=== PATIENT | male | born 1940 | race Two or more races ===

== ENCOUNTER 2018-05-04 01:53 | Inpatient (IN) | payer MEDICARE, MEDICAID ==
[~2018-05-04] VITALS: Ht 167.6 cm; Wt 68.0 kg
[~2018-05-04 01:53] MED LIST: ASPIR 8181 MG ORAL; BENAZEPRIL HCL10 MG ORAL; HUMALOG100 UNIT/4 SUBQ; LANTUS SOL100 UNIT/1 SUBQ; SIMVASTATIN40 MG ORAL; [UNRECOGNIZED DRUG - OTHER] PO
[2018-05-04] MEDS ORDERED: D5NS 1,000 ML IV SCH (02:15)
[2018-05-04 02:41] LABS: EOSINOPHILS % (AUTO) 5.2 % (0.0-3.0); HEMATOCRIT 35.6 % (42.0-52.0); HEMOGLOBIN 12.1 G/DL (14.2-18.0); LYMPHOCYTES % (AUTO) 8.2 % (20.0-45.0); MEAN CORPUSCULAR VOLUME 96 FL (80-99); MONOCYTES % (AUTO) 6.7 % (1.0-10.0); PLATELET COUNT 175 K/UL (150-450); RED BLOOD COUNT 3.71 M/UL (4.70-6.10); RED CELL DISTRIBUTION WIDTH 10.3 % (11.6-14.8); WHITE BLOOD COUNT 10.2 K/UL (4.8-10.8)
[2018-05-04 02:49] LABS: ANION GAP 6 mmol/L (5-15); BLOOD UREA NITROGEN 21 mg/dL (7-18); CALCIUM 9.8 MG/DL (8.5-10.1); CARBON DIOXIDE 28 MMOL/L (21-32); CHLORIDE 96 MMOL/L (98-107); CREATININE 0.8 MG/DL (0.55-1.30); POTASSIUM 4.4 MMOL/L (3.5-5.1); SODIUM 130 MMOL/L (136-145)
[2018-05-04 03:00] LABS: ALANINE AMINOTRANSFERASE 30 U/L (12-78); ALBUMIN/GLOBULIN RATIO 1.2 (1.0-2.7); ALKALINE PHOSPHATASE 55 U/L (46-116); ASPARTATE AMINO TRANSFERASE 28 U/L (15-37); BILIRUBIN,TOTAL 0.4 MG/DL (0.2-1.0)
[2018-05-04 03:46] VITALS: BP 148/80
[2018-05-04 04:40] VITALS: BP 130/71
--- NOTE | 2018-05-04 05:27 | Emergency Room Report ---
History of Present Illness General Chief Complaint: General Complaint Source: Family Member, EMS Present Illness HPI 78-year-old male presents to ED for evaluation. Patient brought in by EMS. at bedside states that patient's Accu-Chek was low. EMS states that their Accu-Chek machine was low. was giving patient glucose. History of diabetes. states this is happening previously. Patient appears altered since last night. Accu-Chek in triage in the 50s. Patient denies any chest pain or shortness of breath. Denies fevers or chills. No other aggravating relieving factors. Denies any other associated symptoms Allergies: Coded Allergies: NO KNOWN ALLERGIES (Unverified Allergy, Unknown, 05/04/18) Patient History Past Medical History: DM, HTN, CVA/TIA Past Surgical History: none Pertinent Family History: none Social History: Denies: smoking, alcohol use, drug use Immunizations: UTD Reviewed Nursing Documentation: PMH: Agreed; PSxH: Agreed Nursing Documentation-PMH Hx Cardiac Problems: Yes Hx Hypertension: Yes Hx Diabetes: Yes Hx Cancer: No Hx Gastrointestinal Problems: Yes Hx Neurological Problems: No Hx Cerebrovascular Accident: Yes - March 2016 Review of Systems All Other Systems: negative except mentioned in HPI Physical Exam Vital Signs Date Time Temp Pulse Resp B/P (MAP) Pulse Ox O2 Delivery O2 Flow Rate FiO2 05/04/18 01:54 98.3 64 16 150/76 99 Room Air 98.2 Sp02 EP Interpretation: reviewed, normal General Appearance: no apparent distress, alert, GCS 15, non-toxic Head: normocephalic, atraumatic Eyes: bilateral eye normal inspection, bilateral eye PERRL ENT: hearing grossly normal, normal pharynx, no angioedema, normal voice Neck: full range of motion, supple/symm/no masses Respiratory: chest non-tender, lungs clear, normal breath sounds, speaking full sentences Cardiovascular #1: regular rate, rhythm, no edema Cardiovascular #2: 2+ carotid (R), 2+ carotid (L), 2+ radial (R), 2+ radial (L) , 2+ dorsalis pedis (R), 2+ dorsalis pedis (L) Gastrointestinal: normal bowel sounds, non tender, soft, non-distended, no guarding, no rebound Rectal: deferred Genitourinary: normal inspection, no CVA tenderness Musculoskeletal: back normal, gait/station normal, normal range of motion, non- tender Neurologic: alert, oriented x3, responsive, motor strength/tone normal, sensory intact, speech normal Psychiatric: judgement/insight normal, memory normal, mood/affect normal, no suicidal/homicidal ideation Reflexes: 3+ bicep (R), 3+ bicep (L), 3+ tricep (R), 3+ tricep (L), 3+ knee (R) , 3+ knee (L) Skin: normal color, no rash, warm/dry, well hydrated Lymphatic: no adenopathy Medical Decision Making Diagnostic Impression: Primary Impression: Hypoglycemia ER Course Hospital Course 78-year-old male presenting to ED with generalized weakness, low FS in field Differential diagnoses include: dehyration, sepsis, hypoglycemia Clinical course Patient placed on stretcher. On patient monitor. After initial history and physical I ordered labs. accucheck in the 50s. given food, given D50 Labs-glucose 54, Na 130, no leukocytosis, hb/hct stable Because patient is on long-acting lantus, it is possible that he can again become hypoglycemic. Patient recommended to be admitted. Patient agrees to plan. started on D5 NS Case discussed with Dr. Martines and he agreed to accept the patient to his service for further care and support i. I feel this is a highly complex case requiring extensive working including EKG/Rhythm strip, Xray/CT/US, Blood/urine lab work, repeat exams while in ED, and administration of strong opiates/narcotics for pain control, admission to hospital or close patient follow up. diagnosis - hypoglycemia admitted to floor in serious condition Labs Test 05/04/18 02:18 White Blood Count 10.2 K/UL (4.8-10.8) Red Blood Count 3.71 M/UL (4.70-6.10) Hemoglobin 12.1 G/DL (14.2-18.0) Hematocrit 35.6 % (42.0-52.0) Mean Corpuscular Volume 96 FL (80-99) Mean Corpuscular Hemoglobin 32.8 PG (27.0-31.0) Mean Corpuscular Hemoglobin Concent 34.1 G/DL (32.0-36.0) Red Cell Distribution Width 10.3 % (11.6-14.8) Platelet Count 175 K/UL (150-450) Mean Platelet Volume 6.4 FL (6.5-10.1) Neutrophils (%) (Auto) 79.0 % (45.0-75.0) Lymphocytes (%) (Auto) 8.2 % (20.0-45.0) Monocytes (%) (Auto) 6.7 % (1.0-10.0) Eosinophils (%) (Auto) 5.2 % (0.0-3.0) Basophils (%) (Auto) 1.0 % (0.0-2.0) Sodium Level 130 MMOL/L (136-145) Potassium Level 4.4 MMOL/L (3.5-5.1) Chloride Level 96 MMOL/L (98-107) Carbon Dioxide Level 28 MMOL/L (21-32) Anion Gap 6 mmol/L (5-15) Blood Urea Nitrogen 21 mg/dL (7-18) Creatinine 0.8 MG/DL (0.55-1.30) Estimat Glomerular Filtration Rate mL/min (>60) Glucose Level 54 MG/DL (74-106) Calcium Level 9.8 MG/DL (8.5-10.1) Magnesium Level 2.1 MG/DL (1.8-2.4) Total Bilirubin 0.4 MG/DL (0.2-1.0) Aspartate Amino Transf (AST/SGOT) 28 U/L (15-37) Alanine Aminotransferase (ALT/SGPT) 30 U/L (12-78) Alkaline Phosphatase 55 U/L (46-116) Total Protein 7.4 G/DL (6.4-8.2) Albumin 4.0 G/DL (3.4-5.0) Globulin 3.4 g/dL Albumin/Globulin Ratio 1.2 (1.0-2.7) Acetone Level Negative (NEGATIVE) Last Vital Signs Date Time Temp Pulse Resp B/P (MAP) Pulse Ox O2 Delivery O2 Flow Rate FiO2 05/04/18 04:40 97.5 63 18 130/71 99 Room Air 97.5 Status: improved Disposition: ADMITTED INPATIENT Condition: Serious Referrals: NOT CHOSEN IPA/,REFERRING (PCP) Jame Buitrago MD May 04, 2018 05:27
[2018-05-04] MEDS ORDERED: Ketorolac 30mg Inj IV PRN (07:30)
[2018-05-04] MEDS ORDERED: Mylanta II UD 30ml ORAL PRN (07:30)
[2018-05-04] MEDS ORDERED: Morphine Sulfate 2mg/ml Inj IVP PRN (07:30)
[2018-05-04] MEDS ORDERED: Albuterol/Ipratropium 3ml neb HHN PRN (07:30)
[2018-05-04] MEDS ORDERED: Miralax 17gm pkt ORAL PRN (07:30)
[2018-05-04] MEDS ORDERED: Nitroglycerin Subl 0.4mg tab SL PRN (07:30)
[2018-05-04 09:00] VITALS: BP 149/75
[2018-05-04] MEDS ORDERED: Heparin 5000 units/ml inj SUBQ SCH (09:00)
[2018-05-04] MEDS: Aspirin Baby 81mg ORAL SCH (09:00)
[2018-05-04] MEDS: Benazepril 10mg tab ORAL SCH (09:46)
[2018-05-04] MEDS: Heparin 5000 units/ml inj SUBQ SCH ×2 (09:48→20:40)
--- NOTE | 2018-05-04 10:49 | History & Physical ---
History and Physical History & Physicial Dictated for Int Med-Dr Martines no. [id number]. Steve Diallo MD May 04, 2018 10:49
--- NOTE | 2018-05-04 11:30 | History and Physical Report ---
DATE OF ADMISSION: 05/04/2018 CHIEF COMPLAINT: The patient is a 78-year-old Nigerian male presents with a chief complaint of low blood sugar. HISTORY OF PRESENT ILLNESS: The patient has a history of diabetes. The patient states his blood sugar has been labile over the past couple of days. Sometimes it is over 400 and sometimes it is less than 60. The patient also has had constipation. The patient states constipation is accompanied by abdominal pain. The patient has also had increased frequency of urination. The patient has stated that he is going to the restroom approximately 15 times in the last couple of hours. The patient also had urinary incontinence. The patient presented to [place] emergency room. An initial venous blood sample showed a blood sugar of 54. The patient was admitted for hypoglycemia and uncontrolled diabetes. REVIEW OF SYSTEMS: CONSTITUTIONAL: The patient denies weight loss or gain. The patient denies fevers or chills. HEENT: The patient denies ear or throat pain. The patient denies headache. CARDIOVASCULAR: The patient denies palpitations or chest pain. CHEST: The patient denies wheeze or shortness of breath. ABDOMEN: The patient complains of generalized abdominal pain. The patient complains of constipation. The patient denies nausea, vomiting, or diarrhea. NEUROMUSCULAR: The patient denies seizures or generalized weakness. GENITOURINARY: The patient complains of increased frequency of urination as above. The patient denies dysuria. PAST MEDICAL HISTORY: Significant for: 1. Uncontrolled diabetes. 2. Hypertension. 3. History of cerebrovascular accident in 2016. 4. Right hemiplegia. PAST SURGICAL HISTORY: Significant for: 1. Bilateral cataract surgery. 2. Exploratory laparotomy for gastric ulcer. CURRENT MEDICATIONS: 1. Aspirin 81 mg one tablet p.o. daily. 2. Benazepril 10 mg p.o. daily. 3. Lantus 6 units subcutaneously at bedtime. 4. Lispro sliding scale. 5. Zocor 40 mg p.o. at bedtime. ALLERGIES: No known drug allergies. SOCIAL HISTORY: The patient is and lives with his . The patient is retired. The patient denies tobacco or alcohol use. PHYSICAL EXAMINATION: VITAL SIGNS: Temperature 98.2, respirations 16, pulse 64, and blood pressure 150/76. GENERAL: The patient is well developed, well nourished, [place] male, in no apparent distress. HEENT: Eyes, pupils equal and responsive to light and accommodation. Extraocular movements are intact. NECK: Supple without lymphadenopathy. CHEST: Lungs are clear to auscultation bilaterally without wheezes or rales. CARDIOVASCULAR: Regular rate. S1, S2 normal without murmurs, rubs, or gallops. ABDOMEN: Soft, nontender, and nondistended. Positive bowel sounds. No evidence of hepatosplenomegaly. Currently, no rebound or guarding noted. EXTREMITIES: Negative for clubbing, cyanosis, or edema. RECTAL: Refused. GENITAL: Refused. NEUROLOGIC: The patient does have a right facial droop. Cranial nerves II through XII otherwise are grossly intact without focal deficits. Motor strength is 5/5 bilaterally. Deep tendon reflexes are 2+ plantar. LABORATORY STUDIES: WBC 10.3, hemoglobin 12.1, hematocrit 35.6, and platelets 175,000. Sodium 130, potassium 4.4, chloride 96, CO2 is 20, BUN 21, creatinine 0.8, and glucose 54. Urinalysis is pending. ASSESSMENT: This is a 78-year-old Nigerian male: 1. Hypoglycemia. 2. Increased frequency of urination. 3. Constipation. 4. Abdominal pain. 5. Hyponatremia. 6. Diabetes type 2. 7. Hypertension. 8. Cerebrovascular disease. 9. Right hemiplegia. TREATMENT: 1. Hypoglycemia/diabetes type 2. An Endocrinology consultation has been obtained with Dr. Gonzalez. We will follow recommendations of Dr. Gonzalez. The patient is currently on a NovoLog sliding scale. 2. Hyponatremia. The patient is currently receiving intravenous fluids. 3. Increased frequency of urination. Urine culture and urinalysis are pending. 4. Abdominal pain/constipation. A Gastroenterology consultation has been obtained with Dr. Fredrick Ott. 5. Hypertension. Continue benazepril as above. 6. History of cerebrovascular disease. Continue aspirin as above. 7. Right hemiplegia. Steve Diallo M.D. DR: ABILIO JOB#: [id number] CC:
[2018-05-04] MEDS: NovoLOG Insulin Flexpen SUBQ SCH ×4 (12:08→21:10)
--- NOTE | 2018-05-04 12:12 | Diagnostic Imaging Report ---
Indication: Dyspnea Comparison: None A single view chest radiograph was obtained. Findings: No definite infiltrate or pulmonary vascular congestion identified. The heart is enlarged. The aorta is mildly enlarged consistent with atherosclerotic vascular disease. The bones are osteopenic. Impression: No acute disease
--- NOTE | 2018-05-04 13:46 | Consultation ---
History of Present Illness General Date patient seen: May 04, 2018 Chief Complaint: General Complaint Present Illness HPI 78-year-old male with hx of DM, COPD, emphysema presented to ED for evaluation of Accu-Chek being low. was giving patient glucose. . Patient appeared altered since last night. Accu-Chek in triage in the 50s. Patient denies any chest pain or shortness of breath. Denies fevers or chills. No other aggravating relieving factors. Denies any other associated symptoms. He looks comfortable after getting the appropriate treatment in ER. Allergies: Coded Allergies: NO KNOWN ALLERGIES (Unverified Allergy, Unknown, 05/04/18) Medication History Scheduled Aspirin* (Aspir 81*), 81 MG ORAL DAILY, (Reported) Benazepril Hcl* (Benazepril Hcl*), 5 MG ORAL DAILY, (Reported) Insulin Glargine (Lantus), 6 SUBQ DAILY, (Reported) Insulin Lispro (Humalog), 3 SUBQ PRN, (Reported) Simvastatin (Zocor), 40 MG ORAL BEDTIME, (Reported) [calcium centrum ], 1 TAB PO DAILY, (Reported) Patient History Healthcare decision maker Resuscitation status Full Code Advanced Directive on File No Past Medical/Surgical History Past Medical/Surgical History: (1) COPD (chronic obstructive pulmonary disease) (2) Diabetes mellitus Review of Systems All Other Systems: negative except mentioned in HPI Physical Exam General Appearance: WD/WN Lines, tubes and drains: peripheral HEENT: normocephalic, atraumatic Neck: non-tender, normal alignment Respiratory/Chest: chest wall non-tender, lungs clear Breasts: no masses Cardiovascular/Chest: normal peripheral pulses, regular rhythm Abdomen: normal bowel sounds, non tender Genitourinary/Rectal: normal genital exam Extremities: normal range of motion Skin Exam: normal pigmentation 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1 G/DL (14.2-18.0) L Hematocrit 35.6 % (42.0-52.0) L Mean Corpuscular Volume 96 FL (80-99) Mean Corpuscular Hemoglobin 32.8 PG (27.0-31.0) H Mean Corpuscular Hemoglobin Concent 34.1 G/DL (32.0-36.0) Red Cell Distribution Width 10.3 % (11.6-14.8) L Platelet Count 175 K/UL (150-450) Mean Platelet Volume 6.4 FL (6.5-10.1) L Neutrophils (%) (Auto) 79.0 % (45.0-75.0) H Lymphocytes (%) (Auto) 8.2 % (20.0-45.0) L Monocytes (%) (Auto) 6.7 % (1.0-10.0) Eosinophils (%) (Auto) 5.2 % (0.0-3.0) H Basophils (%) (Auto) 1.0 % (0.0-2.0) Sodium Level 130 MMOL/L (136-145) L Potassium Level 4.4 MMOL/L (3.5-5.1) Chloride Level 96 MMOL/L (98-107) L Carbon Dioxide Level 28 MMOL/L (21-32) Anion Gap 6 mmol/L (5-15) Blood Urea Nitrogen 21 mg/dL (7-18) H Creatinine 0.8 MG/DL (0.55-1.30) Estimat Glomerular Filtration Rate mL/min (>60) Glucose Level 54 MG/DL (74-106) L Calcium Level 9.8 MG/DL (8.5-10.1) Magnesium Level 2.1 MG/DL (1.8-2.4) Total Bilirubin 0.4 MG/DL (0.2-1.0) Aspartate Amino Transf (AST/SGOT) 28 U/L (15-37) Alanine Aminotransferase (ALT/SGPT) 30 U/L (12-78) Alkaline Phosphatase 55 U/L (46-116) Total Protein 7.4 G/DL (6.4-8.2) Albumin 4.0 G/DL (3.4-5.0) Globulin 3.4 g/dL Albumin/Globulin Ratio 1.2 (1.0-2.7) Acetone Level Negative (NEGATIVE) Height (Feet): 5 Height (Inches): 6.00 Weight (Pounds): 150 Medications Current Medications Medications (Trade) Dose Ordered Sig/Frankie Route PRN Reason Start Time Stop Time Status Last Admin Dose Admin Acetaminophen (Tylenol) 650 mg Q6H PRN ORAL Mild Pain/Temp > 100.5 05/04/18 07:45 06/03/18 07:44 Al Hydroxide/Mg Hydroxide (Mylanta II) 30 ml Q6H PRN ORAL dyspepsia 05/04/18 07:30 06/03/18 07:29 Albuterol/ Ipratropium (Albuterol/ Ipratropium) 3 ml Q4H PRN HHN Shortness of Breath 05/04/18 07:30 05/09/18 07:29 Aspirin (ASA) 81 mg DAILY ORAL 05/04/18 09:00 06/03/18 08:59 Benazepril HCl (Lotensin) 5 mg DAILY ORAL 05/04/18 09:00 06/03/18 08:59 05/04/18 09:46 Clonidine HCl (Catapres Tab) 0.1 mg Q4H PRN ORAL sbp more than 160 05/04/18 07:30 06/03/18 07:29 Dextrose (Dextrose 50%) 25 ml STAT PRN IV Hypoglycemia 05/04/18 07:30 06/03/18 07:29 Dextrose (Dextrose 50%) 50 ml STAT PRN IV Hypoglycemia 05/04/18 07:30 06/03/18 07:29 Heparin Sodium (Porcine) (Heparin 5000 units/ml) 5,000 units EVERY 12 HOURS SUBQ 05/04/18 09:00 06/03/18 08:59 05/04/18 09:48 Insulin Aspart (NovoLOG) BEFORE MEALS AND HS SUBQ 05/04/18 11:30 06/03/18 11:29 05/04/18 12:08 Insulin Detemir (Levemir) 6 units BEDTIME SUBQ 05/04/18 21:00 06/03/18 20:59 Ketorolac Tromethamine (Toradol 30mg) 30 mg Q6H PRN IV moderate pain 4-6 05/04/18 07:30 05/09/18 07:29 Morphine Sulfate (Morphine Sulfate) 2 mg Q4H PRN IVP severe pain 7-05/04/18 07:30 05/11/18 07:29 Nitroglycerin (Ntg) 0.4 mg Q5M X 3 DOSES PRN SL Prn Chest Pain 05/04/18 07:30 06/03/18 07:29 Ondansetron HCl (Zofran) 4 mg Q6H PRN IVP Nausea & Vomiting 05/04/18 07:30 06/03/18 07:29 Polyethylene Glycol (Miralax) 17 gm HSPRN PRN ORAL Constipation 05/04/18 07:30 06/03/18 07:29 Sodium Chloride 1,000 ml @ 100 mls/hr Q10H IVLG 05/04/18 07:17 06/03/18 07:16 05/04/18 09:44 Temazepam (Restoril) 15 mg HSPRN PRN ORAL Insomnia 05/04/18 07:30 05/11/18 07:29 Assessment/Plan Problem List: (1) Hypoglycemia ICD Codes: E16.2 - Hypoglycemia, unspecified SNOMED: 688709456 (2) COPD (chronic obstructive pulmonary disease) ICD Codes: J44.9 - Chronic obstructive pulmonary disease, unspecified SNOMED: 78294015 (3) Diabetes mellitus ICD Codes: E11.9 - Type 2 diabetes mellitus without complications SNOMED: 67497765 Assessment/Plan sliding scale diabetic diet endo to see respiratory treatment titrate fio2 to sat of 92% check electrolytes nutrition evaluation dvt prophylaxis. Laurita Wright MD May 04, 2018 13:46
--- NOTE | 2018-05-04 17:28 | Consultation ---
History of Present Illness General Chief Complaint: General Complaint Present Illness Allergies: Coded Allergies: NO KNOWN ALLERGIES (Unverified Allergy, Unknown, 05/04/18) Medication History Scheduled Aspirin* (Aspir 81*), 81 MG ORAL DAILY, (Reported) Benazepril Hcl* (Benazepril Hcl*), 5 MG ORAL DAILY, (Reported) Insulin Glargine (Lantus), 6 SUBQ DAILY, (Reported) Insulin Lispro (Humalog), 3 SUBQ PRN, (Reported) Simvastatin (Zocor), 40 MG ORAL BEDTIME, (Reported) [calcium centrum ], 1 TAB PO DAILY, (Reported) Patient History Healthcare decision maker Resuscitation status Full Code Advanced Directive on File No Physical Exam Last 24 Hour Vital Signs Date Time Temp Pulse Resp B/P (MAP) Pulse Ox O2 Delivery O2 Flow Rate FiO2 05/04/18 09:46 160/78 05/04/18 09:00 97.8 61 20 149/75 98 97.8 05/04/18 04:40 97.5 63 18 130/71 99 Room Air 97.5 05/04/18 04:22 98.2 89 16 148/80 99 Room Air 98.2 05/04/18 03:46 98.2 89 16 148/80 99 Room Air 98.2 05/04/18 01:54 98.3 64 16 150/76 99 Room Air 98.2 Intake and Output 05/03/18 05/04/18 19:00 07:00 Intake Total 0 ml Balance 0 ml Intake Oral 0 ml # Voids 4 Laboratory Tests Test 05/04/18 02:18 White Blood Count 10.2 K/UL (4.8-10.8) Red Blood Count 3.71 M/UL (4.70-6.10) L Hemoglobin 12.1 G/DL (14.2-18.0) L Hematocrit 35.6 % (42.0-52.0) L Mean Corpuscular Volume 96 FL (80-99) Mean Corpuscular Hemoglobin 32.8 PG (27.0-31.0) H Mean Corpuscular Hemoglobin Concent 34.1 G/DL (32.0-36.0) Red Cell Distribution Width 10.3 % (11.6-14.8) L Platelet Count 175 K/UL (150-450) Mean Platelet Volume 6.4 FL (6.5-10.1) L Neutrophils (%) (Auto) 79.0 % (45.0-75.0) H Lymphocytes (%) (Auto) 8.2 % (20.0-45.0) L Monocytes (%) (Auto) 6.7 % (1.0-10.0) Eosinophils (%) (Auto) 5.2 % (0.0-3.0) H Basophils (%) (Auto) 1.0 % (0.0-2.0) Sodium Level 130 MMOL/L (136-145) L Potassium Level 4.4 MMOL/L (3.5-5.1) Chloride Level 96 MMOL/L (98-107) L Carbon Dioxide Level 28 MMOL/L (21-32) Anion Gap 6 mmol/L (5-15) Blood Urea Nitrogen 21 mg/dL (7-18) H Creatinine 0.8 MG/DL (0.55-1.30) Estimat Glomerular Filtration Rate mL/min (>60) Glucose Level 54 MG/DL (74-106) L Calcium Level 9.8 MG/DL (8.5-10.1) Magnesium Level 2.1 MG/DL (1.8-2.4) Total Bilirubin 0.4 MG/DL (0.2-1.0) Aspartate Amino Transf (AST/SGOT) 28 U/L (15-37) Alanine Aminotransferase (ALT/SGPT) 30 U/L (12-78) Alkaline Phosphatase 55 U/L (46-116) Total Protein 7.4 G/DL (6.4-8.2) Albumin 4.0 G/DL (3.4-5.0) Globulin 3.4 g/dL Albumin/Globulin Ratio 1.2 (1.0-2.7) Acetone Level Negative (NEGATIVE) Height (Feet): 5 Height (Inches): 6.00 Weight (Pounds): 150 Medications Current Medications Medications (Trade) Dose Ordered Sig/Frankie Route PRN Reason Start Time Stop Time Status Last Admin Dose Admin Acetaminophen (Tylenol) 650 mg Q6H PRN ORAL Mild Pain/Temp > 100.5 05/04/18 07:45 06/03/18 07:44 Al Hydroxide/Mg Hydroxide (Mylanta II) 30 ml Q6H PRN ORAL dyspepsia 05/04/18 07:30 06/03/18 07:29 Albuterol/ Ipratropium (Albuterol/ Ipratropium) 3 ml Q4H PRN HHN Shortness of Breath 05/04/18 07:30 05/09/18 07:29 Aspirin (ASA) 81 mg DAILY ORAL 05/04/18 09:00 06/03/18 08:59 Benazepril HCl (Lotensin) 5 mg DAILY ORAL 05/04/18 09:00 06/03/18 08:59 05/04/18 09:46 Clonidine HCl (Catapres Tab) 0.1 mg Q4H PRN ORAL sbp more than 160 05/04/18 07:30 06/03/18 07:29 Dextrose (Dextrose 50%) 25 ml STAT PRN IV Hypoglycemia 05/04/18 07:30 06/03/18 07:29 Dextrose (Dextrose 50%) 50 ml STAT PRN IV Hypoglycemia 05/04/18 07:30 06/03/18 07:29 Heparin Sodium (Porcine) (Heparin 5000 units/ml) 5,000 units EVERY 12 HOURS SUBQ 05/04/18 09:00 06/03/18 08:59 05/04/18 09:48 Insulin Aspart (NovoLOG) BEFORE MEALS AND HS SUBQ 05/04/18 11:30 06/03/18 11:29 05/04/18 16:33 Insulin Detemir (Levemir) 6 units BEDTIME SUBQ 05/04/18 21:00 06/03/18 20:59 Ketorolac Tromethamine (Toradol 30mg) 30 mg Q6H PRN IV moderate pain 4-6 05/04/18 07:30 05/09/18 07:29 Morphine Sulfate (Morphine Sulfate) 2 mg Q4H PRN IVP severe pain 7-10 05/04/18 07:30 05/11/18 07:29 Nitroglycerin (Ntg) 0.4 mg Q5M X 3 DOSES PRN SL Prn Chest Pain 05/04/18 07:30 06/03/18 07:29 Ondansetron HCl (Zofran) 4 mg Q6H PRN IVP Nausea & Vomiting 05/04/18 07:30 06/03/18 07:29 Polyethylene Glycol (Miralax) 17 gm HSPRN PRN ORAL Constipation 05/04/18 07:30 06/03/18 07:29 Temazepam (Restoril) 15 mg HSPRN PRN ORAL Insomnia 05/04/18 07:30 05/11/18 07:29 Dominick Mason MD May 04, 2018 17:28
[2018-05-04 17:42] LABS: APPEARANCE,URINE CLEAR; BILIRUBIN, URINE NEGATIVE (NEGATIVE); COLOR,URINE PALE YELLOW; GLUCOSE, URINE (UA) 4+ (NEGATIVE); KETONES,URINE NEGATIVE (NEGATIVE); LEUKOCYTE ESTERASE ,URINE NEGATIVE (NEGATIVE); NITRITE,URINE NEGATIVE (NEGATIVE); PH,URINE 8 (4.5-8.0); PROTEIN,URINE NEGATIVE (NEGATIVE); UROBILINOGEN,URINE NORMAL MG/DL (0.0-1.0)
[2018-05-04 21:00] VITALS: BP 142/63
[2018-05-04] MEDS ORDERED: Levemir Flexpen SUBQ SCH ×3 (21:00)
[2018-05-04] MEDS ORDERED: NovoLOG Insulin Flexpen SUBQ ONE (21:00)
[2018-05-05] VITALS: BP 120/63
[2018-05-05 04:00] VITALS: BP 123/58
[2018-05-05] MEDS: NovoLOG Insulin Flexpen SUBQ SCH ×5 (05:48→11:50)
[2018-05-05 06:47] LABS: BASOPHILS % (AUTO) 1.5 % (0.0-2.0); EOSINOPHILS % (AUTO) 15.2 % (0.0-3.0); HEMOGLOBIN 12.5 G/DL (14.2-18.0); LYMPHOCYTES % (AUTO) 15.7 % (20.0-45.0); MEAN CORPUSCULAR VOLUME 97 FL (80-99); MONOCYTES % (AUTO) 8.8 % (1.0-10.0); NEUTROPHILS % (AUTO) 58.8 % (45.0-75.0); PLATELET COUNT 181 K/UL (150-450); RED BLOOD COUNT 3.71 M/UL (4.70-6.10); RED CELL DISTRIBUTION WIDTH 10.5 % (11.6-14.8); WHITE BLOOD COUNT 7.7 K/UL (4.8-10.8)
[2018-05-05 07:01] LABS: PHOSPHORUS 3.9 MG/DL (2.5-4.9)
--- NOTE | 2018-05-05 07:05 | General Progress Note ---
Assessment/Plan Problem List: (1) Hypoglycemia ICD Codes: E16.2 - Hypoglycemia, unspecified SNOMED: 956306691 (2) Diabetes mellitus ICD Codes: E11.9 - Type 2 diabetes mellitus without complications SNOMED: 70764322 (3) COPD (chronic obstructive pulmonary disease) ICD Codes: J44.9 - Chronic obstructive pulmonary disease, unspecified SNOMED: 48249227 Assessment/Plan Levemir 10 units qhs Novolog 3 units ac tid NISS ac / hs Subjective Allergies: Coded Allergies: NO KNOWN ALLERGIES (Unverified Allergy, Unknown, 05/04/18) All Systems: reviewed and negative except above Subjective events noted Objective Last 24 Hour Vital Signs Date Time Temp Pulse Resp B/P (MAP) Pulse Ox O2 Delivery O2 Flow Rate FiO2 05/05/18 04:00 98.0 69 16 123/58 100 Room Air 98.0 05/05/18 00:00 97.5 78 20 120/63 98 Room Air 97.5 05/04/18 21:00 97.5 60 18 142/63 99 Room Air 97.5 05/04/18 09:46 160/78 05/04/18 09:00 97.8 61 20 149/75 98 97.8 Intake and Output 05/04/18 05/05/18 19:00 07:00 Intake Total 500 ml Balance 500 ml Intake Oral 200 ml IV Total 300 ml # Voids 3 3 Laboratory Tests 05/04/18 17:25: Urine Color Pale yellow, Urine Appearance Clear, Urine pH 8, Urine Specific [place] 1.010, Urine Protein Negative, Urine Glucose (UA) 4+H, Urine Ketones Negative, Urine Occult Blood Negative, Urine Nitrite Negative, Urine Bilirubin Negative, Urine Urobilinogen Normal, Urine Leukocyte Esterase Negative 05/05/18 05:45: White Blood Count 7.7, Red Blood Count 3.71L, Hemoglobin 12.5L, Hematocrit 36.0L , Mean Corpuscular Volume 97, Mean Corpuscular Hemoglobin 33.6H, Mean Corpuscular Hemoglobin Concent 34.6, Red Cell Distribution Width 10.5L, Platelet Count 181, Mean Platelet Volume 7.0, Neutrophils (%) (Auto) 58.8, Lymphocytes (%) (Auto) 15.7L, Monocytes (%) (Auto) 8.8, Eosinophils (%) (Auto) 15.2H, Basophils (%) (Auto) 1.5, Sodium Level [Pending], Potassium Level [ Pending], Chloride Level [Pending], Carbon Dioxide Level [Pending], Blood Urea Nitrogen [Pending], Creatinine [Pending], Estimat Glomerular Filtration Rate [ Pending], Glucose Level [Pending], Hemoglobin A1c [Pending], Calcium Level [ Pending], Phosphorus Level 3.9, Magnesium Level 1.9, Total Bilirubin [Pending], Aspartate Amino Transf (AST/SGOT) [Pending], Alanine Aminotransferase (ALT/SGPT ) [Pending], Alkaline Phosphatase [Pending], Total Protein [Pending], Albumin [ Pending], Globulin [Pending], Triglycerides Level [Pending], Cholesterol Level [ Pending], LDL Cholesterol [Pending], HDL Cholesterol [Pending], Cholesterol/HDL Ratio [Pending], Thyroid Stimulating Hormone (TSH) [Pending] Height (Feet): 5 Height (Inches): 6.00 Weight (Pounds): 150 General Appearance: no apparent distress Neck: normal alignment Cardiovascular: normal rate Respiratory/Chest: lungs clear Abdomen: normal bowel sounds Pelvis: normal external exam Objective Current Medications Medications (Trade) Dose Ordered Sig/Frankie Route PRN Reason Start Time Stop Time Status Last Admin Dose Admin Acetaminophen (Tylenol) 650 mg Q6H PRN ORAL Mild Pain/Temp > 100.5 05/04/18 07:45 06/03/18 07:44 Al Hydroxide/Mg Hydroxide (Mylanta II) 30 ml Q6H PRN ORAL dyspepsia 05/04/18 07:30 06/03/18 07:29 Albuterol/ Ipratropium (Albuterol/ Ipratropium) 3 ml Q4H PRN HHN Shortness of Breath 05/04/18 07:30 05/09/18 07:29 Aspirin (ASA) 81 mg DAILY ORAL 05/04/18 09:00 06/03/18 08:59 Benazepril HCl (Lotensin) 5 mg DAILY ORAL 05/04/18 09:00 06/03/18 08:59 05/04/18 09:46 Clonidine HCl (Catapres Tab) 0.1 mg Q4H PRN ORAL sbp more than 160 05/04/18 07:30 06/03/18 07:29 Dextrose (Dextrose 50%) 25 ml STAT PRN IV Hypoglycemia 05/04/18 18:30 06/03/18 18:29 Dextrose (Dextrose 50%) 50 ml STAT PRN IV Hypoglycemia 05/04/18 18:30 06/03/18 18:29 Heparin Sodium (Porcine) (Heparin 5000 units/ml) 5,000 units EVERY 12 HOURS SUBQ 05/04/18 09:00 06/03/18 08:59 05/04/18 20:40 Insulin Aspart (NovoLOG) BEFORE MEALS AND HS SUBQ 05/04/18 11:30 06/03/18 11:29 05/05/18 05:48 Insulin Aspart (NovoLOG) 3 units NOVOTIAC SUBQ 05/05/18 06:30 06/04/18 06:29 Insulin Detemir (Levemir) 10 units BEDTIME SUBQ 05/04/18 21:00 06/03/18 20:59 05/04/18 21:09 Ketorolac Tromethamine (Toradol 30mg) 30 mg Q6H PRN IV moderate pain 4-6 05/04/18 07:30 05/09/18 07:29 Morphine Sulfate (Morphine Sulfate) 2 mg Q4H PRN IVP severe pain 7-10 05/04/18 07:30 05/11/18 07:29 Nitroglycerin (Ntg) 0.4 mg Q5M X 3 DOSES PRN SL Prn Chest Pain 05/04/18 07:30 06/03/18 07:29 Ondansetron HCl (Zofran) 4 mg Q6H PRN IVP Nausea & Vomiting 05/04/18 07:30 06/03/18 07:29 Polyethylene Glycol (Miralax) 17 gm HSPRN PRN ORAL Constipation 05/04/18 07:30 06/03/18 07:29 Temazepam (Restoril) 15 mg HSPRN PRN ORAL Insomnia 05/04/18 07:30 05/11/18 07:29 Item Value Date Time Bedside Blood Glucose 207 mg/dl H 05/05/18 0617 Bedside Blood Glucose Critically High Result 05/04/18 2157 Bedside Blood Glucose 461 mg/dl H 05/04/18 1633 Bedside Blood Glucose 411 mg/dl H 05/04/18 1208 Bedside Blood Glucose 253 mg/dl H 05/04/18 0627 Bedside Blood Glucose 239 mg/dl H 05/04/18 0251 Luis Gonzalez MD May 05, 2018 07:05
[2018-05-05 07:20] LABS: ALANINE AMINOTRANSFERASE 30 U/L (12-78); ALBUMIN 3.6 G/DL (3.4-5.0); ALBUMIN/GLOBULIN RATIO 1.1 (1.0-2.7); ALKALINE PHOSPHATASE 59 U/L (46-116); ANION GAP 5 mmol/L (5-15); ASPARTATE AMINO TRANSFERASE 24 U/L (15-37); BILIRUBIN,TOTAL 0.5 MG/DL (0.2-1.0); BLOOD UREA NITROGEN 33 mg/dL (7-18); CALCIUM 9.1 MG/DL (8.5-10.1); CARBON DIOXIDE 27 MMOL/L (21-32); CHLORIDE 99 MMOL/L (98-107); CHOLESTEROL 164 MG/DL (< 200); HDL CHOLESTEROL 109 MG/DL (40-60); POTASSIUM 4.8 MMOL/L (3.5-5.1); SODIUM 131 MMOL/L (136-145); TRIGLYCERIDES 16 MG/DL (30-150)
[2018-05-05 08:00] VITALS: BP 138/70
[2018-05-05] MEDS: Aspirin Baby 81mg ORAL SCH (08:22)
[2018-05-05] MEDS: Benazepril 10mg tab ORAL SCH (08:23)
[2018-05-05] MEDS: Heparin 5000 units/ml inj SUBQ SCH (08:27)
--- NOTE | 2018-05-05 09:44 | Consultation ---
DATE OF CONSULTATION: 05/04/2018 CARDIOLOGY CONSULTATION CONSULTING PHYSICIAN: Luis Gonzalez M.D. REFERRING PHYSICIAN: Steve Diallo M.D. REASON FOR CONSULTATION: Management of diabetes. HISTORY OF PRESENT ILLNESS: The patient is a 78-year-old male, well known to me since I am following him an outpatient for the management of type 1 diabetes, who has not been showing up to my office for the past year. His primary care doctor as an outpatient is Dr. Usman Manning. He is admitted to the hospital with symptomatic hypoglycemia admitted to the med/surg floor and I was called to manage diabetes. PAST MEDICAL HISTORY: 1. Type 1 diabetes. 2. Hypertension. 3. CVA in 2016. 4. Right hemiplegia. PAST SURGICAL HISTORY: 1. Bilateral cataract surgery. 2. Exploratory laparotomy for gastric ulcer. MEDICATIONS: 1. Aspirin 81 mg daily. 2. Benazepril 10 mg daily. 3. Lantus 6 units at bedtime. 4. Humalog sliding scale. 5. Zocor. ALLERGIES TO MEDICATIONS: None. SOCIAL HISTORY: The patient is . Lives with his . He is retired. No smoking, alcohol, or drug use. REVIEW OF SYSTEMS: A 12-point review of system was performed. The pertinent positives and negatives are as mentioned in the history of present illness. PHYSICAL EXAMINATION: VITAL SIGNS: Blood pressure is 140/80, pulse 72, temperature 98, and respiratory rate of 18. HEENT: Pupils are equal and reactive to light. Sclerae are anicteric. NECK: No JVD. No thyromegaly. No bruit. LUNGS: Clear. HEART: Regular rate and rhythm. ABDOMEN: Positive bowel sounds. EXTREMITIES: No clubbing, cyanosis, or edema. LABORATORY DATA: WBC 10, hemoglobin 12, hematocrit 35, and platelets of 175,000. Sodium 130, potassium 4.4, chloride 96, bicarbonate 28, BUN 21, and creatinine 0.8. DIAGNOSES: 1. Labile type 1 diabetes. 2. Symptomatic hypoglycemia. PLAN: 1. Levemir 10 units at bedtime. 2. Humalog 3 units before each meal. 3. Sliding scale insulin at bedtime. 4. Further adjustment according to blood glucose values. Thank you, Dr. Diallo, for the courtesy of this consultation. Luis Gonzalez M.D. DR: ANTONIO JOB#: [id number] CC: FESTUS
[2018-05-05] MEDS ORDERED: Pneumococcal Vaccine 25mcg/0.5ml IM ONE (11:00)
[2018-05-05 11:52] VITALS: BP 136/68
[2018-05-05] MEDS ORDERED: LEVEMIR FL100 UNIT/1 SUBQ (12:55)
[2018-05-05] MEDS ORDERED: BENAZEPRIL HCL10 MG ORAL (12:55)
--- NOTE | 2018-05-05 13:04 | Pulmonology Progress Note ---
Assessment/Plan Problems: (1) Hypoglycemia (2) COPD (chronic obstructive pulmonary disease) (3) Diabetes mellitus Assessment/Plan BS better controlled Endo consult appreciated pt/ot dc planning Subjective ROS Limited/Unobtainable: No Allergies: Coded Allergies: NO KNOWN ALLERGIES (Unverified Allergy, Unknown, 05/04/18) Objective Last 24 Hour Vital Signs Date Time Temp Pulse Resp B/P (MAP) Pulse Ox O2 Delivery O2 Flow Rate FiO2 05/05/18 11:52 98.1 57 18 136/68 100 98.1 05/05/18 08:23 137/70 05/05/18 08:00 98.1 63 18 138/70 97 98.1 05/05/18 04:00 98.0 69 16 123/58 100 Room Air 98.0 05/05/18 00:00 97.5 78 20 120/63 98 Room Air 97.5 05/04/18 21:00 97.5 60 18 142/63 99 Room Air 97.5 Intake and Output 05/04/18 05/05/18 19:00 07:00 Intake Total 500 ml Balance 500 ml Intake Oral 200 ml IV Total 300 ml # Voids 3 3 General Appearance: WD/WN HEENT: normocephalic, atraumatic Respiratory/Chest: chest wall non-tender, lungs clear Cardiovascular: normal peripheral pulses, normal rate Genitourinary: normal external genitalia Skin: no rash Neurologic/Psychiatric: residential program manager II-XII grossly normal Microbiology Date/Time Source Procedure Growth Status 05/04/18 17:25 Urine,Clean Catch Urine Culture - Preliminary NO GROWTH Resulted Laboratory Tests 05/04/18 17:25: Urine Color Pale yellow, Urine Appearance Clear, Urine pH 8, Urine Specific [place] 1.010, Urine Protein Negative, Urine Glucose (UA) 4+H, Urine Ketones Negative, Urine Occult Blood Negative, Urine Nitrite Negative, Urine Bilirubin Negative, Urine Urobilinogen Normal, Urine Leukocyte Esterase Negative 05/05/18 05:45: White Blood Count 7.7, Red Blood Count 3.71L, Hemoglobin 12.5L, Hematocrit 36.0L , Mean Corpuscular Volume 97, Mean Corpuscular Hemoglobin 33.6H, Mean Corpuscular Hemoglobin Concent 34.6, Red Cell Distribution Width 10.5L, Platelet Count 181, Mean Platelet Volume 7.0, Neutrophils (%) (Auto) 58.8, Lymphocytes (%) (Auto) 15.7L, Monocytes (%) (Auto) 8.8, Eosinophils (%) (Auto) 15.2H, Basophils (%) (Auto) 1.5, Sodium Level 131L, Potassium Level 4.8, Chloride Level 99, Carbon Dioxide Level 27, Anion Gap 5, Blood Urea Nitrogen 33H , Creatinine 1.0, Estimat Glomerular Filtration Rate , Glucose Level 218#H, Hemoglobin A1c 7.5H, Calcium Level 9.1, Phosphorus Level 3.9, Magnesium Level 1.9, Total Bilirubin 0.5, Aspartate Amino Transf (AST/SGOT) 24, Alanine Aminotransferase (ALT/SGPT) 30, Alkaline Phosphatase 59, Total Protein 6.9, Albumin 3.6, Globulin 3.3, Albumin/Globulin Ratio 1.1, Triglycerides Level 16L, Cholesterol Level 164, LDL Cholesterol 57, HDL Cholesterol 109H, Cholesterol/ HDL Ratio 1.5L, Thyroid Stimulating Hormone (TSH) 1.684 Current Medications Medications (Trade) Dose Ordered Sig/Frankie Route PRN Reason Start Time Stop Time Status Last Admin Dose Admin Acetaminophen (Tylenol) 650 mg Q6H PRN ORAL Mild Pain/Temp > 100.5 05/04/18 07:45 06/03/18 07:44 Al Hydroxide/Mg Hydroxide (Mylanta II) 30 ml Q6H PRN ORAL dyspepsia 05/04/18 07:30 06/03/18 07:29 Albuterol/ Ipratropium (Albuterol/ Ipratropium) 3 ml Q4H PRN HHN Shortness of Breath 05/04/18 07:30 05/09/18 07:29 Aspirin (ASA) 81 mg DAILY ORAL 05/04/18 09:00 06/03/18 08:59 05/05/18 08:22 Benazepril HCl (Lotensin) 5 mg DAILY ORAL 05/04/18 09:00 06/03/18 08:59 05/05/18 08:23 Clonidine HCl (Catapres Tab) 0.1 mg Q4H PRN ORAL sbp more than 160 05/04/18 07:30 06/03/18 07:29 Dextrose (Dextrose 50%) 25 ml STAT PRN IV Hypoglycemia 05/04/18 18:30 06/03/18 18:29 Dextrose (Dextrose 50%) 50 ml STAT PRN IV Hypoglycemia 05/04/18 18:30 06/03/18 18:29 Heparin Sodium (Porcine) (Heparin 5000 units/ml) 5,000 units EVERY 12 HOURS SUBQ 05/04/18 09:00 06/03/18 08:59 05/05/18 08:27 Insulin Aspart (NovoLOG) BEFORE MEALS AND HS SUBQ 05/04/18 11:30 06/03/18 11:29 05/05/18 05:48 Insulin Aspart (NovoLOG) 3 units NOVOTIAC SUBQ 05/05/18 06:30 06/04/18 06:29 05/05/18 07:39 Insulin Detemir (Levemir) 10 units BEDTIME SUBQ 05/04/18 21:00 06/03/18 20:59 05/04/18 21:09 Ketorolac Tromethamine (Toradol 30mg) 30 mg Q6H PRN IV moderate pain 4-6 05/04/18 07:30 05/09/18 07:29 Morphine Sulfate (Morphine Sulfate) 2 mg Q4H PRN IVP severe pain 7-10 05/04/18 07:30 05/11/18 07:29 Nitroglycerin (Ntg) 0.4 mg Q5M X 3 DOSES PRN SL Prn Chest Pain 05/04/18 07:30 06/03/18 07:29 Ondansetron HCl (Zofran) 4 mg Q6H PRN IVP Nausea & Vomiting 05/04/18 07:30 06/03/18 07:29 Polyethylene Glycol (Miralax) 17 gm HSPRN PRN ORAL Constipation 05/04/18 07:30 06/03/18 07:29 Temazepam (Restoril) 15 mg HSPRN PRN ORAL Insomnia 05/04/18 07:30 05/11/18 07:29 Laurita Wright MD May 05, 2018 13:04
--- NOTE | 2018-05-05 17:20 | Internal Med Progress Note ---
Subjective Date of Service: May 05, 2018 Physician Name Steve Diallo Attending Physician Marcelo Martines MD Allergies: Coded Allergies: NO KNOWN ALLERGIES (Unverified Allergy, Unknown, 05/04/18) ROS Limited/Unobtainable: No Constitutional: Reports: no symptoms HEENT: Reports: no symptoms Cardiovascular: Reports: no symptoms Respiratory: Reports: no symptoms Gastrointestinal/Abdominal: Reports: no symptoms Genitourinary: Reports: no symptoms Neurologic/Psychiatric: Reports: no symptoms - M admitted with hy Subjective 78 YO M admitted with hypoglycemia. Cover for Int Med-Dr Martines. Objective Last Vital Signs Date Time Temp Pulse Resp B/P (MAP) Pulse Ox O2 Delivery O2 Flow Rate FiO2 05/05/18 11:52 98.1 57 18 136/68 100 98.1 05/05/18 04:00 Room Air General Appearance: WD/WN, no apparent distress, alert EENT: PERRL/EOMI, normal ENT inspection Neck: non-tender, normal alignment, supple, normal inspection Cardiovascular: normal peripheral pulses, normal rate, regular rhythm, no gallop/murmur, no JVD Respiratory/Chest: chest wall non-tender, lungs clear, normal breath sounds, no respiratory distress, no accessory muscle use Abdomen: normal bowel sounds, non tender, soft, no organomegaly, no mass Extremities: normal range of motion Edema: trace edema Neurologic: trainman II-XII grossly normal, no motor/sensory deficits Laboratory Tests Test 05/04/18 17:25 05/05/18 05:45 Urine Color Pale yellow Urine Appearance Clear Urine pH 8 (4.5-8.0) Urine Specific [place] 1.010 (1.005-1.035) Urine Protein Negative (NEGATIVE) Urine Glucose (UA) 4+ (NEGATIVE) H Urine Ketones Negative (NEGATIVE) Urine Occult Blood Negative (NEGATIVE) Urine Nitrite Negative (NEGATIVE) Urine Bilirubin Negative (NEGATIVE) Urine Urobilinogen Normal MG/DL (0.0-1.0) Urine Leukocyte Esterase Negative (NEGATIVE) White Blood Count 7.7 K/UL (4.8-10.8) Red Blood Count 3.71 M/UL (4.70-6.10) L Hemoglobin 12.5 G/DL (14.2-18.0) L Hematocrit 36.0 % (42.0-52.0) L Mean Corpuscular Volume 97 FL (80-99) Mean Corpuscular Hemoglobin 33.6 PG (27.0-31.0) H Mean Corpuscular Hemoglobin Concent 34.6 G/DL (32.0-36.0) Red Cell Distribution Width 10.5 % (11.6-14.8) L Platelet Count 181 K/UL (150-450) Mean Platelet Volume 7.0 FL (6.5-10.1) Neutrophils (%) (Auto) 58.8 % (45.0-75.0) Lymphocytes (%) (Auto) 15.7 % (20.0-45.0) L Monocytes (%) (Auto) 8.8 % (1.0-10.0) Eosinophils (%) (Auto) 15.2 % (0.0-3.0) H Basophils (%) (Auto) 1.5 % (0.0-2.0) Sodium Level 131 MMOL/L (136-145) L Potassium Level 4.8 MMOL/L (3.5-5.1) Chloride Level 99 MMOL/L (98-107) Carbon Dioxide Level 27 MMOL/L (21-32) Anion Gap 5 mmol/L (5-15) Blood Urea Nitrogen 33 mg/dL (7-18) H Creatinine 1.0 MG/DL (0.55-1.30) Estimat Glomerular Filtration Rate mL/min (>60) Glucose Level 218 MG/DL (74-106) #H Hemoglobin A1c 7.5 % (4.3-6.0) H Calcium Level 9.1 MG/DL (8.5-10.1) Phosphorus Level 3.9 MG/DL (2.5-4.9) Magnesium Level 1.9 MG/DL (1.8-2.4) Total Bilirubin 0.5 MG/DL (0.2-1.0) Aspartate Amino Transf (AST/SGOT) 24 U/L (15-37) Alanine Aminotransferase (ALT/SGPT) 30 U/L (12-78) Alkaline Phosphatase 59 U/L (46-116) Total Protein 6.9 G/DL (6.4-8.2) Albumin 3.6 G/DL (3.4-5.0) Globulin 3.3 g/dL Albumin/Globulin Ratio 1.1 (1.0-2.7) Triglycerides Level 16 MG/DL (30-150) L Cholesterol Level 164 MG/DL (< 200) LDL Cholesterol 57 mg/dL (<100) HDL Cholesterol 109 MG/DL (40-60) H Cholesterol/HDL Ratio 1.5 (3.3-4.4) L Thyroid Stimulating Hormone (TSH) 1.684 uiU/mL (0.358-3.740) Microbiology Date/Time Source Procedure Growth Status 05/04/18 17:25 Urine,Clean Catch Urine Culture - Preliminary NO GROWTH Resulted Intake and Output 05/04/18 05/05/18 19:00 07:00 Intake Total 500 ml Balance 500 ml Intake Oral 200 ml IV Total 300 ml # Voids 3 3 Assessment/Plan Problem List: (1) Hyponatremia Assessment & Plan: resolved (2) Increased urinary frequency Assessment & Plan: Urine culture neg (3) Constipation (4) Abdominal pain (5) Diabetes mellitus type II, uncontrolled Assessment & Plan: See enndocrinology note. (6) Hypertension Assessment & Plan: Continue benazepril (7) Cerebral vascular disease (8) Hemiplegia affecting right dominant side (9) Hypoglycemia Assessment & Plan: Due to insulin therapy. See endocrinology note. Assessment/Plan Discharge home today Steve Diallo MD May 05, 2018 17:20
--- NOTE | 2018-05-07 09:37 | Discharge Summary ---
Discharge Summary Discharge Summary _ DATE OF ADMISSION: 05/04/2018 DATE OF DISCHARGE: 05/05/2018 REASON FOR ADMISSION: 78 years old male with past medical history significant for diabetes mellitus, COPD, hypertension, CVA with right hemiplegia, was brought to emergency room for evaluation due to hypoglycemia. According to , patient had a low Accu -Check reading, it happened before as well. Patient appeared to be altered since last night. In triage Accu-Chek was in 50s. Patient denied chest pain ,shortness of breath . No fever, no chills. Vital signs were stable. No leukocytosis, stable hemoglobin and hematocrit. Laboratory glucose 54. Urinalysis without evidence of infection. Patient started on the IV D5NS and admitted for further management with diagnosis of symptomatic hypoglycemia, labile diabetes mellitus , hypertension, history of CVA CONSULTANTS: pulmonary Dr. Wright night clerk Dr. Gonzalez psychiatrist dr Mason [facility]: Patient admitted. Patient started initially on IV D5NS. e Endocrinology and pulmonology consults were requested. Inspector Rough [employer]ings seen and evaluated patient . Patient started on regimen of long-acting Levemir, pre-meal short-acting NovoLog and sliding scale insulin as needed after blood sugar stabilized, doses were titrated per night clerk. Hemoglobin A1c 7.5, near goal. Supplemental oxygen provided as needed to keep pulse oximetry above 92%. Pulmonary toilet was on standby as needed No evidence of COPD exacerbation. Blood pressure was managed with ROSI inhibitor and clonidine on as needed basis , remained stable . Aspirin was continued. DVT prophylaxis provided. Lipid panel revealed elevated LDL. Patient was consult on low-fat low-cholesterol cardiac diabetic diet and on recommended statin to be started on Patient clinically improved and was stable and ready for discharge back home Due to the rapid and unexpected improvement in patient's condition, the patient was discharged in one day FINAL DIAGNOSES: Symptomatic hypoglycemia- resolved Type 2 diabetes mellitus Hypertension COPD History of CVA with right hemiparesis DISCHARGE MEDICATIONS: See Medication Reconciliation list. DISCHARGE INSTRUCTIONS: [] Patient was discharged home. Follow up with primary care provider next week. I have been assigned to dictate discharge summary for this account. I was not involved in the patient's management. Carline Swanson NP May 07, 2018 09:37
== END 2018-05-05 16:10 | disposition home or self-care (01) | DRG 638 ==
LOC: EDBD 01:53 → EDUNIT# 01:53 → EMR 02:51 → 4W 02:53 → EDBEDREQ 03:29
DX: E10.649 Type 1 diabetes mellitus with hypoglycemia without coma (principal); E87.1 Hypo-osmolality and hyponatremia; I69.351 Hemiplegia and hemiparesis following cerebral infarction affecting right dominant side; K59.00 Constipation, unspecified; I10 Essential (primary) hypertension; J44.9 Chronic obstructive pulmonary disease, unspecified; R35.0 Frequency of micturition; Z79.82 Long term (current) use of aspirin; Z79.4 Long term (current) use of insulin; Z23 Encounter for immunization
CPT/HCPCS: 36415; 71045; 80053; 80061; 81003; 82009; 82962; 83036; 83735; 84100; 84443; 85025; 87086; 90732; 99285; J1815; S5561

== ENCOUNTER 2019-05-09 12:55 | Inpatient (IN) | payer MEDICARE, MEDICAID ==
[~2019-05-09] VITALS: Ht 170.2 cm; Wt 52.2 kg
[~2019-05-09 12:55] MED LIST changes: +LEVEMIR FL100 UNIT/1 SUBQ
--- NOTE | 2019-05-09 13:03 | NUR ---
ED Nurse Note: PT BROUGHT IN BY [id number] FROM HOME. AOX4. PT C/O RIGHT KNEE PAIN, 10/10, RADIATING TO RIGHT FOOT X 1 HOUR AGO AFTER FALL. PT DENIES HEAD TRAUMA OR LOC. ON ASSESSMENT, LIMITED ROM OF RIGHT LOWER EXTREMITY BUT FULL ROM OF DIGITS. CAP REFILL <3 SECONDS, CIRCULATION AND SENSATION INTACT, MUSCLE STRENGTH 5/5 OF FOOT. SKIN CLEAN, DRY, AND INTACT. BILATERAL PITTING EDEMA NOTED TO BILATERAL LOWER EXTREMITY.
[2019-05-09 13:08] VITALS: BP 183/78
--- NOTE | 2019-05-09 13:09 | NUR ---
ED Nurse Note: RADIOLOGY CALLED FOR XRAY.
--- NOTE | 2019-05-09 13:18 | NUR ---
ED Nurse Note: XRAY AT BEDSIDE.
--- NOTE | 2019-05-09 13:58 | Emergency Room Report ---
History of Present Illness General Chief Complaint: Lower Extremity Injury Source: Patient (SALINAS COLLAZO) Present Illness HPI Patient is a 79-year-old male with a history of diabetes and right hemiplegia brought in by ambulance for right-sided leg pain after fall. He states that he was at work, tripped on a door sill, and fell onto his right knee. He denies hitting his head or loss of consciousness. Pain is primarily at the right knee but does radiate to the right hip and right ankle. He states that he is unable to move his right leg. Pain is a 9 out of 10 dull ache primarily to the right knee. He states that he usually ambulates with a walker but was not using one at the time. He denies any other injury or symptoms including chest pain, shortness of breath, numbness, tingling, dizziness, blurred vision (SALINAS COLLAZO) Allergies: Coded Allergies: NO KNOWN ALLERGIES (Unverified Allergy, Unknown, 05/04/18) Patient History Past Medical History: see triage record, DM Pertinent Family History: none Reviewed Nursing Documentation: PMH: Agreed; PSxH: Agreed (SALINAS COLLAZO) Nursing Documentation-PMH Past Medical History: No History, Except For Hx Cardiac Problems: Yes Hx Hypertension: Yes Hx Diabetes: Yes Hx Cancer: No Hx Gastrointestinal Problems: Yes Hx Neurological Problems: No Hx Cerebrovascular Accident: Yes - March 2016 (SALINAS COLLAZO) Review of Systems All Other Systems: negative except mentioned in HPI (SALINAS COLLAZO) Physical Exam Vital Signs Date Time Temp Pulse Resp B/P (MAP) Pulse Ox O2 Delivery O2 Flow Rate FiO2 05/09/19 12:52 97.7 63 18 155/69 (97) 99 Room Air Sp02 EP Interpretation: reviewed, normal General Appearance: no apparent distress, alert, GCS 15, non-toxic Head: normocephalic, atraumatic Eyes: bilateral eye normal inspection, bilateral eye PERRL Respiratory: chest non-tender, lungs clear, normal breath sounds, speaking full sentences Cardiovascular #1: regular rate, rhythm, no edema Musculoskeletal: back normal, no calf tenderness, pelvis stable, decreased range of motion, tender - R anterior knee Neurologic: alert, oriented x3, responsive Psychiatric: judgement/insight normal, memory normal, mood/affect normal, no suicidal/homicidal ideation Skin: no rash (SALINAS COLLAZO) Medical Decision Making PA Attestation Dr. Buitrago is my supervising physician. Patient management was discussed with my supervising physician (SALINAS COLLAZO) Diagnostic Impression: Primary Impression: Femoral neck fracture Qualified Codes: S72.001A - Fracture of unspecified part of neck of right femur, initial encounter for closed fracture ER Course Patient is a 79-year-old male brought in by ambulance for R leg pain after fall today DDx considered: Fracture, contusion, dislocation, among others PE: Vitals stable. NAD Pelvis stable. No TTP over hip. No hematoma.No AROM TTP over the R knee. No deformity. No ecchymosis. No AROM TTP to R ankle. Full AROM intact. SILT No leg-length discrepancy. Xrays show R femoral neck fracture. Pt given morphine for pain. Pre-op labs ordered. Dr. Buitrago has spoken to the accepting physician and patient will be admitted to Med-surg in stable condition. NPO at midnight per admitting physician. Laboratory Tests Test 05/09/19 14:00 05/09/19 18:25 White Blood Count 14.8 K/UL (4.8-10.8) H Red Blood Count 4.12 M/UL (4.70-6.10) L Hemoglobin 13.4 G/DL (14.2-18.0) L Hematocrit 38.9 % (42.0-52.0) L Mean Corpuscular Volume 94 FL (80-99) Mean Corpuscular Hemoglobin 32.6 PG (27.0-31.0) H Mean Corpuscular Hemoglobin Concent 34.5 G/DL (32.0-36.0) Red Cell Distribution Width 10.9 % (11.6-14.8) L Platelet Count 188 K/UL (150-450) Mean Platelet Volume 5.6 FL (6.5-10.1) L Neutrophils (%) (Auto) % (45.0-75.0) Lymphocytes (%) (Auto) % (20.0-45.0) Monocytes (%) (Auto) % (1.0-10.0) Eosinophils (%) (Auto) % (0.0-3.0) Basophils (%) (Auto) % (0.0-2.0) Differential Total Cells Counted 100 Neutrophils % (Manual) 92 % (45-75) H Lymphocytes % (Manual) 4 % (20-45) L Monocytes % (Manual) 3 % (1-10) Eosinophils % (Manual) 1 % (0-3) Basophils % (Manual) 0 % (0-2) Band Neutrophils 0 % (0-8) Platelet Estimate Adequate Platelet Morphology Normal Red Blood Cell Morphology Hypochromasia 1+ Prothrombin Time 10.2 SEC (9.30-11.50) Prothrombin Time INR 1.0 (0.9-1.1) PTT 25 SEC (23-33) Sodium Level 125 MMOL/L (136-145) L Potassium Level 4.3 MMOL/L (3.5-5.1) Chloride Level 91 MMOL/L (98-107) L Carbon Dioxide Level 28 MMOL/L (21-32) Anion Gap 6 mmol/L (5-15) Blood Urea Nitrogen 17 mg/dL (7-18) Creatinine 0.7 MG/DL (0.55-1.30) Estimate Glomerular Filtration Rate mL/min (>60) Glucose Level 158 MG/DL (74-106) H Calcium Level 9.8 MG/DL (8.5-10.1) Total Bilirubin 0.4 MG/DL (0.2-1.0) Aspartate Amino Transferase (AST) 23 U/L (15-37) Alanine Aminotransferase (ALT) 21 U/L (12-78) Alkaline Phosphatase 68 U/L (46-116) Total Protein 7.3 G/DL (6.4-8.2) Albumin 3.9 G/DL (3.4-5.0) Globulin 3.4 g/dL Albumin/Globulin Ratio 1.1 (1.0-2.7) Urine Color Pale yellow Urine Appearance Slightly cloudy Urine pH 8 (4.5-8.0) Urine Specific [place] 1.010 (1.005-1.035) Urine Protein 2+ (NEGATIVE) H Urine Glucose (UA) 1+ (NEGATIVE) H Urine Ketones Negative (NEGATIVE) Urine Blood 2+ (NEGATIVE) H Urine Nitrite Negative (NEGATIVE) Urine Bilirubin Negative (NEGATIVE) Urine Urobilinogen Normal MG/DL (0.0-1.0) Urine Leukocyte Esterase Negative (NEGATIVE) Urine RBC 2-4 /HPF (0 - 0) H Urine WBC 0 /HPF (0 - 0) Urine Squamous Epithelial Cells Occasional /LPF Urine Amorphous Sediment Moderate /LPF (NONE) H Urine Bacteria Occasional /HPF (NONE) Lab Results Impression Leukocytosis of 14.8 (SALINAS COLLAZO P.A.) ER Course Please see above note. Patient seen and evaluated by me. Contact Dr. Garcia and Dr. Ruelas for admission and consultation. Patient improved with analgesia. (Mathew Quiroz MD) EKG Diagnostic Results EP Interpretation: NSR Rate: normal - 64 Rhythm: NSR ST Segments: no acute changes ASA given to the pt in ED: No PA Scribe Text EKG was reviewed and read with my supervising physician. No acute ST segment changes are seen. Normal rate and rhythm. No acute changes. (SALINAS COLLAZO P.A.) Chest X-Ray Diagnostic Results Chest X-Ray Diagnostic Results : Chest X-Ray Ordered: Yes # of Views/Limited/Complete: 1 View, Limited Indication: Other - pre-op EP Interpretation: Yes PA Xray: Interpretation reviewed, by supervising MD, and agrees with findings. Interpretation: no consolidation, no effusion, no pneumothorax, no acute cardiopulmonary disease Impression: No acute disease Electronically Signed by: Salinas Collazo PA-C (SALINAS COLLAZO P.A.) Chest X-Ray Diagnostic Results : Electronically Signed by: Светлана Alonzo documentation of Xray reviewed by me and is accurate, Mathew Quiroz MD (Mathew Quiroz MD) Other X-Ray Diagnostic Results Other X-Ray Diagnostic Results #1: X-Ray ordered: R Hip/pelvis # of Views/Limited Vs Complete: 3 View, Complete Indication: Pain EP Interpretation: Yes PA Xray: Interpretation reviewed, by supervising MD, and agrees with findings. Interpretation: no dislocation, other - + fracture of femoral neck Impression: Other - fracture Electronically Signed by: Salinas Collazo PA-C Other X-Ray Diagnostic Results #2: X-Ray ordered: R knee # of Views/Limited Vs Complete: 3 View, Complete Indication: Pain EP Interpretation: Yes PA Xray: Interpretation reviewed, by supervising MD, and agrees with findings. Interpretation: no dislocation, no soft tissue swelling, no fractures Impression: No acute disease Electronically Signed by: Salinas Collazo PA-C Other X-Ray Diagnostic Results #3: X-Ray ordered: R ankle # of Views/Limited Vs Complete: 3 View, Complete Indication: Pain EP Interpretation: Yes PA Xray: Interpretation reviewed, by supervising MD, and agrees with findings. Interpretation: no dislocation, no soft tissue swelling, no fractures Impression: No acute disease Electronically Signed by: Salinas Collazo PA-C (SALINAS COLLAZO P.A.) Other X-Ray Diagnostic Results #1: Electronically Signed by: P A documentation of Xray reviewed by me and is accurate, Mathew Quiroz MD Other X-Ray Diagnostic Results #2: Electronically Signed by: P A documentation of Xray reviewed by me and is accurate, Mathew Quiroz MD Other X-Ray Diagnostic Results #3: Electronically Signed by: P A documentation of Xray reviewed by me and is accurate, Mathew Quiroz MD (Mathew Quiroz MD) Last Vital Signs Date Time Temp Pulse Resp B/P (MAP) Pulse Ox O2 Delivery O2 Flow Rate FiO2 05/09/19 13:08 98.0 63 12 183/78 98 Room Air Status: improved (SALINAS COLLAZO P.A.) Last Vital Signs Date Time Temp Pulse Resp B/P (MAP) Pulse Ox O2 Delivery O2 Flow Rate FiO2 05/09/19 22:05 98.8 71 16 157/90 (112) 97 05/09/19 21:00 Room Air Status: improved (Mathew Quiroz MD) Disposition: ADMITTED INPATIENT Condition: Serious Referrals: NOT CHOSEN IPA/,REFERRING (PCP) SALINAS COLLAZO.AFarzana May 09, 2019 13:58 Mathew Quiroz MD May 10, 2019 00:01
[2019-05-09] MEDS ORDERED: Morphine Sulfate 4mg/ml Inj (IV USE ONLY) IVP ONE (14:00)
[2019-05-09 14:14] LABS: HEMATOCRIT 38.9 % (42.0-52.0); HEMOGLOBIN 13.4 G/DL (14.2-18.0); MEAN CORPUSCULAR VOLUME 94 FL (80-99); PLATELET COUNT 188 K/UL (150-450); RED BLOOD COUNT 4.12 M/UL (4.70-6.10); RED CELL DISTRIBUTION WIDTH 10.9 % (11.6-14.8); WHITE BLOOD COUNT 14.8 K/UL (4.8-10.8)
[2019-05-09] MEDS ORDERED: PLAVIX75 MG ORAL (14:19)
[2019-05-09] MEDS ORDERED: MULTIVITAMINS1 EAC2 ORAL (14:19)
[2019-05-09] MEDS ORDERED: FUROSEMIDE20 M1 ORAL (14:19)
[2019-05-09] MEDS ORDERED: FLOMAX0.4 MG ORAL (14:19)
[2019-05-09] MEDS ORDERED: SIMVASTATIN40 MG ORAL (14:19)
--- NOTE | 2019-05-09 14:21 | NUR ---
CALLED [facility] TO GET MED LIST,MED LIST GIVEN BY [facility] PHARMACIST
[2019-05-09 14:29] LABS: ANION GAP 6 mmol/L (5-15); BLOOD UREA NITROGEN 17 mg/dL (7-18); CALCIUM 9.8 MG/DL (8.5-10.1); CARBON DIOXIDE 28 MMOL/L (21-32); CHLORIDE 91 MMOL/L (98-107); CREATININE 0.7 MG/DL (0.55-1.30); POTASSIUM 4.3 MMOL/L (3.5-5.1); SODIUM 125 MMOL/L (136-145)
[2019-05-09 14:33] LABS: ALANINE AMINOTRANSFERASE 21 U/L (12-78); ALBUMIN 3.9 G/DL (3.4-5.0); ALBUMIN/GLOBULIN RATIO 1.1 (1.0-2.7); ALKALINE PHOSPHATASE 68 U/L (46-116); ASPARTATE AMINO TRANSFERASE 23 U/L (15-37); BILIRUBIN,TOTAL 0.4 MG/DL (0.2-1.0)
--- NOTE | 2019-05-09 14:44 | NUR ---
ED Nurse Note: PER PT, LAST MEAL WAS BREAKFAST TODAY AROUND 0800.
--- NOTE | 2019-05-09 14:47 | NUR ---
ED Nurse Note: PT'S BP REMAINS ELEVATED - SYS BP: 171. DR ZAMBRANO NOTIFIED.
--- NOTE | 2019-05-09 14:57 | NUR ---
ED Nurse Note: VERBAL ORDER RECEIVED FOR HAILE INSERTION. 16F HAILE CATHETER INSERTED USING STERILE TECHNIQUE. HAILE DRAINING CLEAR YELLOW URINE. PT TOLERATED WELL.
--- NOTE | 2019-05-09 14:59 | NUR ---
ED Nurse Note: [facility] CALLED FOR PT REPORT. AL COLLIER NOT READY AT THIS TIME. AL COLLIER WILL CALL BACK IN 10 MINUTES PER CHARGE NURSE.
--- NOTE | 2019-05-09 15:11 | NUR ---
ED Nurse Note: [facility] CALLED FOR PT REPORT. PER CHARGE NURSE, AL COLLIER IS STILL NOT READY. WILL CALL BACK IN 5 MINUTES.
[2019-05-09 15:17] VITALS: BP 162/73
--- NOTE | 2019-05-09 15:30 | NUR ---
NURSE NOTES: Patient received from ER via rpetaluma on RA at 1530, in stable condition. Patient alert, oriented x3, calm, follows simple, verbal command. Pain 6/10 to right knee, will medicate. Spouse at bedside. RAC heplock intact. Belongings reviewed. Patient oriented to room and call light for safety. FC draining to gravity, y/cl urine. BLE +2 pitting edema/cool to touch. CMS+, denies NT, wiggles toes, hand grasps/pedal pushes 3/5 to right side. Right sided weakness due to history of CVA. Bed in lowest position, call light in reach, will continue to monitor.
--- NOTE | 2019-05-09 15:35 | NUR ---
ED Nurse Note: [facility] CALLED FOR PT REPORT. REPORT GIVEN TO MS CHARGE WHO WILL RELAY REPORT TO AL COLLIER. PT TAKEN UP TO [facility] VIA [place] ACCOMPANIED BY PRIMARY RN AND EMT. VSS.
[2019-05-09 15:50] VITALS: BP 157/95
[2019-05-09] MEDS ORDERED: HydrALAZINE 25mg tab ORAL PRN (16:45)
[2019-05-09 18:38] LABS: APPEARANCE,URINE SLIGHTLY CLOUDY; BILIRUBIN, URINE NEGATIVE (NEGATIVE); COLOR,URINE PALE YELLOW; GLUCOSE, URINE (UA) 1+ (NEGATIVE); KETONES,URINE NEGATIVE (NEGATIVE); LEUKOCYTE ESTERASE ,URINE NEGATIVE (NEGATIVE); NITRITE,URINE NEGATIVE (NEGATIVE); PH,URINE 8 (4.5-8.0); PROTEIN,URINE 2+ (NEGATIVE); UROBILINOGEN,URINE NORMAL MG/DL (0.0-1.0)
[2019-05-09] MEDS: Morphine Sulfate 2mg/ml Inj(IV/IM USE ONLY) IVP PRN (18:41)
[2019-05-09] MEDS: Tamsulosin 0.4mg cap ORAL SCH (18:56)
[2019-05-09] MEDS: Benazepril 10mg tab ORAL SCH (18:57)
--- NOTE | 2019-05-09 19:15 | NUR ---
NURSE NOTES: Patient had x2 episodes of emesis (50 ml each times, undigested food). Zofran administered as ordered. IVF infusing (NS at 50 ml/hr), without difficulty.
--- NOTE | 2019-05-09 19:30 | NUR ---
HAND-OFF: Report given to Clyde MELENDEZ. Addendum: 05/09/19 at 2002 by Barbara Finney RN FC Output: 825 ml Addendum: 05/09/19 at 2101 by Barbara Finney RN SCDs need to be applied, [employer] was closed when I called to order.
[2019-05-09 20:00] VITALS: BP 157/95
[2019-05-09] MEDS: NovoLOG Insulin Flexpen SUBQ SCH (20:59)
[2019-05-09] MEDS: Levemir Flexpen SUBQ SCH (21:02)
--- NOTE | 2019-05-09 21:45 | History and Physical Report ---
DATE OF ADMISSION: 05/09/2019 CHIEF COMPLAINT: Right hip fracture. HISTORY OF PRESENT ILLNESS: The patient is a 79-year-old male. He has history of BPH, hypertension, diabetes. He apparently sustained a fall at home while his was away. He apparently was on the ground for approximately an hour and a half before his neighbors found him and called paramedics. He was brought to the emergency room. On evaluation there, he had a scan that showed a right hip fracture. He also was noted to have white count of 15,000 and sodium of 125. His UA was clear. He is now admitted for further orthopedic evaluation and possible surgery. He denies any chest pain or shortness of breath. There is no past cardiac history. PAST MEDICAL HISTORY: As above. PAST SURGICAL HISTORY: Includes prostate and foot surgery. CURRENT MEDICATIONS: Reconciled and reviewed. ALLERGIES: None. FAMILY HISTORY: For prostate problems. SOCIAL HISTORY: Negative for tobacco, ethanol, or drugs. REVIEW OF SYSTEMS: GENERAL: No fevers or chills. HEENT: No headaches or visual changes. CARDIOPULMONARY: No chest pain or shortness of breath. GASTROINTESTINAL: No nausea or vomiting. GENITOURINARY: No urgency or frequency. MUSCULOSKELETAL: No joint pain or swelling. NEUROLOGIC: No evidence of seizures. PHYSICAL EXAMINATION: VITAL SIGNS: Temperature 98 degrees, blood pressure 157/95, pulse 60, respirations 18. GENERAL: The patient is well developed, in no apparent distress. HEART: Regular rate and rhythm. LUNGS: Clear. ABDOMEN: Soft, nontender, nondistended. EXTREMITIES: Without clubbing or cyanosis. The patient has minimal range of motion of the right hip due to pain. LABORATORY DATA: UA was clear. White count 15, hemoglobin 13, platelet count 188,000. Coags normal. Sodium 125. Urine was clear. EKG is pending. ASSESSMENT: This is a 79-year-old male with history of hypertension and diabetes, admitted with mechanical fall and a right hip fracture. He was also noted to be hyponatremic. PLAN: Await Orthopedics consultation. The patient will be started back on a diabetic diet. He will be hydrated gently. We will follow the patient's EKG. Order 2D echo. The patient is currently not stable for surgery as he is significantly hyponatremic. This likely can be corrected by tomorrow. We will follow the patient's echo and EKG. His preoperative evaluation will be completed once those are available. David Garcia M.D. DR: Nafisa JOB#: [id number] CC:
[2019-05-09 22:05] VITALS: BP 157/90
[2019-05-10] VITALS: BP 165/84
[2019-05-10] MEDS: Morphine Sulfate 2mg/ml Inj(IV/IM USE ONLY) IVP PRN (00:31)
[2019-05-10 04:00] VITALS: BP 160/70
[2019-05-10 06:09] LABS: HEMATOCRIT 35.4 % (42.0-52.0); HEMOGLOBIN 12.4 G/DL (14.2-18.0); MEAN CORPUSCULAR VOLUME 94 FL (80-99); PLATELET COUNT 182 K/UL (150-450); RED BLOOD COUNT 3.76 M/UL (4.70-6.10); RED CELL DISTRIBUTION WIDTH 10.7 % (11.6-14.8); WHITE BLOOD COUNT 11.9 K/UL (4.8-10.8)
[2019-05-10 06:23] LABS: ALANINE AMINOTRANSFERASE 18 U/L (12-78); ALBUMIN 3.2 G/DL (3.4-5.0); ALKALINE PHOSPHATASE 62 U/L (46-116); ANION GAP 7 mmol/L (5-15); ASPARTATE AMINO TRANSFERASE 24 U/L (15-37); BILIRUBIN,TOTAL 0.7 MG/DL (0.2-1.0); BLOOD UREA NITROGEN 13 mg/dL (7-18); CALCIUM 9.1 MG/DL (8.5-10.1); CARBON DIOXIDE 28 MMOL/L (21-32); CHLORIDE 92 MMOL/L (98-107); CREATININE 0.8 MG/DL (0.55-1.30); SODIUM 127 MMOL/L (136-145)
[2019-05-10] MEDS: NovoLOG Insulin Flexpen SUBQ SCH ×4 (06:30→20:44)
--- NOTE | 2019-05-10 07:00 | NUR ---
HAND-OFF: Report given to [].
--- NOTE | 2019-05-10 07:02 | NUR ---
HAND-OFF: Report given to report given to mason MELENDEZ.
--- NOTE | 2019-05-10 07:44 | NUR ---
NURSE NOTES: Received report from Clyde MELENDEZ. Patient is asleep during rounds, no acute distress noted, RR even and unlabored. SCD on left leg, IVF running per order. Dr. Garcia at bedside, informed MD of patient's sodium of 127, also informed MD of elevated blood pressure. No new orders received regarding low sodium, MD stated to give scheduled blood pressure meds this morning. Will carry out as ordered. Fall precautions maintained. Side rails upx3, bed low and locked, call light in reach. Will continue to monitor.
[2019-05-10 08:00] VITALS: BP 162/76
--- NOTE | 2019-05-10 08:14 | Consultation ---
Consult Note Consult Note patient seen/evaluated. Right hip Garden IV fx. Plan on right hip hemiarthroplasty. 2D echo pending. 5am chemistry today with Na 127. Need correction before surgery. Plan on right hip hemiarthroplasty once medically cleared. Reid Kingsley MD May 10, 2019 08:14
[2019-05-10] MEDS: Tamsulosin 0.4mg cap ORAL SCH (08:37)
[2019-05-10] MEDS: Benazepril 10mg tab ORAL SCH ×2 (08:37→18:00)
[2019-05-10] MEDS ORDERED: NaCl 3% 500ml 250 ML IV ONE ×2 (10:00→21:00)
--- NOTE | 2019-05-10 10:21 | General Progress Note ---
Assessment/Plan Problem List: (1) Diabetes mellitus ICD Codes: E11.9 - Type 2 diabetes mellitus without complications SNOMED: 31934958 (2) COPD (chronic obstructive pulmonary disease) ICD Codes: J44.9 - Chronic obstructive pulmonary disease, unspecified SNOMED: 03841668 (3) Hypertension ICD Codes: I10 - Essential (primary) hypertension SNOMED: 73871319 (4) Diabetes mellitus type II, uncontrolled ICD Codes: E11.65 - Type 2 diabetes mellitus with hyperglycemia SNOMED: 83358926, 296774218 (5) Cerebral vascular disease ICD Codes: I67.9 - Cerebrovascular disease, unspecified SNOMED: 79424437 (6) Hip fracture ICD Codes: S72.009A - Fracture of unspecified part of neck of unspecified femur , initial encounter for closed fracture SNOMED: 969113452 (7) Hyponatremia ICD Codes: E87.1 - Hypo-osmolality and hyponatremia SNOMED: 88525445 Status: stable Assessment/Plan: cont pain rx hypertonic saline repeat lytes later today renal asked to assist ekg pending for surgery tomorrow d/w Subjective ROS Limited/Unobtainable: No Constitutional: Reports: malaise, weakness HEENT: Reports: no symptoms Cardiovascular: Reports: no symptoms Respiratory: Reports: no symptoms Gastrointestinal/Abdominal: Reports: nausea, vomiting Genitourinary: Reports: no symptoms Neurologic/Psychiatric: Reports: no symptoms Endocrine: Reports: no symptoms Hematologic/Lymphatic: Reports: no symptoms Allergies: Coded Allergies: NO KNOWN ALLERGIES (Unverified Allergy, Unknown, 05/04/18) All Systems: reviewed and negative except above Subjective c/o hip pain. has some nausea after morphine. Sodium only slightly better Objective Last 24 Hour Vital Signs Date Time Temp Pulse Resp B/P (MAP) Pulse Ox O2 Delivery O2 Flow Rate FiO2 05/10/19 09:00 Room Air 05/10/19 08:37 162/76 05/10/19 08:00 97.9 72 18 162/76 (104) 98 05/10/19 04:00 98.7 64 20 160/70 (100) 98 05/10/19 00:00 98.3 70 16 165/84 (111) 05/09/19 22:05 98.8 71 16 157/90 (112) 97 05/09/19 21:00 Room Air 05/09/19 20:00 98.0 71 18 157/95 (115) 97 05/09/19 18:57 157/95 05/09/19 15:50 97.9 60 18 157/95 (115) 95 05/09/19 15:35 98.2 62 12 162/73 100 Room Air 05/09/19 15:30 Room Air 05/09/19 15:17 98.1 62 12 162/73 100 Room Air 05/09/19 13:08 98.0 63 12 183/78 98 Room Air 05/09/19 12:52 97.7 63 18 155/69 (97) 99 Room Air Intake and Output 05/09/19 05/10/19 19:00 07:00 Intake Total 170 ml 670 ml Output Total 875 ml 750 ml Balance -705 ml -80 ml Intake Oral 120 ml 120 ml IV Total 50 ml 550 ml Output Urine Total 825 ml 700 ml Emesis 50 ml 50 ml # Voids 1 Laboratory Tests 05/09/19 14:00: White Blood Count 14.8H, Red Blood Count 4.12L, Hemoglobin 13.4L, Hematocrit 38.9L, Mean Corpuscular Volume 94, Mean Corpuscular Hemoglobin 32.6H, Mean Corpuscular Hemoglobin Concent 34.5, Red Cell Distribution Width 10.9L, Platelet Count 188, Mean Platelet Volume 5.6L, Neutrophils (%) (Auto) , Lymphocytes (%) (Auto) , Monocytes (%) (Auto) , Eosinophils (%) (Auto) , Basophils (%) (Auto) , Differential Total Cells Counted 100, Neutrophils % ( Manual) 92H, Lymphocytes % (Manual) 4L, Monocytes % (Manual) 3, Eosinophils % ( Manual) 1, Basophils % (Manual) 0, Band Neutrophils 0, Platelet Estimate Adequate, Platelet Morphology Normal, Red Blood Cell Morphology , Hypochromasia 1+, Prothrombin Time 10.2, Prothromb Time International Ratio 1.0, Activated Partial Thromboplast Time 25, Sodium Level 125L, Potassium Level 4.3, Chloride Level 91L, Carbon Dioxide Level 28, Anion Gap 6, Blood Urea Nitrogen 17, Creatinine 0.7, Estimat Glomerular Filtration Rate , Glucose Level 158H, Calcium Level 9.8, Total Bilirubin 0.4, Aspartate Amino Transf (AST/SGOT) 23, Alanine Aminotransferase (ALT/SGPT) 21, Alkaline Phosphatase 68, Total Protein 7.3, Albumin 3.9, Globulin 3.4, Albumin/Globulin Ratio 1.1 05/09/19 18:25: Urine Color Pale yellow, Urine Appearance Slightly cloudy, Urine pH 8, Urine Specific [place] 1.010, Urine Protein 2+H, Urine Glucose (UA) 1+H, Urine Ketones Negative, Urine Blood 2+H, Urine Nitrite Negative, Urine Bilirubin Negative, Urine Urobilinogen Normal, Urine Leukocyte Esterase Negative, Urine RBC 2-4H, Urine WBC 0, Urine Squamous Epithelial Cells Occasional, Urine Amorphous Sediment ModerateH, Urine Bacteria Occasional 05/10/19 05:15: White Blood Count 11.9H, Red Blood Count 3.76L, Hemoglobin 12.4L, Hematocrit 35.4L, Mean Corpuscular Volume 94, Mean Corpuscular Hemoglobin 32.9H, Mean Corpuscular Hemoglobin Concent 35.0, Red Cell Distribution Width 10.7L, Platelet Count 182, Mean Platelet Volume 6.4L, Neutrophils (%) (Auto) , Lymphocytes (%) (Auto) , Monocytes (%) (Auto) , Eosinophils (%) (Auto) , Basophils (%) (Auto) , Sodium Level 127L, Potassium Level 5.0, Chloride Level 92L, Carbon Dioxide Level 28, Anion Gap 7, Blood Urea Nitrogen 13, Creatinine 0.8, Estimat Glomerular Filtration Rate , Glucose Level 94, Calcium Level 9.1, Total Bilirubin 0.7, Aspartate Amino Transf (AST/SGOT) 24, Alanine Aminotransferase (ALT/SGPT) 18, Alkaline Phosphatase 62, Total Protein 6.3L, Albumin 3.2L, Globulin 3.1, Albumin/Globulin Ratio 1.0, Hemoglobin A1c 7.8H, Troponin I 0.001 Height (Feet): 5 Height (Inches): 7.00 Weight (Pounds): 125 General Appearance: WD/WN, alert Neck: supple Cardiovascular: regular rhythm Respiratory/Chest: chest wall non-tender, lungs clear, normal breath sounds Abdomen: normal bowel sounds, non tender, soft, no organomegaly Edema: no edema noted Arm (L), no edema noted Arm (R), no edema noted Leg (L), no edema noted Leg (R), no edema noted Pedal (L), no edema noted Pedal (R), no edema noted 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
--- NOTE | 2019-05-10 10:58 | Diagnostic Imaging Report ---
Indication: Pain, status post fall Technique: One view of the pelvis, 2 views of the right hip Comparison: none Findings: There is a fracture of the distal right femoral neck, possibly extending slightly into the intertrochanteric region. No left hip fracture. No definite associated pelvic fracture. The hip joint spaces are preserved.. Impression: Positive for right distal femoral neck fracture This agrees with the preliminary interpretation reported by the emergency room physician in the electronic medical record
--- NOTE | 2019-05-10 10:59 | Diagnostic Imaging Report ---
Indication: Pain, status post fall Technique: 3 views of the right ankle Comparison: none Findings: No acute fractures. No dislocations. The joint spaces are preserved Impression: Negative
--- NOTE | 2019-05-10 11:09 | Diagnostic Imaging Report ---
Indication: Pain status post fall Technique: 3 views of the right knee Comparison: None Findings: No acute fractures. No dislocations. There is very slight narrowing of the medial joint compartment. No suprapatellar effusion. Impression: Minimal degenerative changes. No acute bony trauma
--- NOTE | 2019-05-10 11:32 | Diagnostic Imaging Report ---
Indication: Cough Technique: One view of the chest Comparison: 05/04/2018 Findings: The heart size is upper limits normal. The aorta is tortuous and calcified. Minimal atelectasis is seen at the right lung base. The lungs and pleural spaces are clear otherwise. There is no significant interim change Impression: No acute process
[2019-05-10 12:00] VITALS: BP 156/85
[2019-05-10 12:18] LABS: CHOLESTEROL 201 MG/DL (< 200); HDL CHOLESTEROL 111 MG/DL (40-60); TRIGLYCERIDES 24 MG/DL (30-150)
--- NOTE | 2019-05-10 12:42 | NUR ---
CASE MANAGEMENT:REVIEW 79 YR OLD MALE BIBA FROM HOME CC: S/P FALL. RT KNEE AND HIP PAIN SI: RT HIP FRACTURE 97.7 63 18 155/69 99% ON RA WBC+14.8 NA-125 IS: IV MORPHINE 1L NS BOLUS CHEST XRAY XRAY HIP/KNEE/ANKLE : TO MED/SURG 3 EAST PLAN: SURGERY ONCE CLEARED INTERQUAL CRITERIA
--- NOTE | 2019-05-10 13:30 | Consultation ---
DATE OF CONSULTATION: 05/10/2019 ORTHOPEDIC CONSULTATION CONSULTING PHYSICIAN: Reid Kingsley M.D. REQUESTING PHYSICIAN: David Garcia M.D. REASON FOR CONSULTATION: Right-sided hip fracture. BRIEF HISTORY: The patient is a pleasant 79-year-old male, who has had history of high blood pressure, diabetes, and BPH. He sustained a mechanical fall at home yesterday. He fell down and was brought to the emergency room and x-rays showed right-sided hip fracture. He has ongoing right hip pain. He has had no numbness and no weakness. He was noted to have hyponatremia and high white blood cell count upon his admission. UA was clear. He was admitted to the hospital and pending fixation of the right hip. On today's laboratory, his sodium is still low at 127. He has not had his 2D echo as of yet. He is not medically cleared to proceed with surgery as of this morning. PAST MEDICAL HISTORY: Significant for above. PAST SURGICAL HISTORY: He has had prostate and foot surgery. MEDICATIONS: Reviewed and reconciled. ALLERGIES: No known drug allergies. SOCIAL HISTORY: He does not smoke or drink. He was ambulating without difficulty prior to this fall. REVIEW OF SYSTEMS: Noncontributory. PHYSICAL EXAMINATION: EXTREMITIES: Examination of the right hip reveals that it is shortened, externally rotated, any motion of the right hip causes pain. He has got some tenderness over the trochanteric area. He has got some tenderness over the pelvic area. He has no significant knee or ankle pain on palpation. X-RAYS: X-rays of the right hip is reviewed. There is a Garden IV displaced femoral neck fracture. X-ray of the right knee is reviewed, within normal limits. X-ray of the right ankle is reviewed, within normal limits. IMPRESSION: 1. Right hip Garden IV femoral neck fracture. 2. Hyponatremia. 3. Hypertension and diabetes. 4. High white blood cell count. DISCUSSION: At the time of discussion with the patient, I explained to him my findings. I would like to proceed with right hip hemiarthroplasty, although he is not medically optimized. Therefore, we will hold off today and hopefully we can proceed with right hip hemiarthroplasty tomorrow. Risks, benefits, and complications of the surgery were fully discussed with them, risk of infection, bleeding, neurovascular complication was discussed with him. He understands nature of the surgery, complications associated with it, would like to go and proceed with it. All questions were answered. His hyponatremia will be corrected by Dr. Garcia. A 2D echo will be done today. We will proceed with surgery in the next day or two pending his medical clearance. All questions were answered. Reid Kingsley M.D. DR: PUSHPA JOB#: [id number] CC:
--- NOTE | 2019-05-10 13:44 | Consultation ---
Consult Note Consult Note asked to eval for Low Na ER: Patient is a 79-year-old male with a history of diabetes and right hemiplegia brought in by ambulance for right-sided leg pain after fall. He states that he was at work, tripped on a door sill, and fell onto his right knee. He denies hitting his head or loss of consciousness. Pain is primarily at the right knee but does radiate to the right hip and right ankle. He states that he is unable to move his right leg. Pain is a 9 out of 10 dull ache primarily to the right knee. He states that he usually ambulates with a walker but was not using one at the time. He denies any other injury or symptoms including chest pain, shortness of breath, numbness, tingling, dizziness, blurred vision NO KNOWN ALLERGIES (Unverified Allergy, Unknown, 05/04/18) Past Medical History: No History, Except For Hx Cardiac Problems: Yes Hx Hypertension: Yes Hx Diabetes: Yes Hx Gastrointestinal Problems: Yes Hx Cerebrovascular Accident: Yes - March 2016 examined data reviewed discussed with AL Velasco . Assessment/Plan Low Na , Low Uric Acid, High Urine Na SIADH Dm , high A1c HTN Plan; 3% Saline + IV Lasix: Keep intake below out put PO fluid restriction monitor lytes PO fluid restriction Robi Duarte MD May 10, 2019 13:44
--- NOTE | 2019-05-10 13:47 | NUR ---
NURSE NOTES: Received call from Dr. Duarte. ordered to change BMP time to 1800. Order entered.
[2019-05-10 16:00] VITALS: BP 131/71
[2019-05-10] MEDS: Docusate 100mg cap ORAL SCH (18:00)
[2019-05-10 18:30] LABS: ANION GAP 12 mmol/L (5-15); BLOOD UREA NITROGEN 19 mg/dL (7-18); CALCIUM 8.5 MG/DL (8.5-10.1); CARBON DIOXIDE 24 MMOL/L (21-32); CHLORIDE 90 MMOL/L (98-107); CREATININE 1.1 MG/DL (0.55-1.30); POTASSIUM 3.8 MMOL/L (3.5-5.1); SODIUM 126 MMOL/L (136-145)
--- NOTE | 2019-05-10 19:05 | NUR ---
NURSE NOTES: When RN went to administer medications to patient, patient refused medications and started to try and get out of bed, patient stated "I want to go home! I want to go home!", educated patient that he cannot walk and that he is going to have surgery in the morning, patient did not appear to understand and continued to state that he wants to go home, patient then attempted to pull out acosta catheter. Called Dr. Garcia and reported this to MD, received order for PRN Ativan. Also informed MD of patient's sodium of 126. MD ordered for another dose of hypertonic saline and ordered to call and inform Dr. Duarte. Will carry out as ordered.
[2019-05-10] MEDS: LORazepam Inj 2mg/ml 1ml IV PRN ×2 (19:13→23:21)
[2019-05-10] MEDS ORDERED: CALCIUM PO (19:15)
[2019-05-10] MEDS ORDERED: DOXAZOSIN MESYLA1 MG ORAL (19:15)
--- NOTE | 2019-05-10 19:30 | NUR ---
NURSE NOTES: Received a report from AL Velasco. Pt is in stable condition. He is confused and restless. Morning nurse Krista just gave the pt Ativan. On room air. No c/o pain/discomfort. IV site is patent and intact. Bed in lowest position. Bed alarm is on. Call light within reach. Will continue to monitor. Addendum: 05/10/19 at 2102 by NICANOR KAPLAN RN In addition to that, pt has a acosta catheter, is draining.
--- NOTE | 2019-05-10 19:45 | NUR ---
HAND-OFF: Report given to Melyssa MELENDEZ. Patient is in stable condition.
[2019-05-10 20:00] VITALS: BP 154/90
--- NOTE | 2019-05-10 20:12 | NUR ---
NURSE NOTES: Called Dr. Duarte and left voicemail informing MD of patient's sodium of [address] Garcia. Endorsed to catechist nurse Melyssa.
[2019-05-10] MEDS: Levemir Flexpen SUBQ SCH (20:43)
--- NOTE | 2019-05-10 21:45 | NUR ---
NURSE NOTES: Melyssa MELENDEZ talked to Dr. Duarte. He ordered Lasix 20mg IVP one time only. Melyssa MELENDEZ made Dr. Duarte aware that she just gave the pt Lasix 10mg IVP at 2111 tonight.
[2019-05-11] VITALS (16 sets, daily range): BP systolic 106–175; BP diastolic 63–105
[2019-05-11] MEDS: Morphine Sulfate 2mg/ml Inj(IV/IM USE ONLY) IVP PRN ×2 (00:41→22:50)
--- NOTE | 2019-05-11 05:50 | NUR ---
NURSE NOTES: Pt's blood sugar is 58. Gave him dextrose. Charge Nurse Martha made aware.
--- NOTE | 2019-05-11 06:15 | NUR ---
NURSE NOTES: Pt's called. Melyssa MELENDEZ informed the pt's to come early before the pt's procedure to sign the consent. Pt's verbalized understanding. Will endorse it to the morning nurse.
--- NOTE | 2019-05-11 06:24 | NUR ---
NURSE NOTES: Re-checked pt's blood sugar. It is now 232. Charge Nurse Martha advised Melyssa MELENDEZ not to give any insulin because pt is NPO for surgery later at 1400.
[2019-05-11] MEDS: NovoLOG Insulin Flexpen SUBQ SCH ×4 (06:26→22:48)
[2019-05-11 06:37] LABS: ALANINE AMINOTRANSFERASE 19 U/L (12-78); ALBUMIN 3.6 G/DL (3.4-5.0); ALBUMIN/GLOBULIN RATIO 1.2 (1.0-2.7); ALKALINE PHOSPHATASE 72 U/L (46-116); ANION GAP 9 mmol/L (5-15); ASPARTATE AMINO TRANSFERASE 30 U/L (15-37); BILIRUBIN,TOTAL 0.5 MG/DL (0.2-1.0); BLOOD UREA NITROGEN 20 mg/dL (7-18); CALCIUM 9.3 MG/DL (8.5-10.1); CARBON DIOXIDE 27 MMOL/L (21-32); CHLORIDE 97 MMOL/L (98-107); CREATININE 0.8 MG/DL (0.55-1.30); POTASSIUM 3.2 MMOL/L (3.5-5.1); SODIUM 133 MMOL/L (136-145)
--- NOTE | 2019-05-11 07:05 | NUR ---
HAND-OFF: Report given to AL West. Endorsed to Jenna that pt's will come before the procedure to sign the consent.
--- NOTE | 2019-05-11 07:34 | NUR ---
NURSE NOTES: ASLEEP. IN NO APPARENT DISTRESS. NPO MAINTAINED FOR SURGERY.
--- NOTE | 2019-05-11 08:03 | NUR ---
NURSE NOTES: K 3.2 DR Irma CONTRERAS LEFT MESSAGE TO RETURN CALL.
[2019-05-11] MEDS: Benazepril 10mg tab ORAL SCH ×2 (08:19→17:37)
[2019-05-11] MEDS: Docusate 100mg cap ORAL SCH ×3 (09:00→17:37)
[2019-05-11] MEDS: Tamsulosin 0.4mg cap ORAL SCH (09:00)
[2019-05-11] MEDS ORDERED: Sodium Chloride for KCL Premix X 3hrs IV SCH (09:00)
--- NOTE | 2019-05-11 09:19 | General Progress Note ---
Assessment/Plan Problem List: (1) Diabetes mellitus ICD Codes: E11.9 - Type 2 diabetes mellitus without complications SNOMED: 68996869 (2) COPD (chronic obstructive pulmonary disease) ICD Codes: J44.9 - Chronic obstructive pulmonary disease, unspecified SNOMED: 03957627 (3) Hypertension ICD Codes: I10 - Essential (primary) hypertension SNOMED: 21239494 (4) Diabetes mellitus type II, uncontrolled ICD Codes: E11.65 - Type 2 diabetes mellitus with hyperglycemia SNOMED: 46049877, 394267143 (5) Cerebral vascular disease ICD Codes: I67.9 - Cerebrovascular disease, unspecified SNOMED: 66779949 (6) Hip fracture ICD Codes: S72.009A - Fracture of unspecified part of neck of unspecified femur , initial encounter for closed fracture SNOMED: 858282918 (7) Hyponatremia ICD Codes: E87.1 - Hypo-osmolality and hyponatremia SNOMED: 37141040 Status: stable Assessment/Plan: cont pain rx titrate bp rx prn added renal appreciated ekg pending for surgery today stable minimally elevated periop risk d/w Subjective ROS Limited/Unobtainable: No Constitutional: Reports: weakness HEENT: Reports: no symptoms Cardiovascular: Reports: no symptoms Respiratory: Reports: no symptoms Gastrointestinal/Abdominal: Reports: no symptoms Genitourinary: Reports: no symptoms Neurologic/Psychiatric: Reports: no symptoms Endocrine: Reports: no symptoms Hematologic/Lymphatic: Reports: no symptoms Allergies: Coded Allergies: NO KNOWN ALLERGIES (Unverified Allergy, Unknown, 05/04/18) All Systems: reviewed and negative except above Subjective c/o hip pain. sodium level better. no vomiting. bp up this am Objective Last 24 Hour Vital Signs Date Time Temp Pulse Resp B/P (MAP) Pulse Ox O2 Delivery O2 Flow Rate FiO2 05/11/19 08:19 175/84 05/11/19 08:00 97.7 69 20 175/84 (114) 100 05/11/19 04:00 97.7 63 18 147/95 (112) 98 05/11/19 00:00 98.3 106 18 148/105 (119) 96 05/10/19 21:00 Room Air 05/10/19 20:00 98.5 114 19 154/90 (111) 94 7/8/19 18:00 131/71 05/10/19 16:00 98.8 78 20 131/71 (91) 94 05/10/19 12:00 98.1 71 16 156/85 (108) 98 Intake and Output 05/10/19 05/11/19 19:00 07:00 Intake Total 260 ml 330 ml Output Total 2050 ml 3300 ml Balance -1790 ml -2970 ml Intake Oral 120 ml IV Total 260 ml 210 ml Output Urine Total 2050 ml 3300 ml # Voids 3 Laboratory Tests 05/10/19 12:00: Urine Osmolality 422L, Urine Random Sodium 72 05/10/19 17:50: Sodium Level 126L, Potassium Level 3.8, Chloride Level 90L, Carbon Dioxide Level 24, Anion Gap 12, Blood Urea Nitrogen 19H, Creatinine 1.1, Estimat Glomerular Filtration Rate , Glucose Level 389#H, Calcium Level 8.5 05/11/19 05:40: Sodium Level 133L, Potassium Level 3.2L, Chloride Level 97L, Carbon Dioxide Level 27, Anion Gap 9, Blood Urea Nitrogen 20H, Creatinine 0.8, Estimat Glomerular Filtration Rate , Glucose Level 67#L, Calcium Level 9.3, Uric Acid 2.4L, Phosphorus Level 3.0, Magnesium Level 2.0, Total Bilirubin 0.5, Aspartate Amino Transf (AST/SGOT) 30, Alanine Aminotransferase (ALT/SGPT) 19, Alkaline Phosphatase 72, Total Protein 6.7, Albumin 3.6, Globulin 3.1, Albumin/Globulin Ratio 1.2 Height (Feet): 5 Height (Inches): 7.00 Weight (Pounds): 125 General Appearance: WD/WN, alert Neck: supple Cardiovascular: normal rate, regular rhythm Respiratory/Chest: chest wall non-tender, lungs clear, normal breath sounds Abdomen: normal bowel sounds, non tender, soft, no organomegaly Edema: no edema noted Arm (L), no edema noted Arm (R), no edema noted Leg (L), no edema noted Leg (R), no edema noted Pedal (L), no edema noted Pedal (R), no edema noted Generalized Neurologic: business support coordinator II-XII grossly normal, alert, oriented x 3 David Garcia MD May 11, 2019 09:19
[2019-05-11] MEDS ORDERED: Bacitracin 50000 Units Vial ONE ×2 (12:05→12:10)
[2019-05-11] MEDS ORDERED: NeoSporin Gu Irrig 1ml Amp IRRIG ONE ×4 (12:05→13:41)
[2019-05-11] MEDS ORDERED: Bacitracin 50000 Units Vial IRRIG ONE ×2 (12:26→13:41)
[2019-05-11] MEDS ORDERED: NS Irrig 2000ml IRRIG ONE ×2 (12:27→13:41)
--- NOTE | 2019-05-11 12:42 | Nephrology Progress Note ---
Assessment/Plan Problem List: (1) Hyponatremia (2) History of SIADH (3) Diabetes mellitus type II, uncontrolled (4) Hip fracture (5) HTN (hypertension) Assessment Low Na , Low Uric Acid, High Urine Na SIADH Dm , high A1c HTN Plan Plan; 3% Saline + IV Lasix: Keep intake below out put PO fluid restriction monitor lytes PO fluid restriction Subjective ROS Limited/Unobtainable: No Constitutional: Reports: malaise Objective Objective Last 24 Hour Vital Signs Date Time Temp Pulse Resp B/P (MAP) Pulse Ox O2 Delivery O2 Flow Rate FiO2 05/11/19 12:00 97.4 60 18 170/77 (108) 05/11/19 09:00 Room Air 05/11/19 08:19 175/84 05/11/19 08:00 97.7 69 20 175/84 (114) 100 05/11/19 04:00 97.7 63 18 147/95 (112) 98 05/11/19 00:00 98.3 106 18 148/105 (119) 96 05/10/19 21:00 Room Air 05/10/19 20:00 98.5 114 19 154/90 (111) 94 05/10/19 18:00 131/71 05/10/19 16:00 98.8 78 20 131/71 (91) 94 Intake and Output 05/10/19 05/11/19 19:00 07:00 Intake Total 260 ml 330 ml Output Total 2050 ml 3300 ml Balance -1790 ml -2970 ml Intake Oral 120 ml IV Total 260 ml 210 ml Output Urine Total 2050 ml 3300 ml # Voids 3 Laboratory Tests 05/10/19 17:50: Sodium Level 126L, Potassium Level 3.8, Chloride Level 90L, Carbon Dioxide Level 24, Anion Gap 12, Blood Urea Nitrogen 19H, Creatinine 1.1, Estimat Glomerular Filtration Rate , Glucose Level 389#H, Calcium Level 8.5 05/11/19 05:40: Sodium Level 133L, Potassium Level 3.2L, Chloride Level 97L, Carbon Dioxide Level 27, Anion Gap 9, Blood Urea Nitrogen 20H, Creatinine 0.8, Estimat Glomerular Filtration Rate , Glucose Level 67#L, Calcium Level 9.3, Uric Acid 2.4L, Phosphorus Level 3.0, Magnesium Level 2.0, Total Bilirubin 0.5, Aspartate Amino Transf (AST/SGOT) 30, Alanine Aminotransferase (ALT/SGPT) 19, Alkaline Phosphatase 72, Total Protein 6.7, Albumin 3.6, Globulin 3.1, Albumin/Globulin Ratio 1.2 Height (Feet): 5 Height (Inches): 7.00 Weight (Pounds): 170 General Appearance: no apparent distress, lethargic Cardiovascular: normal rate Respiratory/Chest: decreased breath sounds Abdomen: soft Robi Duarte MD May 11, 2019 12:42
[2019-05-11] MEDS ORDERED: cloNIDine 1000mcg/10ml inj ONE (12:56)
[2019-05-11] MEDS ORDERED: EPINEPHrine 1mg/1ml Amp ONE (12:56)
[2019-05-11] MEDS ORDERED: Bupivacaine 0.5% Inj 30 ml vial INJ ONE (12:57)
[2019-05-11] MEDS ORDERED: Tranexamic Acid 1,000 MG in NS 65 ML IV SCH (13:00)
--- NOTE | 2019-05-11 13:01 | Pre-Procedure Note/Attestation ---
Pre-Procedure Note/Attestation Complete Prior to Procedure Planned Procedure: right Procedure Narrative: right hip hemiarthroplasty Indications for Procedure Pre-Operative Diagnosis: right hip femoral neck fracture Attestation I attest that I discussed the nature of the procedure; its benefits; risks and complications; and alternatives (and the risks and benefits of such alternatives ), prior to the procedure, with the patient (or the patient's legal sales representative door to door). I attest that, if there was a reasonable possibility of needing a blood transfusion, the patient (or the patient's legal sales representative door to door) was given the [facility] standardized written summary, pursuant to the Thiago Xi Blood Safety Act ([place] Health and Safety Code # 1645, as amended). I attest that I re-evaluated the patient just prior to the surgery and that there has been no change in the patient's H&P, except as documented below: none Reid Kingsley MD May 11, 2019 13:01
[2019-05-11] MEDS ORDERED: HYDROmorphone 1mg/ml Carpuject SUBQ PRN (13:08)
[2019-05-11] MEDS ORDERED: Lidocaine 1% Plain 30 ml INJ ONE (13:13)
[2019-05-11] MEDS ORDERED: Propofol 200mg/20ml IV ONE (13:14)
[2019-05-11] MEDS ORDERED: Midazolam 2mg/2ml Inj ONE (13:15)
[2019-05-11] MEDS ORDERED: LR 1000ml 1,000 ML IVLG SCH (13:39)
[2019-05-11] MEDS ORDERED: Hydromorphone 0.5mg/0.5ml inj IVP PRN (13:45)
[2019-05-11] MEDS ORDERED: HYDROcodone/Acetamin 5/325 tab ORAL PRN (13:45)
[2019-05-11] MEDS ORDERED: LORazepam Inj 2mg/ml 1ml IV PRN (13:45)
[2019-05-11] MEDS ORDERED: fentaNYL 100 mcg/2 mL IV PRN (13:45)
[2019-05-11] MEDS ORDERED: HYDROcodone/Acetamin 7.5/325 tab ORAL PRN (13:45)
[2019-05-11] MEDS ORDERED: Atropine Sulfate 0.4mg/ml inj IVP PRN (13:45)
[2019-05-11] MEDS ORDERED: oxyCODONE HCL/Acetaminophen 5/325mg ORAL PRN (13:45)
[2019-05-11] MEDS ORDERED: Meperidine 50mg/ml Inj(FOR RIGORS ONLY) IVP PRN (13:45)
[2019-05-11] MEDS ORDERED: Metoclopramide 10mg/2ml Inj IVP PRN (13:45)
[2019-05-11] MEDS ORDERED: Midazolam 2mg/2ml Inj IVP PRN (13:45)
[2019-05-11] MEDS ORDERED: DiphenhydrAMINE 50mg/ml Inj IVP PRN (13:45)
--- NOTE | 2019-05-11 13:47 | Anethesia Preoperative Eval ---
Anesthesia Pre-op PMH/ROS General Date of Evaluation: May 11, 2019 Time of Evaluation: 12:49 Anesthesiologist: Sanchez ASA Score: ASA 4 Mallampati Score Class I : Soft palate, uvula, fauces, pillars visible Class II: Soft palate, uvula, fauces visible Class III: Soft palate, base of uvula visible Class IV: Only hard plate visible Mallampati Classification: Class II Surgeon: Teetee Diagnosis: R Hip Fx Surgical Procedure: R Hip Hemiarthroplasty Anesthesia History: none Family History: no anesthesia problems Allergies: Coded Allergies: NO KNOWN ALLERGIES (Unverified Allergy, Unknown, 05/04/18) Medications: see eMAR Patient NPO?: Yes NPO Date: May 10, 2019 NPO Time: 0000 Past Medical History Cardiovascular: Reports: HTN, other - HL Gastrointestinal/Genitourinary: Reports: GERD, other - Prostate CA Neurologic/Psychiatric: Reports: dementia, CVA Endocrine: Reports: DM HEENT: Reports: cataract (L), cataract (R) Hematology/Immune: Reports: anemia PSxH Narrative: Prostatectomy Anesthesia Pre-op Phys. Exam Physician Exam Last Vital Signs Date Time Temp Pulse Resp B/P (MAP) Pulse Ox O2 Delivery O2 Flow Rate FiO2 05/11/19 12:00 97.4 60 18 170/77 (108) 05/11/19 09:00 Room Air 05/11/19 08:00 100 Constitutional: NAD Neurologic: CN 2-12 intact Cardiovascular: RRR Respiratory: CTA Gastrointestinal: S/NT/ND Airway Exam Mallampati Score: Class I MO: limited ROM: limited Teeth: missing Anesthesia Pre-op A/P Labs Chemistry Test 05/10/19 17:50 05/11/19 05:40 Sodium Level 126 MMOL/L (136-145) L 133 MMOL/L (136-145) L Potassium Level 3.8 MMOL/L (3.5-5.1) 3.2 MMOL/L (3.5-5.1) L Chloride Level 90 MMOL/L (98-107) L 97 MMOL/L (98-107) L Carbon Dioxide Level 24 MMOL/L (21-32) 27 MMOL/L (21-32) Anion Gap 12 mmol/L (5-15) 9 mmol/L (5-15) Blood Urea Nitrogen 19 mg/dL (7-18) H 20 mg/dL (7-18) H Creatinine 1.1 MG/DL (0.55-1.30) 0.8 MG/DL (0.55-1.30) Estimat Glomerular Filtration Rate mL/min (>60) mL/min (>60) Glucose Level 389 MG/DL (74-106) #H 67 MG/DL (74-106) #L Calcium Level 8.5 MG/DL (8.5-10.1) 9.3 MG/DL (8.5-10.1) Uric Acid 2.4 MG/DL (2.6-7.2) L Phosphorus Level 3.0 MG/DL (2.5-4.9) Magnesium Level 2.0 MG/DL (1.8-2.4) Total Bilirubin 0.5 MG/DL (0.2-1.0) Aspartate Amino Transf (AST/SGOT) 30 U/L (15-37) Alanine Aminotransferase (ALT/SGPT) 19 U/L (12-78) Alkaline Phosphatase 72 U/L (46-116) Total Protein 6.7 G/DL (6.4-8.2) Albumin 3.6 G/DL (3.4-5.0) Globulin 3.1 g/dL Albumin/Globulin Ratio 1.2 (1.0-2.7) Risk Assessment & Plan Assessment: ASA 4 Plan: GA, Spinal Status Change Before Surgery: No Pre-Antibiotics Given Within 1 Hr of Incision: Yes Jay Bradford MD May 11, 2019 13:47
[2019-05-11] MEDS ORDERED: ePHEDrine 50mg/ml Inj ONE (13:48)
--- NOTE | 2019-05-11 13:48 | Immediate Post-Op Evaluation ---
Immediate Post-Op Evalulation Immediate Post-Op Evalulation Procedure: R Hip Hemiarthroplasty Date of Evaluation: May 11, 2019 Time of Evaluation: 15:07 IV Fluids: 600 LR Blood Products: 0 Estimated Blood Loss: 50 Urinary Output: 0 Blood Pressure Systolic: 108 Blood Pressure Diastolic: 67 Pulse Rate: 77 Respiratory Rate: 16 O2 Sat by Pulse Oximetry: 100 Temperature (Fahrenheit): 97 Pain Score (1-10): 0 Nausea: No Vomiting: No Complications 0 Patient Status: awake, reacts, patent, none Hydration Status: adequate Dru Grams Ancef IV Given Within 1 Hr of Incision: Yes Time Given: 13:46 Jay Bradford MD May 11, 2019 13:48
--- NOTE | 2019-05-11 14:45 | Brief Operative Note ---
Immediate Post Operative Note Operative Note Chief Complaint: rt hip pain Pre-op Diagnosis: rt hip fracture Procedure: rt hip hemiarthroplasty Post-op Diagnosis: same as pre-op Findings: consistent w/pre-op dx studies Surgeon: md avis Child Development Specialist: horacio scott Anesthesiologist: md krzysztof Anesthesia: general Specimen: yes Complications: none Condition: stable Fluids: ns Estimated Blood Loss: minimal Drains: none Implant(s) used?: Yes - Vesna Avalos May 11, 2019 14:45
[2019-05-11] MEDS ORDERED: LR 1000ml ONE (14:51)
--- NOTE | 2019-05-11 16:09 | Diagnostic Imaging Report ---
Indication: Pain, status post right hip replacement Technique: One view of the pelvis Comparison: 05/09/2019 Findings: Interim repair of previously demonstrated right distal femoral neck fracture with a right hip hemiarthroplasty. Good anatomic alignment of the prosthesis. There is a Myers catheter in place. Retained air from the surgical exposure is seen within the soft tissues Impression: Postoperative right hip. No unusual features
--- NOTE | 2019-05-11 16:20 | NUR ---
NURSE NOTES: REC'D FROM PACU SP RT HIP HEMIARTHROPLASTY. AWAKE/ RESPONSIVE. V/S TAKEN.NO C/O PAIN. RT HIP DRESSING DRY AND INTACT. WITH ABDUCTION PILLOW BETWEEN LEGS IN PLACE, WITH GOOD PEDAL PULSE. IN NO DISTRESS.
[2019-05-11] MEDS: D5 1/2NS w/KCl 20mEq 1,000 ML IV SCH (17:26)
[2019-05-11] MEDS: Aspirin Baby 81mg ORAL SCH (18:00)
[2019-05-11] MEDS ORDERED: Docusate 100mg cap ORAL SCH (18:00)
--- NOTE | 2019-05-11 19:00 | NUR ---
NURSE NOTES: RESTING IN BED. IN NO ACUTE DISTRESS.
--- NOTE | 2019-05-11 19:34 | NUR ---
HAND-OFF: Report given to Clinton GALLEGO RN.
--- NOTE | 2019-05-11 20:00 | NUR ---
NURSE NOTES: Pt is in bed, awake and verbal. No acute distress noted. Vitals stable.S/P right hip arthroplasty, dressing dry and intact. Abduction pillow in place. Pt is calm, pt doesn't complain of any pain. Pt was encouraged to use incentive spectrometer.Pt is able to eat. F/C draining yellow urine. D5 1/2 Ns with 20mEq KCL running at 75ml/hr. Bed locked low in position,side rails up and call light within reach. Pt will be monitored.
--- NOTE | 2019-05-11 22:15 | Operative Note - Dictated ---
DATE OF OPERATION: 05/11/2019 PREOPERATIVE DIAGNOSIS: Right hip subcapital femoral neck fracture with displacement. POSTOPERATIVE DIAGNOSIS: Right hip subcapital femoral neck fracture with displacement. PROCEDURE: Right hip hemiarthroplasty using Parlier system, size 7 high-offset Accolade stem, size 28 mm femoral head with a 46 mm x 4 component. SURGEON: Reid Kingsley M.D. INSTRUCTOR ROBOTICS: Vesna Fernandez PA-C. ANESTHESIOLOGIST: Dr. Bradford. ANESTHESIA: Spinal anesthesia. ESTIMATED BLOOD LOSS: 150 mL. COMPLICATIONS: None. BRIEF HISTORY: The patient is a pleasant 79-year-old gentleman who sustained a mechanical fall and broke his right hip. He was admitted to the hospital and he initially had electrolyte imbalances. These were corrected and subsequently once he was cleared for surgery, he consented to proceed with right hip hemiarthroplasty. Risks, benefits, complications of surgery including infection, bleeding, neurovascular complication, possibility of malunion, possibility of nonunion, possibility of dislocation, possibility of leg-length discrepancy, DVTs, PEs, were discussed with him. He understood and agreed. OPERATIVE PROCEDURE: The patient was brought to the operating table and was placed supine. Spinal anesthesia was induced and the patient was placed in the left lateral decubitus position with the right hip up. The patient was stabilized using pegboard. All pressure points were well padded. The left hip was prepped and draped in usual sterile fashion and time-out was performed. Preop antibiotics and tranexamic acid was given. A posterolateral incision was made over the hip. The incision was taken through the subcutaneous tissue and the deep tensor fascia was opened. Charnley retractors were placed in and short external rotators were released. The capsule was T'd. The fracture could be visualized. The neck was long. A neck cut was performed approximately 1 cm proximal to the lesser trochanter. At this point, the femoral head was removed and appeared to be 46 mm. The acetabulum was inspected and appeared to be intact. The acetabulum was irrigated thoroughly using Simpulse irrigation. Subsequently, the care was given to the femoral side. The hip was internally rotated and the appropriate retractors were placed in. Using a sample box maker, entry point was lateralized onto the trochanter and onto the proximal femur. Once this was completed, canal finding was applied and subsequently sequential broaching was performed from 0 to size 7. Size 7 broach appeared to give excellent length, axial and rotational stability. At this point, a 28 mm +0 head, a high-offset neck, and a 46 mm bipolar were assembled and the hip was then reduced. The leg lengths appeared to be perfect and normal. There was good flexion, good extension, good internal and external rotation. There was great stability of the hip with internal and external rotation. In neutral abduction, the hip could be flexed to 90 degrees and internally rotated all the way up to about 75-80 degrees without any subluxation or dislocation. At this point, all were fully irrigated and trial components were removed. Using Simpulse irrigation, the femur and acetabulum were irrigated once more. At this point, a size 7 Accolade high-offset stem was applied and a 28 mm +0 head and a 46 mm bipolar components were assembled and locked in on the dried Nicholson taper. Once this was completed, the entire construct was reduced once again and range of motion, stability, and leg lengths were checked and appeared to be perfect as described previously. At this point, the capsules which were tagged with #2 FiberWire sutures were then repaired using drill holes into the greater trochanter. All area was irrigated using copious amount of fluid and the tensor fascia was closed using #1 Vicryl suture. Subcutaneous tissue was closed using 2-0 Vicryl suture. Skin was closed using 3-0 Monocryl suture and Dermabond was applied. The patient tolerated procedure well without any complication and was taken to recovery room in stable condition. All lap counts and instrument counts were correct. Reid Kingsley M.D. DR: Alissa JOB#: [id number] CC:
[2019-05-11] MEDS: ceFAZolin sod 2 GM in D5W 110 ML IV SCH (22:46)
[2019-05-11] MEDS: Levemir Flexpen SUBQ SCH (22:47)
[2019-05-12] VITALS: BP 158/82
[2019-05-12] MEDS: Morphine Sulfate 2mg/ml Inj(IV/IM USE ONLY) IVP PRN (03:08)
[2019-05-12 04:00] VITALS: BP 162/83
--- NOTE | 2019-05-12 04:09 | NUR ---
NURSE NOTES: Pt is in bed, asleep. No acute distress noted. Abduction pillow in place, dressing dry and intact.
--- NOTE | 2019-05-12 05:30 | NUR ---
NURSE NOTES: BP 162/83, hydralazine 25mg po given as ordered PRN
[2019-05-12] MEDS: D5 1/2NS w/KCl 20mEq 1,000 ML IV SCH (05:31)
[2019-05-12] MEDS: ceFAZolin sod 2 GM in D5W 110 ML IV SCH (05:31)
[2019-05-12] MEDS: NovoLOG Insulin Flexpen SUBQ SCH ×4 (05:33→21:29)
[2019-05-12 06:50] LABS: HEMATOCRIT 38.8 % (42.0-52.0); HEMOGLOBIN 13.3 G/DL (14.2-18.0); MEAN CORPUSCULAR VOLUME 95 FL (80-99); PLATELET COUNT 171 K/UL (150-450); RED BLOOD COUNT 4.08 M/UL (4.70-6.10); WHITE BLOOD COUNT 10.3 K/UL (4.8-10.8)
--- NOTE | 2019-05-12 06:52 | Orthopedic Progress Note ---
Orthopedic - Progress Note Subjective Symptoms: improved Objective Laboratory Tests Test 05/12/19 05:29 White Blood Count Pending Red Blood Count Pending Hemoglobin Pending Hematocrit Pending Mean Corpuscular Volume Pending Mean Corpuscular Hemoglobin Pending Mean Corpuscular Hemoglobin Concent Pending Red Cell Distribution Width Pending Platelet Count Pending Mean Platelet Volume Pending Neutrophils (%) (Auto) Pending Lymphocytes (%) (Auto) Pending Monocytes (%) (Auto) Pending Eosinophils (%) (Auto) Pending Basophils (%) (Auto) Pending Sodium Level Pending Potassium Level Pending Chloride Level Pending Carbon Dioxide Level Pending Blood Urea Nitrogen Pending Creatinine Pending Estimat Glomerular Filtration Rate Pending Glucose Level Pending Uric Acid Pending Calcium Level Pending Phosphorus Level Pending Magnesium Level Pending Total Bilirubin Pending Aspartate Amino Transf (AST/SGOT) Pending Alanine Aminotransferase (ALT/SGPT) Pending Alkaline Phosphatase Pending Total Protein Pending Albumin Pending Globulin Pending Last 24 Hour Vital Signs Date Time Temp Pulse Resp B/P (MAP) Pulse Ox O2 Delivery O2 Flow Rate FiO2 05/12/19 05:30 162/83 05/12/19 04:00 98.3 79 18 162/83 (109) 98 05/12/19 00:00 97.7 86 18 158/82 (107) 95 05/11/19 21:00 Nasal Cannula 2.0 05/11/19 20:00 97.4 99 18 130/84 (99) 99 05/11/19 19:45 95 Nasal Cannula 3.0 32 05/11/19 18:00 97.2 92 18 121/84 (96) 100 05/11/19 17:37 125/75 05/11/19 17:00 97.0 82 20 124/70 (88) 100 05/11/19 16:20 97.5 85 18 125/75 (92) 100 05/11/19 16:10 97.9 67 15 126/70 100 Nasal Cannula 3 05/11/19 16:00 85 15 131/72 100 Nasal Cannula 3 05/11/19 15:45 83 20 134/63 100 Nasal Cannula 3 05/11/19 15:30 67 15 106/67 100 Nasal Cannula 3 05/11/19 15:20 67 15 121/63 100 Simple Mask 6 05/11/19 15:05 78 19 123/71 100 Simple Mask 6 05/11/19 15:00 79 18 122/73 100 Simple Mask 6 05/11/19 14:56 97.0 77 17 108/67 100 Simple Mask 6 05/11/19 14:53 77 16 100 05/11/19 12:00 97.4 60 18 170/77 (108) 05/11/19 09:00 Room Air 05/11/19 08:19 175/84 05/11/19 08:00 97.7 69 20 175/84 (114) 100 Intake and Output 05/11/19 05/12/19 19:00 07:00 Intake Total 1937.5 ml 560 ml Output Total 650 ml Balance 1287.5 ml 560 ml Intake Oral 250 ml IV Total 1687.5 ml 560 ml Output Urine Total 600 ml Estimated Blood Loss 50 ml Laboratory Tests Test 05/12/19 05:29 White Blood Count Pending Red Blood Count Pending Hemoglobin Pending Hematocrit Pending Mean Corpuscular Volume Pending Mean Corpuscular Hemoglobin Pending Mean Corpuscular Hemoglobin Concent Pending Red Cell Distribution Width Pending Platelet Count Pending Mean Platelet Volume Pending Neutrophils (%) (Auto) Pending Lymphocytes (%) (Auto) Pending Monocytes (%) (Auto) Pending Eosinophils (%) (Auto) Pending Basophils (%) (Auto) Pending Sodium Level Pending Potassium Level Pending Chloride Level Pending Carbon Dioxide Level Pending Blood Urea Nitrogen Pending Creatinine Pending Estimat Glomerular Filtration Rate Pending Glucose Level Pending Uric Acid Pending Calcium Level Pending Phosphorus Level Pending Magnesium Level Pending Total Bilirubin Pending Aspartate Amino Transf (AST/SGOT) Pending Alanine Aminotransferase (ALT/SGPT) Pending Alkaline Phosphatase Pending Total Protein Pending Albumin Pending Globulin Pending Wound: clean, dry, intact Drains: none Neuro Status: normal Vascular Status: normal Additional Comments xray reviewed, excellent prosthesis placement/alignment Assessment Post-op Diagnosis POD 1 Procedure Performed rt hip hemiarthroplasty Plan Plan: PT, discharge plan - f/u Dr Kingsley 2 weeks, other - today's labs pending, follow H&H. ASA and SCDs for DVT ppx Vesna Fernandez May 12, 2019 06:52
[2019-05-12 07:06] LABS: PHOSPHORUS 2.9 MG/DL (2.5-4.9)
[2019-05-12 07:10] LABS: ALANINE AMINOTRANSFERASE 26 U/L (12-78); ALBUMIN/GLOBULIN RATIO 0.8 (1.0-2.7); ALKALINE PHOSPHATASE 66 U/L (46-116); ANION GAP 8 mmol/L (5-15); ASPARTATE AMINO TRANSFERASE 36 U/L (15-37); BILIRUBIN,TOTAL 0.5 MG/DL (0.2-1.0); BLOOD UREA NITROGEN 15 mg/dL (7-18); CALCIUM 9.3 MG/DL (8.5-10.1); CARBON DIOXIDE 27 MMOL/L (21-32); CHLORIDE 98 MMOL/L (98-107); CREATININE 0.8 MG/DL (0.55-1.30); POTASSIUM 3.7 MMOL/L (3.5-5.1); SODIUM 133 MMOL/L (136-145)
--- NOTE | 2019-05-12 07:12 | NUR ---
HAND-OFF: Report given to AL West.
--- NOTE | 2019-05-12 07:32 | NUR ---
NURSE NOTES: AWAKE/ALERT X2.RT HIP DRESSING DRY AND INTACT. WITH GOOD PEDAL PULSE.NO C/O PAIN. IN NO DISTRESS.
[2019-05-12 07:59] VITALS: BP 174/91
--- NOTE | 2019-05-12 08:31 | 48 Hour Post Anesthesia Eval ---
Post Anesthesia Evaluation Procedure: R Hip Hemiarthroplasty Date of Evaluation: May 12, 2019 Blood Pressure Systolic: 162 0: 83 Pulse Rate: 79 Respiratory Rate: 18 Temperature (Fahrenheit): 98.3 O2 Sat by Pulse Oximetry: 98 Airway: patent Nausea: No Vomiting: No Pain Intensity: 0 Hydration Status: adequate Cardiopulmonary Status: at bsseline Mental Status/LOC: patient returned to baseline Post-Anesthesia Complications: 0 Follow-up care needed: N/A - further care as per primary team Jayashree So MD May 12, 2019 08:31
--- NOTE | 2019-05-12 08:35 | General Progress Note ---
Assessment/Plan Problem List: (1) Diabetes mellitus ICD Codes: E11.9 - Type 2 diabetes mellitus without complications SNOMED: 28465870 (2) COPD (chronic obstructive pulmonary disease) ICD Codes: J44.9 - Chronic obstructive pulmonary disease, unspecified SNOMED: 20219889 (3) Hypertension ICD Codes: I10 - Essential (primary) hypertension SNOMED: 96331680 (4) Diabetes mellitus type II, uncontrolled ICD Codes: E11.65 - Type 2 diabetes mellitus with hyperglycemia SNOMED: 87995036, 588226590 (5) Cerebral vascular disease ICD Codes: I67.9 - Cerebrovascular disease, unspecified SNOMED: 51533421 (6) Hip fracture ICD Codes: S72.009A - Fracture of unspecified part of neck of unspecified femur , initial encounter for closed fracture SNOMED: 839252721 (7) Hyponatremia ICD Codes: E87.1 - Hypo-osmolality and hyponatremia SNOMED: 48681610 Status: stable Assessment/Plan: cont pain rx titrate bp rx monitor lytes resp care pt/ot dvt prophylaxis Subjective ROS Limited/Unobtainable: No Constitutional: Reports: malaise, weakness HEENT: Reports: no symptoms Cardiovascular: Reports: no symptoms Respiratory: Reports: no symptoms Gastrointestinal/Abdominal: Reports: no symptoms Genitourinary: Reports: no symptoms Neurologic/Psychiatric: Reports: no symptoms Endocrine: Reports: no symptoms Hematologic/Lymphatic: Reports: no symptoms Allergies: Coded Allergies: NO KNOWN ALLERGIES (Unverified Allergy, Unknown, 05/04/18) All Systems: reviewed and negative except above Subjective c/o hip pain. sodium level better. s/p rt hemiarthroplasty. denies cp/sob Objective Last 24 Hour Vital Signs Date Time Temp Pulse Resp B/P (MAP) Pulse Ox O2 Delivery O2 Flow Rate FiO2 05/12/19 08:31 79 18 98 05/12/19 07:59 98.1 108 18 174/91 (118) 97 05/12/19 07:23 96 Nasal Cannula 2.0 28 05/12/19 05:30 162/83 05/12/19 04:00 98.3 79 18 162/83 (109) 98 05/12/19 00:00 97.7 86 18 158/82 (107) 95 05/11/19 21:00 Nasal Cannula 2.0 05/11/19 20:00 97.4 99 18 130/84 (99) 99 05/11/19 19:45 95 Nasal Cannula 3.0 32 05/11/19 18:00 97.2 92 18 121/84 (96) 100 05/11/19 17:37 125/75 05/11/19 17:00 97.0 82 20 124/70 (88) 100 05/11/19 16:20 97.5 85 18 125/75 (92) 100 05/11/19 16:10 97.9 67 15 126/70 100 Nasal Cannula 3 05/11/19 16:00 85 15 131/72 100 Nasal Cannula 3 05/11/19 15:45 83 20 134/63 100 Nasal Cannula 3 05/11/19 15:30 67 15 106/67 100 Nasal Cannula 3 05/11/19 15:20 67 15 121/63 100 Simple Mask 6 05/11/19 15:05 78 19 123/71 100 Simple Mask 6 05/11/19 15:00 79 18 122/73 100 Simple Mask 6 05/11/19 14:56 97.0 77 17 108/67 100 Simple Mask 6 05/11/19 14:53 77 16 100 05/11/19 12:00 97.4 60 18 170/77 (108) 05/11/19 09:00 Room Air Intake and Output 05/11/19 05/12/19 19:00 07:00 Intake Total 1937.5 ml 860 ml Output Total 650 ml Balance 1287.5 ml 860 ml Intake Oral 250 ml IV Total 1687.5 ml 860 ml Output Urine Total 600 ml Estimated Blood Loss 50 ml Laboratory Tests 05/12/19 05:29: White Blood Count 10.3, Red Blood Count 4.08L, Hemoglobin 13.3L, Hematocrit 38.8L, Mean Corpuscular Volume 95, Mean Corpuscular Hemoglobin 32.7H, Mean Corpuscular Hemoglobin Concent 34.4, Red Cell Distribution Width 11.0L, Platelet Count 171, Mean Platelet Volume 5.5L, Neutrophils (%) (Auto) , Lymphocytes (%) (Auto) , Monocytes (%) (Auto) , Eosinophils (%) (Auto) , Basophils (%) (Auto) , Differential Total Cells Counted 100, Neutrophils % ( Manual) 91H, Lymphocytes % (Manual) 2L, Monocytes % (Manual) 6, Eosinophils % ( Manual) 1, Basophils % (Manual) 0, Band Neutrophils 0, Platelet Estimate Adequate, Platelet Morphology Normal, Red Blood Cell Morphology Normal, Sodium Level 133L, Potassium Level 3.7, Chloride Level 98, Carbon Dioxide Level 27, Anion Gap 8, Blood Urea Nitrogen 15, Creatinine 0.8, Estimat Glomerular Filtration Rate , Glucose Level 196#H, Uric Acid 1.6L, Calcium Level 9.3, Phosphorus Level 2.9, Magnesium Level 1.8, Total Bilirubin 0.5, Aspartate Amino Transf (AST/SGOT) 36, Alanine Aminotransferase (ALT/SGPT) 26, Alkaline Phosphatase 66, Total Protein 6.6, Albumin 3.0L, Globulin 3.6, Albumin/Globulin Ratio 0.8L Height (Feet): 5 Height (Inches): 7.00 Weight (Pounds): 115 General Appearance: WD/WN, alert Neck: supple Cardiovascular: regular rhythm Respiratory/Chest: chest wall non-tender, lungs clear, normal breath sounds Abdomen: normal bowel sounds, non tender, soft, no organomegaly Edema: no edema noted Arm (L), no edema noted Arm (R), no edema noted Leg (L), no edema noted Leg (R), no edema noted Pedal (L), no edema noted Pedal (R), no edema noted Generalized David Garcia MD May 12, 2019 08:35
[2019-05-12] MEDS: Benazepril 10mg tab ORAL SCH ×2 (09:04→17:34)
[2019-05-12] MEDS: Aspirin Baby 81mg ORAL SCH ×2 (09:04→17:33)
[2019-05-12] MEDS: Docusate 100mg cap ORAL SCH ×3 (09:05→17:33)
[2019-05-12] MEDS: Tamsulosin 0.4mg cap ORAL SCH ×2 (09:06→17:33)
[2019-05-12 12:00] VITALS: BP 115/60
--- NOTE | 2019-05-12 13:17 | Nephrology Progress Note ---
Assessment/Plan Problem List: (1) Hyponatremia (2) History of SIADH (3) Diabetes mellitus type II, uncontrolled (4) Hip fracture (5) HTN (hypertension) Assessment Low Na , Low Uric Acid, High Urine Na SIADH Dm , high A1c HTN Plan Plan; Post op day 1: ( 05/11/19 hip surgery) 3% Saline + IV Lasix: Keep intake below out put PO fluid restriction monitor lytes PO fluid restriction Subjective ROS Limited/Unobtainable: No Constitutional: Reports: malaise Objective Objective Last 24 Hour Vital Signs Date Time Temp Pulse Resp B/P (MAP) Pulse Ox O2 Delivery O2 Flow Rate FiO2 05/12/19 09:04 174/91 05/12/19 09:04 174/91 05/12/19 09:00 Nasal Cannula 2.0 05/12/19 08:31 79 18 98 05/12/19 07:59 98.1 108 18 174/91 (118) 97 05/12/19 07:23 96 Nasal Cannula 2.0 28 05/12/19 05:30 162/83 05/12/19 04:00 98.3 79 18 162/83 (109) 98 05/12/19 00:00 97.7 86 18 158/82 (107) 95 05/11/19 21:00 Nasal Cannula 2.0 05/11/19 20:00 97.4 99 18 130/84 (99) 99 05/11/19 19:45 95 Nasal Cannula 3.0 32 05/11/19 18:00 97.2 92 18 121/84 (96) 100 05/11/19 17:37 125/75 05/11/19 17:00 97.0 82 20 124/70 (88) 100 05/11/19 16:20 97.5 85 18 125/75 (92) 100 05/11/19 16:10 97.9 67 15 126/70 100 Nasal Cannula 3 05/11/19 16:00 85 15 131/72 100 Nasal Cannula 3 05/11/19 15:45 83 20 134/63 100 Nasal Cannula 3 05/11/19 15:30 67 15 106/67 100 Nasal Cannula 3 05/11/19 15:20 67 15 121/63 100 Simple Mask 6 05/11/19 15:05 78 19 123/71 100 Simple Mask 6 05/11/19 15:00 79 18 122/73 100 Simple Mask 6 05/11/19 14:56 97.0 77 17 108/67 100 Simple Mask 6 05/11/19 14:53 77 16 100 Intake and Output 05/11/19 05/12/19 19:00 07:00 Intake Total 1937.5 ml 860 ml Output Total 650 ml Balance 1287.5 ml 860 ml Intake Oral 250 ml IV Total 1687.5 ml 860 ml Output Urine Total 600 ml Estimated Blood Loss 50 ml Laboratory Tests 05/12/19 05:29: White Blood Count 10.3, Red Blood Count 4.08L, Hemoglobin 13.3L, Hematocrit 38.8L, Mean Corpuscular Volume 95, Mean Corpuscular Hemoglobin 32.7H, Mean Corpuscular Hemoglobin Concent 34.4, Red Cell Distribution Width 11.0L, Platelet Count 171, Mean Platelet Volume 5.5L, Neutrophils (%) (Auto) , Lymphocytes (%) (Auto) , Monocytes (%) (Auto) , Eosinophils (%) (Auto) , Basophils (%) (Auto) , Differential Total Cells Counted 100, Neutrophils % ( Manual) 91H, Lymphocytes % (Manual) 2L, Monocytes % (Manual) 6, Eosinophils % ( Manual) 1, Basophils % (Manual) 0, Band Neutrophils 0, Platelet Estimate Adequate, Platelet Morphology Normal, Red Blood Cell Morphology Normal, Sodium Level 133L, Potassium Level 3.7, Chloride Level 98, Carbon Dioxide Level 27, Anion Gap 8, Blood Urea Nitrogen 15, Creatinine 0.8, Estimat Glomerular Filtration Rate , Glucose Level 196#H, Uric Acid 1.6L, Calcium Level 9.3, Phosphorus Level 2.9, Magnesium Level 1.8, Total Bilirubin 0.5, Aspartate Amino Transf (AST/SGOT) 36, Alanine Aminotransferase (ALT/SGPT) 26, Alkaline Phosphatase 66, Total Protein 6.6, Albumin 3.0L, Globulin 3.6, Albumin/Globulin Ratio 0.8L Height (Feet): 5 Height (Inches): 7.00 Weight (Pounds): 115 General Appearance: no apparent distress Cardiovascular: normal rate Respiratory/Chest: lungs clear Abdomen: soft, distended Objective no change Robi Duarte MD May 12, 2019 13:17
--- NOTE | 2019-05-12 13:20 | NUR ---
RD ASSESSMENT & RECOMMENDATIONS SEE CARE ACTIVITY FOR COMPLETE ASSESSMENT DAILY ESTIMATED NEEDS: Needs based on Underweight, diabetes, surgery/ 53kg 30-35 kcals/kg 8380-0493 total kcals 1-2 g protein/kg 53-106 g total protein 25-30 mL/kg 9589-1113 total fluid mLs NUTRITION DIAGNOSIS: * Altered nutrition related lab values R/T diabetes as evidenced by hypo and hyperglycemia (67-389), A1C 7.8 * Increased kcal/prot needs R/T underweight status and surgical wound healing as evidenced by pt is 82% of [place] Body Weight, s/p R hip hemiarthroplasty. PO DIET RECOMMENDATIONS: CCHO MED/ TEXTURE TOLERATED ADDITIONAL RECOMMENDATIONS: * Weekly wt monitoring (calibrated bedscale) given underweight status * Glucerna w/ meals as accepted * Monitor BGs closely * 1 carb/high prot snack in between meals to prevent hypoglycemia as accepted Addendum: 05/12/19 at [address] * Surgical wound healing: Add RAFFY BID + Vit C 250mg daily
[2019-05-12] MEDS ORDERED: HydrALAZINE 25mg tab ORAL PRN (13:30)
[2019-05-12 14:15] LABS: FERRITIN 226 NG/ML (8-388)
[2019-05-12 14:30] LABS: % IRON SATURATION 4 % (15-50); IRON 11 ug/dL (50-175); TOTAL IRON BINDING CAPACITY 273 ug/dL (250-450)
[2019-05-12] MEDS ORDERED: NaCl 3% 500ml 250 ML IV ONE (14:30)
--- NOTE | 2019-05-12 15:08 | NUR ---
PT Note PT harrisonal completed, tx initiated. Patient was able to ambulate x 6 small steps, antalgic. Patient needs PT to increase his muscle strength to improve his functional mobility. Recommend for patient to be DC'd to a SNF to maximize his mobility prior to DC home. Addendum: 05/12/19 at 1508 by ROXANNA RICHARDSON PT Amended: Links added.
--- NOTE | 2019-05-12 15:16 | NUR ---
CASE MANAGEMENT:REVIEW 05/12/19 SI: POD #1 S/P HIP FRACTURE 98.2 77 18 174/91 97% ON 2L/NC NA-133 IS: FLOMAX PO BID IVF@30/HR IV LASIX Q8HRS LOTENSIN PO BID ASA PO BID : MED/SURG STATUS 3 EAST PLAN: DC PLAN IS FOR SNF PLACEMENT
--- NOTE | 2019-05-12 15:36 | NUR ---
DISCHARGE PLANNING PATIENT HAS BEEN REFERRED TO [facility] PER DR CARTER'S REQUEST
[2019-05-12 16:00] VITALS: BP 133/66
--- NOTE | 2019-05-12 19:07 | NUR ---
NURSE NOTES: RESTING IN BED. IN NO DISTRESS
--- NOTE | 2019-05-12 19:19 | NUR ---
HAND-OFF: Report given to Navid RUDD RN.
[2019-05-12] MEDS ORDERED: Tubing IV Secondary IV ONE (19:33)
[2019-05-12] MEDS ORDERED: D5NS 1000ml IV ONE (19:33)
[2019-05-12 20:00] VITALS: BP 144/64
--- NOTE | 2019-05-12 20:28 | NUR ---
NURSE NOTES: RECIEVED PT. AWAKE AND ALERT W/ NO C/C OF PAIN @ THIS TIME.NO DISTRESS NOTED.S/P R. HIP HEMIARTHROPLASTY DRESSING DRY AND INTACT.V/S TAKEN AND RECORDED.INSTRUCTED TO USE CALL LIGHT FOR ANY ASSISTANCE AND VERBALIZES UNDERSTANDING .WILL CONTINUE WITH PLAN OF CARE.
[2019-05-12] MEDS: Levemir Flexpen SUBQ SCH (21:27)
[2019-05-13] VITALS (8 sets, daily range): BP systolic 97–183; BP diastolic 56–97
[2019-05-13 06:34] LABS: BASOPHILS % (AUTO) 0.3 % (0.0-2.0); EOSINOPHILS % (AUTO) 5.1 % (0.0-3.0); HEMATOCRIT 31.7 % (42.0-52.0); LYMPHOCYTES % (AUTO) 8.8 % (20.0-45.0); MEAN CORPUSCULAR VOLUME 95 FL (80-99); MONOCYTES % (AUTO) 8.6 % (1.0-10.0); NEUTROPHILS % (AUTO) 77.3 % (45.0-75.0); PLATELET COUNT 160 K/UL (150-450); RED BLOOD COUNT 3.35 M/UL (4.70-6.10); RED CELL DISTRIBUTION WIDTH 11.2 % (11.6-14.8); WHITE BLOOD COUNT 9.7 K/UL (4.8-10.8)
[2019-05-13] MEDS: NovoLOG Insulin Flexpen SUBQ SCH ×3 (06:34→17:20)
[2019-05-13 06:45] LABS: ALANINE AMINOTRANSFERASE 23 U/L (12-78); ALBUMIN 2.4 G/DL (3.4-5.0); ALBUMIN/GLOBULIN RATIO 0.7 (1.0-2.7); ALKALINE PHOSPHATASE 63 U/L (46-116); ANION GAP 1 mmol/L (5-15); ASPARTATE AMINO TRANSFERASE 29 U/L (15-37); BILIRUBIN,TOTAL 0.6 MG/DL (0.2-1.0); BLOOD UREA NITROGEN 22 mg/dL (7-18); CALCIUM 8.7 MG/DL (8.5-10.1); CARBON DIOXIDE 28 MMOL/L (21-32); CHLORIDE 98 MMOL/L (98-107); CREATININE 0.7 MG/DL (0.55-1.30); POTASSIUM 3.3 MMOL/L (3.5-5.1); SODIUM 127 MMOL/L (136-145)
[2019-05-13 06:54] LABS: PHOSPHORUS 2.7 MG/DL (2.5-4.9)
--- NOTE | 2019-05-13 07:20 | NUR ---
NURSE NOTES: Report received from Martha RN, rounds made. Patient resting in semi-fowlers position in bed. Patient alert, oriented x2 calm. No distress or SOB on RA. Denies pain. RFA HL intact. Right hip dressing foam tape, CDI, will change as ordered. Left SCD on. Abductor pillow in place, CMS +, no NT, wiggles, pulses palpable, right side weakness. Will continue Fluid Restrictions as ordered, 800 ml/24 hours. Will maintain aspiration precautions. Call light in reach, bed in lowest position, will continue to monitor.
--- NOTE | 2019-05-13 07:30 | NUR ---
HAND-OFF: Report given to SLIM MELENDEZ.
[2019-05-13] MEDS ORDERED: NaCl 3% 500ml 500 ML IV ONE (09:00)
[2019-05-13] MEDS: Tamsulosin 0.4mg cap ORAL SCH ×2 (09:49→17:24)
[2019-05-13] MEDS: Docusate 100mg cap ORAL SCH ×3 (09:52→17:23)
[2019-05-13] MEDS: Benazepril 10mg tab ORAL SCH ×2 (09:53→17:24)
[2019-05-13] MEDS: Aspirin Baby 81mg ORAL SCH ×2 (09:53→17:22)
[2019-05-13] MEDS: Morphine Sulfate 2mg/ml Inj(IV/IM USE ONLY) IVP PRN (09:56)
--- NOTE | 2019-05-13 15:21 | NUR ---
DISCHARGE PLANNING PER MD'S REQUEST BED HAS BEEN SECURED AT [facility] ROOM 11A T: [phone] WAITING FOR DISCHARGE ORDER
--- NOTE | 2019-05-13 16:53 | NUR ---
DISCHARGE DISPOSITION: PLEASE READ PATIENT TO BE DISCHARGED TO [facility] [address] [facility] ROOM [address] T: [phone]>> CALL FOR REPORT [facility] ETA 1930 SKILLED NORMA TIJERINA MADE AWARE OF THE DISCHARGE VIA VM
--- NOTE | 2019-05-13 17:23 | Nephrology Progress Note ---
Assessment/Plan Problem List: (1) Hyponatremia (2) History of SIADH (3) Diabetes mellitus type II, uncontrolled (4) Hip fracture (5) HTN (hypertension) Assessment Low Na , Low Uric Acid, High Urine Na SIADH Dm , high A1c HTN Plan Plan; Post op day 1: ( 05/11/19 hip surgery) 3% Saline + IV Lasix: Keep intake below out put PO fluid restriction monitor lytes PO fluid restriction Subjective ROS Limited/Unobtainable: No Constitutional: Reports: malaise Objective Objective Last 24 Hour Vital Signs Date Time Temp Pulse Resp B/P (MAP) Pulse Ox O2 Delivery O2 Flow Rate FiO2 05/13/19 09:53 126/58 05/13/19 04:00 97.4 82 18 129/63 (85) 99 05/13/19 00:00 98.3 82 18 132/63 (86) 99 05/12/19 21:00 Room Air 05/12/19 20:11 95 Nasal Cannula 2.0 28 05/12/19 20:00 98.9 85 16 144/64 (90) 97 05/12/19 17:34 133/66 Intake and Output 05/12/19 05/13/19 19:00 07:00 Intake Total 521 ml 240 ml Output Total 900 ml 400 ml Balance -379 ml -160 ml Intake Oral 236 ml 240 ml IV Total 285 ml Output Urine Total 900 ml 400 ml # Voids 3 2 Laboratory Tests 05/13/19 05:05: White Blood Count 9.7, Red Blood Count 3.35L, Hemoglobin 11.0L, Hematocrit 31.7L , Mean Corpuscular Volume 95, Mean Corpuscular Hemoglobin 32.9H, Mean Corpuscular Hemoglobin Concent 34.8, Red Cell Distribution Width 11.2L, Platelet Count 160, Mean Platelet Volume 5.5L, Neutrophils (%) (Auto) 77.3H, Lymphocytes (%) (Auto) 8.8L, Monocytes (%) (Auto) 8.6, Eosinophils (%) (Auto) 5.1H, Basophils (%) (Auto) 0.3, Sodium Level 127L, Potassium Level 3.3L, Chloride Level 98, Carbon Dioxide Level 28, Anion Gap 1L, Blood Urea Nitrogen 22H, Creatinine 0.7, Estimat Glomerular Filtration Rate , Glucose Level 163H, Uric Acid 2.2L, Calcium Level 8.7, Phosphorus Level 2.7, Magnesium Level 1.7L, Total Bilirubin 0.6, Aspartate Amino Transf (AST/SGOT) 29, Alanine Aminotransferase (ALT/SGPT) 23, Alkaline Phosphatase 63, Total Protein 5.7L, Albumin 2.4L, Globulin 3.3, Albumin/Globulin Ratio 0.7L Height (Feet): 5 Height (Inches): 7.00 Weight (Pounds): 115 General Appearance: no apparent distress Objective no change Robi Duarte MD May 13, 2019 17:23
[2019-05-13] MEDS ORDERED: ASPIRIN81 MG ORAL (17:43)
[2019-05-13] MEDS ORDERED: K-TAB ER20 MEQ ORAL (17:43)
[2019-05-13] MEDS ORDERED: COLACE100 MG ORAL (17:43)
[2019-05-13] MEDS ORDERED: ACETAMINOPHEN325 M1 ORAL (17:43)
[2019-05-13] MEDS ORDERED: PANTOPRAZOLE SO40 MG ORAL (17:43)
[2019-05-13] MEDS ORDERED: BENAZEPRIL HCL10 MG ORAL (17:43)
[2019-05-13] MEDS ORDERED: FLOMAX0.4 MG ORAL (17:43)
--- NOTE | 2019-05-13 19:15 | Discharge Summary ---
DATE OF ADMISSION: 05/09/2019 DATE OF DISCHARGE: 05/13/2019 NOTE: "POOR AUDIO QUALITY" ADMISSION DIAGNOSES: Fall, right hip fracture, diabetes, hypertension, hyponatremia, encephalopathy. DISCHARGE DIAGNOSES: Fall, right hip fracture, diabetes, hypertension, hyponatremia, encephalopathy. BRIEF HISTORY AND HOSPITAL COURSE: The patient is a 79-year-old male with history of diabetes and hypertension. He sustained a mechanical fall while going to the bathroom. He sustained a right hip fracture. He was brought to the emergency room by paramedics. He was admitted. He underwent an uncomplicated hemiarthroplasty of the right hip, which was tolerated well. The perioperative course was complicated by hyponatremia which was corrected by assistant professor of english. On discharge, he was stable. He was discharged to a correction facility for continued rehab and continued diabetic and cardiac treatment, and monitoring of sodium level closely. He is on aspirin for DVT prophylaxis. DISCHARGE MEDICATIONS: Please see discharge medication list. DIET: Cardiac, diabetic diet. ACTIVITY: Ad-rose. FOLLOWUP: The patient is to follow up in 1-2 days. David Garcia M.D. DR: Nafisa JOB#: [id number] CC:
--- NOTE | 2019-05-13 19:30 | NUR ---
NURSE NOTES: Called [facility], report given to Ashley MELENDEZ. Patient to be transferred via [facility] at 1930. Right hip dressing changed at 1919 as ordered (4x4 with Tegederm), no bruising, no bleeding, no swelling noted. RFA IV discontinued at 1919, no active bleeding noted.
--- NOTE | 2019-05-13 19:40 | NUR ---
NURSE NOTES:Patient received from Barbara RoePatient A/A/OX2 . Resting in bed in semi montano position . Patient denies any pain at this time . Patient no IV Access. Right hip dressing C/D/I . Left lower extremities SCDS ON. Abduction pillows in place. CMS+, NO NT, Wiggles, pulses palpable . right side weakness . patient on fluid restriction on 800 ml/ 24 hrs aspiration precaution a. patient on semi fowlers position . patient incontinent of urine . keep clean and dry . safety / fall Implemented . call light within reach . bed in low position . bed alarm on.will continue to monitor .
--- NOTE | 2019-05-13 19:40 | NUR ---
HAND-OFF: Report given to Rachel BOWERS.
--- NOTE | 2019-05-13 20:00 | NUR ---
NURSE NOTES:Patient vital sign T 97.0 P 84/MIN. R 18/MIN. B/P elevated 183/91 mmhg SPO2 97 % hydralazine 25mgpo given.
--- NOTE | 2019-05-13 21:41 | NUR ---
NURSE NOTES:Patient to be discharge today transfer to [facility] transport is already here and report given to [facility] personnel . patient B/P 168 /97 mm hg . Facility said they will not accept this B/P but only if ok with Dr. david Malone . Call DR. David malone with anew orders clonidine 0.1 mg and discharge . armband removed and personal belongings endorsed to [facility] personnel. Patient discharge via [facility] in stable condition Addendum: 05/13/19 at 2337 by JOHNATHON RICHARDS LVN Patient vital sign at 21:50p T 97.0 P 88/MIN. R I8/MIN B/P 150/ 77 mm hg Spo2 98%.
--- NOTE | 2019-05-14 14:47 | Cardiology Report ---
APPROVED REPORT EXAM: Two-dimensional and M-mode echocardiogram with Doppler and color Doppler. INDICATION Angina pectoris M-Mode DIMENSIONS IVSd0.6 (0.7-1.1cm)Left Atrium (MM)3.1 (1.6-4.0cm) LVDd4.4 (3.5-5.6cm)Aortic Root3.1 (2.0-3.7cm) PWd0.9 (0.7-1.1cm)Aortic Cusp Exc.1.5 (1.5-2.0cm) IVSs0.9 cm LVDs2.8 (2.5-4.0cm) PWs1.1 cm Normal left ventricular chamber size, systolic function and wall motion. Left ventricular ejection fraction estimated to be 55-60%. No evidence of left ventricular hypertrophy. Anterior Echo-free space, may be due to pericardial fat or effusion. All other cardiac chamber sizes are within normal limits. Focal aortic valve sclerosis with adequate cusp excursion. Thickened mitral valve leaflets with normal excursion. Mitral annulus and aortic root calcification. Pulmonic valve not well visualized. Normal tricuspid valve structure. IVC at 1.7 cm and non-collapsing with respiration suggestive of increased RA pressure. A color flow and spectral Doppler study was performed and revealed: No aortic insufficiency. Mild mitral regurgitation. Mitral inflow indicate normal left ventricular diastolic function. Trace tricuspid regurgitation. Tricuspid systolic velocities suggests peak right ventricular systolic pressure of 31 mmHg
--- NOTE | 2019-05-14 16:12 | Cardiology Report ---
APPROVED REPORT EKG Measurement Heart [id number] Normal sinus rhythm with sinus arrhythmia Low voltage QRS Septal infarct, age undetermined Abnormal ECG
== END 2019-05-13 21:50 | DRG 470 ==
LOC: EDBD 12:55 → EMR 13:34 → EDBEDREQ 14:35 → 3E 15:06 → EDBEDREQ 15:24
PROC: 0SRR0JZ Replacement of Right Hip Joint, Femoral Surface with Synthetic Substitute, Open Approach (ICD-10-PCS; principal; 2019-05-11 14:00)
DX: S72.011A Unspecified intracapsular fracture of right femur, initial encounter for closed fracture (principal); E87.1 Hypo-osmolality and hyponatremia; G93.40 Encephalopathy, unspecified; E11.65 Type 2 diabetes mellitus with hyperglycemia; N40.0 Benign prostatic hyperplasia without lower urinary tract symptoms; I10 Essential (primary) hypertension; D72.829 Elevated white blood cell count, unspecified; J44.9 Chronic obstructive pulmonary disease, unspecified; W19.XXXA Unspecified fall, initial encounter; Y92.009 Unspecified place in unspecified non-institutional (private) residence as the place of occurrence of the external cause
CPT/HCPCS: 36415; 71045; 72170; 80048; 80053; 80061; 81003; 82607; 82728; 82746; 82962; 83036; 83540; 83550; 83735; 83930; 83935; 84100; 84300; 84443; 84484; 84550; 85007; 85025; 85610; 85730; 86850; 86900; 86901; 87086; 93005; 93306; 94003; 94150; 96361; 96374; 99285; J1815; J2250; J2405; J8499; S5561

== ENCOUNTER 2019-06-09 13:53 | Inpatient (IN) | payer MEDICARE, MEDICAID ==
[~2019-06-09] VITALS: Ht 172.7 cm; Wt 42.2 kg
[2019-06-09] VITALS (8 sets, daily range): BP systolic 88–129; BP diastolic 52–68
[~2019-06-09 13:53] MED LIST changes: +ACETAMINOPHEN325 M1 ORAL; +ASPIRIN81 MG ORAL; +CALCIUM PO; +COLACE100 MG ORAL; +DOXAZOSIN MESYLA1 MG ORAL; +FLOMAX0.4 MG ORAL; +FUROSEMIDE20 M1 ORAL; +K-TAB ER20 MEQ ORAL; +MULTIVITAMINS1 EAC2 ORAL; +PANTOPRAZOLE SO40 MG ORAL; +PLAVIX75 MG ORAL
--- NOTE | 2019-06-09 14:02 | NUR ---
ED Nurse Note: PT BROUGHT IN BY AMBULANCE FROM [facility]. AOX1 WHICH IS BASELINE PER EMS. PER EMS, BG WAS 768 YESTERDAY. BG WAS RETAKEN THIS MORNING AND WAS "CRITICALLY HIGH." 20 UNITS OF LISPRO ADMINISTERED AT FACILITY PRIOR TO BREAKFAST. BG TAKEN AGAIN AFTER INSULIN AND STILL WAS "CRITICALLY HIGH." BG AT BEDSIDE: HIGH . DR BELTRE NOTIFIED.
--- NOTE | 2019-06-09 14:05 | NUR ---
ED Nurse Note: SKIN ASSSESSMENT - NONBLANCHING REDNESS/DISCOLORATION TO COCCYX AREA. UNABLE TO UPLOAD PHOTOS TO EMR DUE TO CAMERA MALFUNCTION. WILL NOTIFY ADVERTISING COLUMNIST.
--- NOTE | 2019-06-09 14:20 | Emergency Room Report ---
History of Present Illness General Chief Complaint: Abnormal Labs Source: Patient, Medical Record Present Illness HPI Patient presents emergency department today with generalized weakness and hyperglycemia. Patient has history of diabetes. Patient also had a recent hip fracture. Patient states that a intermediate. Patient was noted to have elevated glucose in the 700s. Because of that he was sent to the emergency department further evaluation. Patient appears very weak. Patient denies any fever nausea vomiting diarrhea chills. According to patient's patient has not been eating and laying in bed all day. No other complaints are noted. Symptoms noted to be severe. No other modifying factors. No other associated signs and symptoms. No other complaints were noted. Allergies: Coded Allergies: NO KNOWN ALLERGIES (Unverified Allergy, Unknown, 05/04/18) Patient History Past Medical History: DM, HTN, CAD, CVA/TIA - Right-sided weakness Past Surgical History: unable to obtain Social History: Denies: smoking, alcohol use, drug use Social History Narrative Stays at a intermediate. Patient is DNR. Reviewed Nursing Documentation: PMH: Agreed; PSxH: Agreed Nursing Documentation-PMH Past Medical History: No History, Except For Hx Cardiac Problems: Yes Hx Hypertension: Yes Hx Diabetes: Yes Hx Cancer: No Hx Gastrointestinal Problems: Yes Hx Neurological Problems: No Hx Cerebrovascular Accident: Yes - Right Sided Weakness Review of Systems All Other Systems: limited - Poor mental status Physical Exam Vital Signs Date Time Temp Pulse Resp B/P (MAP) Pulse Ox O2 Delivery O2 Flow Rate FiO2 06/09/19 13:56 97.9 117 18 89/49 (62) 99 Room Air Sp02 EP Interpretation: reviewed, normal General Appearance: mild distress, cachetic, lethargic, thin Head: atraumatic Eyes: bilateral eye normal inspection ENT: normal ENT inspection, dry mucus membranes Neck: normal inspection, full range of motion, supple, no bony tend Respiratory: normal inspection, lungs clear, normal breath sounds, no respiratory distress, no retraction, no wheezing Cardiovascular #1: regular rate, rhythm, no edema Gastrointestinal: normal inspection, normal bowel sounds, non tender, soft, no guarding, no hernia Genitourinary: no CVA tenderness Musculoskeletal: normal inspection Neurologic: alert, responsive Psychiatric: depressed affect Skin: no rash Procedures Critical Care Time Critical Care Time Patient had a critical medical condition which untreated could potentially result in life or limb threatening injury. Total critical care time excluding procedures was approximately 45 minutes. Medical Decision Making Diagnostic Impression: Primary Impression: DKA (diabetic ketoacidoses) Additional Impressions: Dehydration UTI (urinary tract infection) Failure to thrive Hypotension ER Course Patient presents emergency department today with acute weakness. Patient appeared tachypneic very ill. Differential considerations include electrolyte abnormality, infectious process, dehydration, failure to thrive just name a few. Given the severity of the patient's presentation I felt this is a highly complex patient. This patient required extensive workup. Patient's laboratory work-up and exam is consistent with DKA. VBG shows evidence of acidosis. Glucose was 1900. Because of this severe elevation patient was started on fluid boluses and started on insulin drip. Patient was also given IV antibiotics for UTI. Case was discussed in detail with Dr. Mathew Mayers who came to evaluate patient emergency department. Patient will be admitted to ICU for further management. Patient was also given fluid boluses and patient's hypotension did improve significantly. Labs Test 06/09/19 14:30 06/09/19 14:35 06/09/19 15:12 White Blood Count 14.8 K/UL (4.8-10.8) Red Blood Count 3.83 M/UL (4.70-6.10) Hemoglobin 12.7 G/DL (14.2-18.0) Hematocrit 39.1 % (42.0-52.0) Mean Corpuscular Volume 102 FL (80-99) Mean Corpuscular Hemoglobin 33.0 PG (27.0-31.0) Mean Corpuscular Hemoglobin Concent 32.4 G/DL (32.0-36.0) Red Cell Distribution Width 15.4 % (11.6-14.8) Platelet Count 335 K/UL (150-450) Mean Platelet Volume 4.4 FL (6.5-10.1) Neutrophils (%) (Auto) % (45.0-75.0) Lymphocytes (%) (Auto) % (20.0-45.0) Monocytes (%) (Auto) % (1.0-10.0) Eosinophils (%) (Auto) % (0.0-3.0) Basophils (%) (Auto) % (0.0-2.0) Differential Total Cells Counted 100 Neutrophils % (Manual) 88 % (45-75) Lymphocytes % (Manual) 7 % (20-45) Monocytes % (Manual) 2 % (1-10) Eosinophils % (Manual) 0 % (0-3) Basophils % (Manual) 0 % (0-2) Band Neutrophils 3 % (0-8) Platelet Estimate Adequate Platelet Morphology Normal Polychromasia 1+ Anisocytosis 1+ Macrocytosis 2+ Sodium Level 140 MMOL/L (136-145) Potassium Level 6.1 MMOL/L (3.5-5.1) Chloride Level 98 MMOL/L (98-107) Carbon Dioxide Level 9 MMOL/L (21-32) Anion Gap 33 mmol/L (5-15) Blood Urea Nitrogen 51 mg/dL (7-18) Creatinine 1.8 MG/DL (0.55-1.30) Estimat Glomerular Filtration Rate mL/min (>60) Glucose Level 1935 MG/DL (74-106) Calcium Level 9.8 MG/DL (8.5-10.1) Total Bilirubin 0.6 MG/DL (0.2-1.0) Aspartate Amino Transf (AST/SGOT) 16 U/L (15-37) Alanine Aminotransferase (ALT/SGPT) 19 U/L (12-78) Alkaline Phosphatase 139 U/L (46-116) Total Creatine Kinase 13 U/L (26-308) Creatine Kinase MB 1.0 NG/ML (0.0-3.6) Creatine Kinase MB Relative Index 7.6 Troponin I 0.000 ng/mL (0.000-0.056) Pro-B-Type Natriuretic Peptide 328 pg/mL (0-125) Total Protein 6.5 G/DL (6.4-8.2) Albumin 2.4 G/DL (3.4-5.0) Globulin 4.1 g/dL Albumin/Globulin Ratio 0.6 (1.0-2.7) Lipase 138 U/L (73-393) Venous Blood pH 7.226 Venous Blood Partial Pressure CO2 20.7 Venous Blood Partial Pressure O2 51.9 Venous Blood HCO3 8.4 Venous Blood Oxygen Saturation 75.4 Venous Blood Base Excess -17.1 Urine Color Pale yellow Urine Appearance Cloudy Urine pH 5 (4.5-8.0) Urine Specific [place] 1.010 (1.005-1.035) Urine Protein Negative (NEGATIVE) Urine Glucose (UA) 4+ (NEGATIVE) Urine Ketones 3+ (NEGATIVE) Urine Blood 4+ (NEGATIVE) Urine Nitrite Negative (NEGATIVE) Urine Bilirubin Negative (NEGATIVE) Urine Urobilinogen Normal MG/DL (0.0-1.0) Urine Leukocyte Esterase 3+ (NEGATIVE) Urine RBC 5-10 /HPF (0 - 0) Urine WBC Tntc /HPF (0 - 0) Urine Squamous Epithelial Cells None /LPF (NONE/OCC) Urine Bacteria Few /HPF (NONE) Urine Yeast Few /HPF (NONE) EKG Diagnostic Results Rate: normal Rhythm: NSR ST Segments: no acute changes Rhythm Strip Diag. Results EP Interpretation: yes Rate: 118 Rhythm: NSR, no PVC's, no ectopy Chest X-Ray Diagnostic Results Chest X-Ray Diagnostic Results : Chest X-Ray Ordered: Yes # of Views/Limited/Complete: 1 View Indication: Chest Pain EP Interpretation: Yes Interpretation: no consolidation, no effusion, no pneumothorax Impression: No acute disease Electronically Signed by: Electronically signed by Kendell Lopes MD Last Vital Signs Date Time Temp Pulse Resp B/P (MAP) Pulse Ox O2 Delivery O2 Flow Rate FiO2 06/09/19 13:56 97.9 117 18 89/49 (62) 99 Room Air Status: improved Disposition: ADMITTED INPATIENT Condition: Serious Kendell Lopes MD Jun 09, 2019 14:20
--- NOTE | 2019-06-09 14:50 | NUR ---
ED Nurse Note: PHARMACY CALLED FOR INSULIN DRIP.
[2019-06-09 14:53] LABS: HEMATOCRIT 39.1 % (42.0-52.0); HEMOGLOBIN 12.7 G/DL (14.2-18.0); MEAN CORPUSCULAR VOLUME 102 FL (80-99); PLATELET COUNT 335 K/UL (150-450); RED BLOOD COUNT 3.83 M/UL (4.70-6.10); RED CELL DISTRIBUTION WIDTH 15.4 % (11.6-14.8); WHITE BLOOD COUNT 14.8 K/UL (4.8-10.8)
[2019-06-09 15:13] LABS: ALANINE AMINOTRANSFERASE 19 U/L (12-78); ALBUMIN 2.4 G/DL (3.4-5.0); ALBUMIN/GLOBULIN RATIO 0.6 (1.0-2.7); ALKALINE PHOSPHATASE 139 U/L (46-116); ANION GAP 33 mmol/L (5-15); ASPARTATE AMINO TRANSFERASE 16 U/L (15-37); BILIRUBIN,TOTAL 0.6 MG/DL (0.2-1.0); BLOOD UREA NITROGEN 51 mg/dL (7-18); CALCIUM 9.8 MG/DL (8.5-10.1); CHLORIDE 98 MMOL/L (98-107); CREATINE KINASE 13 U/L (26-308); CREATININE 1.8 MG/DL (0.55-1.30); SODIUM 140 MMOL/L (136-145)
[2019-06-09 15:19] LABS: CARBON DIOXIDE 9 MMOL/L (21-32); POTASSIUM 6.1 MMOL/L (3.5-5.1)
--- NOTE | 2019-06-09 15:20 | NUR ---
ED Nurse Note: ORDER PLACED FOR HAILE CATHETER INSERTION. PT REFUSED HAILE CATHETER STATING IT WAS TOO PAINFUL ON PREVIOUS HOSPITALIZATION. PT DID ALLOW FOR STRAIGHT CATHETER WHICH WAS USED TO PROVIDE URINE SPECIMEN. SPECIMEN SENT TO LAB.
[2019-06-09 15:45] LABS: APPEARANCE,URINE CLOUDY; BILIRUBIN, URINE NEGATIVE (NEGATIVE); COLOR,URINE PALE YELLOW; GLUCOSE, URINE (UA) 4+ (NEGATIVE); KETONES,URINE 3+ (NEGATIVE); LEUKOCYTE ESTERASE ,URINE 3+ (NEGATIVE); NITRITE,URINE NEGATIVE (NEGATIVE); PH,URINE 5 (4.5-8.0); PROTEIN,URINE NEGATIVE (NEGATIVE); UROBILINOGEN,URINE NORMAL MG/DL (0.0-1.0)
[2019-06-09] MEDS ORDERED: cefTRIAXone 1 GM in NS 55 ML IVPB ONE (16:00)
--- NOTE | 2019-06-09 16:02 | NUR ---
ED Nurse Note: BG RECHECKED: CRITICALLY HIGH. DR BELTRE NOTIFIED.
--- NOTE | 2019-06-09 17:52 | NUR ---
ED Nurse Note: ICU CALLED FOR PT REPORT. PER PATRICK, CHARGE NURSE, VLADIMIR, RN IS ASSIGNED TO PT BUT IS NOT READY TO ACCEPT PT. RN WILL CALL BACK WHEN READY.
[2019-06-09] MEDS ORDERED: HUMALOG100 UNIT/4 SUBQ (17:57)
[2019-06-09] MEDS ORDERED: FLOMAX0.4 MG ORAL (17:57)
[2019-06-09] MEDS ORDERED: LANTUS SOL100 UNIT/1 SUBQ (17:57)
[2019-06-09] MEDS ORDERED: MAGNESIUM OXID400 M3 PO (17:57)
[2019-06-09] MEDS ORDERED: PLAVIX75 MG ORAL (17:57)
[2019-06-09] MEDS ORDERED: ZOCOR40 MG ORAL (17:57)
[2019-06-09] MEDS ORDERED: VITAMIN D400 INTLU ORAL (17:57)
[2019-06-09] MEDS ORDERED: BISACODYL10 M1 RC (17:58)
[2019-06-09] MEDS ORDERED: CATAPRES0.1 MG ORAL (17:59)
[2019-06-09] MEDS ORDERED: ZOFRAN4 MG ORAL (17:59)
--- NOTE | 2019-06-09 18:18 | NUR ---
ED Nurse Note: ICU CALLED BACK. RN ASSIGNED IS AL BARR WHO STATES SHE IS STILL NOT READY. WILL CALL BACK IN 10 MINUTES.
--- NOTE | 2019-06-09 18:36 | NUR ---
ED Nurse Note: ICU CALLED FOR PT REPORT. REPORT GIVEN TO AL GROSS. RN READY TO ACCEPT PT. PT TAKEN UP TO ICU VIA GUNickyNEY ON BOILER REPAIRMAN WITH ALL BELONGINGS RUNNING INSULIN DRIP ACCOMPANIED BY PRIMARY RN AND CHARGE NURSE.
--- NOTE | 2019-06-09 19:03 | NUR ---
NURSE NOTES: Received the patient from AL Canela. Patient is awake, able to follow simple commands. Placed patient on ekg monitor tech. ST HR 100s-110s noted on the monitor. O2 sat 100% on room air. BP 102/59, afebrile temp 97.8. Insulin drip running at 7unit/hr. No acute distress noted. bed in lowest position, locked, side rails upx2. call light within reach. Will continue to monitor.
--- NOTE | 2019-06-09 19:10 | NUR ---
HAND-OFF: Report given to AL Finley.
--- NOTE | 2019-06-09 19:20 | NUR ---
CASE MANAGEMENT: REVIEW 79Y/M BIBA FROM [facility] CC: HYPERGLYCEMIA . GENERALIZED WEAKNESS SI: DKA . DEHYDRATION . UTI . HYPOTENSION T 97.9 HR 126 RR 22 BP 89/49 SAT 97% ROOM AIR WBC 14.8 K 6.1 CO2 9 BUN 51 CR 1.8 GLUCOSE 1935 ABG: PH 7.226 PO2 20.7 PO2 51.9 IS: NS IVF BOLUS X1 CEFTRIAXONE IV X1 INSULIN GTT PATIENT ADMITTED TO ICU 06/09/2019 DCP: PATIENT IS FROM [facility]
--- NOTE | 2019-06-09 19:30 | NUR ---
NURSE NOTES: PATIENT ALERT, ABLE TO FOLLOW COMMANDS BUT CONFUSED, RESPIRATION REGULAR, O2 SATURATION OVER 94% ON ROOM AIR, ABDOMEN SOFT, FLAT, NO BOWEL MOVEMENT, INCONTINENCE WITH DIAPER STATUS, PERIPHERAL LINE TO BOTH UPPER ARM 22G, INTACT AND PATENT, ONGOING INSULIN DRIP 7 UNIT/HR FROM ER VIA RIGHT UPPER ARM AT THIS TIME, MADE LOWER BED POSITION, PROVIDED CALL LIGHT WITHIN REACH, ON BED ALAR, WILL CONTINUE TO MONITOR. Addendum: 06/10/19 at 0628 by JONELLE HANKINS RN NURSE NOTES: PATIENT ALERT, ABLE TO FOLLOW COMMANDS BUT CONFUSED, RESPIRATION REGULAR, O2 SATURATION OVER 94% ON ROOM AIR, ABDOMEN SOFT, FLAT, NO BOWEL MOVEMENT, INCONTINENCE WITH DIAPER STATUS, PERIPHERAL LINE TO BOTH UPPER ARM 22G, INTACT AND PATENT, ONGOING INSULIN DRIP 7 UNIT/HR FROM ER VIA RIGHT UPPER ARM AT THIS TIME, 2.5X 7.0 X0 CM REDNESS TO LEFT LOWER BUTTOCK, NO OPEN WOUND NOTED, MADE LOWER BED POSITION, PROVIDED CALL LIGHT WITHIN REACH, ON BED ALAR, WILL CONTINUE TO MONITOR.
[2019-06-09] MEDS ORDERED: Heparin 5000 units/ml inj SUBQ SCH (21:00)
--- NOTE | 2019-06-09 21:00 | NUR ---
NURSE NOTES: CALLED DR. SOUZA REGARDING ADMISSION ORDER THAT LEFT MESSAGE AT 3PM AND 1PM, NO CALLED BACK STATUS AT THIS TIME.
--- NOTE | 2019-06-09 21:09 | NUR ---
NURSE NOTES: CALLED BACK FROM DR. SOUZA, RECEIVED INSULIN DRIP ORDER, CARRIED OUT.
[2019-06-09] MEDS ORDERED: Insulin Human Regular 100units/ml 3ml IV PRN ×2 (21:15)
[2019-06-09] MEDS: Piperacillin/Tazobactam 3.375 GM in NS 110 ML IVPB SCH (21:43)
[2019-06-09 22:11] LABS: ANION GAP 11 mmol/L (5-15); BLOOD UREA NITROGEN 51 mg/dL (7-18); CALCIUM 9.7 MG/DL (8.5-10.1); CARBON DIOXIDE 26 MMOL/L (21-32); CHLORIDE 114 MMOL/L (98-107); CREATININE 1.8 MG/DL (0.55-1.30); POTASSIUM 3.5 MMOL/L (3.5-5.1); SODIUM 151 MMOL/L (136-145)
[2019-06-09] MEDS: Insulin Rate Change 1 Each MISC PRN ×2 (22:48→23:47)
[2019-06-10] VITALS (24 sets, daily range): BP systolic 109–155; BP diastolic 50–71
--- NOTE | 2019-06-10 00:45 | NUR ---
NURSE NOTES: BS 48MG/DL NOTED, TURNED INSULIN DRIP OFF PER PROTOCOLS AT THIS TIME.
--- NOTE | 2019-06-10 00:47 | NUR ---
NURSE NOTES: GIVEN D50% DEXTROSE 1 AMP IVP DUE TO BS 48MG/DL, WILL CONTINUE TO MONITOR.
--- NOTE | 2019-06-10 01:20 | NUR ---
NURSE NOTES: CALLED [facility] REGARDING CHANGE TO ALGORITHM 3 PER PROTOCOLS, THAT EXCHANGER WAS AWARE.
[2019-06-10] MEDS ORDERED: Insulin Human Regular 100units/ml 3ml IV PRN ×4 (01:30→04:15)
[2019-06-10] MEDS ORDERED: Insulin Rate Change 1 Each MISC PRN ×2 (01:30→04:15)
--- NOTE | 2019-06-10 01:45 | NUR ---
NURSE NOTES: SEEN THE PATIENT BY DR. COLEMAN.
--- NOTE | 2019-06-10 01:46 | NUR ---
NURSE NOTES: BS 152MG/DL NOTED AT 0137AM, CALLED [facility] BECAUSE UNABLE TO ADMINISTER ALGO 3 INSULIN DRIP DUE TO DOSE SHOWED ML/HR THAT SPOKE WITH PHARMACIST /KOKO, SHE WILL BE CORRECT.
[2019-06-10] MEDS: 1/2NS w/KCl 20mEq 1000ml 1,000 ML IV SCH ×4 (02:09→22:26)
--- NOTE | 2019-06-10 02:32 | NUR ---
NURSE NOTES: BS 66MG/DL NOTED AT 0230AM, PATIENT AWOKE, WANTED FOOD AT THIS TIME, GIVEN JUICE PROTOCOLS, CONSUMED 100% WITHOUT COUGHING, NO HYPOGLYCEMIA SIGN NOTED, HOLD INSULIN DRIP PER PROTOCOLS, WILL CONTINUE TO MONITOR.
--- NOTE | 2019-06-10 02:55 | NUR ---
NURSE NOTES: CALLED DR. COLEMAN REGARDING BS 66MG/DL AT 0230AM AND BS 89MG/DL AT 0253AM THAT MD WAS AWARE, NO NEW ORDER STATUS.
--- NOTE | 2019-06-10 03:30 | NUR ---
NURSE NOTES: BS 110MG/DL NOTED AT 0325 AM , CALLED [facility] REGARDING CHANGE TO ALGO 2 AT THIS TIME THAT ACCORDING TO THE KOKO/PHARMACIST, CAN NOT DO ANYTHING AT THIS TIME DUE TO COMPUTER DOWN TIME. Addendum: 06/10/19 at 0608 by JONELLE HANKINS RN NURSE NOTES: BS 110MG/DL NOTED AT 0325 AM , CALLED [facility] REGARDING CHANGE TO ALGO 2 AT THIS TIME THAT ACCORDING TO THE KOKO/PHARMACIST, CAN NOT DO ANYTHING AT THIS TIME DUE TO COMPUTER DOWN TIME. STARTED INSULIN 1 UNIT/HR ON ALGO 2 AFTER VERIFIED WITH CHARGE NURSE PER PROTOCOLS.
--- NOTE | 2019-06-10 03:47 | NUR ---
NURSE NOTES: PATIENT WANTED VOID, PROVIDED URINAL AND ENCOURAGED URINATION BUT FAILED AT THIS TIME THAT BLADDER SCAN WAS DONE 278ML NOTED, WILL CONTINUE TO MONITOR.
--- NOTE | 2019-06-10 04:12 | NUR ---
NURSE NOTES: CALLED [facility] REGARDING INSULIN DRIP ALGO 2 NEW LABEL THAT EXCHANGER WAS AWARE.
[2019-06-10 05:16] LABS: HEMATOCRIT 33.2 % (42.0-52.0); HEMOGLOBIN 11.1 G/DL (14.2-18.0); MEAN CORPUSCULAR VOLUME 98 FL (80-99); PLATELET COUNT 372 K/UL (150-450); RED BLOOD COUNT 3.38 M/UL (4.70-6.10); RED CELL DISTRIBUTION WIDTH 15.7 % (11.6-14.8)
[2019-06-10] MEDS: Piperacillin/Tazobactam 3.375 GM in NS 110 ML IVPB SCH ×3 (05:31→21:42)
[2019-06-10 05:47] LABS: ALANINE AMINOTRANSFERASE 19 U/L (12-78); ALBUMIN 2.1 G/DL (3.4-5.0); ALBUMIN/GLOBULIN RATIO 0.7 (1.0-2.7); ALKALINE PHOSPHATASE 113 U/L (46-116); ANION GAP 9 mmol/L (5-15); ASPARTATE AMINO TRANSFERASE 17 U/L (15-37); BILIRUBIN,TOTAL 0.3 MG/DL (0.2-1.0); BLOOD UREA NITROGEN 44 mg/dL (7-18); CALCIUM 8.9 MG/DL (8.5-10.1); CARBON DIOXIDE 26 MMOL/L (21-32); CHLORIDE 116 MMOL/L (98-107); CREATININE 1.4 MG/DL (0.55-1.30); SODIUM 151 MMOL/L (136-145)
--- NOTE | 2019-06-10 05:59 | NUR ---
NURSE NOTES: BS 96MG/DL AT 0529AM, STOPPED INSULIN DRIP ORDERED, WILL CONTINUE TO MONITOR.
--- NOTE | 2019-06-10 06:20 | NUR ---
NURSE NOTES: BS 96MG/DL NOTED, NO NOVOLOG COVERAGE PER PROTOCOLS.
[2019-06-10] MEDS: NovoLOG Insulin Flexpen SUBQ SCH ×4 (06:24→20:40)
[2019-06-10] MEDS ORDERED: NovoLOG Insulin Flexpen SUBQ SCH (06:30)
--- NOTE | 2019-06-10 07:15 | NUR ---
HAND-OFF: Report given to AL KRISHNAN.
--- NOTE | 2019-06-10 07:16 | NUR ---
NURSE NOTES: RECEIVED PATIENT FROM Muna HANKINS RN. PATIENT IS LYING IN BED, ALERT AND CONFUSED. HOOKED TO GENERAL FARM MANAGER. ON ROOM AIR SATING AT 94%. NO SIGNS OF CARDIO OR RESPI OF THE MOMENT. NOTED DRY COUGH. NOTED SKIN REDNESS. PATIENT REMOVED IV ON L UA. IV ON R UA G22, IVF RUNNING 1/2 NS + 20MEQS KCL AT 125ML/HR. CALL LIGHT WITHIN REACH. BED AT LOWEST POSITION. SIDE RAILS UP. WILL CONTINUE TO MONITOR.
[2019-06-10] MEDS: Heparin 5000 units/ml inj SUBQ SCH ×2 (08:23→20:40)
--- NOTE | 2019-06-10 08:30 | NUR ---
NURSE NOTES: PATIENT HAD 1 EPISODE OF VOMITING. ELEVATED HOB. SUCTIONED SECRETION. VITALS RECORDED. PATIENT IS RESPONSIVE. NO SIGNS OF RESPI DISTRESS OF THE MOMENT. WILL CONTINUE TO MONITOR.
--- NOTE | 2019-06-10 09:30 | NUR ---
NURSE NOTES: VSS. REFUSED TO EAT. DENIES ANY PAIN OF THE MOMENT. WILL CONTINUE TO MONITOR.
[2019-06-10] MEDS: Levemir Flexpen SUBQ SCH ×2 (09:36→17:37)
--- NOTE | 2019-06-10 11:00 | NUR ---
NURSE NOTES: PATIENT STILL ON ROOM AIR. NO SIGNS OF DISTRESS OF THE MOMENT. WILL CONTINUE TO MONITOR.
--- NOTE | 2019-06-10 11:27 | NUR ---
RD ASSESSMENT & RECOMMENDATIONS SEE CARE ACTIVITY FOR COMPLETE ASSESSMENT DAILY ESTIMATED NEEDS: Needs based on Underweight, diabetes / 42.9kg 30-40 kcals/kg 6052-2449 total kcals 1-2 g protein/kg 43-86 g total protein 25-30 mL/kg 4074-8765 total fluid mLs NUTRITION DIAGNOSIS: * Increased kcal/prot needs R/T underweight status as evidenced by pt is 66% of [place] Body Weight, severe generalized wasting, w/ suspected 22.5 lbs wt loss x1 month, * Altered nutrition related lab values R/T diabetes as evidenced by hypo and hyperglycemia (1935 on adm-> 117), A1C 8.1 (CURRENT DIET: CCHO MED puree) PO DIET RECOMMENDATIONS--->>> CCHO LOW/ TEXTURE PER INVENTORY CLERK + GLUCERNA 1 TETRA BERT TID ADDITIONAL RECOMMENDATIONS: * Weekly wts (calibrated bedscale) given severe underweight status and suspected wt loss * Glucerna w/ meals as accepted * Monitor BGs closely * 1 carb/high prot snack in between meals to prevent hypoglycemia as accepted
--- NOTE | 2019-06-10 11:46 | NUR ---
NURSE NOTES:WOUND CARE NOTES:Pt [presented on admission with non-blanchable erythema sacrum. Both heels are soft but blanchable,. No other skin concerns observed. Tx.Plan: Apply Moisture Barrier Paste to sacrum. Cover with Optifoam drsg. Cghange every 3 days and prn. Apply [place] Skin Barrier to both heels. Cover with optifoam drsg. change every 7 days and prn. Off-load heels with pillow. Reposition at least every 2hours or as tolerated.
--- NOTE | 2019-06-10 12:30 | NUR ---
NURSE NOTES: PATIENT'S BS OF 235. REFUSED HIS FOOD TRAY FOR LUNCH. PATIENT KEPT CLEAN AND DRY. WILL CONTINUE TO MONITOR.
[2019-06-10] MEDS ORDERED: Potassium Phosphate 20 MM in NS 275 ML IV ONE (14:00)
--- NOTE | 2019-06-10 14:30 | NUR ---
NURSE NOTES: PATIENT KEPT CLEAN AND DRY. NO SIGNS OF DISTRESS. WILL CONTINUE TO MONITOR.
--- NOTE | 2019-06-10 15:25 | NUR ---
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 97.5 HR 102 RR 17 B/P 120/50 WBC 20.5 NA 151 BUN 44 CR 1.4 IS; IVF NS @ 125ML/HR ZOSYN IV DIFLUCAN IV ICU STATUS
--- NOTE | 2019-06-10 16:30 | NUR ---
NURSE NOTES: PATIENT KEPT CLEAN AND DRY DUE TO INCONTINENCE. BUFFY NOTED AT THE EBEDSIDE.
[2019-06-10] MEDS ORDERED: NS 275ml ONE (17:00)
[2019-06-10] MEDS ORDERED: Tubing IV Secondary IV ONE (17:00)
--- NOTE | 2019-06-10 17:15 | NUR ---
NURSE NOTES: NOTED AT THE BEDSIDE. NO SIGNS OF DISTRESS OF THE MOMENT. WILL CONTINUE TO MONITOR.
[2019-06-10] MEDS ORDERED: CALCIUM 500 +1 EAC3 PO (18:37)
[2019-06-10] MEDS ORDERED: [UNRECOGNIZED DRUG - OTHER] BC (18:41)
[2019-06-10] MEDS ORDERED: FLUCONAZOLE100 MG ORAL (18:43)
[2019-06-10] MEDS ORDERED: ACETAMINOPHEN325 M1 ORAL (18:46)
[2019-06-10] MEDS ORDERED: MILK OF MA400 MG/51 ORAL (18:49)
[2019-06-10] MEDS ORDERED: FLEET ENEMA133 ML RECTAL (18:52)
[2019-06-10] MEDS ORDERED: A AND D DIAPER113 GM TP (18:54)
--- NOTE | 2019-06-10 19:06 | NUR ---
HAND-OFF: Report given to Muna Tate RN.
--- NOTE | 2019-06-10 19:30 | Consultation ---
DATE OF CONSULTATION: 06/10/2019 INFECTIOUS DISEASE CONSULTATION This consult is for coverage of Dr. Snyder. PRIMARY ATTENDING PHYSICIAN: 1. David Garcia M.D. 2. Mathew Mayers M.D. REASON FOR CONSULT: Sepsis and UTI. HISTORY OF PRESENT ILLNESS: This is a 79-year-old white male admitted yesterday from shelter facility because of weakness. He was found to have glucose of more than 700 in nursing facility. He was not eating and stays in the bed all time. Blood sugar in the hospital was 1935. He had leukocytosis of 14.8 and heart rate of 126 at the time of admission. With the impression of diabetic ketoacidosis, he was admitted to ICU. PAST MEDICAL HISTORY: Significant for diabetes mellitus, hypertension, CVA, and right-sided weakness, right hip fracture surgery in May of 2019, and SIADH. MEDICATIONS: Flomax, Protonix, heparin, Levemir insulin, insulin aspart, sodium, Zosyn, Tylenol, and fluconazole. ALLERGIES: No known drug allergies. SOCIAL HISTORY: Currently, half-way resident, before that lives at home. . No history of alcohol, drug abuse, or smoking. The patient is confused and no other history is obtainable. PHYSICAL EXAMINATION: VITAL SIGNS: Temperature is 94, blood pressure 145/61, blood pressure at the time of admission was 89/49, and temperature 97.6. GENERAL APPEARANCE: Seems to be cachectic. HEAD AND NECK: [place] conjunctiva. HEART: Normal rate. LUNGS: Clear. ABDOMEN: Soft. EXTREMITY: Has no edema. Has severe muscle atrophy. NEUROLOGIC: He is awake and confused. SKIN: Right hip surgical site healed well. LABORATORY AND DIAGNOSTIC DATA: WBC 20, hemoglobin 11.1, hematocrit 33.2, and platelets 372,000. Sodium 151, potassium 4, chloride 116, bicarb 26, BUN 44, and creatinine 1.4, creatinine at the time of admission was 4.8, and glucose is 117. Albumin is 2.1. Magnesium 2.5. negative. UA showed wbc too numerous to count, rbc 5 to 10, leukocyte esterase 2+, and ketones 3+. IMPRESSION: Sepsis status post leukocytosis, tachycardia, and hypotension. Source seems to be UTI. He has diabetes and history of diabetic ketoacidosis. Has hypernatremia, cachexia, and severe protein-calorie malnutrition. RECOMMENDATIONS: We will continue with Zosyn and fluconazole for now. We will follow up the cultures. At the end of my exam, I thank Dr. Maeyrs, for involving me in the care of this patient. Kaveh Barreto M.D. DR: ADIN JOB#: [id number] CC:
--- NOTE | 2019-06-10 19:50 | NUR ---
NURSE NOTES: PATIENT ALERT, ABLE TO FOLLOW COMMANDS BUT CONFUSED, RESPIRATION REGULAR, O2 SATURATION OVER 93% ON ROOM AIR, ABDOMEN SOFT, FLAT, NO BOWEL MOVEMENT, INCONTINENCE STATUS, PERIPHERAL LINE TO RIGHT UPPER ARM 22G, INTACT AND PATENT, ONGOING 1/2NS W/KCL AT 125ML/HR AND K-PHOS 20MMOL AT 45.84ML/HR VIA PPL, MADE LOWER BED POSITION, PROVIDED URINAL AND CALL LIGHT WITHIN REACH, ON BED ALARM, WILL CONTINUE TO MONITOR.
[2019-06-10] MEDS ORDERED: Tamsulosin 0.4mg cap ORAL SCH (21:00)
--- NOTE | 2019-06-10 21:19 | NUR ---
NURSE NOTES: PATIENT COUGH, VOMITED WITH PHLEGM, NO PROJECTILE VOMIT AT 0PM, NO MORE N/V NOTED AT THIS TIME. CALLED DR. SOUZA THAT LEFT MESSAGE, WILL CONTINUE TO MONITOR.
--- NOTE | 2019-06-10 22:10 | NUR ---
NURSE NOTES: CALLED BACK FROM DR. SOUZA, MADE NEW ORDER STATUS, WILL FOLLOW UP ORDER.
[2019-06-10] MEDS: Albuterol/Ipratropium 3ml neb HHN SCH (23:30)
[2019-06-11] VITALS (22 sets, daily range): BP systolic 93–162; BP diastolic 36–70
[2019-06-11] MEDS ORDERED: Vancomycin 500mg/D5W 110ml IVPB ONE ×2
--- NOTE | 2019-06-11 00:05 | NUR ---
NURSE NOTES: NO N/V NOTED AFTER INTERVENTION AT THIS TIME.
--- NOTE | 2019-06-11 01:30 | History and Physical Report ---
DATE OF ADMISSION: 06/09/2019 REASON FOR ADMISSION: DKA. HISTORY OF PRESENT ILLNESS: This is a 79-year-old male, who has been convalescing at [place] [facility] facility since he suffered a hip fracture in May of this year. He recently was treated for urinary infection and was discharged back to the facility, but over the past two days he has had unexplained rising glucose levels despite increasing doses of insulin. Today, he was noted to have a glucose level over 500 in the fdc and sent to the emergency room for further assessment. There, the glucose was noted to be over 1900. The patient has signs of ketosis as well. PAST MEDICAL HISTORY: Includes insulin-requiring diabetes mellitus, cerebrovascular accident with right hemiparesis, right hip fracture status post ORIF, history of SIADH, hypertensive heart disease, prostatic hypertrophy, and recent fungal cystitis. ALLERGIES: None. MEDICATIONS: Prior to admission, reviewed and reconciled. SOCIAL HISTORY: Negative for smoking, alcohol, or substance abuse. REVIEW OF SYSTEMS: Not obtainable from the patient. Pertinent data from record review is outlined above. PHYSICAL EXAMINATION: GENERAL: He is alert, but lethargic. VITAL SIGNS: On presentation, blood pressure 89/49, heart rate 117, respiratory rate 18, afebrile. Oxygen saturation on room air 99%. GENERAL: Temporal wasting. HEENT: Pale conjunctivae. Anicteric sclerae. Dry mucous membranes. NECK: Supple. Jugular venous pressure normal. LUNGS: Clear. CARDIAC: Regular rhythm, rapid rate. Normal S1, S2 with a fourth heart sound. ABDOMEN: Soft and nontender. EXTREMITIES: With no edema. Hip scar is healed. There is right-sided weakness. DIAGNOSTIC DATA: EKG with sinus tachycardia and nonspecific ST-T changes. Chest x-ray reveals no acute process. Laboratory studies notable for sodium 140, potassium 6.1, bicarbonate 9, BUN 51, and creatinine 1.8. Glucose over 1900. Troponin negative. Pro-natriuretic peptide 328. Albumin 2.4. White count 14.8, hemoglobin 12.7. ABG - 7.. IMPRESSION: 1. Diabetic ketoacidosis. 2. Insulin-requiring diabetes mellitus, uncontrolled. 3. Hyperkalemia. 4. Severe metabolic acidosis. 5. Acute renal failure. 6. Chronic diastolic congestive heart failure. 7. Hypertensive heart disease. 8. Severe protein-calorie malnutrition. 9. Pyuria and recurring cystitis. 10. Cerebrovascular disease with right hemiparesis. 11. Recent hip fracture with open reduction and internal fixation and persisting immobility. 12. Dehydration. 13. Hypernatremia. 14. Sinus tachycardia. PLAN: The patient will be admitted to the intensive care unit, as his condition is critical and prognosis is guarded. He will be placed on cardiac monitoring. He will be pancultured. He will be started on broad spectrum antibiotics. Insulin drip will be initiated with REPLACED BY [facility] protocol for insulin titration. Aggressive IV fluid hydration with close monitoring of electrolytes will follow and replacement as needed. We will monitor acid-base parameters closely and consider BiPAP support. Mathew Mayers M.D. DR: ELAN JOB#: [id number] CC:
--- NOTE | 2019-06-11 01:45 | Progress Note ---
DATE: 06/10/2019 INTERNAL MEDICINE AND CARDIOLOGY PROGRESS NOTE Critical care, 48 minutes. SUBJECTIVE: The patient remains in the intensive care unit. His condition remains critical and prognosis guarded. He has improved, however, with regard to his ketoacidosis. He has been vomiting. He has congestion. OBJECTIVE: VITAL SIGNS: Blood pressure 122/51, pulse 79, and respirations 12. Oxygen saturation 93% on room air. HEENT: Mucous membranes moist. NECK: Supple. LUNGS: With scattered rhonchi. CARDIAC: Regular rhythm and rate. Normal S1, S2. ABDOMEN: Soft. EXTREMITIES: With trace edema. LABORATORY DATA: White count 20, hemoglobin 11. Sodium 151, potassium 4, bicarb 26, BUN 44, and creatinine 1.4. Phosphorus 2.1. Albumin 2.1. Pro-natriuretic peptide 454. Acetone negative. IMPRESSION: 1. Diabetic ketoacidosis, resolving. 2. Diabetes mellitus with severe hyperglycemia, improved. 3. Acute renal failure, improved. 4. Dehydration. 5. Hypernatremia. 6. . 7. Hypophosphatemia. 8. Sepsis. 9. Probable aspiration pneumonia. 10. Cystitis. 11. Severe protein-calorie malnutrition. 12. Cerebrovascular disease with right hemiparesis. PLAN: 1. Adjust IV fluids. 2. Replace phosphorus and electrolytes as needed. 3. Respiratory hygiene. 4. Broad spectrum antibiotics. 5. Follow up culture results. 6. DVT and stress ulcer prophylaxes. 7. Transition from insulin drip to subcutaneous dosing. Mathew Mayers M.D. DR: ELAN JOB#: [id number] CC:
--- NOTE | 2019-06-11 02:03 | NUR ---
NURSE NOTES: PATIENT ASLEEP STATUS, NO N/V NOTED AT THIS TIME.
[2019-06-11] MEDS: Albuterol/Ipratropium 3ml neb HHN SCH ×6 (03:17→23:49)
--- NOTE | 2019-06-11 04:00 | NUR ---
NURSE NOTES: MORNING CARE WAS DONE, NO PAIN OR SOB NOTED.
[2019-06-11 04:57] LABS: HEMATOCRIT 31.5 % (42.0-52.0); HEMOGLOBIN 10.1 G/DL (14.2-18.0); MEAN CORPUSCULAR VOLUME 102 FL (80-99); PLATELET COUNT 267 K/UL (150-450); RED CELL DISTRIBUTION WIDTH 16.2 % (11.6-14.8)
[2019-06-11 05:13] LABS: WHITE BLOOD COUNT 25.2 K/UL (4.8-10.8)
[2019-06-11 05:26] LABS: ALANINE AMINOTRANSFERASE 15 U/L (12-78); ALBUMIN 1.8 G/DL (3.4-5.0); ALBUMIN/GLOBULIN RATIO 0.7 (1.0-2.7); ALKALINE PHOSPHATASE 109 U/L (46-116); ANION GAP 11 mmol/L (5-15); ASPARTATE AMINO TRANSFERASE 18 U/L (15-37); BILIRUBIN,TOTAL 0.4 MG/DL (0.2-1.0); BLOOD UREA NITROGEN 32 mg/dL (7-18); CALCIUM 8.2 MG/DL (8.5-10.1); CARBON DIOXIDE 22 MMOL/L (21-32); CHLORIDE 116 MMOL/L (98-107); POTASSIUM 4.5 MMOL/L (3.5-5.1); SODIUM 149 MMOL/L (136-145)
--- NOTE | 2019-06-11 05:26 | NUR ---
NURSE NOTES: PATIENT SHOUTED AND SAID, "I WANT TO GO HOME." THAT GIVEN ORIENTATION AND INFORMED HIS SITUATION, WILL CONTINUE TO MONITOR.
--- NOTE | 2019-06-11 05:57 | NUR ---
NURSE NOTES: CALLED DR. Palmer TORRES REGARDING CRITICAL WBC RESULT 25.2 THAT MD WAS AWARE, NO NEW ORDER STATUS.
[2019-06-11] MEDS: Piperacillin/Tazobactam 3.375 GM in NS 110 ML IVPB SCH ×3 (06:04→21:49)
[2019-06-11] MEDS: NovoLOG Insulin Flexpen SUBQ SCH ×4 (06:05→21:00)
--- NOTE | 2019-06-11 07:18 | NUR ---
HAND-OFF: Report given to AL BENOIT.
--- NOTE | 2019-06-11 07:20 | NUR ---
NURSE NOTES: Patient awake, alert, no complains of pain at this time, in semi-montano's position. Patient on room air, oxygen saturation at 98%, no acute distress. Bilateral lung sounds diminished. Right upper arm IV running 1/2 NS at 20 mEq at 100ml/hr, asymptomatic. Sinus Rhythm on the monitor, rate of 60s. Safety measures implemented. Pending CXR and sputum culture. Will continue to monitor the patient.
--- NOTE | 2019-06-11 08:13 | Diagnostic Imaging Report ---
Indication: Reason For Exam: COUGH Technique: Single AP view of the chest. Comparison: Chest radiograph Dated 05/09/2019 Findings: The cardiomediastinal silhouette is within normal limits. There is no focal consolidation, pneumothorax or pleural effusion. Streaky left basilar airspace opacity likely represents subsegmental atelectasis. There is biapical scarring. Osseous structures demonstrate no acute abnormality. IMPRESSION: No acute cardiopulmonary process.
[2019-06-11] MEDS: Levemir Flexpen SUBQ SCH ×3 (08:25→21:00)
[2019-06-11] MEDS: Heparin 5000 units/ml inj SUBQ SCH ×3 (08:27→21:51)
--- NOTE | 2019-06-11 08:54 | NUR ---
NURSE NOTES: Called Dr. Mayers, left a message regarding patient's heart rate of 177, PSVT at 08:24 then converted to Atrial Fibrillation, rate of 101-160, asymptomatic, blood pressure WDL. Awaiting call back.
--- NOTE | 2019-06-11 09:20 | NUR ---
NURSE NOTES: Patient with incontinent episode, voided and semi-formed . Perineal care provided. Patient allowed for condom catheter. Sacral dressing changed. Bilateral heels floated.
--- NOTE | 2019-06-11 09:32 | NUR ---
RADIOLOGY DEPT., CHEST X-RAY DONE.P.DYE
--- NOTE | 2019-06-11 09:43 | NUR ---
NURSE NOTES: Dr. 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 Contact precaution initiated. No orders at this time. Patient on IV antibiotics.
--- NOTE | 2019-06-11 09:47 | NUR ---
Social Work Chart reviewed; patient is from [facility] with this plans to return there upon discharge. This Sw Spoke with patients spouse, Naveed Lane ([phone]) who confirmed this and explains she cannot visit patient here, due to she does not drive. Spouse is requesting communication regarding patients progress here to brother in law, Kevin Sotelo @ [phone]. Family are requesting DNR/DNI as well. Pending progress with swallowing at this time. Spouse expressed some concerns regarding patient has gotten an infection since recently moving to the SN[facility] and cannot swallow now. Support provided to spouse. Spouse explains patient cannot return to their home due to she can no longer care for patient and there is a flight of steps in the their home (16 steps).
--- NOTE | 2019-06-11 09:59 | Infectious Diseases Prog Note ---
Assessment/Plan Assessment/Plan IMPRESSION: Sepsis ? UTI. 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 Hypernatremia, Cachexia, Severe protein-calorie malnutrition. Atrial fibrillation Acute renal failure, resolving RECOMMENDATIONS: We will continue with Zosyn and fluconazole for now. We will follow up the cultures. Abdominal US CXR Subjective ROS Limited/Unobtainable: Yes Constitutional: Reports: anorexia Respiratory: Reports: dry cough Cardiovascular: Reports: other - developed Afib today Endocrine: Reports: other - off of Insulin drip Allergies: Coded Allergies: NO KNOWN ALLERGIES (Unverified Allergy, Unknown, 05/04/18) Objective Vital Signs Last 24 Hour Vital Signs Date Time Temp Pulse Resp B/P (MAP) Pulse Ox O2 Delivery O2 Flow Rate FiO2 06/11/19 08:30 133 15 113/54 (73) 98 06/11/19 08:05 92 20 98 Room Air 21 06/11/19 08:00 97.4 93 15 144/70 (94) 100 06/11/19 07:00 74 16 138/57 (84) 98 06/11/19 06:00 82 14 125/60 (81) 100 06/11/19 05:00 95 15 146/63 (90) 99 06/11/19 04:00 98.5 99 17 145/52 (83) 95 06/11/19 04:00 Room Air 06/11/19 03:27 95 06/11/19 03:25 89 22 98 Room Air 06/11/19 03:18 98 22 94 Room Air 06/11/19 03:00 83 17 125/59 (81) 94 06/11/19 02:00 87 15 120/46 (70) 95 06/11/19 01:00 80 16 132/63 (86) 94 06/11/19 00:00 98.3 93 17 162/60 (94) 96 06/11/19 00:00 Room Air 06/10/19 23:41 87 20 98 Room Air 06/10/19 23:38 100 06/10/19 23:31 95 20 98 Room Air 21 06/10/19 23:00 91 20 152/70 (97) 98 06/10/19 22:00 93 16 130/52 (78) 93 06/10/19 21:00 92 22 138/55 (82) 95 06/10/19 20:00 Room Air 06/10/19 20:00 98.4 101 19 147/64 (91) 95 06/10/19 19:24 87 06/10/19 19:00 98 23 133/57 (82) 93 06/10/19 18:00 83 18 137/60 (85) 94 06/10/19 17:00 79 12 122/51 (74) 93 06/10/19 16:00 97.5 90 13 134/57 (82) 95 06/10/19 16:00 Room Air 06/10/19 16:00 91 06/10/19 15:00 97 18 122/71 (88) 94 06/10/19 14:00 93 13 132/53 (79) 94 06/10/19 13:00 93 12 135/63 (87) 95 06/10/19 12:00 Room Air 06/10/19 12:00 97.5 93 13 135/63 (87) 95 06/10/19 12:00 99 06/10/19 11:00 102 17 120/50 (73) 94 06/10/19 10:00 93 12 148/65 (92) 94 Height (Feet): 5 Height (Inches): 8.00 Weight (Pounds): 94 General Appearance: cachetic HEENT: mucous membranes moist Respiratory/Chest: lungs clear Cardiovascular: tachycardia, irregularly irregular Abdomen: soft, non tender Extremities: no edema Neurologic/Psychiatric: alert, responsive Musculoskeletal: atrophy Microbiology Date/Time Source Procedure Growth Status 06/09/19 15:12 Urine,Clean Catch Urine Culture - Preliminary NO GROWTH Resulted 06/09/19 15:06 Rectum VRE Culture - Final Enterococcus Faecium - Vre Complete 06/09/19 15:06 Rectum - Final NO CARBAPENEM-RESISTANT ENTEROBACTERI... Complete Laboratory Tests Test 06/11/19 04:10 White Blood Count 25.2 K/UL (4.8-10.8) *H Red Blood Count 3.10 M/UL (4.70-6.10) L Hemoglobin 10.1 G/DL (14.2-18.0) L Hematocrit 31.5 % (42.0-52.0) L Mean Corpuscular Volume 102 FL (80-99) H Mean Corpuscular Hemoglobin 32.7 PG (27.0-31.0) H Mean Corpuscular Hemoglobin Concent 32.1 G/DL (32.0-36.0) Red Cell Distribution Width 16.2 % (11.6-14.8) H Platelet Count 267 K/UL (150-450) Mean Platelet Volume 5.2 FL (6.5-10.1) L Neutrophils (%) (Auto) % (45.0-75.0) Lymphocytes (%) (Auto) % (20.0-45.0) Monocytes (%) (Auto) % (1.0-10.0) Eosinophils (%) (Auto) % (0.0-3.0) Basophils (%) (Auto) % (0.0-2.0) Neutrophils % (Manual) Pending Lymphocytes % (Manual) Pending Platelet Estimate Pending Platelet Morphology Pending Sodium Level 149 MMOL/L (136-145) H Potassium Level 4.5 MMOL/L (3.5-5.1) Chloride Level 116 MMOL/L (98-107) H Carbon Dioxide Level 22 MMOL/L (21-32) Anion Gap 11 mmol/L (5-15) Blood Urea Nitrogen 32 mg/dL (7-18) H Creatinine 1.0 MG/DL (0.55-1.30) Estimat Glomerular Filtration Rate mL/min (>60) Glucose Level 258 MG/DL (74-106) #H Calcium Level 8.2 MG/DL (8.5-10.1) L Phosphorus Level 3.4 MG/DL (2.5-4.9) Total Bilirubin 0.4 MG/DL (0.2-1.0) Aspartate Amino Transf (AST/SGOT) 18 U/L (15-37) Alanine Aminotransferase (ALT/SGPT) 15 U/L (12-78) Alkaline Phosphatase 109 U/L (46-116) Total Protein 4.5 G/DL (6.4-8.2) L Albumin 1.8 G/DL (3.4-5.0) L Globulin 2.7 g/dL Albumin/Globulin Ratio 0.7 (1.0-2.7) L Current Medications Medications (Trade) Dose Ordered Sig/Frankie Route PRN Reason Start Time Stop Time Status Last Admin Dose Admin Acetaminophen (Tylenol) 650 mg Q4H PRN ORAL Mild Pain/Temp > 100.5 06/09/19 21:15 07/09/19 21:14 Albuterol/ Ipratropium (Albuterol/ Ipratropium) 3 ml Q4HRT HHN 06/10/19 23:00 06/15/19 22:59 06/11/19 08:05 Fluconazole/ Sodium Chloride 100 ml @ 100 mls/hr Q24H IV 06/09/19 20:00 06/16/19 19:59 06/10/19 19:43 Heparin Sodium (Porcine) (Heparin 5000 units/ml) 5,000 units EVERY 12 HOURS SUBQ 06/10/19 09:00 07/10/19 08:59 06/11/19 09:37 Insulin Aspart (NovoLOG) BEFORE MEALS AND HS SUBQ 06/10/19 06:30 07/10/19 06:29 06/11/19 06:05 Insulin Detemir (Levemir) 10 units BID SUBQ 06/10/19 09:00 07/10/19 08:59 06/11/19 08:25 Ondansetron HCl (Zofran) 4 mg Q6H PRN IVP Nausea & Vomiting 06/10/19 22:15 07/10/19 22:14 06/10/19 22:26 Pantoprazole (Protonix) 40 mg DAILY ORAL 06/10/19 09:00 07/10/19 08:59 06/10/19 08:22 Piperacillin Sod/ Tazobactam Sod 3.375 gm/Sodium Chloride 110 ml @ 27.5 mls/hr EVERY 8 HOURS IVPB 06/09/19 22:00 06/16/19 21:59 06/11/19 06:04 Sodium 1,000 ml @ 100 mls/hr Q10H IV 06/10/19 23:00 07/10/19 22:59 06/10/19 22:26 Tamsulosin HCl (Flomax) 0.4 mg BEDTIME ORAL 06/10/19 21:00 07/10/19 20:59 06/10/19 20:39 Vancomycin HCl (Vanco rx to dose) 1 ea DAILY PRN MISC Per rx protocol 06/10/19 22:15 07/10/19 22:14 Kaveh Barreto MD Jun 11, 2019 09:59
[2019-06-11] MEDS ORDERED: NS 500ML ONE (10:52)
[2019-06-11] MEDS ORDERED: Tubing IV Secondary IV ONE (10:52)
[2019-06-11] MEDS ORDERED: NS 275ml ONE (10:52)
[2019-06-11] MEDS: 1/2NS w/KCl 20mEq 1000ml 1,000 ML IV SCH (11:07)
--- NOTE | 2019-06-11 11:55 | NUR ---
NURSE NOTES: Called Dr. Mayers's office, spoke with Lori from the exchange, left a message for MD regarding A. Fibrillation rate of 100s to 140s. Will await MD callback.
--- NOTE | 2019-06-11 13:27 | NUR ---
NURSE NOTES: Patient noted with medium soft BM. Perineal care provided. Sacral dressing intact. Patient provided with lunch tray, refuses to eat, screams "Nooo!". Only took 4 sips of ensure at this time. Refuses water. No complains of pain. Will continue to monitor. Heart rate in the 90s while sitting up in omntano's position. Lunch tray within reach for consumption.
--- NOTE | 2019-06-11 13:56 | Diagnostic Imaging Report ---
Indication: Chest pain, shortness of breath Technique: XRAY Chest 1v Comparison: 06/09/2019 Findings: Heart size and mediastinal contours are stable. There is slight hyperinflation. There is been interval development of patchy bibasilar airspace opacities, right greater than left. No pleural effusion. No pneumothorax. There are degenerative changes of the spine. No acute osseous abnormality. There are atherosclerotic vascular calcifications. Impression: Development of patchy bilateral airspace opacities, right greater than left. Findings are concerning for pneumonia although a component atelectasis can also be likely. Clinical correlation and follow-up recommended.
--- NOTE | 2019-06-11 14:09 | Diagnostic Imaging Report ---
Indication: Abdominal pain, abnormal renal function Technique: Multiplanar grayscale and duplex Doppler ultrasound imaging of the abdomen Comparison: None Findings: Imaged portions of the pancreatic head grossly unremarkable in appearance. The body and tail are not visualized. There is heterogeneous in echotexture. Within the posterior aspect of the left hepatic lobe there is a mass lesion which measures approximately 2.8 x 2.5 cm. This appears to be somewhat hyperechoic which may suggest a atypical hemangioma however additional etiologies (benign or malignant) are not excluded. Recommend definitive characterization with dynamic multiphase liver protocol MRI or CT. A subcentimeter hyperechoic lesions noted in the right hepatic lobe which may represent a hemangioma. Imaged hepatic veins are patent. Main portal vein is patent with normal direction of flow. No gallstones or gallbladder sludge identified. Gallbladder wall within normal limits. No pericholecystic fluid. Common bile duct measures approximately 5 mm in diameter. No appreciable intrahepatic biliary ductal dilatation. Sonographic Swift sign reported as negative. The right kidney measures 11.2 cm in length. It demonstrates normal density. There is a approximately 3.8 cm parapelvic cysts on the right. Normal color flow to the right kidney is demonstrated. There is no hydronephrosis or sonographically appreciable renal stone. Left kidney measures 10 cm in length. Demonstrates normal echogenicity. Normal color flow to the left kidney is limited. There is no hydronephrosis or sonographically appreciable renal stone. Spleen is normal in size. Thickening of the wall of the urinary bladder is noted. There is some trabeculation as well. The main submandibular. No ascites is demonstrated. Imaged portions of the abdominal aorta normal caliber. IMPRESSION: Approximately 3 cm heterogeneous mass in the left hepatic lobe of uncertain etiology. This could be benign or malignant. Definitive characterization with dynamic contrast-enhanced liver protocol CT or MRI recommended. Subcentimeter possible hemangioma in the right hepatic lobe. Bladder wall thickening and some debris in the bladder. Correlation with urinalysis is recommended to assess for cystitis. Right parapelvic cyst.
--- NOTE | 2019-06-11 15:25 | NUR ---
NURSE NOTES: Dr. Mayers called back, patient converted to SR around 1300, rate of 90s, relayed potassium level of 4.5 today, blood sugar of 163 at noon. acknowledged. Ordered to transfer to 2W telemetry. Order noted and carried out.
--- NOTE | 2019-06-11 17:03 | NUR ---
Needle StraightenerDitch Cleaner SI:DKA/Leukocytosis BP:103/52 HR:93 T:98.1 02 Sat:95% (RA) RR:18 WBC:25.2 NA:149 BUN:32 IS:IVF Zosyn IV Fluconazole IV Heparin Sub-Q ICU Status Addendum: 06/11/19 at 1720 by Andria Caballero RN SI:CXR: Development of patchy bilateral airspace opacities, right greater than left.
--- NOTE | 2019-06-11 17:40 | NUR ---
NURSE NOTES: DR. Alvarado's phone number not working x3.
[2019-06-11] MEDS ORDERED: D5NS 1,000 ML IV SCH ×2 (18:15→20:30)
--- NOTE | 2019-06-11 18:15 | NUR ---
NURSE NOTES: Contacted Dr. Alvarado, made aware of critical blood sugar episode, D50 IV given, BS 202, latest was 137. Patient lethargic but arousable to touch and name. Relayed current medications, labs and IV fluid. MD acknowledged and orders noted.
--- NOTE | 2019-06-11 18:18 | NUR ---
NURSE NOTES: Dr. Mayers in facility, made aware of critical low blood sugar level, got blood sugar back up, Dr. Alvarado was made huffman. IV fluid changed. Patient groggy but arousable. acknowledged, Ordered to transfer to [facility].
--- NOTE | 2019-06-11 19:20 | NUR ---
HAND-OFF: Report given to AL Arevalo.
--- NOTE | 2019-06-11 19:55 | NUR ---
NURSE NOTES: Transferred per bed to [facility]; pt AAOx3; no distress; VSS. Belongings transferred with pt. Hand off to AL Guzmán
[2019-06-11] MEDS: Tamsulosin 0.4mg cap ORAL SCH (21:00)
--- NOTE | 2019-06-11 23:02 | NUR ---
NURSE NOTES: Left message for Dr. Mayers regarding patient blood sugar of 51. D50 50ml syringe was given and rechecked and blood sugar is 116. Unable to reach Dr. Cabral.
[2019-06-12] VITALS: BP 122/56
[2019-06-12] MEDS ORDERED: D5 1/2NS 1,000 ML IV SCH (00:15)
--- NOTE | 2019-06-12 01:00 | Progress Note ---
DATE: 06/11/2019 INTERNAL MEDICINE AND CARDIOLOGY PROGRESS NOTE SUBJECTIVE: The patient's condition remains critical, prognosis guarded. He intensive care unit. His care plan and current status was discussed with his at bedside. The patient developed rapid atrial fibrillation earlier and spontaneously converted back to sinus rhythm. OBJECTIVE: VITAL SIGNS: Blood pressure 113/54, heart rate 133, respiratory rate 15, he was afebrile. Presently 138/57, pulse 74, and respirations 16. HEENT: Oral thrush noted. LUNGS: Bilateral breath sounds. CARDIAC: Regular rhythm and rate. Normal S1, S2. ABDOMEN: Soft. EXTREMITIES: Trace edema. LABORATORY DATA: White count 25, hemoglobin 10. Sodium 149, potassium 4.5, bicarbonate 22, BUN 32, and creatinine 1. Glucose 258. Albumin 1.8. Urine culture is positive for yeast. Chest x-ray reveals patchy bilateral airspace opacities. Abdominal ultrasound reveals bladder wall thickening and hepatic left lobe mass of unclear etiology. IMPRESSION: 1. Severe sepsis. 2. Paroxysmal atrial fibrillation. 3. Fungal cystitis. 4. Oral candidiasis. 5. Liver mass. 6. Healthcare-acquired pneumonia. 7. Diabetic ketoacidosis, improved. 8. Severe protein-calorie malnutrition. 9. Dehydration. 10. Hypernatremia. 11. Hyperchloremia. 12. Acute renal failure, improved. 13. Hypophosphatemia, corrected. PLAN: 1. Antifungal and antimicrobial therapy. 2. Respiratory hygiene. 3. Hypotonic intravenous fluids. 4. Insulin titration. 5. We will consider beta-marissa for recurring atrial fibrillation episodes. 6. GI evaluation for possible endoscopy to follow. Mathew Mayers M.D. DR: ELAN JOB#: [id number] CC:
[2019-06-12] MEDS: Albuterol/Ipratropium 3ml neb HHN SCH ×6 (03:48→23:00)
[2019-06-12 04:00] VITALS: BP 125/63
[2019-06-12] MEDS: Piperacillin/Tazobactam 3.375 GM in NS 110 ML IVPB SCH ×3 (05:56→21:33)
[2019-06-12] MEDS: NovoLOG Insulin Flexpen SUBQ SCH ×4 (06:30→20:58)
[2019-06-12 06:31] LABS: HEMATOCRIT 27.4 % (42.0-52.0); MEAN CORPUSCULAR VOLUME 101 FL (80-99); PLATELET COUNT 205 K/UL (150-450); RED BLOOD COUNT 2.72 M/UL (4.70-6.10); RED CELL DISTRIBUTION WIDTH 15.5 % (11.6-14.8); WHITE BLOOD COUNT 13.9 K/UL (4.8-10.8)
--- NOTE | 2019-06-12 07:23 | NUR ---
HAND-OFF: Report given to AL TATUM.
--- NOTE | 2019-06-12 07:24 | NUR ---
NURSE NOTES: Received patient in bed. On room air. With continuous IVF running. Contact isolation observed. Condom cath inplace. Will continue plan of care.
[2019-06-12 07:46] LABS: ANION GAP 4 mmol/L (5-15); BLOOD UREA NITROGEN 21 mg/dL (7-18); CALCIUM 8.6 MG/DL (8.5-10.1); CARBON DIOXIDE 26 MMOL/L (21-32); CHLORIDE 120 MMOL/L (98-107); CREATININE 0.8 MG/DL (0.55-1.30); SODIUM 150 MMOL/L (136-145)
[2019-06-12 08:00] VITALS: BP 150/84
[2019-06-12] MEDS: Pantoprazole Inj IVP SCH (08:35)
[2019-06-12] MEDS: Heparin 5000 units/ml inj SUBQ SCH ×2 (08:37→21:34)
[2019-06-12] MEDS: Levemir Flexpen SUBQ SCH ×3 (08:38→20:58)
[2019-06-12] MEDS: Vancomycin 500mg/D5W 110ml IVPB SCH ×2 (09:55)
[2019-06-12] MEDS ORDERED: D5NS 1000ml IV ONE (10:25)
[2019-06-12] MEDS: D5 1/2NS w/KCl 20mEq 1,000 ML IV SCH ×2 (10:33→20:00)
[2019-06-12] MEDS ORDERED: NS 275ml ONE (10:51)
[2019-06-12] MEDS ORDERED: D5 1/2NS 1000ml IV ONE (10:51)
--- NOTE | 2019-06-12 11:54 | General Progress Note ---
Assessment/Plan Assessment/Plan: Assessment - DM with DKA - h/o recent oral thrush - poor po, odynophagia - h/o CVA - AMS / Delirium - hip fx Recommendations - po as tolerated - Rx DKA - EGD once stabilized, ? Jayne Thank you Juany Candelaria MD Subjective Allergies: Coded Allergies: NO KNOWN ALLERGIES (Unverified Allergy, Unknown, 05/04/18) Objective Last 24 Hour Vital Signs Date Time Temp Pulse Resp B/P (MAP) Pulse Ox O2 Delivery O2 Flow Rate FiO2 06/12/19 11:13 72 20 99 Room Air 21 06/12/19 11:00 73 20 96 Room Air 21 06/12/19 08:05 68 20 99 Room Air 21 06/12/19 08:00 98.1 107 20 150/84 (106) 100 06/12/19 08:00 72 06/12/19 08:00 Room Air 06/12/19 07:54 67 20 97 Room Air 06/12/19 04:00 97.8 68 20 125/63 (83) 99 06/12/19 04:00 Room Air 06/12/19 03:58 64 18 99 Room Air 06/12/19 03:48 68 18 96 Room Air 06/12/19 03:41 78 06/12/19 00:00 96.3 60 20 122/56 (78) 100 06/12/19 00:00 Room Air 06/11/19 23:58 73 17 99 Room Air 06/11/19 23:49 54 06/11/19 23:49 80 18 96 Room Air 06/11/19 20:29 75 06/11/19 20:00 Room Air 06/11/19 19:25 75 16 98 Room Air 06/11/19 19:16 65 18 98 Room Air 06/11/19 19:00 64 13 98/46 (63) 98 06/11/19 18:00 73 16 100/46 (64) 98 06/11/19 17:00 98.0 98 25 119/51 (73) 95 06/11/19 16:00 Room Air 06/11/19 16:00 94 06/11/19 16:00 101 26 100/45 (63) 94 06/11/19 15:22 Room Air 06/11/19 15:22 Room Air 06/11/19 15:00 93 18 103/52 (69) 95 06/11/19 14:00 86 15 97/50 (66) 97 06/11/19 13:00 113 14 112/62 (79) 96 06/11/19 12:00 Room Air 06/11/19 12:00 98.1 115 17 106/55 (72) 96 06/11/19 12:00 113 Intake and Output 06/11/19 06/12/19 18:59 06:59 Intake Total 390.0 ml 696.84 ml Output Total 250 ml 500 ml Balance 140.0 ml 196.84 ml Intake Oral 80 ml IV Total 310.0 ml 696.84 ml Output Urine Total 250 ml 500 ml # Voids 1 # Bowel Movements 4 2 Laboratory Tests 06/12/19 04:45: White Blood Count 13.9H, Red Blood Count 2.72L, Hemoglobin 9.0L, Hematocrit 27.4L, Mean Corpuscular Volume 101H, Mean Corpuscular Hemoglobin 33.1H, Mean Corpuscular Hemoglobin Concent 32.9, Red Cell Distribution Width 15.5H, Platelet Count 205, Mean Platelet Volume 4.9L, Neutrophils (%) (Auto) , Lymphocytes (%) (Auto) , Monocytes (%) (Auto) , Eosinophils (%) (Auto) , Basophils (%) (Auto) , Differential Total Cells Counted 100, Neutrophils % ( Manual) 89H, Lymphocytes % (Manual) 7L, Monocytes % (Manual) 1, Eosinophils % ( Manual) 1, Basophils % (Manual) 0, Band Neutrophils 2, Platelet Estimate Adequate, Platelet Morphology Normal, Anisocytosis 1+, Macrocytosis 1+ 06/12/19 05:05: Sodium Level 150H, Potassium Level 3.0L, Chloride Level 120H, Carbon Dioxide Level 26, Anion Gap 4L, Blood Urea Nitrogen 21H, Creatinine 0.8, Estimat Glomerular Filtration Rate , Glucose Level 46#L, Calcium Level 8.6, Random Vancomycin Level 2.0 Height (Feet): 5 Height (Inches): 8.00 Weight (Pounds): 95 Juany Candelaria MD Jun 12, 2019 11:54
[2019-06-12 12:00] VITALS: BP 140/69
[2019-06-12 16:00] VITALS: BP 141/72
[2019-06-12] MEDS ORDERED: Potassium Phosphate 20 MM in NS 275 ML IV SCH (17:00)
--- NOTE | 2019-06-12 19:17 | NUR ---
NURSE NOTES: Received patient from AL Benjamin. Will continue plan of care.
--- NOTE | 2019-06-12 19:20 | NUR ---
HAND-OFF: Report given to Arielle Ross RN.
[2019-06-12 20:00] VITALS: BP 133/69
--- NOTE | 2019-06-12 20:53 | NUR ---
NURSE NOTES: Dr. Cabral was here to see patient. Request accucheck and resulted as critically low. Ordered to give 25ml D50 via IV now and recheck blood sugar again in 20 minutes. If resulting as critically low again; to give another 25ml D50 IV. Dr. Cabral also edited Levimir to 5units subq. Q12 starting at 2100. Order is edited and will continue to monitor blood sugar.
--- NOTE | 2019-06-12 21:00 | Progress Note ---
DATE: 06/12/2019 CARDIOLOGY AND INTERNAL MEDICINE PROGRESS NOTE SUBJECTIVE: The patient remains in the observation unit with labile vital signs and clinical parameters. The patient has not had any recurrent atrial fibrillation since yesterday. OBJECTIVE: VITAL SIGNS: Blood pressure 140/69, heart rate 88, respiratory rate 20, and afebrile. HEENT: Oropharynx with minimal . Poor dentition LUNGS: Bilateral breath sounds. HEART: Regular rhythm and rate. Normal S1, S2. ABDOMEN: Soft. EXTREMITIES: No edema. LABORATORY DATA: White count down to 13.9 and hemoglobin 9. Sodium 150, potassium 3, bicarb 26, chloride 120, BUN 21, and creatinine 0.8. IMPRESSION: 1. Diabetic ketoacidosis, resolving. 2. Dehydration. 3. Hypernatremia. 4. Hypokalemia. 5. Hyperchloremia. 6. Dysphagia. 7. Sepsis. 8. Fungal cystitis. 9. Urinary tract infection. 10. Aspiration pneumonia. 11. Macrocytosis. PLAN: 1. Continue hypotonic IV fluids. 2. Antimicrobials per Infectious Disease business intelligence consultant. 3. EGD to follow. 4. Antifungal therapy. 5. Check B12 and folate levels. 6. DVT and stress ulcer prophylaxis. 7. Replace potassium. 8. Recheck magnesium. 9. Insulin titration. Mathew Mayers M.D. DR: JONAS JOB#: [id number] CC:
[2019-06-12] MEDS: Tamsulosin 0.4mg cap ORAL SCH (21:33)
--- NOTE | 2019-06-12 22:30 | Consultation ---
DATE OF CONSULTATION: 06/12/2019 GASTROENTEROLOGY CONSULTATION CHIEF COMPLAINT: I was asked to see this patient by Dr. Mathew Mayers for evaluation of esophageal issues. HISTORY OF PRESENT ILLNESS: The patient is an unfortunate 79-year-old man who had a hip fracture in May of this year and subsequently was sent to a longterm. He was noted to have rising glucose levels and was admitted to [facility] for diabetic ketoacidosis. The patient himself is somewhat confused and is unable to provide any history. Most of the information is only available from the chart. The patient reportedly had some degree of Mary Grace in his mouth at the outside hospital previously. He had poor oral intake, and there is a consideration of whether he has esophageal pathology secondary to esophageal candidiasis. There is no chart report of any previous endoscopy and colonoscopy, but the information is limited since the patient is confused. PAST MEDICAL HISTORY: History of insulin-dependent diabetes mellitus; history of stroke with right hemiparesis; history of right hip fracture, status post open reduction and internal fixation; history of SIADH; hypertensive heart disease; prostatic hypertrophy; and history of fungal cystitis. MEDICATIONS: See chart list for details. ALLERGIES: None. FAMILY HISTORY: Noncontributory. SOCIAL HISTORY: The patient is a nonsmoker. Drinks alcohol. REVIEW OF SYSTEMS: Otherwise negative and unobtainable. PHYSICAL EXAMINATION: GENERAL: A debilitated man, seen in the unit. HEENT: Normocephalic and atraumatic. Sclerae anicteric. Oropharynx clear. NECK: Supple. CHEST: Clear to auscultation. CARDIOVASCULAR: Revealed regular rate. ABDOMEN: Soft. EXTREMITIES: Revealed no edema. NEUROLOGIC: Normal for hemiparesis. LABORATORY DATA: Noted. ASSESSMENT: This patient has had a recent hip fracture and also had a history of stroke with current diabetic ketoacidosis. He is uncooperative with the oral examination. Therefore, I cannot tell the status of his throat. However, diabetes can predispose to Mary Grace esophagitis. This can be verified endoscopically; however, the patient is intubated and treated empirically. However, perhaps a definitive evaluation would be worthwhile in order to rule out candidal esophagitis and also to rule out gastroesophageal reflux or other pathology which may alter management. I will follow this patient with you and schedule him for an endoscopy once medically stabilized. RECOMMENDATIONS: Per above discussion and per orders in the chart. Thank you for asking me to participate in the care of this patient. Juany Candelaria M.D. DR: MELANIE JOB#: [id number] CC: FESTUS
[2019-06-13] VITALS: BP 142/65
--- NOTE | 2019-06-13 02:15 | Geriatric Medicine Prog Note ---
DATE: 06/12/2019 "NOTE: POOR AUDIO QUALITY" SUBJECTIVE: . Blood sugars . OBJECTIVE: VITAL SIGNS: . RESPIRATORY: Clear. CARDIOVASCULAR: Regular. LABORATORY DATA: glucose 110 ___ glucose clinically well ___ control. ASSESSMENT: D5 NS . Jose Alvarado M.D. DR: REMINGTON JOB#: [id number] CC:
[2019-06-13] MEDS: Albuterol/Ipratropium 3ml neb HHN SCH ×6 (03:23→23:34)
[2019-06-13 04:00] VITALS: BP 150/73
[2019-06-13] MEDS: D5 1/2NS w/KCl 20mEq 1,000 ML IV SCH ×2 (05:37→16:42)
[2019-06-13] MEDS: Piperacillin/Tazobactam 3.375 GM in NS 110 ML IVPB SCH ×3 (05:37→21:34)
[2019-06-13] MEDS: NovoLOG Insulin Flexpen SUBQ SCH ×4 (05:38→20:38)
[2019-06-13 06:45] LABS: BASOPHILS % (AUTO) 0.2 % (0.0-2.0); EOSINOPHILS % (AUTO) 3.9 % (0.0-3.0); HEMATOCRIT 27.6 % (42.0-52.0); HEMOGLOBIN 8.9 G/DL (14.2-18.0); MEAN CORPUSCULAR VOLUME 101 FL (80-99); MONOCYTES % (AUTO) 4.3 % (1.0-10.0); NEUTROPHILS % (AUTO) 78.7 % (45.0-75.0); PLATELET COUNT 194 K/UL (150-450); RED BLOOD COUNT 2.74 M/UL (4.70-6.10); RED CELL DISTRIBUTION WIDTH 15.5 % (11.6-14.8); WHITE BLOOD COUNT 7.4 K/UL (4.8-10.8)
[2019-06-13 07:25] LABS: PHOSPHORUS 3.4 MG/DL (2.5-4.9)
--- NOTE | 2019-06-13 07:25 | NUR ---
HAND-OFF: Report given to Celine Peng RN.
[2019-06-13 07:27] LABS: ALANINE AMINOTRANSFERASE 12 U/L (12-78); ALBUMIN 1.4 G/DL (3.4-5.0); ALBUMIN/GLOBULIN RATIO 0.4 (1.0-2.7); ALKALINE PHOSPHATASE 85 U/L (46-116); ANION GAP 6 mmol/L (5-15); ASPARTATE AMINO TRANSFERASE 17 U/L (15-37); BILIRUBIN,TOTAL 0.3 MG/DL (0.2-1.0); BLOOD UREA NITROGEN 11 mg/dL (7-18); CALCIUM 8.7 MG/DL (8.5-10.1); CARBON DIOXIDE 24 MMOL/L (21-32); CHLORIDE 113 MMOL/L (98-107); CREATININE 0.7 MG/DL (0.55-1.30); POTASSIUM 3.8 MMOL/L (3.5-5.1); SODIUM 143 MMOL/L (136-145)
--- NOTE | 2019-06-13 07:30 | NUR ---
NURSE NOTES: Report received from Arielle Barker RN.Pt resting in bed awake,alert but confused ,able to follow command,denies any c/o pain STR on the monitor,IV sites x2 WANDER with IVF D51/2 NS+20 meq KCL at 100 ml/hr and RH Heplock both intact,skin warm and dry ,SR up x2 HOB elevated,bed lock in lowest position,will continue with plans of care.
[2019-06-13 08:00] VITALS: BP 146/72
[2019-06-13] MEDS: Pantoprazole Inj IVP SCH (09:10)
[2019-06-13] MEDS: Heparin 5000 units/ml inj SUBQ SCH ×2 (09:14→20:39)
[2019-06-13] MEDS: Levemir Flexpen SUBQ SCH ×2 (09:14→20:39)
[2019-06-13] MEDS: Vancomycin 500mg/D5W 110ml IVPB SCH ×2 (09:16)
--- NOTE | 2019-06-13 10:35 | Infectious Diseases Prog Note ---
Assessment/Plan Assessment/Plan IMPRESSION: Sepsis Mary Grace UTI. 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 Hypernatremia, Cachexia, Severe protein-calorie malnutrition. Atrial fibrillation Acute renal failure, resolved hepatic mass RECOMMENDATIONS: We will continue with Zosyn & Vancomycin Change IV fluconazole to PO Subjective ROS Limited/Unobtainable: Yes Respiratory: Reports: productive cough Cardiovascular: Reports: no symptoms Musculoskeletal: Reports: other - generalized pain Allergies: Coded Allergies: NO KNOWN ALLERGIES (Unverified Allergy, Unknown, 05/04/18) Objective Vital Signs Last 24 Hour Vital Signs Date Time Temp Pulse Resp B/P (MAP) Pulse Ox O2 Delivery O2 Flow Rate FiO2 06/13/19 08:00 97.2 87 18 146/72 (96) 97 06/13/19 08:00 82 06/13/19 07:01 68 18 100 Room Air 06/13/19 06:54 66 18 100 Room Air 06/13/19 04:00 97.7 70 16 150/73 (98) 99 06/13/19 04:00 Room Air 06/13/19 03:35 76 06/13/19 03:24 78 20 100 Room Air 06/13/19 03:13 75 18 98 Room Air 06/13/19 00:00 97.0 72 18 142/65 (90) 99 06/13/19 00:00 Room Air 06/12/19 23:47 Room Air 21 06/12/19 23:47 Room Air 06/12/19 23:44 64 06/12/19 20:09 82 06/12/19 20:00 89 20 99 Room Air 06/12/19 20:00 98.0 72 20 133/69 (90) 98 06/12/19 20:00 88 18 98 Room Air 21 06/12/19 20:00 Room Air 06/12/19 16:00 79 06/12/19 16:00 Room Air 06/12/19 16:00 98.7 89 20 141/72 (95) 99 06/12/19 15:54 71 20 99 Room Air 06/12/19 15:44 72 20 97 Room Air 06/12/19 12:00 Room Air 06/12/19 12:00 98.0 88 20 140/69 (92) 98 06/12/19 11:44 99 06/12/19 11:13 72 20 99 Room Air 21 06/12/19 11:00 73 20 96 Room Air 21 Height (Feet): 5 Height (Inches): 8.00 Weight (Pounds): 95 General Appearance: no acute distress, cachetic HEENT: mucous membranes moist, other - no oral lesion Respiratory/Chest: lungs clear Cardiovascular: normal rate Abdomen: soft, non tender Extremities: no edema Neurologic/Psychiatric: alert, responsive Laboratory Tests Test 06/13/19 05:20 White Blood Count 7.4 K/UL (4.8-10.8) Red Blood Count 2.74 M/UL (4.70-6.10) L Hemoglobin 8.9 G/DL (14.2-18.0) L Hematocrit 27.6 % (42.0-52.0) L Mean Corpuscular Volume 101 FL (80-99) H Mean Corpuscular Hemoglobin 32.5 PG (27.0-31.0) H Mean Corpuscular Hemoglobin Concent 32.2 G/DL (32.0-36.0) Red Cell Distribution Width 15.5 % (11.6-14.8) H Platelet Count 194 K/UL (150-450) Mean Platelet Volume 5.1 FL (6.5-10.1) L Neutrophils (%) (Auto) 78.7 % (45.0-75.0) H Lymphocytes (%) (Auto) 13.0 % (20.0-45.0) L Monocytes (%) (Auto) 4.3 % (1.0-10.0) Eosinophils (%) (Auto) 3.9 % (0.0-3.0) H Basophils (%) (Auto) 0.2 % (0.0-2.0) Sodium Level 143 MMOL/L (136-145) Potassium Level 3.8 MMOL/L (3.5-5.1) Chloride Level 113 MMOL/L (98-107) H Carbon Dioxide Level 24 MMOL/L (21-32) Anion Gap 6 mmol/L (5-15) Blood Urea Nitrogen 11 mg/dL (7-18) Creatinine 0.7 MG/DL (0.55-1.30) Estimat Glomerular Filtration Rate mL/min (>60) Glucose Level 195 MG/DL (74-106) #H Calcium Level 8.7 MG/DL (8.5-10.1) Phosphorus Level 3.4 MG/DL (2.5-4.9) Magnesium Level 1.8 MG/DL (1.8-2.4) Total Bilirubin 0.3 MG/DL (0.2-1.0) Aspartate Amino Transf (AST/SGOT) 17 U/L (15-37) Alanine Aminotransferase (ALT/SGPT) 12 U/L (12-78) Alkaline Phosphatase 85 U/L (46-116) Total Protein 4.6 G/DL (6.4-8.2) L Albumin 1.4 G/DL (3.4-5.0) L Globulin 3.2 g/dL Albumin/Globulin Ratio 0.4 (1.0-2.7) L Vitamin B12 Level 1499 PG/ML (193-986) H Folate 8.9 NG/ML (8.6-58.9) Current Medications Medications (Trade) Dose Ordered Sig/Frankie Route PRN Reason Start Time Stop Time Status Last Admin Dose Admin Acetaminophen (Tylenol) 650 mg Q4H PRN ORAL Mild Pain/Temp > 100.5 06/11/19 20:30 07/09/19 20:29 06/13/19 09:20 Albuterol/ Ipratropium (Albuterol/ Ipratropium) 3 ml Q4HRT HHN 06/11/19 23:00 06/15/19 22:59 06/13/19 07:00 Dextrose (Dextrose 50%) 25 ml Q30M PRN IV Hypoglycemia 06/11/19 20:45 07/11/19 20:44 06/12/19 20:50 Dextrose (Dextrose 50%) 50 ml Q30M PRN IV Hypoglycemia 06/11/19 20:45 07/11/19 20:44 06/12/19 05:55 Dextrose/ Electrolytes 1,000 ml @ 100 mls/hr Q10H IV 06/12/19 09:00 07/12/19 08:59 06/13/19 05:37 Fluconazole/ Sodium Chloride 100 ml @ 100 mls/hr Q24H IV 06/12/19 20:00 06/16/19 19:59 06/12/19 20:00 Heparin Sodium (Porcine) (Heparin 5000 units/ml) 5,000 units EVERY 12 HOURS SUBQ 06/11/19 21:00 07/10/19 08:59 06/13/19 09:14 Insulin Aspart (NovoLOG) BEFORE MEALS AND HS SUBQ 06/11/19 21:00 07/11/19 20:59 06/13/19 05:38 Insulin Detemir (Levemir) 5 units EVERY 12 HOURS SUBQ 06/12/19 21:00 07/10/19 20:59 06/13/19 09:14 Ondansetron HCl (Zofran) 4 mg Q6H PRN IVP Nausea & Vomiting 06/11/19 20:30 07/10/19 20:29 Pantoprazole (Protonix) 40 mg DAILY IVP 06/12/19 09:00 07/12/19 08:59 06/13/19 09:10 Piperacillin Sod/ Tazobactam Sod 3.375 gm/Sodium Chloride 110 ml @ 27.5 mls/hr EVERY 8 HOURS IVPB 06/11/19 22:00 06/16/19 21:59 06/13/19 05:37 Tamsulosin HCl (Flomax) 0.4 mg BEDTIME ORAL 06/11/19 21:00 07/10/19 20:59 06/12/19 21:33 Vancomycin HCl (Vanco rx to dose) 1 ea DAILY PRN MISC Per rx protocol 06/11/19 20:30 07/11/19 20:29 Vancomycin HCl 500 mg/Dextrose 110 ml @ 110 mls/hr DAILY IVPB 06/12/19 09:00 06/17/19 08:59 06/13/19 09:16 Kaveh Barreto MD Jun 13, 2019 10:35
[2019-06-13 12:00] VITALS: BP 126/50
--- NOTE | 2019-06-13 12:20 | General Progress Note ---
Assessment/Plan Assessment/Plan: Assessment - DM with DKA - h/o recent oral thrush - poor po, odynophagia - h/o CVA - AMS / Delirium - hip fx Recommendations - po as tolerated - Rx DKA - EGD once stabilized, next week Subjective Allergies: Coded Allergies: NO KNOWN ALLERGIES (Unverified Allergy, Unknown, 05/04/18) Subjective above noted more awake d/w patient re GI endoscopy Objective Last 24 Hour Vital Signs Date Time Temp Pulse Resp B/P (MAP) Pulse Ox O2 Delivery O2 Flow Rate FiO2 06/13/19 12:13 Room Air 06/13/19 11:00 72 18 100 Room Air 21 06/13/19 10:58 70 18 100 Room Air 21 06/13/19 08:00 Room Air 06/13/19 08:00 97.2 87 18 146/72 (96) 97 06/13/19 08:00 82 06/13/19 07:01 68 18 100 Room Air 21 06/13/19 06:54 66 18 100 Room Air 21 06/13/19 04:00 97.7 70 16 150/73 (98) 99 06/13/19 04:00 Room Air 06/13/19 03:35 76 06/13/19 03:24 78 20 100 Room Air 21 06/13/19 03:13 75 18 98 Room Air 21 06/13/19 00:00 97.0 72 18 142/65 (90) 99 06/13/19 00:00 Room Air 06/12/19 23:47 Room Air 21 06/12/19 23:47 Room Air 21 06/12/19 23:44 64 06/12/19 20:09 82 06/12/19 20:00 89 20 99 Room Air 21 06/12/19 20:00 98.0 72 20 133/69 (90) 98 06/12/19 20:00 88 18 98 Room Air 21 06/12/19 20:00 Room Air 06/12/19 16:00 79 06/12/19 16:00 Room Air 06/12/19 16:00 98.7 89 20 141/72 (95) 99 06/12/19 15:54 71 20 99 Room Air 21 06/12/19 15:44 72 20 97 Room Air 21 Intake and Output 06/12/19 06/13/19 19:00 07:00 Intake Total 1165.82 ml 1391.642 ml Output Total 600 ml 650 ml Balance 565.82 ml 741.642 ml Intake Oral 120 ml 30 ml IV Total 1045.82 ml 1361.642 ml Output Urine Total 600 ml 650 ml # Bowel Movements 4 Laboratory Tests 06/13/19 05:20: White Blood Count 7.4, Red Blood Count 2.74L, Hemoglobin 8.9L, Hematocrit 27.6L , Mean Corpuscular Volume 101H, Mean Corpuscular Hemoglobin 32.5H, Mean Corpuscular Hemoglobin Concent 32.2, Red Cell Distribution Width 15.5H, Platelet Count 194, Mean Platelet Volume 5.1L, Neutrophils (%) (Auto) 78.7H, Lymphocytes (%) (Auto) 13.0L, Monocytes (%) (Auto) 4.3, Eosinophils (%) (Auto) 3.9H, Basophils (%) (Auto) 0.2, Sodium Level 143, Potassium Level 3.8, Chloride Level 113H, Carbon Dioxide Level 24, Anion Gap 6, Blood Urea Nitrogen 11, Creatinine 0.7, Estimat Glomerular Filtration Rate , Glucose Level 195#H, Calcium Level 8.7, Phosphorus Level 3.4, Magnesium Level 1.8, Total Bilirubin 0.3, Aspartate Amino Transf (AST/SGOT) 17, Alanine Aminotransferase (ALT/SGPT) 12, Alkaline Phosphatase 85, Total Protein 4.6L, Albumin 1.4L, Globulin 3.2, Albumin/Globulin Ratio 0.4L, Vitamin B12 Level 1499H, Folate 8.9 Height (Feet): 5 Height (Inches): 8.00 Weight (Pounds): 95 Objective Thin elderly man NCAT supple CTA RR abd soft no edema Juany Candelaria MD Jun 13, 2019 12:20
--- NOTE | 2019-06-13 14:00 | NUR ---
NURSE NOTES: Dr Mayers at bedside discussed with pt's re plans of care. ,
--- NOTE | 2019-06-13 14:40 | NUR ---
NURSE NOTES: Dr Lennon called and spoke with pt's re plans of endoscopy in am but refused .
--- NOTE | 2019-06-13 14:55 | Cardiology Report ---
APPROVED REPORT EKG Measurement Heart [id number] [id number] Sinus tachycardia Septal infarct, age undetermined Abnormal ECG
[2019-06-13] MEDS ORDERED: NS 275ml ONE (15:19)
[2019-06-13] MEDS ORDERED: Tubing IV Secondary IV ONE (15:19)
[2019-06-13 16:00] VITALS: BP 133/60
--- NOTE | 2019-06-13 18:25 | NUR ---
NURSE NOTES: Pt refuses to eat food but drinks the Ensure in a carton,was able to consume 3 and 1/2 Ensure drinks for the whole shift.
--- NOTE | 2019-06-13 19:15 | NUR ---
HAND-OFF: Report given to Arielle Barker RN.
--- NOTE | 2019-06-13 19:16 | NUR ---
NURSE NOTES: Received patient from Celine Peng RN. Will continue plan of care.
[2019-06-13 20:00] VITALS: BP 114/58
[2019-06-13] MEDS: Fluconazole 100mg tab ORAL SCH (20:37)
[2019-06-13] MEDS: Tamsulosin 0.4mg cap ORAL SCH (20:37)
[2019-06-14] VITALS: BP 131/77
[2019-06-14] MEDS: D5 1/2NS w/KCl 20mEq 1,000 ML IV SCH ×3 (01:00→21:35)
--- NOTE | 2019-06-14 01:15 | Progress Note ---
DATE: 06/13/2019 CARDIOLOGY PROGRESS NOTE SUBJECTIVE: The patient's condition is slightly improved, but it remains critical. He continued to have very poor oral intake. Drinking only some liquids. Glucose control has improved. OBJECTIVE: VITAL SIGNS: Blood pressure 146/72, heart rate 87, respiratory rate 18, and afebrile. HEENT: Poor oral hygiene. LUNGS: Coarse breath sounds. HEART: Regular rhythm and rate. Normal S1 and S2. ABDOMEN: Soft. No edema. Right hemiparesis. LABORATORY DATA: Urine culture, Mary Grace. White count 7.4 and hemoglobin 8.9. Sodium 143, potassium 3.8, bicarbonate 24, BUN 11, and creatinine 0.7. Magnesium 1.8. B12 folate normal. Albumin 1.4. IMPRESSION: 1. Sepsis with recovered shock. 2. Diabetic ketoacidosis, recovered. 3. Diabetes mellitus with labile glucose control. 4. Fungal cystitis. Recent oral candidiasis. 5. Dysphagia. 6. Severe protein-calorie malnutrition. 7. Acute myocardial ischemia. 8. Hypertensive heart disease. PLAN: 1. Nutritional support is able. 2. Endoscopy planned. 3. Titrate insulin regimen based on intake. 4. Adjust intravenous fluids accordingly as well. 5. Antimicrobials. 6. DVT and stress ulcer prophylaxis. Mathew Mayers M.D. DR: EMY JOB#: [id number] CC:
[2019-06-14] MEDS: Albuterol/Ipratropium 3ml neb HHN SCH ×6 (03:20→22:17)
--- NOTE | 2019-06-14 03:30 | Geriatric Medicine Prog Note ---
DATE: 06/13/2019 NOTE: POOR AUDIO ENDOCRINOLOGY PROGRESS NOTE SUBJECTIVE: control. . OBJECTIVE: VITAL SIGNS: pulse 71, respiratory rate . LABORATORY DATA: Glucose 152. ASSESSMENT: good control. PLAN: Continue Levemir q.i.d. Jose Alvarado M.D. DR: REMINGTON JOB#: [id number] CC:
[2019-06-14 04:00] VITALS: BP 130/69
[2019-06-14] MEDS: Piperacillin/Tazobactam 3.375 GM in NS 110 ML IVPB SCH ×3 (05:51→22:04)
[2019-06-14] MEDS: NovoLOG Insulin Flexpen SUBQ SCH ×4 (05:59→16:50)
--- NOTE | 2019-06-14 06:46 | General Progress Note ---
Assessment/Plan Problem List: (1) Diabetes mellitus ICD Codes: E11.9 - Type 2 diabetes mellitus without complications SNOMED: 16882054 (2) Hypertension ICD Codes: I10 - Essential (primary) hypertension SNOMED: 55247533 (3) Failure to thrive SNOMED: 73419721, 12174712 (4) DKA (diabetic ketoacidoses) ICD Codes: E11.10 - Type 2 diabetes mellitus with ketoacidosis without coma SNOMED: 289946881, 82556821 (5) UTI (urinary tract infection) ICD Codes: N39.0 - Urinary tract infection, site not specified SNOMED: 19614022, 78446174 Assessment/Plan: reduce Levemir to 4 units bid add Novolog 2 units ac tid - hold if not eating change NISS ac / hs to sensitive scale Subjective ROS Limited/Unobtainable: Yes Allergies: Coded Allergies: NO KNOWN ALLERGIES (Unverified Allergy, Unknown, 05/04/18) Subjective events noted fasting glucose improved oral intake is poor Item Value Date Time Bedside Blood Glucose 93 mg/dl 06/14/19 0559 Bedside Blood Glucose 152 mg/dl H 06/13/19 2100 Bedside Blood Glucose 220 mg/dl H 06/13/19 1644 Bedside Blood Glucose 329 mg/dl H 06/13/19 1158 Bedside Blood Glucose 262 mg/dl H 06/13/19 0930 Bedside Blood Glucose 222 mg/dl H 06/13/19 0630 Objective Last 24 Hour Vital Signs Date Time Temp Pulse Resp B/P (MAP) Pulse Ox O2 Delivery O2 Flow Rate FiO2 06/14/19 04:00 97.5 77 18 130/69 (89) 99 06/14/19 04:00 Room Air 06/14/19 03:34 79 06/14/19 03:28 78 18 99 Room Air 21 06/14/19 03:20 77 18 97 Room Air 21 06/14/19 00:00 77 06/14/19 00:00 Room Air 06/14/19 00:00 97.7 76 20 131/77 (95) 99 06/13/19 23:57 81 18 99 Room Air 21 06/13/19 23:34 81 18 96 Room Air 21 06/13/19 20:00 98.1 81 18 114/58 (76) 98 06/13/19 20:00 Room Air 06/13/19 19:56 84 18 100 Room Air 21 06/13/19 19:48 83 06/13/19 19:45 79 18 97 Room Air 21 06/13/19 16:02 89 06/13/19 16:00 Room Air 06/13/19 16:00 97.7 92 20 133/60 (84) 96 06/13/19 15:05 72 18 100 Room Air 21 06/13/19 15:05 71 18 100 Room Air 21 06/13/19 12:13 Room Air 06/13/19 12:00 96.6 77 20 126/50 (75) 99 06/13/19 12:00 91 06/13/19 11:00 72 18 100 Room Air 21 06/13/19 10:58 70 18 100 Room Air 21 06/13/19 08:00 Room Air 06/13/19 08:00 97.2 87 18 146/72 (96) 97 06/13/19 08:00 82 06/13/19 07:01 68 18 100 Room Air 21 06/13/19 06:54 66 18 100 Room Air 21 Intake and Output 06/13/19 06/14/19 19:00 07:00 Intake Total 2185 ml 1164.14 ml Output Total 1150 ml 900 ml Balance 1035 ml 264.14 ml Intake Oral 1185 ml 50 ml IV Total 1000 ml 1114.14 ml Output Urine Total 1150 ml 900 ml Height (Feet): 5 Height (Inches): 8.00 Weight (Pounds): 95 General Appearance: no apparent distress Neck: normal alignment Cardiovascular: normal rate Respiratory/Chest: decreased breath sounds Abdomen: normal bowel sounds Pelvis: normal external exam Objective Current Medications Medications (Trade) Dose Ordered Sig/Frankie Route PRN Reason Start Time Stop Time Status Last Admin Dose Admin Acetaminophen (Tylenol) 650 mg Q4H PRN ORAL Mild Pain/Temp > 100.5 06/11/19 20:30 07/09/19 20:29 06/13/19 09:20 Albuterol/ Ipratropium (Albuterol/ Ipratropium) 3 ml Q4HRT HHN 06/11/19 23:00 06/15/19 22:59 06/14/19 03:20 Dextrose (Dextrose 50%) 25 ml Q30M PRN IV Hypoglycemia 06/11/19 20:45 07/11/19 20:44 06/12/19 20:50 Dextrose (Dextrose 50%) 50 ml Q30M PRN IV Hypoglycemia 06/11/19 20:45 07/11/19 20:44 06/12/19 05:55 Dextrose/ Electrolytes 1,000 ml @ 100 mls/hr Q10H IV 06/12/19 09:00 07/12/19 08:59 06/14/19 01:00 Fluconazole (Diflucan) 200 mg Q24H ORAL 06/13/19 20:00 06/20/19 19:59 06/13/19 20:37 Heparin Sodium (Porcine) (Heparin 5000 units/ml) 5,000 units EVERY 12 HOURS SUBQ 06/11/19 21:00 07/10/19 08:59 06/13/19 20:39 Insulin Aspart (NovoLOG) BEFORE MEALS AND HS SUBQ 06/11/19 21:00 07/11/19 20:59 06/13/19 20:38 Insulin Detemir (Levemir) 5 units EVERY 12 HOURS SUBQ 06/12/19 21:00 07/10/19 20:59 06/13/19 20:39 Ondansetron HCl (Zofran) 4 mg Q6H PRN IVP Nausea & Vomiting 06/11/19 20:30 07/10/19 20:29 Pantoprazole (Protonix) 40 mg DAILY IVP 06/12/19 09:00 07/12/19 08:59 06/13/19 09:10 Piperacillin Sod/ Tazobactam Sod 3.375 gm/Sodium Chloride 110 ml @ 27.5 mls/hr EVERY 8 HOURS IVPB 06/11/19 22:00 06/16/19 21:59 06/14/19 05:51 Tamsulosin HCl (Flomax) 0.4 mg BEDTIME ORAL 06/11/19 21:00 07/10/19 20:59 06/13/19 20:37 Vancomycin HCl (Vanco rx to dose) 1 ea DAILY PRN MISC Per rx protocol 06/11/19 20:30 07/11/19 20:29 Vancomycin HCl 500 mg/Dextrose 110 ml @ 110 mls/hr DAILY IVPB 06/12/19 09:00 06/17/19 08:59 06/13/19 09:16 Luis Gonzalez MD Jun 14, 2019 06:46
--- NOTE | 2019-06-14 07:20 | NUR ---
HAND-OFF: Report given to AL MILLER.
--- NOTE | 2019-06-14 07:50 | NUR ---
NURSE NOTES: Received pt from AL Guzmán in stable condition with no cardiopulmonary distress noted. Pt is awake in bed, AAOx2 on RA, condom cath noted draining yellow urine. Skin alterations noted. Pt has a WANDER 22g and RH 22g IV. Bed is in lowest position with alarm on, side rails up x 2, call light within reach. Will continue to monitor. Addendum: 06/14/19 at 0751 by Mariela Ta RN Amendment: correct time 0720
[2019-06-14 08:00] VITALS: BP 133/71
[2019-06-14] MEDS: Heparin 5000 units/ml inj SUBQ SCH ×2 (08:19→21:32)
[2019-06-14] MEDS: Pantoprazole Inj IVP SCH (08:20)
[2019-06-14] MEDS: Levemir Flexpen SUBQ SCH ×2 (08:25→21:29)
[2019-06-14] MEDS: Vancomycin 500mg/D5W 110ml IVPB SCH ×2 (08:41)
[2019-06-14] MEDS ORDERED: Levemir Flexpen SUBQ SCH (09:00)
--- NOTE | 2019-06-14 10:20 | NUR ---
PT NOTE Received MD order for PT evaluation, medical record reviewed. Attempted to see patient for PT treatment, Mariela MELENDEZ requesting to defer PT evaluation today due to patient vomiting, will follow.
--- NOTE | 2019-06-14 10:37 | Infectious Diseases Prog Note ---
Assessment/Plan Assessment/Plan IMPRESSION: Sepsis Mary Grace UTI. 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 Hypernatremia, Cachexia, Severe protein-calorie malnutrition. Atrial fibrillation Acute renal failure, resolved hepatic mass RECOMMENDATIONS: We will continue with Zosyn & fluconazole Discontinue Vancomycin Subjective ROS Limited/Unobtainable: Yes Respiratory: Reports: no symptoms Gastrointestinal/Abdominal: Reports: nausea, vomiting Allergies: Coded Allergies: NO KNOWN ALLERGIES (Unverified Allergy, Unknown, 05/04/18) Objective Vital Signs Last 24 Hour Vital Signs Date Time Temp Pulse Resp B/P (MAP) Pulse Ox O2 Delivery O2 Flow Rate FiO2 06/14/19 08:00 97.7 95 16 133/71 (91) 94 06/14/19 07:19 74 18 99 Room Air 06/14/19 07:09 75 18 97 Room Air 06/14/19 04:00 97.5 77 18 130/69 (89) 99 06/14/19 04:00 Room Air 06/14/19 03:34 79 06/14/19 03:28 78 18 99 Room Air 06/14/19 03:20 77 18 97 Room Air 06/14/19 00:00 77 06/14/19 00:00 Room Air 06/14/19 00:00 97.7 76 20 131/77 (95) 99 06/13/19 23:57 81 18 99 Room Air 06/13/19 23:34 81 18 96 Room Air 06/13/19 20:00 98.1 81 18 114/58 (76) 98 06/13/19 20:00 Room Air 06/13/19 19:56 84 18 100 Room Air 06/13/19 19:48 83 06/13/19 19:45 79 18 97 Room Air 06/13/19 16:02 89 06/13/19 16:00 Room Air 06/13/19 16:00 97.7 92 20 133/60 (84) 96 06/13/19 15:05 72 18 100 Room Air 06/13/19 15:05 71 18 100 Room Air 06/13/19 12:13 Room Air 06/13/19 12:00 96.6 77 20 126/50 (75) 99 06/13/19 12:00 91 06/13/19 11:00 72 18 100 Room Air 06/13/19 10:58 70 18 100 Room Air 21 Height (Feet): 5 Height (Inches): 8.00 Weight (Pounds): 95 General Appearance: no acute distress, cachetic HEENT: mucous membranes moist Respiratory/Chest: lungs clear Cardiovascular: normal rate Abdomen: soft, non tender Extremities: no edema Neurologic/Psychiatric: alert, responsive Musculoskeletal: atrophy Laboratory Tests Test 06/14/19 07:55 Vancomycin Level Trough 4.4 ug/mL (5.0-12.0) L Current Medications Medications (Trade) Dose Ordered Sig/Frankie Route PRN Reason Start Time Stop Time Status Last Admin Dose Admin Acetaminophen (Tylenol) 650 mg Q4H PRN ORAL Mild Pain/Temp > 100.5 06/11/19 20:30 07/09/19 20:29 06/13/19 09:20 Albuterol/ Ipratropium (Albuterol/ Ipratropium) 3 ml Q4HRT HHN 06/11/19 23:00 06/15/19 22:59 06/14/19 07:08 Dextrose (Dextrose 50%) 25 ml Q30M PRN IV Hypoglycemia 06/14/19 07:00 07/14/19 06:59 Dextrose (Dextrose 50%) 50 ml Q30M PRN IV Hypoglycemia 06/14/19 07:00 07/14/19 06:59 Dextrose/ Electrolytes 1,000 ml @ 100 mls/hr Q10H IV 06/12/19 09:00 07/12/19 08:59 06/14/19 01:00 Fluconazole (Diflucan) 200 mg Q24H ORAL 06/13/19 20:00 06/20/19 19:59 06/13/19 20:37 Heparin Sodium (Porcine) (Heparin 5000 units/ml) 5,000 units EVERY 12 HOURS SUBQ 06/11/19 21:00 07/10/19 08:59 06/14/19 08:19 Insulin Aspart (NovoLOG) 2 units NOVOTIAC SUBQ 06/14/19 11:50 07/14/19 11:49 Insulin Detemir (Levemir) 4 units EVERY 12 HOURS SUBQ 06/14/19 09:00 07/10/19 20:59 06/14/19 08:25 Ondansetron HCl (Zofran) 4 mg Q6H PRN IVP Nausea & Vomiting 06/11/19 20:30 07/10/19 20:29 06/14/19 10:28 Pantoprazole (Protonix) 40 mg DAILY IVP 06/12/19 09:00 07/12/19 08:59 06/14/19 08:20 Piperacillin Sod/ Tazobactam Sod 3.375 gm/Sodium Chloride 110 ml @ 27.5 mls/hr EVERY 8 HOURS IVPB 06/11/19 22:00 06/16/19 21:59 06/14/19 05:51 Tamsulosin HCl (Flomax) 0.4 mg BEDTIME ORAL 06/11/19 21:00 07/10/19 20:59 06/13/19 20:37 Vancomycin HCl (Vanco rx to dose) 1 ea DAILY PRN MISC Per rx protocol 06/11/19 20:30 07/11/19 20:29 Vancomycin HCl 500 mg/Dextrose 110 ml @ 110 mls/hr DAILY IVPB 06/12/19 09:00 06/14/19 12:00 06/14/19 08:41 Vancomycin HCl 500 mg/Sodium Chloride 110 ml @ 110 mls/hr Q12HR IVPB 06/14/19 21:00 06/17/19 20:59 Kaveh Barreto MD Jun 14, 2019 10:37
[2019-06-14 11:52] LABS: BASOPHILS % (AUTO) 0.7 % (0.0-2.0); EOSINOPHILS % (AUTO) 4.2 % (0.0-3.0); HEMATOCRIT 30.4 % (42.0-52.0); HEMOGLOBIN 9.7 G/DL (14.2-18.0); LYMPHOCYTES % (AUTO) 27.8 % (20.0-45.0); MEAN CORPUSCULAR VOLUME 100 FL (80-99); MONOCYTES % (AUTO) 6.8 % (1.0-10.0); NEUTROPHILS % (AUTO) 60.5 % (45.0-75.0); PLATELET COUNT 238 K/UL (150-450); RED BLOOD COUNT 3.03 M/UL (4.70-6.10); RED CELL DISTRIBUTION WIDTH 14.6 % (11.6-14.8); WHITE BLOOD COUNT 5.9 K/UL (4.8-10.8)
[2019-06-14 12:00] VITALS: BP 135/79
[2019-06-14 12:06] LABS: ALANINE AMINOTRANSFERASE 22 U/L (12-78); ALBUMIN 1.6 G/DL (3.4-5.0); ALBUMIN/GLOBULIN RATIO 0.5 (1.0-2.7); ALKALINE PHOSPHATASE 100 U/L (46-116); ANION GAP 6 mmol/L (5-15); ASPARTATE AMINO TRANSFERASE 33 U/L (15-37); BILIRUBIN,TOTAL 0.3 MG/DL (0.2-1.0); BLOOD UREA NITROGEN 8 mg/dL (7-18); CALCIUM 8.7 MG/DL (8.5-10.1); CARBON DIOXIDE 24 MMOL/L (21-32); CHLORIDE 108 MMOL/L (98-107); CREATININE 0.7 MG/DL (0.55-1.30); PHOSPHORUS 2.9 MG/DL (2.5-4.9); POTASSIUM 4.3 MMOL/L (3.5-5.1); SODIUM 137 MMOL/L (136-145)
--- NOTE | 2019-06-14 12:25 | NUR ---
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 97.5 HR 77 RR 18 B/P 130/69 RA 98% IS: IVF D5KCL @ 100ML/HR VANCO IV ZOSYN IV HEPARIN SUBC STEP DOWN STATUS
--- NOTE | 2019-06-14 13:25 | Cardiology Report ---
APPROVED REPORT EXAM: Two-dimensional and M-mode echocardiogram with Doppler and color Doppler. INDICATION Congestive Heart Failure M-Mode DIMENSIONS IVSd1.3 (0.7-1.1cm)Left Atrium (MM)2.1 (1.6-4.0cm) LVDd3.1 (3.5-5.6cm)Aortic Root2.2 (2.0-3.7cm) PWd0.9 (0.7-1.1cm)Aortic Cusp Exc.1.5 (1.5-2.0cm) LVDs1.8 (2.5-4.0cm) PWs1.3 cm Technically difficult and limited study due to poor acoustic windows. All images obtained from subcostal view. Study quality precludes accurate assessment of regional wall motion. Normal left ventricular chamber size, systolic function and wall motion. Left ventricular ejection fraction estimated to be 60 %. Mild left ventricular hypertrophy. No evidence of pericardial effusion. All other cardiac chamber sizes are within normal limits. Focal aortic valve sclerosis with adequate cusp excursion. Thickened mitral valve leaflets with normal excursion. Mitral annulus and aortic root calcification. Normal pulmonic valve structure. Normal tricuspid valve structure. IVC is normal in size with physiological collapse. A color flow and spectral Doppler study was performed and revealed: No aortic regurgitation. No mitral regurgitation. Mitral diastolic velocities suggest mild left ventricular diastolic dysfunction (Grade I). Trace tricuspid regurgitation. Tricuspid systolic velocities suggests peak right ventricular systolic pressure of 31 mmHg. Trace pulmonic regurgitation present.
--- NOTE | 2019-06-14 14:26 | NUR ---
ST NOTES: REFERRED FOR A SWALLOW EVAL TODAY. CONSULTED WITH RN, PAUL, UNTIL COMPLETE EVAL COMPLETED TOMORROW. PER ISAIAH NO TUBE FEEDINGS AND PATIENT WANTS TO EAT/DRINK BY MOUTH FOR QUALITY OF LIFE PURPOSES. PER RN, PATIENT IS OVERTLY ASPIRATING ON THIN LIQUIDS. WILL HAVE RN DOWNGRADE TO NECTAR THICK LIQUIDS OR HONEY THICK LIQUIDS. IF STILL COUGHING WITH LIQUIDS HOLD PO UNTIL TOMORROW IF POSSIBLE. PT IS REFUSING HIS PUREED FOOD AND HIS INTAKE IS ONLY 25%. GLUCERNA HIGH HETAL SUP BEING SENT. RECOMMENDATIONS: WILL COMPLETE SWALLOW EVAL AND MOD BARIUM SWALLOWS STUDY TOMORROW. COMPLETE CALORIE COUNT AND DOWNGRADE LIQUIDS TO NECTAR OR HONEY THICK LIQUIDS. SEND NECTAR THICKENED GLUCERNA AND FOLLOW GENERAL ASPIRATION PRECAUTIONS. CONSIDER APPETITE STIMULANT. Addendum: 06/14/19 at 1434 by RODERICK OJEDA PIANO REGULATOR INSPECTOR CONTINUE WITH PUREED BUT PT IS REFUSING IT. [facility] AT [facility] ON CARDIAC DIET.
--- NOTE | 2019-06-14 15:50 | NUR ---
RD ASSESSMENT & RECOMMENDATIONS SEE CARE ACTIVITY FOR COMPLETE ASSESSMENT DAILY ESTIMATED NEEDS: Needs based on Underweight, diabetes / 42.9kg 30-40 kcals/kg 8868-8829 total kcals 1-2 g protein/kg 43-86 g total protein 25-30 mL/kg 5189-5318 total fluid mLs NUTRITION DIAGNOSIS: * Increased kcal/prot needs R/T underweight status as evidenced by pt is 66% of [place] Body Weight, severe generalized wasting, w/ suspected 22.5 lbs wt loss x1 month, pt w/ poor PO intake * Altered nutrition related lab values R/T diabetes as evidenced by hypo and hyperglycemia (193 on adm-> 127 195), A1C 8.1 CURRENT DIET:CCHO MED, CARDIAC/ puree moist, NTL + Glucerna TID PO DIET RECOMMENDATIONS: CCHO LOW/ TEXTURE PER CLIENT PORTFOLIO MANAGER + GLUCERNA 1 TETRA BERT TID ADDITIONAL RECOMMENDATIONS: * Weekly wts (calibrated bedscale) given severe underweight status and suspected wt loss * Monitor BGs closely -> improved since adm * 1 carb/high prot snack in between meals to prevent hypoglycemia as accepted * Consider zofran yjcxri-hso-vrcre if N/V continues * Consider appetite stimulant- poor PO, underweight, + wt loss
[2019-06-14 16:00] VITALS: BP 146/84
--- NOTE | 2019-06-14 16:59 | NUR ---
NURSE NOTES: Pt is refusing to eat at this time. Will hold insulin order per parameters given.
--- NOTE | 2019-06-14 19:25 | NUR ---
NURSE NOTES: pt report received by Mariela MELENDEZ YOLANDA. pt is in stable condition.
--- NOTE | 2019-06-14 19:34 | NUR ---
HAND-OFF: Report given to Cookie Rahman RN. Pt in stable condition.
[2019-06-14 20:00] VITALS: BP 127/65
[2019-06-14] MEDS ORDERED: Vancomycin 500 MG in NS 110 ML IVPB SCH (21:00)
--- NOTE | 2019-06-14 21:21 | NUR ---
NURSE NOTES: Spoke with Conor Pharmacist, he stated Diflucan can be given late. I explained to him this is due to another pts medications being late due to a late admission.
[2019-06-14] MEDS: Fluconazole 100mg tab ORAL SCH (21:32)
[2019-06-14] MEDS: Tamsulosin 0.4mg cap ORAL SCH (21:32)
--- NOTE | 2019-06-14 22:15 | NUR ---
NURSE NOTES: Called MD Riana Samuels to inform him of PTs blood sugar of 389 at 2130. awaiting new orders. pt is asymptomatic as of now, will continue to monitor.
--- NOTE | 2019-06-14 22:17 | General Progress Note ---
Assessment/Plan Assessment/Plan: Assessment - DM with DKA - h/o recent oral thrush - poor po, odynophagia - family decline EGD at this time - h/o CVA - AMS / Delirium - hip fx Recommendations - po as tolerated - Rx DKA - No EGD at this time per family decision Subjective Allergies: Coded Allergies: NO KNOWN ALLERGIES (Unverified Allergy, Unknown, 05/04/18) Subjective above noted more awake but confused d/w re poor po intake recommended EGD to r/o lower GI pathology declined to give consent for EGD at this time Objective Last 24 Hour Vital Signs Date Time Temp Pulse Resp B/P (MAP) Pulse Ox O2 Delivery O2 Flow Rate FiO2 06/14/19 20:00 97 06/14/19 18:45 88 20 100 Room Air 21 06/14/19 18:38 85 18 98 Room Air 21 06/14/19 16:00 93 06/14/19 16:00 97.7 91 14 146/84 (104) 97 06/14/19 16:00 Room Air 06/14/19 14:46 79 20 100 Room Air 21 06/14/19 14:36 74 20 98 Room Air 21 06/14/19 12:00 97.5 83 18 135/79 (97) 99 06/14/19 12:00 89 06/14/19 12:00 Room Air 06/14/19 11:41 77 20 99 Room Air 21 06/14/19 11:31 77 20 98 Room Air 21 06/14/19 08:00 97.7 95 16 133/71 (91) 94 06/14/19 08:00 Room Air 06/14/19 08:00 94 06/14/19 07:19 74 18 99 Room Air 21 06/14/19 07:09 75 18 97 Room Air 06/14/19 04:00 97.5 77 18 130/69 (89) 99 06/14/19 04:00 Room Air 06/14/19 03:34 79 06/14/19 03:28 78 18 99 Room Air 06/14/19 03:20 77 18 97 Room Air 06/14/19 00:00 77 06/14/19 00:00 Room Air 06/14/19 00:00 97.7 76 20 131/77 (95) 99 06/13/19 23:57 81 18 99 Room Air 21 06/13/19 23:34 81 18 96 Room Air 21 Intake and Output 06/13/19 06/14/19 18:59 06:59 Intake Total 2212.5 ml 1264.14 ml Output Total 1150 ml 900 ml Balance 1062.5 ml 364.14 ml Intake Oral 1185 ml 50 ml IV Total 1027.5 ml 1214.14 ml Output Urine Total 1150 ml 900 ml Laboratory Tests 06/14/19 07:55: White Blood Count 5.9, Red Blood Count 3.03L, Hemoglobin 9.7L, Hematocrit 30.4L , Mean Corpuscular Volume 100H, Mean Corpuscular Hemoglobin 32.1H, Mean Corpuscular Hemoglobin Concent 32.0, Red Cell Distribution Width 14.6, Platelet Count 238, Mean Platelet Volume 5.0L, Neutrophils (%) (Auto) 60.5, Lymphocytes ( %) (Auto) 27.8, Monocytes (%) (Auto) 6.8, Eosinophils (%) (Auto) 4.2H, Basophils (%) (Auto) 0.7, Sodium Level 137, Potassium Level 4.3, Chloride Level 108H, Carbon Dioxide Level 24, Anion Gap 6, Blood Urea Nitrogen 8, Creatinine 0.7, Estimat Glomerular Filtration Rate , Glucose Level 127H, Calcium Level 8.7 , Phosphorus Level 2.9, Magnesium Level 1.7L, Total Bilirubin 0.3, Aspartate Amino Transf (AST/SGOT) 33, Alanine Aminotransferase (ALT/SGPT) 22, Alkaline Phosphatase 100, Total Protein 5.0L, Albumin 1.6L, Globulin 3.4, Albumin/ Globulin Ratio 0.5L, Vancomycin Level Trough 4.4L Height (Feet): 5 Height (Inches): 8.00 Weight (Pounds): 95 Objective Thin elderly man NCAT supple CTA RR abd soft no edema Juany Candelaria MD Jun 14, 2019 22:17
--- NOTE | 2019-06-14 23:58 | NUR ---
NURSE NOTES: Called MD Riana Samuels emergancy line to inform him of PTs blood sugar of 377 at 2356. awaiting new orders. pt is asymptomatic as of now, will continue to monitor.
[2019-06-15] VITALS: BP 129/68
--- NOTE | 2019-06-15 00:04 | NUR ---
NURSE NOTES: messaged MD Riana Samuels to inform him of PTs blood sugar of 377 at 2355. awaiting new orders. pt is asymptomatic as of now, will continue to monitor.
--- NOTE | 2019-06-15 00:09 | NUR ---
NURSE NOTES: called MD Gonzalez, reported pt Blood sugar of 377 as of now, he stated to give 4 units of novoLOG.
[2019-06-15] MEDS ORDERED: NovoLOG Insulin Flexpen SUBQ STA (00:10)
--- NOTE | 2019-06-15 00:29 | NUR ---
NURSE NOTES: MD MCCULLOUGH called back and I reported 2355 06/14/19 blood sugar of 377. he stated to cancel MD Gonzalez order of stat 4U NovoLOG 06/15/19 0010 and to also DC D5 NS with 20 MEQ Potassium. ordered 0.45 NS with 20 MeQ Potassium.
[2019-06-15] MEDS: 1/2NS w/KCl 20mEq 1000ml 1,000 ML IV SCH ×3 (01:09→19:46)
--- NOTE | 2019-06-15 01:30 | Progress Note ---
DATE: 06/14/2019 CARDIOLOGY PROGRESS NOTE SUBJECTIVE: The patient remains withdrawn with poor oral intake other than some fluid. His refused to consent for an endoscopy today. The patient's glucose levels are rising. He has been on D5 drip. OBJECTIVE: VITAL SIGNS: Blood pressure 146/84, pulse 91, and respirations 14. Afebrile. HEENT: Positive thrush. LUNGS: Bilateral breath sounds. HEART: Regular rhythm and rate. Normal S1, S2. There is a fourth heart sound. ABDOMEN: Soft. EXTREMITIES: No edema. NEUROLOGIC: Baseline hemiparesis. LABORATORY DATA: White count 5.9 and hemoglobin 9.7. Sodium 137, potassium 4.3, bicarb 24, BUN 8, and creatinine 0.7. Magnesium 1.7. Phosphorus 2.9. Albumin 1.6. IMPRESSION: 1. Diabetic ketoacidosis, recovering. 2. Severe protein-calorie malnutrition. 3. Dysphagia. 4. Anorexia. 5. Hypertensive heart disease. 6. Paroxysmal atrial fibrillation, now in sinus rhythm. 7. Hypomagnesemia. 8. History of cerebrovascular accident. 9. Fungal cystitis. PLAN: 1. Discontinue dextrose and IV. 2. Titrate insulin. 3. Continue antifungal therapy. 4. Consider further GI workup if family consents. 5. IV magnesium replacement. 6. Antimicrobials per Infectious Disease datastage consultant. 7. DNR/DNI based on advance directives. 8. Prognosis poor. Mathew Mayers M.D. DR: JONAS JOB#: [id number] CC:
[2019-06-15] MEDS: Albuterol/Ipratropium 3ml neb HHN SCH ×5 (03:40→18:59)
[2019-06-15 04:00] VITALS: BP 132/69
--- NOTE | 2019-06-15 05:31 | General Progress Note ---
Assessment/Plan Problem List: (1) Diabetes mellitus ICD Codes: E11.9 - Type 2 diabetes mellitus without complications SNOMED: 15199521 (2) Hypertension ICD Codes: I10 - Essential (primary) hypertension SNOMED: 94917225 (3) Failure to thrive SNOMED: 83461593, 24902755 (4) DKA (diabetic ketoacidoses) ICD Codes: E11.10 - Type 2 diabetes mellitus with ketoacidosis without coma SNOMED: 651069488, 23256012 (5) UTI (urinary tract infection) ICD Codes: N39.0 - Urinary tract infection, site not specified SNOMED: 47558348, 00553630 Assessment/Plan: glucose values expected to improved now that he is off dextrose increase Levemir to 5 units bid continue Novolog 2 units ac tid - hold if not eating continue NISS ac / hs sensitive scale discussed with RN last night and this morning Subjective Allergies: Coded Allergies: NO KNOWN ALLERGIES (Unverified Allergy, Unknown, 05/04/18) All Systems: reviewed and negative except above Subjective events noted glucose was elevated last night - RN call and notified me at [place] shortly after Dr Mayers changed IVF from D5NS to NS + K current glucose value is down to 281 mg/dL he is awake and communicating Item Value Date Time Bedside Blood Glucose 377 mg/dl H 06/15/199 Bedside Blood Glucose 398 mg/dl H 06/14/192128 Objective Last 24 Hour Vital Signs Date Time Temp Pulse Resp B/P (MAP) Pulse Ox O2 Delivery O2 Flow Rate FiO2 06/15/19 03:15 74 18 100 Room Air 21 06/15/19 03:00 68 16 96 Room Air 06/15/19 00:00 87 06/15/19 00:00 98.1 69 18 129/68 (88) 100 06/15/19 00:00 Room Air 06/14/19 22:25 80 18 100 Room Air 21 06/14/19 22:16 72 16 97 Room Air 21 06/14/19 20:00 Room Air 06/14/19 20:00 97 06/14/19 20:00 98.2 61 18 127/65 (85) 99 06/14/19 18:45 88 20 100 Room Air 21 06/14/19 18:38 85 18 98 Room Air 21 06/14/19 16:00 93 06/14/19 16:00 97.7 91 14 146/84 (104) 97 06/14/19 16:00 Room Air 06/14/19 14:46 79 20 100 Room Air 21 06/14/19 14:36 74 20 98 Room Air 21 06/14/19 12:00 97.5 83 18 135/79 (97) 99 06/14/19 12:00 89 06/14/19 12:00 Room Air 06/14/19 11:41 77 20 99 Room Air 21 06/14/19 11:31 77 20 98 Room Air 21 06/14/19 08:00 97.7 95 16 133/71 (91) 94 06/14/19 08:00 Room Air 06/14/19 08:00 94 06/14/19 07:19 74 18 99 Room Air 21 06/14/19 07:09 75 18 97 Room Air 21 Intake and Output 06/14/19 06/15/19 19:00 07:00 Intake Total 1327.0 ml Output Total 1300 ml Balance 27.0 ml IV Total 1327.0 ml Output Urine Total 1300 ml # Bowel Movements 4 Laboratory Tests 06/14/19 07:55: White Blood Count 5.9, Red Blood Count 3.03L, Hemoglobin 9.7L, Hematocrit 30.4L , Mean Corpuscular Volume 100H, Mean Corpuscular Hemoglobin 32.1H, Mean Corpuscular Hemoglobin Concent 32.0, Red Cell Distribution Width 14.6, Platelet Count 238, Mean Platelet Volume 5.0L, Neutrophils (%) (Auto) 60.5, Lymphocytes ( %) (Auto) 27.8, Monocytes (%) (Auto) 6.8, Eosinophils (%) (Auto) 4.2H, Basophils (%) (Auto) 0.7, Sodium Level 137, Potassium Level 4.3, Chloride Level 108H, Carbon Dioxide Level 24, Anion Gap 6, Blood Urea Nitrogen 8, Creatinine 0.7, Estimat Glomerular Filtration Rate , Glucose Level 127H, Calcium Level 8.7 , Phosphorus Level 2.9, Magnesium Level 1.7L, Total Bilirubin 0.3, Aspartate Amino Transf (AST/SGOT) 33, Alanine Aminotransferase (ALT/SGPT) 22, Alkaline Phosphatase 100, Total Protein 5.0L, Albumin 1.6L, Globulin 3.4, Albumin/ Globulin Ratio 0.5L, Vancomycin Level Trough 4.4L Height (Feet): 5 Height (Inches): 8.00 Weight (Pounds): 95 General Appearance: no apparent distress Neck: normal alignment Cardiovascular: normal rate Respiratory/Chest: decreased breath sounds Abdomen: normal bowel sounds Pelvis: normal external exam Objective Current Medications Medications (Trade) Dose Ordered Sig/Frankie Route PRN Reason Start Time Stop Time Status Last Admin Dose Admin Acetaminophen (Tylenol) 650 mg Q4H PRN ORAL Mild Pain/Temp > 100.5 06/11/19 20:30 07/09/19 20:29 06/13/19 09:20 Albuterol/ Ipratropium (Albuterol/ Ipratropium) 3 ml Q4HRT HHN 06/11/19 23:00 06/15/19 22:59 06/15/19 03:40 Dextrose (Dextrose 50%) 25 ml Q30M PRN IV Hypoglycemia 06/14/19 07:00 07/14/19 06:59 Dextrose (Dextrose 50%) 50 ml Q30M PRN IV Hypoglycemia 06/14/19 07:00 07/14/19 06:59 Fluconazole (Diflucan) 200 mg Q24H ORAL 06/13/19 20:00 06/20/19 19:59 06/14/19 21:32 Heparin Sodium (Porcine) (Heparin 5000 units/ml) 5,000 units EVERY 12 HOURS SUBQ 06/11/19 21:00 07/10/19 08:59 06/14/19 21:32 Insulin Aspart (NovoLOG) 2 units NOVOTIAC SUBQ 06/14/19 11:50 07/14/19 11:49 Insulin Detemir (Levemir) 4 units EVERY 12 HOURS SUBQ 06/14/19 09:00 07/10/19 20:59 06/14/19 21:29 Ondansetron HCl (Zofran) 4 mg Q6H PRN IVP Nausea & Vomiting 06/11/19 20:30 07/10/19 20:29 06/14/19 10:28 Pantoprazole (Protonix) 40 mg DAILY IVP 06/12/19 09:00 07/12/19 08:59 06/14/19 08:20 Piperacillin Sod/ Tazobactam Sod 3.375 gm/Sodium Chloride 110 ml @ 27.5 mls/hr EVERY 8 HOURS IVPB 06/11/19 22:00 06/16/19 21:59 06/14/19 22:04 Sodium 1,000 ml @ 100 mls/hr Q10H IV 06/15/19 00:45 07/15/19 00:44 06/15/19 01:09 Tamsulosin HCl (Flomax) 0.4 mg BEDTIME ORAL 06/11/19 21:00 07/10/19 20:59 06/14/19 21:32 Luis Gonzalez MD Jun 15, 2019 05:31
--- NOTE | 2019-06-15 05:34 | NUR ---
NURSE NOTES: Pts blood sugar is 287. MD Gonzalez is aware, stated to go and give scheduled 2U Novol.
[2019-06-15] MEDS: Piperacillin/Tazobactam 3.375 GM in NS 110 ML IVPB SCH (05:36)
[2019-06-15] MEDS: NovoLOG Insulin Flexpen SUBQ SCH ×3 (05:42→16:20)
--- NOTE | 2019-06-15 07:11 | NUR ---
NURSE NOTES: Received pt from Addison Rahman RN in stable condition with no cardiopulmonary distress noted. Pt is awake in bed, AAOx2 currently receiving breathing treatment via venturi mask, condom cath noted draining yellow urine. Skin alterations noted. Pt has a WANDER 22g and RH 22g IV. Bed is in lowest position with alarm on, side rails up x 2, call light within reach. Will continue to monitor.
--- NOTE | 2019-06-15 07:25 | NUR ---
HAND-OFF: Report given to Mariela MELENDEZ YOLANDA. pt is in stable conditoin. .
--- NOTE | 2019-06-15 07:39 | General Progress Note ---
Assessment/Plan Assessment/Plan: Assessment - DM with DKA - h/o recent oral thrush - poor po, odynophagia - family decline EGD at this time - h/o CVA - AMS / Delirium - hip fx Recommendations - po as tolerated - supplement shakes PO - Rx DKA - No EGD at this time per family decision Subjective Allergies: Coded Allergies: NO KNOWN ALLERGIES (Unverified Allergy, Unknown, 05/04/18) Subjective above noted awake d/w RN at bedside poor po intake noted Objective Last 24 Hour Vital Signs Date Time Temp Pulse Resp B/P (MAP) Pulse Ox O2 Delivery O2 Flow Rate FiO2 06/15/19 07:08 79 18 100 Room Air 06/15/19 06:57 78 18 98 Room Air 06/15/19 04:00 Room Air 06/15/19 04:00 68 06/15/19 04:00 98.5 71 19 132/69 (90) 100 06/15/19 03:15 74 18 100 Room Air 06/15/19 03:00 68 16 96 Room Air 06/15/19 00:00 87 06/15/19 00:00 98.1 69 18 129/68 (88) 100 06/15/19 00:00 Room Air 06/14/19 22:25 80 18 100 Room Air 06/14/19 22:16 72 16 97 Room Air 06/14/19 20:00 Room Air 06/14/19 20:00 97 06/14/19 20:00 98.2 61 18 127/65 (85) 99 06/14/19 18:45 88 20 100 Room Air 06/14/19 18:38 85 18 98 Room Air 06/14/19 16:00 93 06/14/19 16:00 97.7 91 14 146/84 (104) 97 06/14/19 16:00 Room Air 06/14/19 14:46 79 20 100 Room Air 06/14/19 14:36 74 20 98 Room Air 06/14/19 12:00 97.5 83 18 135/79 (97) 99 06/14/19 12:00 89 06/14/19 12:00 Room Air 06/14/19 11:41 77 20 99 Room Air 06/14/19 11:31 77 20 98 Room Air 06/14/19 08:00 97.7 95 16 133/71 (91) 94 06/14/19 08:00 Room Air 06/14/19 08:00 94 Intake and Output 06/14/19 06/15/19 19:00 07:00 Intake Total 1327.0 ml 1237.5 ml Output Total 1300 ml 700 ml Balance 27.0 ml 537.5 ml IV Total 1327.0 ml 1237.5 ml Output Urine Total 1300 ml 700 ml # Bowel Movements 4 3 Laboratory Tests 06/14/19 07:55: White Blood Count 5.9, Red Blood Count 3.03L, Hemoglobin 9.7L, Hematocrit 30.4L , Mean Corpuscular Volume 100H, Mean Corpuscular Hemoglobin 32.1H, Mean Corpuscular Hemoglobin Concent 32.0, Red Cell Distribution Width 14.6, Platelet Count 238, Mean Platelet Volume 5.0L, Neutrophils (%) (Auto) 60.5, Lymphocytes ( %) (Auto) 27.8, Monocytes (%) (Auto) 6.8, Eosinophils (%) (Auto) 4.2H, Basophils (%) (Auto) 0.7, Sodium Level 137, Potassium Level 4.3, Chloride Level 108H, Carbon Dioxide Level 24, Anion Gap 6, Blood Urea Nitrogen 8, Creatinine 0.7, Estimat Glomerular Filtration Rate , Glucose Level 127H, Calcium Level 8.7 , Phosphorus Level 2.9, Magnesium Level 1.7L, Total Bilirubin 0.3, Aspartate Amino Transf (AST/SGOT) 33, Alanine Aminotransferase (ALT/SGPT) 22, Alkaline Phosphatase 100, Total Protein 5.0L, Albumin 1.6L, Globulin 3.4, Albumin/ Globulin Ratio 0.5L, Vancomycin Level Trough 4.4L Height (Feet): 5 Height (Inches): 8.00 Weight (Pounds): 96 Objective Thin elderly man NCAT supple CTA RR abd soft no edema Juany Candelaria MD Jun 15, 2019 07:39
[2019-06-15 08:00] VITALS: BP 128/67
[2019-06-15] MEDS: Pantoprazole Inj IVP SCH (08:24)
[2019-06-15] MEDS: Levemir Flexpen SUBQ SCH ×2 (08:26→20:30)
[2019-06-15] MEDS: Heparin 5000 units/ml inj SUBQ SCH ×2 (08:27→20:30)
--- NOTE | 2019-06-15 09:45 | NUR ---
PT EVALUATION NOTE Patient seen for initial evaluation, see complete evaluation for details. Patient presents with generalized weakness, impaired balance, decreased safety awareness and BLE pain which impairs patient's mobility. Patient will benefit from skilled inpatient PT intervention to address strength, balance, safety and functional mobility. Recommend discharge to SNF for further rehab once medically cleared by MD. Addendum: 06/15/19 at 1303 by JESI SHULTZ PT Amended: Links added.
--- NOTE | 2019-06-15 11:21 | Infectious Diseases Prog Note ---
Assessment/Plan Assessment/Plan antibiotics : zosyn, fluconazole A 1. fungal UTI 2. aspiration pneumonia 3. leucocytosis resolved 4. renal failure improving 5. hepatic mass P 1. continue fluconazole 4 more days 2. d/c zosyn 3. will follow up cultures Subjective ROS Limited/Unobtainable: Yes Allergies: Coded Allergies: NO KNOWN ALLERGIES (Unverified Allergy, Unknown, 05/04/18) Objective Vital Signs Last 24 Hour Vital Signs Date Time Temp Pulse Resp B/P (MAP) Pulse Ox O2 Delivery O2 Flow Rate FiO2 06/15/19 10:49 80 18 100 Room Air 21 06/15/19 10:38 80 18 98 Room Air 21 06/15/19 08:00 Room Air 06/15/19 08:00 97.0 99 18 128/67 (87) 97 06/15/19 08:00 96 06/15/19 07:08 79 18 100 Room Air 21 06/15/19 06:57 78 18 98 Room Air 21 06/15/19 04:00 Room Air 06/15/19 04:00 68 06/15/19 04:00 98.5 71 19 132/69 (90) 100 06/15/19 03:15 74 18 100 Room Air 21 06/15/19 03:00 68 16 96 Room Air 21 06/15/19 00:00 87 06/15/19 00:00 98.1 69 18 129/68 (88) 100 06/15/19 00:00 Room Air 06/14/19 22:25 80 18 100 Room Air 21 06/14/19 22:16 72 16 97 Room Air 21 06/14/19 20:00 Room Air 06/14/19 20:00 97 06/14/19 20:00 98.2 61 18 127/65 (85) 99 06/14/19 18:45 88 20 100 Room Air 21 06/14/19 18:38 85 18 98 Room Air 21 06/14/19 16:00 93 06/14/19 16:00 97.7 91 14 146/84 (104) 97 06/14/19 16:00 Room Air 06/14/19 14:46 79 20 100 Room Air 21 06/14/19 14:36 74 20 98 Room Air 21 06/14/19 12:00 97.5 83 18 135/79 (97) 99 06/14/19 12:00 89 06/14/19 12:00 Room Air 06/14/19 11:41 77 20 99 Room Air 21 06/14/19 11:31 77 20 98 Room Air 21 Height (Feet): 5 Height (Inches): 8.00 Weight (Pounds): 96 Respiratory/Chest: lungs clear Cardiovascular: normal rate, regular rhythm, no gallop/murmur Abdomen: soft, non tender Extremities: no edema Current Medications Medications (Trade) Dose Ordered Sig/Frankie Route PRN Reason Start Time Stop Time Status Last Admin Dose Admin Acetaminophen (Tylenol) 650 mg Q4H PRN ORAL Mild Pain/Temp > 100.5 06/11/19 20:30 07/09/19 20:29 06/13/19 09:20 Albuterol/ Ipratropium (Albuterol/ Ipratropium) 3 ml Q4HRT HHN 06/11/19 23:00 06/15/19 22:59 06/15/19 10:37 Dextrose (Dextrose 50%) 25 ml Q30M PRN IV Hypoglycemia 06/14/19 07:00 07/14/19 06:59 Dextrose (Dextrose 50%) 50 ml Q30M PRN IV Hypoglycemia 06/14/19 07:00 07/14/19 06:59 Fluconazole (Diflucan) 200 mg Q24H ORAL 06/13/19 20:00 06/20/19 19:59 06/14/19 21:32 Heparin Sodium (Porcine) (Heparin 5000 units/ml) 5,000 units EVERY 12 HOURS SUBQ 06/11/19 21:00 07/10/19 08:59 06/15/19 08:27 Insulin Aspart (NovoLOG) 2 units NOVOTIAC SUBQ 06/14/19 11:50 07/14/19 11:49 06/15/19 05:42 Insulin Detemir (Levemir) 5 units EVERY 12 HOURS SUBQ 06/15/19 09:00 07/10/19 20:59 06/15/19 08:26 Ondansetron HCl (Zofran) 4 mg Q6H PRN IVP Nausea & Vomiting 06/11/19 20:30 07/10/19 20:29 06/14/19 10:28 Pantoprazole (Protonix) 40 mg DAILY IVP 06/12/19 09:00 07/12/19 08:59 06/15/19 08:24 Piperacillin Sod/ Tazobactam Sod 3.375 gm/Sodium Chloride 110 ml @ 27.5 mls/hr EVERY 8 HOURS IVPB 06/11/19 22:00 06/16/19 21:59 06/15/19 05:36 Sodium 1,000 ml @ 100 mls/hr Q10H IV 06/15/19 00:45 07/15/19 00:44 06/15/19 10:43 Tamsulosin HCl (Flomax) 0.4 mg BEDTIME ORAL 06/11/19 21:00 07/10/19 20:59 06/14/19 21:32 Shira Snyder MD Jun 15, 2019 11:21
[2019-06-15 12:00] VITALS: BP 135/70
--- NOTE | 2019-06-15 13:03 | NUR ---
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 97.0 HR 96 RR 18 B/P 128/67 RA 98% IS: IVF NS @ 100ML/HR PROTONIX IV LEVEMIR SUBC STEP DOWN STATUS
--- NOTE | 2019-06-15 13:24 | NUR ---
ST NOTES: REFERRED BY DR SOUZA FOR SWALLOW EVALUATION, SEE ST CARE ACTIVITY SECTION. ACUTE HYPERGLYCEMIA, LETHARGY, POSSIBLE PNA, P-C MALNUTRITION AND UNDERWEIGHT, DKA, DEHYDRATION, HYPOTENSION, HTN, DM. h/o FTT, ADVANCED AGE, cva rsw, CACHECTIC, RESP AND CARDIAC D/O, GERD, DM POLST NO TUBE FEEDINGS. FROM SNF ON CARDIAC PUREED AND NECTAR THICK DIET CCHO-LOW PER RD AND CARDIAC SNF PUREED AND NECTAR THICK LIQUIDS AND WAS SEEING A LAUNDERETTE ATTENDANT FOR SWALLOW TX (THERMAL TACTILE STIM, OME, AND DIET TEXTURE ANALYSIS). OK FOR FAMILY TO BRING IN APPROPRIATE FOOD CURRENTLY ON A CCHO-MED DIET (CARDIAC ADDED PER SNF) PUREED AND NECTAR THICK LIQUIDS SINCE RN YESTERDAY SAID HE COUGHED ON THIN LIQUIDS OK AND REFUSED PUREED FAVORED GLUCERNA. ALSO BRINGING IN DJIBOUTIAN FOODS OF PREFERENCE. ALERT AND ABLE TO EXPRESS NEEDS IN SOFT VOICE WITH SABRINA ACCENT. SPEAKS SOME ESTONIAN. REFUSED PUREED INITIALLY BUT TOOK ONE BITE. INITIAL IMPRESSIONS: S/S OF AT LEAST A MILD OROPHARYNGEAL DYSPHAGIA COUGHS WITH THIN LIQUIDS WITH RN BUT GIVEN THIN LIQUIDS VIA CUP SEQUENTIAL SIPS (3 OZ WATER ANAND SWALLOW PROTOCOL) BY LAUNDERETTE ATTENDANT HAD GROSSLY FUNCTIONAL SWALLOW, NO ORAL RESIDUE AND NO OVERT S/S OF ASPIRATION. GIVEN NECTAR THICK LIQUIDS VIA STRAW GROSSLY FUNCTIONAL SWALLOW GIVEN PUREED TRANSIT TIMES 2 SECONDS AND SWALLOWED TWICE WITH FAIR HYOLARYNGEAL EXCURSION AND NO ORAL RESIDUE NOR OVERT ASPIRATION HAS SILENT ASP RISK DUE TO CVA HX AND MAY HAVE A PNA POOR INTAKE OF HOSP FOOD BUT TAKES ALL OF GLUCERNA HIGH HETAL SUP AND WILL FIND OUT HOW MUCH AND TEXTURE OF FOOD BRINGS IN (DR CARTER OK THIS PER RN) RECOMMENDATIONS: CONTINUE WITH CURRENT DIET OF PUREED AND NECTAR THICK LIQUIDS FOR NOW AND TRY TO CLEAR ON THIN LIQUIDS VIA MOD BARIUM SWALLOW STUDY TO FURTHER ASSESS SWALLOW, DETERMINE SILENT ASP RISK, AND ATTEMPT TRIAL TX TECHNIQUES. PER RD CHANGE FROM CCHO-MED TO CCHO-LOW (CARDIAC ON LIST FROM SNF) PER RD SEND GLUCERNA 1 TETRA BERT ASSIST WITH MEALS AND USE POSTED ASP/REFLUX PRECAUTIONS EDUCATED/TRAINED AL MILLER AND ANA LILIA ALEGRE IN POSTED PRECAUTIONS. SKILLED DYSPHAGIA MANAGEMENT AND TX AND COG-COM EVAL/TX IF NEEDS D/W STAFF AND PATIENT. NOT HERE TO DATE. LEFT MESSAGE WITH MAREN DOUGLAS
[2019-06-15 16:00] VITALS: BP 130/70
--- NOTE | 2019-06-15 19:15 | NUR ---
NURSE NOTES: Pt report received from Mariela MELENDEZ YOLANDA. pt is in stable condition. Pt is alert and oriented times 2, pupils are round and reactive to light and accommodating bilaterally. all cardiac parameters are stable, no abnormalities noted, showing NSR. pt is on room air, satting at 100%, no abnormalities noted. bed locked, low, armed, bed rails up times 3, call light is within reach, pt room close to nursing station. will continue plan of care.
--- NOTE | 2019-06-15 19:28 | NUR ---
HAND-OFF: Report given to Addison Rahman RN. Pt in stable condition.
--- NOTE | 2019-06-15 19:44 | General Progress Note ---
Assessment/Plan Problem List: (1) Abdominal pain ICD Codes: R10.9 - Unspecified abdominal pain SNOMED: 41376606 (2) Hip fracture ICD Codes: S72.009A - Fracture of unspecified part of neck of unspecified femur , initial encounter for closed fracture SNOMED: 357162162 (3) Diabetes mellitus type II, uncontrolled ICD Codes: E11.65 - Type 2 diabetes mellitus with hyperglycemia SNOMED: 34555667, 096799216 (4) DKA (diabetic ketoacidoses) ICD Codes: E11.10 - Type 2 diabetes mellitus with ketoacidosis without coma SNOMED: 011900840, 77775611 (5) Hypotension ICD Codes: I95.9 - Hypotension, unspecified SNOMED: 92237293, 16761153 (6) UTI (urinary tract infection) ICD Codes: N39.0 - Urinary tract infection, site not specified SNOMED: 31050442, 79608661 (7) Failure to thrive SNOMED: 24792794, 64306605 (8) Hyperglycemia ICD Codes: R73.9 - Hyperglycemia, unspecified SNOMED: 44388250 (9) Dehydration ICD Codes: E86.0 - Dehydration SNOMED: 57672877, 50725497 (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 ICD Codes: Z86.39 - Personal history of other endocrine, nutritional and metabolic disease SNOMED: 162700261 (11) HTN (hypertension) ICD Codes: I10 - Essential (primary) hypertension SNOMED: 19328256 (12) Cerebral vascular disease ICD Codes: I67.9 - Cerebrovascular disease, unspecified SNOMED: 81219848 Status: stable, progressing Assessment/Plan: stable encourage po family to bring food in from home monitor bs diabetes rx per endo dvt/stress ulcer prophylaxis Subjective ROS Limited/Unobtainable: Yes Constitutional: Reports: malaise, weakness HEENT: Reports: no symptoms Cardiovascular: Reports: no symptoms Respiratory: Reports: no symptoms Gastrointestinal/Abdominal: Reports: poor appetite, poor fluid intake Genitourinary: Reports: no symptoms Neurologic/Psychiatric: Reports: anxiety, depressed Endocrine: Reports: no symptoms Hematologic/Lymphatic: Reports: no symptoms Allergies: Coded Allergies: NO KNOWN ALLERGIES (Unverified Allergy, Unknown, 05/04/18) All Systems: reviewed and negative except above Subjective no events. refusing to eat. takes few bites. per family pt doesnt like the food. denies cp/sob. no abd pain. Objective Last 24 Hour Vital Signs Date Time Temp Pulse Resp B/P (MAP) Pulse Ox O2 Delivery O2 Flow Rate FiO2 06/15/19 19:09 90 18 99 Room Air 21 06/15/19 18:59 92 18 97 Room Air 21 06/15/19 16:00 Room Air 06/15/19 16:00 98.6 90 20 130/70 (90) 97 06/15/19 16:00 91 06/15/19 14:57 81 18 100 Room Air 21 06/15/19 14:49 82 18 97 Room Air 06/15/19 12:00 81 06/15/19 12:00 98.7 88 19 135/70 (91) 99 06/15/19 12:00 Room Air 06/15/19 10:49 80 18 100 Room Air 06/15/19 10:38 80 18 98 Room Air 06/15/19 08:00 Room Air 06/15/19 08:00 97.0 99 18 128/67 (87) 97 06/15/19 08:00 96 06/15/19 07:08 79 18 100 Room Air 06/15/19 06:57 78 18 98 Room Air 06/15/19 04:00 Room Air 06/15/19 04:00 68 06/15/19 04:00 98.5 71 19 132/69 (90) 100 06/15/19 03:15 74 18 100 Room Air 06/15/19 03:00 68 16 96 Room Air 06/15/19 00:00 87 06/15/19 00:00 98.1 69 18 129/68 (88) 100 06/15/19 00:00 Room Air 06/14/19 22:25 80 18 100 Room Air 06/14/19 22:16 72 16 97 Room Air 06/14/19 20:00 Room Air 06/14/19 20:00 97 06/14/19 20:00 98.2 61 18 127/65 (85) 99 Intake and Output 06/14/19 06/15/19 18:59 06:59 Intake Total 1454.5 ml 1237.5 ml Output Total 1300 ml 700 ml Balance 154.5 ml 537.5 ml IV Total 1454.5 ml 1237.5 ml Output Urine Total 1300 ml 700 ml # Bowel Movements 4 3 Laboratory Tests 06/15/19 19:33: Sodium Level [Pending], Potassium Level [Pending], Chloride Level [Pending], Carbon Dioxide Level [Pending], Blood Urea Nitrogen [Pending], Creatinine [ Pending], Estimat Glomerular Filtration Rate [Pending], Glucose Level [Pending] , Calcium Level [Pending] Height (Feet): 5 Height (Inches): 8.00 Weight (Pounds): 96 General Appearance: WD/WN, alert, cachetic, thin Neck: supple Cardiovascular: normal rate, regular rhythm Respiratory/Chest: chest wall non-tender, lungs clear, normal breath sounds, no respiratory distress, no accessory muscle use Abdomen: normal bowel sounds, non tender, soft, no organomegaly, no mass Edema: no edema noted Arm (L), no edema noted Arm (R), no edema noted Leg (L), no edema noted Leg (R), no edema noted Pedal (L), no edema noted Pedal (R), no edema noted Generalized Neurologic: alert David Garcia MD Jun 15, 2019 19:44
[2019-06-15] MEDS: Fluconazole 100mg tab ORAL SCH (19:46)
[2019-06-15 19:49] LABS: ANION GAP 4 mmol/L (5-15); BLOOD UREA NITROGEN 5 mg/dL (7-18); CALCIUM 8.5 MG/DL (8.5-10.1); CARBON DIOXIDE 24 MMOL/L (21-32); CHLORIDE 106 MMOL/L (98-107); CREATININE 0.6 MG/DL (0.55-1.30); POTASSIUM 4.3 MMOL/L (3.5-5.1); SODIUM 134 MMOL/L (136-145)
[2019-06-15 20:00] VITALS: BP 126/60
[2019-06-15] MEDS: Tamsulosin 0.4mg cap ORAL SCH (20:29)
[2019-06-16] VITALS: BP 120/58
[2019-06-16 04:00] VITALS: BP 114/58
--- NOTE | 2019-06-16 05:40 | NUR ---
NURSE NOTES: Pt Blood sugar finger stick is critically low, how ever pt is still responsive, eyes open and able to follow pen light. Yaneli withheld. Dextrose 50% was pushed and pt was given 150MLs of orange juice with added sugar. pt appears more alert as of now. will retake BS.
[2019-06-16] MEDS: NovoLOG Insulin Flexpen SUBQ SCH ×4 (05:45→20:32)
[2019-06-16] MEDS: 1/2NS w/KCl 20mEq 1000ml 1,000 ML IV SCH (05:50)
--- NOTE | 2019-06-16 06:33 | General Progress Note ---
Assessment/Plan Problem List: (1) Diabetes mellitus ICD Codes: E11.9 - Type 2 diabetes mellitus without complications SNOMED: 63797852 (2) Hypertension ICD Codes: I10 - Essential (primary) hypertension SNOMED: 96584281 (3) Failure to thrive SNOMED: 76642557, 81593932 (4) DKA (diabetic ketoacidoses) ICD Codes: E11.10 - Type 2 diabetes mellitus with ketoacidosis without coma SNOMED: 904748899, 55724155 (5) UTI (urinary tract infection) ICD Codes: N39.0 - Urinary tract infection, site not specified SNOMED: 70162462, 61284842 Status: stable, progressing Assessment/Plan: hypoglycemic this morning - treated reduce Levemir to 3 units bid DC Novolog 2 units ac tid - he never received any doses Novolog sliding scale ac / hs sensitive scale Subjective ROS Limited/Unobtainable: Yes Allergies: Coded Allergies: NO KNOWN ALLERGIES (Unverified Allergy, Unknown, 05/04/18) Subjective events noted critically low glucose this morning - despite low glucose he was not significantly symptomatic Item Value Date Time Bedside Blood Glucose Critically Low Result 06/16/19 0549 Bedside Blood Glucose 255 mg/dl H 06/15/19 2100 Bedside Blood Glucose 124 mg/dl H 06/15/19 1620 Bedside Blood Glucose 191 mg/dl H 06/15/19 1150 Bedside Blood Glucose 205 mg/dl H 06/15/19 0826 Bedside Blood Glucose 287 mg/dl H 06/15/19 0630 Bedside Blood Glucose 377 mg/dl H 06/15/19 0029 Objective Last 24 Hour Vital Signs Date Time Temp Pulse Resp B/P (MAP) Pulse Ox O2 Delivery O2 Flow Rate FiO2 06/16/19 04:00 67 06/16/19 04:00 Room Air 06/16/19 04:00 97.9 86 18 114/58 (76) 99 06/16/19 00:00 Room Air 06/16/19 00:00 98.1 77 18 120/58 (78) 99 06/16/19 00:00 72 06/15/19 23:05 Room Air 21 06/15/19 23:05 Room Air 21 06/15/19 20:00 98.5 92 18 126/60 (82) 98 06/15/19 20:00 Room Air 06/15/19 19:09 90 18 99 Room Air 21 06/15/19 19:03 87 06/15/19 18:59 92 18 97 Room Air 21 06/15/19 16:00 Room Air 06/15/19 16:00 98.6 90 20 130/70 (90) 97 06/15/19 16:00 91 06/15/19 14:57 81 18 100 Room Air 21 06/15/19 14:49 82 18 97 Room Air 21 06/15/19 12:00 81 06/15/19 12:00 98.7 88 19 135/70 (91) 99 06/15/19 12:00 Room Air 06/15/19 10:49 80 18 100 Room Air 21 06/15/19 10:38 80 18 98 Room Air 21 06/15/19 08:00 Room Air 06/15/19 08:00 97.0 99 18 128/67 (87) 97 06/15/19 08:00 96 06/15/19 07:08 79 18 100 Room Air 21 06/15/19 06:57 78 18 98 Room Air 21 Intake and Output 06/15/19 06/16/19 19:00 07:00 Intake Total 1377.5 ml Output Total 1300 ml 2000 ml Balance 77.5 ml -2000 ml Intake Oral 120 ml IV Total 1257.5 ml Output Urine Total 1300 ml 2000 ml Laboratory Tests 06/15/19 19:33: Sodium Level 134L, Potassium Level 4.3, Chloride Level 106, Carbon Dioxide Level 24, Anion Gap 4L, Blood Urea Nitrogen 5L, Creatinine 0.6, Estimat Glomerular Filtration Rate , Glucose Level 159H, Calcium Level 8.5 Height (Feet): 5 Height (Inches): 8.00 Weight (Pounds): 96 General Appearance: no apparent distress Neck: normal alignment Cardiovascular: normal rate Respiratory/Chest: decreased breath sounds Abdomen: normal bowel sounds Pelvis: normal external exam Objective Current Medications Medications (Trade) Dose Ordered Sig/Frankie Route PRN Reason Start Time Stop Time Status Last Admin Dose Admin Acetaminophen (Tylenol) 650 mg Q4H PRN ORAL Mild Pain/Temp > 100.5 06/11/19 20:30 07/09/19 20:29 06/13/19 09:20 Dextrose (Dextrose 50%) 25 ml Q30M PRN IV Hypoglycemia 06/14/19 07:00 9/11/19 06:59 Dextrose (Dextrose 50%) 50 ml Q30M PRN IV Hypoglycemia 06/14/19 07:00 07/14/19 06:59 06/16/19 05:49 Fluconazole (Diflucan) 200 mg Q24H ORAL 06/13/19 20:00 06/20/19 19:59 06/15/19 19:46 Heparin Sodium (Porcine) (Heparin 5000 units/ml) 5,000 units EVERY 12 HOURS SUBQ 06/11/19 21:00 07/10/19 08:59 06/15/19 20:30 Insulin Aspart (NovoLOG) 2 units NOVOTIAC SUBQ 06/14/19 11:50 07/14/19 11:49 06/15/19 05:42 Insulin Detemir (Levemir) 5 units EVERY 12 HOURS SUBQ 06/15/19 09:00 07/10/19 20:59 06/15/19 20:30 Ondansetron HCl (Zofran) 4 mg Q6H PRN IVP Nausea & Vomiting 06/11/19 20:30 07/10/19 20:29 06/16/19 05:55 Pantoprazole (Protonix) 40 mg DAILY IVP 06/12/19 09:00 07/12/19 08:59 06/15/19 08:24 Sodium 1,000 ml @ 100 mls/hr Q10H IV 06/15/19 00:45 07/15/19 00:44 06/16/19 05:50 Tamsulosin HCl (Flomax) 0.4 mg BEDTIME ORAL 06/11/19 21:00 07/10/19 20:59 06/15/19 20:29 Luis Gonzalez MD Jun 16, 2019 06:33
--- NOTE | 2019-06-16 06:34 | NUR ---
NURSE NOTES: Pts blood sugar is now 194, (finger stick). pt is alert and able to respond to simple commands. vital signs is stable.
--- NOTE | 2019-06-16 07:00 | General Progress Note ---
Assessment/Plan Status: stable, progressing Assessment/Plan: Assessment - DM with DKA - h/o recent oral thrush - poor po, odynophagia - family decline EGD at this time - h/o CVA - AMS / Delirium - hip fx Recommendations - po as tolerated - supplement shakes PO - Rx DKA - No EGD at this time per family decision - will discuss with again today Subjective Allergies: Coded Allergies: NO KNOWN ALLERGIES (Unverified Allergy, Unknown, 05/04/18) Subjective above noted awake swallow evaluation noted Objective Last 24 Hour Vital Signs Date Time Temp Pulse Resp B/P (MAP) Pulse Ox O2 Delivery O2 Flow Rate FiO2 06/16/19 04:00 67 06/16/19 04:00 Room Air 06/16/19 04:00 97.9 86 18 114/58 (76) 99 06/16/19 00:00 Room Air 06/16/19 00:00 98.1 77 18 120/58 (78) 99 06/16/19 00:00 72 06/15/19 23:05 Room Air 21 06/15/19 23:05 Room Air 21 06/15/19 20:00 98.5 92 18 126/60 (82) 98 06/15/19 20:00 Room Air 06/15/19 19:09 90 18 99 Room Air 21 06/15/19 19:03 87 06/15/19 18:59 92 18 97 Room Air 21 06/15/19 16:00 Room Air 06/15/19 16:00 98.6 90 20 130/70 (90) 97 06/15/19 16:00 91 06/15/19 14:57 81 18 100 Room Air 21 06/15/19 14:49 82 18 97 Room Air 21 06/15/19 12:00 81 06/15/19 12:00 98.7 88 19 135/70 (91) 99 06/15/19 12:00 Room Air 06/15/19 10:49 80 18 100 Room Air 21 06/15/19 10:38 80 18 98 Room Air 21 06/15/19 08:00 Room Air 06/15/19 08:00 97.0 99 18 128/67 (87) 97 06/15/19 08:00 96 06/15/19 07:08 79 18 100 Room Air 21 Intake and Output 06/15/19 06/16/19 19:00 07:00 Intake Total 1377.5 ml Output Total 1300 ml 2000 ml Balance 77.5 ml -2000 ml Intake Oral 120 ml IV Total 1257.5 ml Output Urine Total 1300 ml 2000 ml Laboratory Tests 06/15/19 19:33: Sodium Level 134L, Potassium Level 4.3, Chloride Level 106, Carbon Dioxide Level 24, Anion Gap 4L, Blood Urea Nitrogen 5L, Creatinine 0.6, Estimat Glomerular Filtration Rate , Glucose Level 159H, Calcium Level 8.5 Height (Feet): 5 Height (Inches): 8.00 Weight (Pounds): 96 Objective Thin elderly man NCAT supple CTA RR abd soft no edema Juany Candelaria MD Jun 16, 2019 07:00
--- NOTE | 2019-06-16 07:10 | NUR ---
HAND-OFF: Report given to Lynn Alamo pt is in stable condition.
--- NOTE | 2019-06-16 07:40 | NUR ---
NURSE NOTES: Report received form Addison MELENDEZ. Pt awake, alert x 2-3, speaks some sinhala and able to make needs known. Pt on development architect, SR. Pt on RA saturation is 100%, denies SOB. Condom cath noted and intact with clear yellow urine. RFA 20G noted and intact. Safety measures in place with bed locked and in lowest position, side rails x3 up and bed alarm on. Will continue to monitor and continue plan of care.
[2019-06-16 08:00] VITALS: BP 122/68
[2019-06-16] MEDS: Levemir Flexpen SUBQ SCH ×2 (08:21→20:32)
[2019-06-16] MEDS: Heparin 5000 units/ml inj SUBQ SCH ×2 (08:23→20:18)
[2019-06-16] MEDS: Pantoprazole Inj IVP SCH (08:24)
--- NOTE | 2019-06-16 10:24 | NUR ---
NURSE NOTES: Pt up to side of bed with PT. Pt stood with walker and 2 person standby assist for a couple seconds 2 times. Pt unable to take any steps. Will continue to monitor.
--- NOTE | 2019-06-16 10:43 | Infectious Diseases Prog Note ---
Assessment/Plan Assessment/Plan antibiotics : fluconazole A 1. fungal UTI 2. aspiration pneumonia 3. leucocytosis resolved 4. renal failure improving 5. hepatic mass P 1. continue fluconazole 3 more days 2. will follow up cultures Subjective ROS Limited/Unobtainable: Yes Allergies: Coded Allergies: NO KNOWN ALLERGIES (Unverified Allergy, Unknown, 05/04/18) Objective Vital Signs Last 24 Hour Vital Signs Date Time Temp Pulse Resp B/P (MAP) Pulse Ox O2 Delivery O2 Flow Rate FiO2 06/16/19 08:00 83 06/16/19 08:00 97.5 83 18 122/68 (86) 96 06/16/19 08:00 Room Air 06/16/19 04:00 67 06/16/19 04:00 Room Air 06/16/19 04:00 97.9 86 18 114/58 (76) 99 06/16/19 00:00 Room Air 06/16/19 00:00 98.1 77 18 120/58 (78) 99 06/16/19 00:00 72 06/15/19 23:05 Room Air 21 06/15/19 23:05 Room Air 21 06/15/19 20:00 98.5 92 18 126/60 (82) 98 06/15/19 20:00 Room Air 06/15/19 19:09 90 18 99 Room Air 06/15/19 19:03 87 06/15/19 18:59 92 18 97 Room Air 21 06/15/19 16:00 Room Air 06/15/19 16:00 98.6 90 20 130/70 (90) 97 06/15/19 16:00 91 06/15/19 14:57 81 18 100 Room Air 21 06/15/19 14:49 82 18 97 Room Air 21 06/15/19 12:00 81 06/15/19 12:00 98.7 88 19 135/70 (91) 99 06/15/19 12:00 Room Air 06/15/19 10:49 80 18 100 Room Air 21 Height (Feet): 5 Height (Inches): 8.00 Weight (Pounds): 96 Respiratory/Chest: lungs clear Cardiovascular: normal rate, regular rhythm, no gallop/murmur Abdomen: soft, non tender Extremities: no edema Microbiology Date/Time Source Procedure Growth Status 06/14/19 18:00 Sputum Gram Stain - Final Resulted 06/14/19 18:00 Sputum Culture - Preliminary YEAST Usual Respiratory Brenna Resulted Laboratory Tests Test 06/15/19 19:33 Sodium Level 134 MMOL/L (136-145) L Potassium Level 4.3 MMOL/L (3.5-5.1) Chloride Level 106 MMOL/L (98-107) Carbon Dioxide Level 24 MMOL/L (21-32) Anion Gap 4 mmol/L (5-15) L Blood Urea Nitrogen 5 mg/dL (7-18) L Creatinine 0.6 MG/DL (0.55-1.30) Estimat Glomerular Filtration Rate mL/min (>60) Glucose Level 159 MG/DL (74-106) H Calcium Level 8.5 MG/DL (8.5-10.1) Current Medications Medications (Trade) Dose Ordered Sig/Frankie Route PRN Reason Start Time Stop Time Status Last Admin Dose Admin Acetaminophen (Tylenol) 650 mg Q4H PRN ORAL Mild Pain/Temp > 100.5 06/11/19 20:30 07/09/19 20:29 06/13/19 09:20 Dextrose (Dextrose 50%) 25 ml Q30M PRN IV Hypoglycemia 06/16/19 06:45 07/16/19 06:44 Dextrose (Dextrose 50%) 50 ml Q30M PRN IV Hypoglycemia 06/16/19 06:45 07/16/19 06:44 Fluconazole (Diflucan) 200 mg Q24H ORAL 06/13/19 20:00 06/20/19 19:59 06/15/19 19:46 Heparin Sodium (Porcine) (Heparin 5000 units/ml) 5,000 units EVERY 12 HOURS SUBQ 06/11/19 21:00 07/10/19 08:59 06/16/19 08:23 Insulin Aspart (NovoLOG) BEFORE MEALS AND HS SUBQ 06/16/19 11:30 07/16/19 11:29 Insulin Detemir (Levemir) 3 units EVERY 12 HOURS SUBQ 06/16/19 09:00 07/10/19 20:59 06/16/19 08:21 Ondansetron HCl (Zofran) 4 mg Q6H PRN IVP Nausea & Vomiting 06/11/19 20:30 07/10/19 20:29 06/16/19 05:55 Pantoprazole (Protonix) 40 mg DAILY IVP 06/12/19 09:00 07/12/19 08:59 06/16/19 08:24 Sodium 1,000 ml @ 100 mls/hr Q10H IV 06/15/19 00:45 07/15/19 00:44 06/16/19 05:50 Tamsulosin HCl (Flomax) 0.4 mg BEDTIME ORAL 06/11/19 21:00 07/10/19 20:59 06/15/19 20:29 Shira Snyder MD Jun 16, 2019 10:43
[2019-06-16 12:00] VITALS: BP 120/62
--- NOTE | 2019-06-16 12:58 | NUR ---
NURSE NOTES: Discussed with Dr Garcia about pt transfer to med surg, agrees. Will continue to monitor.
--- NOTE | 2019-06-16 13:52 | NUR ---
NURSE NOTES: here to visit. No acute distress. Will continue to monitor.
--- NOTE | 2019-06-16 15:12 | General Progress Note ---
Assessment/Plan Problem List: (1) Abdominal pain ICD Codes: R10.9 - Unspecified abdominal pain SNOMED: 62348579 (2) Hip fracture ICD Codes: S72.009A - Fracture of unspecified part of neck of unspecified femur , initial encounter for closed fracture SNOMED: 869185755 (3) Diabetes mellitus type II, uncontrolled ICD Codes: E11.65 - Type 2 diabetes mellitus with hyperglycemia SNOMED: 10077795, 866545663 (4) DKA (diabetic ketoacidoses) ICD Codes: E11.10 - Type 2 diabetes mellitus with ketoacidosis without coma SNOMED: 447658155, 10880820 (5) Hypotension ICD Codes: I95.9 - Hypotension, unspecified SNOMED: 79637182, 56715772 (6) UTI (urinary tract infection) ICD Codes: N39.0 - Urinary tract infection, site not specified SNOMED: 61901757, 44933111 (7) Failure to thrive SNOMED: 30549207, 31027246 (8) Hyperglycemia ICD Codes: R73.9 - Hyperglycemia, unspecified SNOMED: 80304265 (9) Dehydration ICD Codes: E86.0 - Dehydration SNOMED: 51858535, 20285247 (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 ICD Codes: Z86.39 - Personal history of other endocrine, nutritional and metabolic disease SNOMED: 919544328 (11) HTN (hypertension) ICD Codes: I10 - Essential (primary) hypertension SNOMED: 36712336 (12) Cerebral vascular disease ICD Codes: I67.9 - Cerebrovascular disease, unspecified SNOMED: 17206569 Status: stable, progressing Assessment/Plan: stable encourage po- improving family to bring food in from home monitor bs diabetes rx per endo dvt/stress ulcer prophylaxis dc ivf transfer to tele Subjective Constitutional: Reports: malaise, weakness HEENT: Reports: no symptoms Cardiovascular: Reports: no symptoms Respiratory: Reports: no symptoms Gastrointestinal/Abdominal: Reports: no symptoms Genitourinary: Reports: no symptoms Neurologic/Psychiatric: Reports: anxiety Endocrine: Reports: no symptoms Hematologic/Lymphatic: Reports: no symptoms Allergies: Coded Allergies: NO KNOWN ALLERGIES (Unverified Allergy, Unknown, 05/04/18) All Systems: reviewed and negative except above Subjective ate better this am. 50%. no fever or chills. no chest pain more alert. cooperative with care. Objective Last 24 Hour Vital Signs Date Time Temp Pulse Resp B/P (MAP) Pulse Ox O2 Delivery O2 Flow Rate FiO2 06/16/19 12:00 72 06/16/19 12:00 Room Air 06/16/19 12:00 98.1 75 20 120/62 (81) 100 06/16/19 08:00 83 06/16/19 08:00 97.5 83 18 122/68 (86) 96 06/16/19 08:00 Room Air 06/16/19 04:00 67 06/16/19 04:00 Room Air 06/16/19 04:00 97.9 86 18 114/58 (76) 99 06/16/19 00:00 Room Air 06/16/19 00:00 98.1 77 18 120/58 (78) 99 06/16/19 00:00 72 06/15/19 23:05 Room Air 21 06/15/19 23:05 Room Air 21 06/15/19 20:00 98.5 92 18 126/60 (82) 98 06/15/19 20:00 Room Air 06/15/19 19:09 90 18 99 Room Air 21 06/15/19 19:03 87 06/15/19 18:59 92 18 97 Room Air 21 06/15/19 16:00 Room Air 06/15/19 16:00 98.6 90 20 130/70 (90) 97 06/15/19 16:00 91 Intake and Output 06/15/19 06/16/19 19:00 07:00 Intake Total 1377.5 ml 1000 ml Output Total 1300 ml 2000 ml Balance 77.5 ml -1000 ml Intake Oral 120 ml IV Total 1257.5 ml 1000 ml Output Urine Total 1300 ml 2000 ml Laboratory Tests 06/15/19 19:33: Sodium Level 134L, Potassium Level 4.3, Chloride Level 106, Carbon Dioxide Level 24, Anion Gap 4L, Blood Urea Nitrogen 5L, Creatinine 0.6, Estimat Glomerular Filtration Rate , Glucose Level 159H, Calcium Level 8.5 Height (Feet): 5 Height (Inches): 8.00 Weight (Pounds): 96 Objective General Appearance: WD/WN, alert, cachetic, thin Neck: supple Cardiovascular: normal rate, regular rhythm Respiratory/Chest: chest wall non-tender, lungs clear, normal breath sounds, no respiratory distress, no accessory muscle use Abdomen: normal bowel sounds, non tender, soft, no organomegaly, no mass Edema: no edema noted Arm (L), no edema noted Arm (R), no edema noted Leg (L), no edema noted Leg (R), no edema noted Pedal (L), no edema noted Pedal (R), no edema noted Generalized Neurologic: alert David Garcia MD Jun 16, 2019 15:12
--- NOTE | 2019-06-16 15:15 | NUR ---
ST NOTE: MODIFIED BARIUM SWALLOW STUDY (MBSS) COMPLETED, SEE FULL REPORT TO FOLLOW. PATIENT HAS A SIGNIFICANT OROPHARYNGEAL DYSPHAGIA AND ESOPHAGEAL DYSPHAGIA. NO SIGNIFICANT ASPIRATION BUT HAS HIGH RISK PARTICULARLY IF PRECAUTIONS NOT USED. LESS EFFICIENT SWALLOW EVEN WITH THICKER CONSISTENCIES DUE TO OROPHARYNGEAL DYSMOTILITY (INCLUDES HONEY THICK LIQUIDS AND PUREED). DOWNGRADED TO LIQUIFIED PUREED LIKE NECTAR THICK LIQUIDS AND CONTINUE WITH NECTAR THICK LIQUIDS TSP ONLY FOR NOW USING UPDATED AND POSTED ASPIRATION PRECAUTIONS. EDUCATED/TRAINED PATIENT, RN, AND PATIENT'S . PLAN: SEE PLAN OF CARE IN MBSS REPORT TOMORROW.
[2019-06-16 16:00] VITALS: BP 117/59
--- NOTE | 2019-06-16 17:12 | NUR ---
NURSE NOTES: Discussed with about endoscopy ordered for tomorrow. does not want to consent for it because she said her is too weak for the procedure. Will continue to monitor.
--- NOTE | 2019-06-16 19:10 | NUR ---
NURSE NOTES: Pt report received from Lynn San RN YOLANDA. pt appears to be in stable condition resting in bed. vital signs are stable. pt is alert and oriented times 2 and able to follow simple commands. pt reliability technicians shows NSR with no abnormalities cardiac serna. pt is on room air, able to sat 100% no signs symptoms of distress noted respiratory serna. pt bed low and locked, bed armed, bed rails up times 3. will continue plan of care.
--- NOTE | 2019-06-16 19:32 | NUR ---
HAND-OFF: Report given to Addison MELENDEZ.
[2019-06-16 20:00] VITALS: BP 112/56
[2019-06-16] MEDS: Tamsulosin 0.4mg cap ORAL SCH (20:14)
[2019-06-16] MEDS: Fluconazole 100mg tab ORAL SCH (20:15)
--- NOTE | 2019-06-16 22:00 | Progress Note ---
DATE: 06/15/2019 CARDIOLOGY PROGRESS NOTE Late entry for 06/15/2019. SUBJECTIVE: The patient did not undergo endoscopy as his refused to consent for the procedure. Indications were discussed extensively by all physicians involved in his care. The patient is eating very minimally although apparently he does not like the food, but this [facility] a problem at the [facility] as well. Monitored rhythm sinus and sinus tachycardia. PHYSICAL EXAMINATION: VITAL SIGNS: Blood pressure 130/70, pulse 90, respirations 20. HEENT: No thrush noted. NECK: Supple. LUNGS: Few rhonchi. CARDIAC: Regular rhythm and rate. Normal S1, S2 with a fourth heart sound. ABDOMEN: Soft. EXTREMITIES: No edema. NEUROLOGIC: Baseline hemiparesis. LABORATORY DATA: Sodium 134, potassium 4.3, bicarb 24, BUN 5, creatinine 0.6. IMPRESSION: 1. Recovered sepsis with shock. 2. Recovered DKA. 3. Fungal cystitis. 4. Oral candidiasis. 5. Hypomagnesemia. 6. Severe protein-calorie malnutrition. 7. Secondary sinus tachycardia. 8. Cerebrovascular disease. 9. Metabolic and toxic encephalopathies. 10. Dysphagia. PLAN: 1. Adjust IV fluids. 2. Replace electrolytes. 3. Nutritional support with protein supplements. 4. Antimicrobials including antifungal therapy. 5. DVT and stress ulcer prophylaxes. 6. Glucose monitoring with insulin titration. Mathew Mayers M.D. DR: SOCORRO JOB#: [id number] CC:
--- NOTE | 2019-06-16 22:15 | NUR ---
HAND-OFF: Report given to MACIEJ MELENDEZMOLD MAKER HELPER. pt is stable before and during transfer. pt brought up with all belongings.
--- NOTE | 2019-06-16 22:30 | NUR ---
NURSE NOTES: Received patient awake,verbal,follows simple command,resting in bed comfortably without complaints. Photo taken on his sacral redness,cleansed,dressing changed.
[2019-06-17] VITALS: BP 127/72
--- NOTE | 2019-06-17 03:25 | NUR ---
HAND-OFF: Report given to Xena Pathak RN.
--- NOTE | 2019-06-17 03:27 | NUR ---
NURSE NOTES: Received patient in bed, report is given by Marilee MELENDEZ, no acute distress at this time, patient is asleep in bed, IV site clean dry and intact, will continue to monitor for safety and comfort. Bed is in low position, locked and alarm is on.
[2019-06-17 04:00] VITALS: BP 108/55
--- NOTE | 2019-06-17 04:00 | Progress Note ---
DATE: 06/16/2019 CARDIOLOGY PROGRESS NOTE SUBJECTIVE: The patient is seen and evaluated with and brother at bedside. Severity of condition reviewed. Indications for endoscopy discussed, however, family members have not agreed at this time. The patient feels like he wants to eat, but is still not eating much. Family members are bringing their own food in an effort to improve his intake and with that in mind, he did improve to 50%. OBJECTIVE: VITAL SIGNS: Blood pressure 120/62, pulse 75, respirations 20, and afebrile. Room air oxygen sats 96 to 100 percent. HEENT: No thrush. NECK: Supple. LUNGS: Clear. CARDIAC: Regular. Normal S1, S2 with a fourth heart sound. ABDOMEN: Soft. EXTREMITIES: No edema. LABORATORY DATA: White count diet laboratory no. LABORATORY DATA: No labs today. IMPRESSION: 1. Recovering DKA. 2. Metabolic and toxic encephalopathies. 3. Secondary sinus tachycardia. 4. Acute renal failure, resolved. 5. Sepsis with shock resolved. 6. Hypertensive heart disease with controlled blood pressure. 7. Severe protein-calorie malnutrition. 8. Fungal cystitis. 9. Oral candidiasis. 10. Hypomagnesemia. PLAN: 1. Plan of care in place. 2. We will recheck laboratory studies. 3. Discontinue telemetry. Mathew Mayers M.D. DR: JONAS JOB#: [id number] CC:
[2019-06-17] MEDS: NovoLOG Insulin Flexpen SUBQ SCH ×6 (06:18→21:00)
--- NOTE | 2019-06-17 06:34 | General Progress Note ---
Assessment/Plan Problem List: (1) Diabetes mellitus ICD Codes: E11.9 - Type 2 diabetes mellitus without complications SNOMED: 70785075 (2) Hypertension ICD Codes: I10 - Essential (primary) hypertension SNOMED: 43856334 (3) Failure to thrive SNOMED: 76941393, 62434894 (4) DKA (diabetic ketoacidoses) ICD Codes: E11.10 - Type 2 diabetes mellitus with ketoacidosis without coma SNOMED: 833828795, 85958546 (5) UTI (urinary tract infection) ICD Codes: N39.0 - Urinary tract infection, site not specified SNOMED: 36756853, 04138447 Status: stable, progressing Assessment/Plan: continue Levemir to 3 units bid start Novolog 2 units ac tid - hold if not eating Novolog sliding scale ac / hs sensitive scale Subjective ROS Limited/Unobtainable: Yes Allergies: Coded Allergies: NO KNOWN ALLERGIES (Unverified Allergy, Unknown, 05/04/18) Subjective events no recurrence of hypoglycemia since yesterday morning mealtime glucose is elevated refused EGD Item Value Date Time Bedside Blood Glucose 135 mg/dl H 06/17/19 0618 Bedside Blood Glucose 242 mg/dl H 06/16/19 2100 Bedside Blood Glucose 235 mg/dl H 06/16/19 1647 Bedside Blood Glucose 337 mg/dl H 06/16/19 1136 Bedside Blood Glucose 271 mg/dl H 06/16/19 0821 Objective Last 24 Hour Vital Signs Date Time Temp Pulse Resp B/P (MAP) Pulse Ox O2 Delivery O2 Flow Rate FiO2 06/17/19 04:00 97.6 78 16 108/55 (72) 06/17/19 00:00 98.2 83 24 127/72 (90) 98 06/16/19 20:00 98.9 82 18 112/56 (74) 100 06/16/19 20:00 97 06/16/19 20:00 Room Air 06/16/19 16:00 99.2 84 20 117/59 (78) 100 06/16/19 16:00 Room Air 06/16/19 16:00 86 06/16/19 12:00 72 06/16/19 12:00 Room Air 06/16/19 12:00 98.1 75 20 120/62 (81) 100 06/16/19 08:00 83 06/16/19 08:00 97.5 83 18 122/68 (86) 96 06/16/19 08:00 Room Air Intake and Output 06/16/19 06/17/19 18:59 06:59 Output Total 2000 ml Balance -2000 ml Output Urine Total 2000 ml Height (Feet): 5 Height (Inches): 8.00 Weight (Pounds): 96 General Appearance: no apparent distress Neck: normal alignment Cardiovascular: normal rate Respiratory/Chest: lungs clear Abdomen: normal bowel sounds Pelvis: normal external exam Objective Current Medications Medications (Trade) Dose Ordered Sig/Frankie Route PRN Reason Start Time Stop Time Status Last Admin Dose Admin Acetaminophen (Tylenol) 650 mg Q4H PRN ORAL Mild Pain/Temp > 100.5 06/17/19 00:30 07/09/19 20:29 Dextrose (Dextrose 50%) 25 ml Q30M PRN IV Hypoglycemia 06/16/19 22:45 07/16/19 06:44 Dextrose (Dextrose 50%) 50 ml Q30M PRN IV Hypoglycemia 06/16/19 22:45 07/16/19 06:44 Fluconazole (Diflucan) 200 mg Q24H ORAL 06/17/19 20:00 06/20/19 19:59 Heparin Sodium (Porcine) (Heparin 5000 units/ml) 5,000 units EVERY 12 HOURS SUBQ 06/17/19 09:00 07/10/19 08:59 Insulin Aspart (NovoLOG) BEFORE MEALS AND HS SUBQ 06/17/19 06:30 07/16/19 11:29 06/17/19 06:18 Insulin Detemir (Levemir) 3 units EVERY 12 HOURS SUBQ 06/17/19 09:00 07/10/19 20:59 Ondansetron HCl (Zofran) 4 mg Q6H PRN IVP Nausea & Vomiting 06/17/19 02:30 07/10/19 20:29 Pantoprazole (Protonix) 40 mg DAILY IVP 06/17/19 09:00 07/12/19 08:59 Tamsulosin HCl (Flomax) 0.4 mg BEDTIME ORAL 06/17/19 21:00 07/10/19 20:59 Luis Gonzalez MD Jun 17, 2019 06:34
--- NOTE | 2019-06-17 06:51 | NUR ---
HAND-OFF: Report given to Mariaelena MELENDEZ.
[2019-06-17 07:06] LABS: ALANINE AMINOTRANSFERASE 70 U/L (12-78); ALBUMIN 1.6 G/DL (3.4-5.0); ALBUMIN/GLOBULIN RATIO 0.5 (1.0-2.7); ALKALINE PHOSPHATASE 120 U/L (46-116); ANION GAP 4 mmol/L (5-15); ASPARTATE AMINO TRANSFERASE 89 U/L (15-37); BILIRUBIN,TOTAL 0.3 MG/DL (0.2-1.0); BLOOD UREA NITROGEN 6 mg/dL (7-18); CALCIUM 8.5 MG/DL (8.5-10.1); CARBON DIOXIDE 25 MMOL/L (21-32); CHLORIDE 106 MMOL/L (98-107); CREATININE 0.7 MG/DL (0.55-1.30); POTASSIUM 4.2 MMOL/L (3.5-5.1); SODIUM 135 MMOL/L (136-145)
[2019-06-17 07:11] LABS: BASOPHILS % (AUTO) 0.8 % (0.0-2.0); EOSINOPHILS % (AUTO) 3.9 % (0.0-3.0); HEMATOCRIT 26.5 % (42.0-52.0); LYMPHOCYTES % (AUTO) 27.1 % (20.0-45.0); MEAN CORPUSCULAR VOLUME 96 FL (80-99); MONOCYTES % (AUTO) 9.5 % (1.0-10.0); NEUTROPHILS % (AUTO) 58.7 % (45.0-75.0); PLATELET COUNT 297 K/UL (150-450); RED BLOOD COUNT 2.75 M/UL (4.70-6.10); RED CELL DISTRIBUTION WIDTH 14.2 % (11.6-14.8); WHITE BLOOD COUNT 6.2 K/UL (4.8-10.8)
--- NOTE | 2019-06-17 07:55 | NUR ---
NURSE NOTES: Pt resting in bed. A/O x 2, confused. Sacral dressing on , CDI. VS stable, Room air. no SOB noted. fall precaution maintained. bed alarm on. call light within reach. will continue to monitor.
[2019-06-17 07:58] LABS: PHOSPHORUS 2.8 MG/DL (2.5-4.9)
[2019-06-17 08:00] VITALS: BP 130/64
[2019-06-17] MEDS: Heparin 5000 units/ml inj SUBQ SCH ×2 (08:41→21:58)
[2019-06-17] MEDS: Pantoprazole Inj IVP SCH (08:42)
[2019-06-17] MEDS: Levemir Flexpen SUBQ SCH ×2 (09:38→22:00)
--- NOTE | 2019-06-17 10:10 | General Progress Note ---
Assessment/Plan Status: stable, progressing Assessment/Plan: Assessment - DM with DKA - h/o recent oral thrush - poor po, odynophagia - family decline EGD at this time - h/o CVA - AMS / Delirium - hip fx Recommendations - po as tolerated - supplement shakes PO - Rx DKA - No EGD at this time per family decision Subjective Allergies: Coded Allergies: NO KNOWN ALLERGIES (Unverified Allergy, Unknown, 05/04/18) Subjective above noted d/w again at length yesterday all question re EGD and PEG answered declines GI endoscopy at this time says too weak advised re poor po intake and worsening nutritional status understands and accepts risk of patient getting sicker and weaker Objective Last 24 Hour Vital Signs Date Time Temp Pulse Resp B/P (MAP) Pulse Ox O2 Delivery O2 Flow Rate FiO2 06/17/19 08:00 98.2 93 18 130/64 (86) 96 06/17/19 04:00 97.6 78 16 108/55 (72) 06/17/19 00:00 98.2 83 24 127/72 (90) 98 06/16/19 20:00 98.9 82 18 112/56 (74) 100 06/16/19 20:00 97 06/16/19 20:00 Room Air 06/16/19 16:00 99.2 84 20 117/59 (78) 100 06/16/19 16:00 Room Air 06/16/19 16:00 86 06/16/19 12:00 72 06/16/19 12:00 Room Air 06/16/19 12:00 98.1 75 20 120/62 (81) 100 Intake and Output 06/16/19 06/17/19 19:00 07:00 Output Total 2000 ml Balance -2000 ml Output Urine Total 2000 ml Laboratory Tests 06/17/19 06:10: White Blood Count 6.2, Red Blood Count 2.75L, Hemoglobin 9.0L, Hematocrit 26.5L , Mean Corpuscular Volume 96, Mean Corpuscular Hemoglobin 32.7H, Mean Corpuscular Hemoglobin Concent 34.0, Red Cell Distribution Width 14.2, Platelet Count 297, Mean Platelet Volume 5.2L, Neutrophils (%) (Auto) 58.7, Lymphocytes ( %) (Auto) 27.1, Monocytes (%) (Auto) 9.5, Eosinophils (%) (Auto) 3.9H, Basophils (%) (Auto) 0.8, Sodium Level 135L, Potassium Level 4.2, Chloride Level 106, Carbon Dioxide Level 25, Anion Gap 4L, Blood Urea Nitrogen 6L, Creatinine 0.7, Estimat Glomerular Filtration Rate , Glucose Level 138H, Calcium Level 8.5, Phosphorus Level 2.8, Magnesium Level 1.6L, Total Bilirubin 0.3, Aspartate Amino Transf (AST/SGOT) 89H, Alanine Aminotransferase (ALT/SGPT) 70, Alkaline Phosphatase 120H, Total Protein 4.6L, Albumin 1.6L, Globulin 3.0, Albumin/Globulin Ratio 0.5L Height (Feet): 5 Height (Inches): 8.00 Weight (Pounds): 96 Objective Thin elderly man NCAT supple CTA RR abd soft no edema Juany Candelaria MD Jun 17, 2019 10:10
--- NOTE | 2019-06-17 11:36 | NUR ---
ST NOTES: SWALLOW STATUS: PATIENT TOO TIRED FOR PO TRIALS. DID NOT MEET INTAKE GOALS BUT SOMETIMES BETTER REFUSED TO 10/25/50% INTAKE. ALSO BRINGS HIM AIMEE FOOD IN THE AFTERNOON. MOSTLY HAS THIN LIQUID BROTH WITH BEEF OR GARLIC FLAVOR. REVIEWED VIDEOSWALLOW STUDY IMAGES WITH AL WALLACE AND COMPLETED REPORT. PATIENT SEEN BY DR HEATH AND NOT IN FAVOR OF PEG AT THIS TIME EVEN THOUGH HE IS UNDERWEIGHT, HAS DYSPHAGIA, AND IS NOT TAKING 75% OF 3 MEALS A DAY. ON POLST IT SAYS NO ARTIFICIAL NUTRITION. PLAN: CONTINUE WITH PLAN OF CARE MOD BARIUM SWALLOW STUDY REPORT CONTINUE WITH LIQUIFIED PUREED LIKE NECTAR THICK SOUP CONSISTENCY WITH HIGH HETAL SUPPLEMENT AND POSTED ASP/REFLUX PRECAUTIONS.
[2019-06-17 12:00] VITALS: BP 112/72
--- NOTE | 2019-06-17 12:14 | NUR ---
ST NOTES: UPDATED MBSS SUMMARY: MODIFIED BARIUM SWALLOW STUDY (MBSS) COMPLETED, SEE FULL REPORT TO FOLLOW. ALERT AND ON ROOM AIR. 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 NO SIGNIFICANT ASPIRATION BUT HAS HIGH RISK PARTICULARLY IF PRECAUTIONS NOT USED. LESS EFFICIENT SWALLOW EVEN WITH THICKER CONSISTENCIES DUE TO OROPHARYNGEAL DYSMOTILITY (INCLUDES HONEY THICK LIQUIDS AND PUREED). THIN LIQUIDS OVERALL NO ASP BUT DID HAVE LP TSP - NO ASP/LP 2ND TSP AND TSP THIN WASH (POST PUREED) - TRACE LP ABOVE VOCAL FOLDS WITH EJECTION DUE TO LATE SWALLOW AND CLOSURE OF LARYNGEAL VESTIBULE. CUP AND STRAW SEQUENTIAL - TRACE LP TO VOCAL FOLDS WITH EJECTION DUE TO SAME PROBLEMS ABOVE. TRACE LARYNGEAL PENETRATION (LP) TO LEVEL OF VOCAL FOLDS W/O EJECTION WITH CUP AND CHIN TUCK CUES (ALSO TRIED EFFORTFUL BREATH HOLD BUT NOT COMPLETED). NECTAR THICK LIQUIDS TSP - NO ASP/LP CUP AND STRAW SEQUENTIAL HAD TRACE LP ABOVE VOCAL FOLDS WITH EJECTION DUE TO SAME PROBLEMS WITH DELAY SWALLOW. HONEY AND PUREED NO ASP/LP OVERALL HAS RISK FOR CHRONIC TRACE ASPIRATION WITH ALL CONSISTENCIES GIVEN DUE TO SWALLOW DELAYS AND WEAKNESS AND OROPHARYNGEAL DYSMOTILITY AND RESIDUE. VERY DELAYED 2ND AND WORSE DELAY WITH 3RD SWALLOW TO CLEAR OROPHARYNGEAL RESIDUE. CAN'T INITIATE SOME EXTRA SWALLOWS AND MAY NOT ALWAYS FEEL SMALL AMOUNTS OF RESIDUE. COMPONENTS AND DEFICITS PRESENT THAT INCREASE ASP/REFLUX: Oral Impairment Lip Closure Tongue Control Bolus marino/lingual motion Oral residue Init. pharyngeal swallow Pharyngeal Impairment Soft palate elevation Laryngeal elevation (LE) Ant. hyoid excursion (AHE) Epiglottic movement Laryng vestibular closure Pharyngeal stripping wave PES Opening Tongue base retraction Pharyngeal residue Decrease pharyn sensation Esophageal Impairment Esophageal Clearance SOME BACKFLOW THROUGH THE PE SEGMENT OPENING STRAW SEQUENTIAL FOR THIN Strategies BENEFITS FOR HARD SWALLOWS, NO SEQUENTIAL SIPS, MORE TIME, NOT TOO THICK (LIKE HONEY AND PUREED), NEEDED LIQUID WASH WHEN GIVEN THICKER CONSISTENCIES. CHIN TUCK STILL HAD PENETRATION AND DID NOT DO EFFORTFUL BREATH HOLD WELL WOULD BENEFIT FROM SOLE AND SHAKER AND BOT RETRACTION EXERCISES. CHIN NEUTRAL BETTER MAY TRY HEAD R/L FOR MORE PRESSURE ON BOLUS, NO TIME TO TRY PT VERY TIRED. DOWNGRADED TO LIQUIFIED PUREED LIKE NECTAR THICK LIQUIDS AND CONTINUE WITH NECTAR THICK LIQUIDS TSP ONLY FOR NOW USING UPDATED AND POSTED ASPIRATION PRECAUTIONS. EDUCATED/TRAINED PATIENT, RN, AND PATIENT'S . PLAN: SEE PLAN OF CARE IN MBSS REPORT TOMORROW.
--- NOTE | 2019-06-17 14:05 | NUR ---
RD ASSESSMENT & RECOMMENDATIONS SEE CARE ACTIVITY FOR COMPLETE ASSESSMENT DAILY ESTIMATED NEEDS: Needs based on Underweight, diabetes / 42.9kg 30-40 kcals/kg 7250-7979 total kcals 1-2 g protein/kg 43-86 g total protein 25-30 mL/kg 7094-1634 total fluid mLs NUTRITION DIAGNOSIS: * Increased kcal/prot needs R/T underweight status as evidenced by pt is 66% of [place] Body Weight, severe generalized wasting, w/ suspected 22.5 lbs wt loss x1 month, pt w/ poor PO intake, family refusing PEG at this time. * Altered nutrition related lab values R/T diabetes as evidenced by hypo and hyperglycemia (1935 on adm-> 127 195), A1C 8.1 CURRENT DIET:CCHO MED, CARDIAC/ liquify puree moist, NTL + Glucerna TID PO DIET RECOMMENDATIONS: CCHO LOW/ TEXTURE PER BROADCAST OPERATIONS TECHNICIAN + GLUCERNA 1 TETRA BERT TID ADDITIONAL RECOMMENDATIONS: * Weekly wts (calibrated bedscale) given severe underweight status and suspected wt loss * Monitor BGs closely -> improved since adm * 1 carb/high prot snack in between meals as accepted * Wound care: Add Vit C 250mg daily + RAFFY BID as accepted. * Consider zofran [id number] if N/V continues * Consider appetite stimulant- poor PO, underweight, + wt loss
--- NOTE | 2019-06-17 15:47 | General Progress Note ---
Assessment/Plan Problem List: (1) Abdominal pain ICD Codes: R10.9 - Unspecified abdominal pain SNOMED: 73085153 (2) Hip fracture ICD Codes: S72.009A - Fracture of unspecified part of neck of unspecified femur , initial encounter for closed fracture SNOMED: 524677770 (3) Diabetes mellitus type II, uncontrolled ICD Codes: E11.65 - Type 2 diabetes mellitus with hyperglycemia SNOMED: 15480798, 551298401 (4) DKA (diabetic ketoacidoses) ICD Codes: E11.10 - Type 2 diabetes mellitus with ketoacidosis without coma SNOMED: 929022400, 85550987 (5) Hypotension ICD Codes: I95.9 - Hypotension, unspecified SNOMED: 37648041, 66845939 (6) UTI (urinary tract infection) ICD Codes: N39.0 - Urinary tract infection, site not specified SNOMED: 72706697, 92731207 (7) Failure to thrive SNOMED: 44953931, 62191708 (8) Hyperglycemia ICD Codes: R73.9 - Hyperglycemia, unspecified SNOMED: 21031771 (9) Dehydration ICD Codes: E86.0 - Dehydration SNOMED: 47369061, 76010664 (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 ICD Codes: Z86.39 - Personal history of other endocrine, nutritional and metabolic disease SNOMED: 509150476 (11) HTN (hypertension) ICD Codes: I10 - Essential (primary) hypertension SNOMED: 04540161 (12) Cerebral vascular disease ICD Codes: I67.9 - Cerebrovascular disease, unspecified SNOMED: 10059585 Status: stable, progressing Assessment/Plan: stable encourage po- improving family to bring food in from home monitor bs diabetes rx per endo dvt/stress ulcer prophylaxis iv mag replacement repeat cxr ?dc planning if po intake adequate and cxr improved Subjective ROS Limited/Unobtainable: No Constitutional: Reports: malaise, weakness HEENT: Reports: no symptoms Cardiovascular: Reports: no symptoms Respiratory: Reports: no symptoms Gastrointestinal/Abdominal: Reports: difficulty swallowing, poor fluid intake Genitourinary: Reports: no symptoms Neurologic/Psychiatric: Reports: anxiety, depressed Endocrine: Reports: no symptoms Hematologic/Lymphatic: Reports: anemia Allergies: Coded Allergies: NO KNOWN ALLERGIES (Unverified Allergy, Unknown, 05/04/18) All Systems: reviewed and negative except above Subjective per staff eating better. no chest pain or sob. on po abx. no fever or chills. low mag noted Objective Last 24 Hour Vital Signs Date Time Temp Pulse Resp B/P (MAP) Pulse Ox O2 Delivery O2 Flow Rate FiO2 06/17/19 12:00 97.9 79 18 112/72 (85) 97 06/17/19 09:00 Room Air 06/17/19 08:00 98.2 93 18 130/64 (86) 96 06/17/19 04:00 97.6 78 16 108/55 (72) 06/17/19 00:00 98.2 83 24 127/72 (90) 98 06/16/19 20:00 98.9 82 18 112/56 (74) 100 06/16/19 20:00 97 06/16/19 20:00 Room Air 06/16/19 16:00 99.2 84 20 117/59 (78) 100 06/16/19 16:00 Room Air 06/16/19 16:00 86 Intake and Output 06/16/19 06/17/19 19:00 07:00 Output Total 2000 ml Balance -2000 ml Output Urine Total 2000 ml Laboratory Tests 06/17/19 06:10: White Blood Count 6.2, Red Blood Count 2.75L, Hemoglobin 9.0L, Hematocrit 26.5L , Mean Corpuscular Volume 96, Mean Corpuscular Hemoglobin 32.7H, Mean Corpuscular Hemoglobin Concent 34.0, Red Cell Distribution Width 14.2, Platelet Count 297, Mean Platelet Volume 5.2L, Neutrophils (%) (Auto) 58.7, Lymphocytes ( %) (Auto) 27.1, Monocytes (%) (Auto) 9.5, Eosinophils (%) (Auto) 3.9H, Basophils (%) (Auto) 0.8, Sodium Level 135L, Potassium Level 4.2, Chloride Level 106, Carbon Dioxide Level 25, Anion Gap 4L, Blood Urea Nitrogen 6L, Creatinine 0.7, Estimat Glomerular Filtration Rate , Glucose Level 138H, Calcium Level 8.5, Phosphorus Level 2.8, Magnesium Level 1.6L, Total Bilirubin 0.3, Aspartate Amino Transf (AST/SGOT) 89H, Alanine Aminotransferase (ALT/SGPT) 70, Alkaline Phosphatase 120H, Total Protein 4.6L, Albumin 1.6L, Globulin 3.0, Albumin/Globulin Ratio 0.5L Height (Feet): 5 Height (Inches): 8.00 Weight (Pounds): 96 Objective General Appearance: WD/WN, alert, cachetic, thin Neck: supple Cardiovascular: normal rate, regular rhythm Respiratory/Chest: chest wall non-tender, lungs clear, normal breath sounds, no respiratory distress, no accessory muscle use Abdomen: normal bowel sounds, non tender, soft, no organomegaly, no mass Edema: no edema noted Arm (L), no edema noted Arm (R), no edema noted Leg (L), no edema noted Leg (R), no edema noted Pedal (L), no edema noted Pedal (R), no edema noted Generalized Neurologic: alert David Garcia MD Jun 17, 2019 15:47
[2019-06-17 16:00] VITALS: BP 123/81
--- NOTE | 2019-06-17 16:21 | Infectious Diseases Prog Note ---
Assessment/Plan Assessment/Plan IMPRESSION: Sepsis Mary Grace UTI. 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 Hypernatremia, Cachexia, Severe protein-calorie malnutrition. Atrial fibrillation Acute renal failure, resolved hepatic mass RECOMMENDATIONS: We will continue fluconazole X 2 days Subjective ROS Limited/Unobtainable: Yes Constitutional: Reports: anorexia; Denies: fever Respiratory: Reports: dry cough Allergies: Coded Allergies: NO KNOWN ALLERGIES (Unverified Allergy, Unknown, 05/04/18) Objective Vital Signs Last 24 Hour Vital Signs Date Time Temp Pulse Resp B/P (MAP) Pulse Ox O2 Delivery O2 Flow Rate FiO2 06/17/19 12:00 97.9 79 18 112/72 (85) 97 06/17/19 09:00 Room Air 06/17/19 08:00 98.2 93 18 130/64 (86) 96 06/17/19 04:00 97.6 78 16 108/55 (72) 06/17/19 00:00 98.2 83 24 127/72 (90) 98 06/16/19 20:00 98.9 82 18 112/56 (74) 100 06/16/19 20:00 97 06/16/19 20:00 Room Air Height (Feet): 5 Height (Inches): 8.00 Weight (Pounds): 96 General Appearance: cachetic HEENT: mucous membranes moist Respiratory/Chest: lungs clear Cardiovascular: normal rate Abdomen: soft, non tender Extremities: no edema Neurologic/Psychiatric: alert, responsive Microbiology Date/Time Source Procedure Growth Status 06/14/19 18:00 Sputum Gram Stain - Final Complete 06/14/19 18:00 Sputum Culture - Final Mary Grace Krusei Usual Respiratory Brenna Complete Laboratory Tests Test 06/17/19 06:10 White Blood Count 6.2 K/UL (4.8-10.8) Red Blood Count 2.75 M/UL (4.70-6.10) L Hemoglobin 9.0 G/DL (14.2-18.0) L Hematocrit 26.5 % (42.0-52.0) L Mean Corpuscular Volume 96 FL (80-99) Mean Corpuscular Hemoglobin 32.7 PG (27.0-31.0) H Mean Corpuscular Hemoglobin Concent 34.0 G/DL (32.0-36.0) Red Cell Distribution Width 14.2 % (11.6-14.8) Platelet Count 297 K/UL (150-450) Mean Platelet Volume 5.2 FL (6.5-10.1) L Neutrophils (%) (Auto) 58.7 % (45.0-75.0) Lymphocytes (%) (Auto) 27.1 % (20.0-45.0) Monocytes (%) (Auto) 9.5 % (1.0-10.0) Eosinophils (%) (Auto) 3.9 % (0.0-3.0) H Basophils (%) (Auto) 0.8 % (0.0-2.0) Sodium Level 135 MMOL/L (136-145) L Potassium Level 4.2 MMOL/L (3.5-5.1) Chloride Level 106 MMOL/L (98-107) Carbon Dioxide Level 25 MMOL/L (21-32) Anion Gap 4 mmol/L (5-15) L Blood Urea Nitrogen 6 mg/dL (7-18) L Creatinine 0.7 MG/DL (0.55-1.30) Estimat Glomerular Filtration Rate mL/min (>60) Glucose Level 138 MG/DL (74-106) H Calcium Level 8.5 MG/DL (8.5-10.1) Phosphorus Level 2.8 MG/DL (2.5-4.9) Magnesium Level 1.6 MG/DL (1.8-2.4) L Total Bilirubin 0.3 MG/DL (0.2-1.0) Aspartate Amino Transf (AST/SGOT) 89 U/L (15-37) H Alanine Aminotransferase (ALT/SGPT) 70 U/L (12-78) Alkaline Phosphatase 120 U/L (46-116) H Total Protein 4.6 G/DL (6.4-8.2) L Albumin 1.6 G/DL (3.4-5.0) L Globulin 3.0 g/dL Albumin/Globulin Ratio 0.5 (1.0-2.7) L Current Medications Medications (Trade) Dose Ordered Sig/Frankie Route PRN Reason Start Time Stop Time Status Last Admin Dose Admin Acetaminophen (Tylenol) 650 mg Q4H PRN ORAL Mild Pain/Temp > 100.5 06/17/19 00:30 07/09/19 20:29 Dextrose (Dextrose 50%) 25 ml Q30M PRN IV Hypoglycemia 06/16/19 22:45 07/16/19 06:44 Dextrose (Dextrose 50%) 50 ml Q30M PRN IV Hypoglycemia 06/16/19 22:45 07/16/19 06:44 Fluconazole (Diflucan) 200 mg Q24H ORAL 06/17/19 20:00 06/20/19 19:59 Heparin Sodium (Porcine) (Heparin 5000 units/ml) 5,000 units EVERY 12 HOURS SUBQ 06/17/19 09:00 07/10/19 08:59 06/17/19 08:41 Insulin Aspart (NovoLOG) BEFORE MEALS AND HS SUBQ 06/17/19 06:30 07/16/19 11:29 06/17/19 11:38 Insulin Aspart (NovoLOG) 2 units NOVOTIAC SUBQ 06/17/19 11:50 07/17/19 11:49 Insulin Detemir (Levemir) 3 units EVERY 12 HOURS SUBQ 06/17/19 09:00 07/10/19 20:59 06/17/19 09:38 Magnesium Sulfate 100 ml @ 100 mls/hr Q1H IVPB 06/17/19 15:45 06/17/19 17:44 Ondansetron HCl (Zofran) 4 mg Q6H PRN IVP Nausea & Vomiting 06/17/19 02:30 07/10/19 20:29 Pantoprazole (Protonix) 40 mg DAILY IVP 06/17/19 09:00 07/12/19 08:59 06/17/19 08:42 Tamsulosin HCl (Flomax) 0.4 mg BEDTIME ORAL 06/17/19 21:00 07/10/19 20:59 Kaveh Barreto MD Jun 17, 2019 16:21
--- NOTE | 2019-06-17 16:34 | NUR ---
NURSE NOTES:WOUND CARE FOLLOW-UP NOTES:Partial thickness shearing noted to sacrococcygeal area with surrounding non-blanching erythema without induration or fluctuance. . Pt denied tenderness when site is minimally palpated. . Both heels are soft but blanchable. Pt educated on wound prevention . encouraged to frequently reposition while in bed and to keep heels off-loaded with pillow. Moisture Barrier paste applied to sacrum and covered with Optifoam drsg. Cavilon skin barrier applied to both heels and each heel covered with Optifoam drsg. Both heels flaoted off bed with pillow. Tx.Plan: Apply Triad Paste to sacrum. Cover with Optifoam drsg. Change every 3 days and prn. Apply Cavilon Skin Barrier to both heels. Cover each heel with Optifoam drsg. change every 7 days and prn. Encourage and assist with repositioning at elast every 2hours or as tolerated. Off-load heels with pillow.
--- NOTE | 2019-06-17 19:49 | NUR ---
HAND-OFF: Report given to Dinora MELENDEZ.
--- NOTE | 2019-06-17 19:55 | NUR ---
NURSE NOTES: Received report from AL Ferrell. Patient sleeping. On room air, no signs of distress or labored breathing. IV intact, patent, and running TKO. Bed in lowest position. Will continue with plan of care.
[2019-06-17 20:00] VITALS: BP 111/60
[2019-06-17] MEDS: Tamsulosin 0.4mg cap ORAL SCH (21:53)
[2019-06-17] MEDS: Fluconazole 100mg tab ORAL SCH (21:54)
[2019-06-18] VITALS: BP 120/55
[2019-06-18 04:00] VITALS: BP 128/66
[2019-06-18] MEDS: NovoLOG Insulin Flexpen SUBQ SCH ×6 (06:50→20:54)
[2019-06-18 08:00] VITALS: BP 126/64
--- NOTE | 2019-06-18 08:05 | NUR ---
HAND-OFF: Report given to AL Miller.
--- NOTE | 2019-06-18 08:10 | NUR ---
NURSE NOTES: Received patient from AL Aguirre in bed resting. Patient is on RA. No signs of pain and distress noted. IV intact and patent. Patient is alert and oriented x2-3. Bed in lowest position, brakes engaged for safety. Call light within reach. All needs attended to. Will continue with the plan of care.
[2019-06-18] MEDS ORDERED: NS 275ml ONE (09:13)
[2019-06-18] MEDS: Pantoprazole Inj IVP SCH (09:31)
[2019-06-18] MEDS: Heparin 5000 units/ml inj SUBQ SCH ×2 (09:33→20:53)
[2019-06-18] MEDS: Levemir Flexpen SUBQ SCH ×2 (09:33→20:56)
[2019-06-18 12:00] VITALS: BP 149/84
--- NOTE | 2019-06-18 12:09 | Infectious Diseases Prog Note ---
Assessment/Plan Assessment/Plan IMPRESSION: Sepsis Mary Grace UTI. 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 Hypernatremia, Cachexia, Severe protein-calorie malnutrition. Atrial fibrillation Acute renal failure, resolved hepatic mass RECOMMENDATIONS: We will continue fluconazole X 1 day Subjective ROS Limited/Unobtainable: Yes Constitutional: Reports: anorexia Respiratory: Reports: no symptoms Gastrointestinal/Abdominal: Reports: no symptoms Allergies: Coded Allergies: NO KNOWN ALLERGIES (Unverified Allergy, Unknown, 05/04/18) Objective Vital Signs Last 24 Hour Vital Signs Date Time Temp Pulse Resp B/P (MAP) Pulse Ox O2 Delivery O2 Flow Rate FiO2 06/18/19 09:00 Room Air 06/18/19 08:00 97.3 82 18 126/64 (84) 97 06/18/19 04:00 97.2 86 18 128/66 (86) 96 06/18/19 00:00 97.7 85 18 120/55 (76) 97 06/17/19 21:00 Room Air 06/17/19 20:00 97.4 70 16 111/60 (77) 95 06/17/19 16:00 98.8 81 18 123/81 (95) 98 Height (Feet): 5 Height (Inches): 8.00 Weight (Pounds): 93 General Appearance: cachetic HEENT: mucous membranes moist Respiratory/Chest: other - few ronchi Cardiovascular: normal rate Abdomen: soft, non tender Extremities: no edema Neurologic/Psychiatric: alert, responsive Musculoskeletal: atrophy Current Medications Medications (Trade) Dose Ordered Sig/Frankie Route PRN Reason Start Time Stop Time Status Last Admin Dose Admin Acetaminophen (Tylenol) 650 mg Q4H PRN ORAL Mild Pain/Temp > 100.5 06/17/19 00:30 07/09/19 20:29 Dextrose (Dextrose 50%) 25 ml Q30M PRN IV Hypoglycemia 06/16/19 22:45 07/16/19 06:44 Dextrose (Dextrose 50%) 50 ml Q30M PRN IV Hypoglycemia 06/16/19 22:45 07/16/19 06:44 Fluconazole (Diflucan) 200 mg Q24H ORAL 06/17/19 20:00 06/20/19 19:59 06/17/19 21:54 Heparin Sodium (Porcine) (Heparin 5000 units/ml) 5,000 units EVERY 12 HOURS SUBQ 06/17/19 09:00 07/10/19 08:59 06/18/19 09:33 Insulin Aspart (NovoLOG) BEFORE MEALS AND HS SUBQ 06/17/19 06:30 07/16/19 11:29 06/18/19 11:54 Insulin Aspart (NovoLOG) 2 units NOVOTIAC SUBQ 06/17/19 11:50 07/17/19 11:49 06/18/19 11:53 Insulin Detemir (Levemir) 3 units EVERY 12 HOURS SUBQ 06/17/19 09:00 07/10/19 20:59 06/18/19 09:33 Ondansetron HCl (Zofran) 4 mg Q6H PRN IVP Nausea & Vomiting 06/17/19 02:30 07/10/19 20:29 Pantoprazole (Protonix) 40 mg DAILY IVP 06/17/19 09:00 07/12/19 08:59 06/18/19 09:31 Tamsulosin HCl (Flomax) 0.4 mg BEDTIME ORAL 06/17/19 21:00 07/10/19 20:59 06/17/19 21:53 Kaveh Barreto MD Jun 18, 2019 12:09
[2019-06-18 16:00] VITALS: BP 123/62
--- NOTE | 2019-06-18 16:12 | Diagnostic Imaging Report ---
Indication: Cough Technique: One view of the chest Comparison: 06/11/2019 Findings: Patchy infiltrate at the right lung base persists, unchanged. There is some right infrahilar atelectasis which was not evident previously. The remainder of the lungs are clear. The pleural spaces are clear The heart size is normal. Impression: Persistent right basilar infiltrate, unchanged from prior study of 7 days earlier Right infrahilar atelectasis
--- NOTE | 2019-06-18 16:28 | General Progress Note ---
Assessment/Plan Problem List: (1) Abdominal pain ICD Codes: R10.9 - Unspecified abdominal pain SNOMED: 11997150 (2) Hip fracture ICD Codes: S72.009A - Fracture of unspecified part of neck of unspecified femur , initial encounter for closed fracture SNOMED: 009436162 (3) Diabetes mellitus type II, uncontrolled ICD Codes: E11.65 - Type 2 diabetes mellitus with hyperglycemia SNOMED: 02171326, 179223876 (4) DKA (diabetic ketoacidoses) ICD Codes: E11.10 - Type 2 diabetes mellitus with ketoacidosis without coma SNOMED: 138056392, 35122035 (5) Hypotension ICD Codes: I95.9 - Hypotension, unspecified SNOMED: 86886085, 67801226 (6) UTI (urinary tract infection) ICD Codes: N39.0 - Urinary tract infection, site not specified SNOMED: 51018716, 56220605 (7) Failure to thrive SNOMED: 34648130, 90198752 (8) Hyperglycemia ICD Codes: R73.9 - Hyperglycemia, unspecified SNOMED: 48900784 (9) Dehydration ICD Codes: E86.0 - Dehydration SNOMED: 63452025, 16258615 (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 ICD Codes: Z86.39 - Personal history of other endocrine, nutritional and metabolic disease SNOMED: 198767694 (11) HTN (hypertension) ICD Codes: I10 - Essential (primary) hypertension SNOMED: 46247056 (12) Cerebral vascular disease ICD Codes: I67.9 - Cerebrovascular disease, unspecified SNOMED: 91094077 Status: stable, progressing Assessment/Plan: stable encourage po- improving family to bring food in from home monitor bs- labile due to inconsistent po intake diabetes rx per endo dvt/stress ulcer prophylaxis iv mag replacement repeat cxr noted dc planning this weekend if BS stable Subjective ROS Limited/Unobtainable: No Constitutional: Reports: malaise, weakness HEENT: Reports: no symptoms Cardiovascular: Reports: no symptoms Respiratory: Reports: no symptoms Gastrointestinal/Abdominal: Reports: no symptoms Genitourinary: Reports: no symptoms Neurologic/Psychiatric: Reports: anxiety, depressed Endocrine: Reports: no symptoms Hematologic/Lymphatic: Reports: no symptoms Allergies: Coded Allergies: NO KNOWN ALLERGIES (Unverified Allergy, Unknown, 05/04/18) All Systems: reviewed and negative except above Subjective per staff eating better. 75% this arternoon. no chest pain or sob. on po abx. no fever or chills. blood sugars up again Objective Last 24 Hour Vital Signs Date Time Temp Pulse Resp B/P (MAP) Pulse Ox O2 Delivery O2 Flow Rate FiO2 06/18/19 12:00 97.9 90 18 149/84 (105) 96 06/18/19 09:00 Room Air 06/18/19 08:00 97.3 82 18 126/64 (84) 97 06/18/19 04:00 97.2 86 18 128/66 (86) 96 06/18/19 00:00 97.7 85 18 120/55 (76) 97 06/17/19 21:00 Room Air 06/17/19 20:00 97.4 70 16 111/60 (77) 95 Intake and Output 06/17/19 06/18/19 19:00 07:00 Output Total 1800 ml 900 ml Balance -1800 ml -900 ml Output Urine Total 1800 ml 900 ml Height (Feet): 5 Height (Inches): 8.00 Weight (Pounds): 93 Objective General Appearance: WD/WN, alert, cachetic, thin Neck: supple Cardiovascular: normal rate, regular rhythm Respiratory/Chest: chest wall non-tender, lungs clear, normal breath sounds, no respiratory distress, no accessory muscle use Abdomen: normal bowel sounds, non tender, soft, no organomegaly, no mass Edema: no edema noted Arm (L), no edema noted Arm (R), no edema noted Leg (L), no edema noted Leg (R), no edema noted Pedal (L), no edema noted Pedal (R), no edema noted Generalized Neurologic: alert David Garcia MD Jun 18, 2019 16:28
--- NOTE | 2019-06-18 17:02 | General Progress Note ---
Assessment/Plan Problem List: (1) Diabetes mellitus ICD Codes: E11.9 - Type 2 diabetes mellitus without complications SNOMED: 71350174 (2) Hypertension ICD Codes: I10 - Essential (primary) hypertension SNOMED: 45099118 (3) Failure to thrive SNOMED: 37392882, 89411375 (4) DKA (diabetic ketoacidoses) ICD Codes: E11.10 - Type 2 diabetes mellitus with ketoacidosis without coma SNOMED: 904803109, 95269062 (5) UTI (urinary tract infection) ICD Codes: N39.0 - Urinary tract infection, site not specified SNOMED: 27963122, 36570430 Status: stable, progressing Assessment/Plan: increase Levemir to 5 units bid increase Novolog to 3 units ac tid - hold if not eating Novolog sliding scale ac / hs sensitive scale Subjective ROS Limited/Unobtainable: Yes Allergies: Coded Allergies: NO KNOWN ALLERGIES (Unverified Allergy, Unknown, 05/04/18) Subjective events noted elevated glucose today eating better - food from home Item Value Date Time Bedside Blood Glucose 452 mg/dl H 06/18/19 1154 Bedside Blood Glucose 302 mg/dl H 06/18/19 0933 Objective Last 24 Hour Vital Signs Date Time Temp Pulse Resp B/P (MAP) Pulse Ox O2 Delivery O2 Flow Rate FiO2 06/18/19 12:00 97.9 90 18 149/84 (105) 96 06/18/19 09:00 Room Air 06/18/19 08:00 97.3 82 18 126/64 (84) 97 06/18/19 04:00 97.2 86 18 128/66 (86) 96 06/18/19 00:00 97.7 85 18 120/55 (76) 97 06/17/19 21:00 Room Air 06/17/19 20:00 97.4 70 16 111/60 (77) 95 Intake and Output 06/17/19 06/18/19 19:00 07:00 Output Total 1800 ml 900 ml Balance -1800 ml -900 ml Output Urine Total 1800 ml 900 ml Height (Feet): 5 Height (Inches): 8.00 Weight (Pounds): 93 General Appearance: no apparent distress Neck: normal alignment Cardiovascular: normal rate Respiratory/Chest: lungs clear Abdomen: normal bowel sounds Objective Current Medications Medications (Trade) Dose Ordered Sig/Frankie Route PRN Reason Start Time Stop Time Status Last Admin Dose Admin Acetaminophen (Tylenol) 650 mg Q4H PRN ORAL Mild Pain/Temp > 100.5 06/17/19 00:30 07/09/19 20:29 Dextrose (Dextrose 50%) 25 ml Q30M PRN IV Hypoglycemia 06/16/19 22:45 07/16/19 06:44 Dextrose (Dextrose 50%) 50 ml Q30M PRN IV Hypoglycemia 06/16/19 22:45 07/16/19 06:44 Fluconazole (Diflucan) 200 mg Q24H ORAL 06/17/19 20:00 06/20/19 19:59 06/17/19 21:54 Heparin Sodium (Porcine) (Heparin 5000 units/ml) 5,000 units EVERY 12 HOURS SUBQ 06/17/19 09:00 07/10/19 08:59 06/18/19 09:33 Insulin Aspart (NovoLOG) BEFORE MEALS AND HS SUBQ 06/17/19 06:30 07/16/19 11:29 06/18/19 11:54 Insulin Aspart (NovoLOG) 2 units NOVOTIAC SUBQ 06/17/19 11:50 07/17/19 11:49 06/18/19 11:53 Insulin Detemir (Levemir) 3 units EVERY 12 HOURS SUBQ 06/17/19 09:00 07/10/19 20:59 06/18/19 09:33 Ondansetron HCl (Zofran) 4 mg Q6H PRN IVP Nausea & Vomiting 06/17/19 02:30 07/10/19 20:29 Pantoprazole (Protonix) 40 mg DAILY IVP 06/17/19 09:00 07/12/19 08:59 06/18/19 09:31 Tamsulosin HCl (Flomax) 0.4 mg BEDTIME ORAL 06/17/19 21:00 07/10/19 20:59 06/17/19 21:53 Luis Gonzalez MD Jun 18, 2019 17:02
--- NOTE | 2019-06-18 19:42 | NUR ---
HAND-OFF: Report given to AL Early.
--- NOTE | 2019-06-18 19:47 | NUR ---
NURSE NOTES: Pt received in bed, head of bed elevated, able to make needs known, call light within reach, no c/o pain or signs of distress, will continue to monitor.
--- NOTE | 2019-06-18 19:54 | NUR ---
CASE MANAGEMENT: REVIEW SI: DM . UTI . DKA T 97.3 HR 82 RR 18 BP 149/84 ST 96% ROOM AIR BEDSIDE GLUCOSE 285 CXR - RIGHT INFRAHILAR ATELECTASIS IS: NOVOLOG SUBQ Q12HR LEVEMIR SUBQ Q12HR DIFLUCAN PO Q24HR PROTONIX IV QD HEPARIN SUBQ Q12HR MED/SURG STATUS DCP:PATIENT IS FROM [facility]
[2019-06-18 20:00] VITALS: BP 113/53
[2019-06-18] MEDS: Tamsulosin 0.4mg cap ORAL SCH (20:49)
[2019-06-18] MEDS: Fluconazole 100mg tab ORAL SCH (20:50)
--- NOTE | 2019-06-18 21:20 | General Progress Note ---
Assessment/Plan Status: stable, progressing Assessment/Plan: Assessment - DM with DKA - h/o recent oral thrush - poor po, odynophagia - family decline EGD at this time - h/o CVA - AMS / Delirium - hip fx Recommendations - po as tolerated - supplement shakes PO - Rx DKA - No EGD at this time per family decision Subjective Allergies: Coded Allergies: NO KNOWN ALLERGIES (Unverified Allergy, Unknown, 05/04/18) Subjective above noted NAD poor PO - 30-40 % range per RN Objective Last 24 Hour Vital Signs Date Time Temp Pulse Resp B/P (MAP) Pulse Ox O2 Delivery O2 Flow Rate FiO2 06/18/19 16:00 98.6 92 18 123/62 (82) 98 06/18/19 12:00 97.9 90 18 149/84 (105) 96 06/18/19 09:00 Room Air 06/18/19 08:00 97.3 82 18 126/64 (84) 97 06/18/19 04:00 97.2 86 18 128/66 (86) 96 06/18/19 00:00 97.7 85 18 120/55 (76) 97 Intake and Output 06/17/19 06/18/19 19:00 07:00 Output Total 1800 ml 900 ml Balance -1800 ml -900 ml Output Urine Total 1800 ml 900 ml Height (Feet): 5 Height (Inches): 8.00 Weight (Pounds): 93 Objective Thin elderly man NCAT supple CTA RR abd soft no edema Juany Candelaria MD Jun 18, 2019 21:19
[2019-06-19] VITALS: BP 105/53
[2019-06-19 04:00] VITALS: BP 146/87
[2019-06-19] MEDS: NovoLOG Insulin Flexpen SUBQ SCH ×7 (06:30→20:46)
--- NOTE | 2019-06-19 06:50 | NUR ---
NURSE NOTES: Dr Gonzalez aware of pt initial BS 59 after 2 cups of orange juice BS 91...order to give scheduled dose of 3 units of Novolog if the patient eats breakfast.
--- NOTE | 2019-06-19 07:43 | NUR ---
HAND-OFF: Report given to AL Thompson.
[2019-06-19 08:00] VITALS: BP 114/61
--- NOTE | 2019-06-19 08:10 | NUR ---
NURSE NOTES: Received report from Nneka/RN, Patient is AO x1, Asleep, lying semi-montano, resting comfortably. On 2L nasal canula. No acute distress/SOB noted,IV site patent, no bleeding or infiltration noted. Side rails up x3. Bed in lowest position and locked. call light within reach. Will continue plan of care.
--- NOTE | 2019-06-19 08:14 | General Progress Note ---
Assessment/Plan Status: stable, progressing Assessment/Plan: Assessment/Plan Status: stable, progressing Assessment/Plan: Assessment - DM with DKA - h/o recent oral thrush - poor po, odynophagia - family decline EGD at this time - h/o CVA - AMS / Delirium - hip fx Recommendations - po as tolerated - supplement shakes PO - Rx DKA - No EGD at this time per family decision Subjective ROS Limited/Unobtainable: No Allergies: Coded Allergies: NO KNOWN ALLERGIES (Unverified Allergy, Unknown, 05/04/18) Objective Last 24 Hour Vital Signs Date Time Temp Pulse Resp B/P (MAP) Pulse Ox O2 Delivery O2 Flow Rate FiO2 06/19/19 04:00 97.9 71 20 146/87 (106) 98 06/19/19 00:00 97.8 79 20 105/53 (70) 96 06/18/19 21:00 Room Air 06/18/19 20:00 98.9 80 20 113/53 (73) 95 06/18/19 16:00 98.6 92 18 123/62 (82) 98 06/18/19 12:00 97.9 90 18 149/84 (105) 96 06/18/19 09:00 Room Air Intake and Output 06/18/19 06/19/19 19:00 07:00 Intake Total 480 ml 60 ml Output Total 1350 ml 250 ml Balance -870 ml -190 ml Intake Oral 480 ml 60 ml Output Urine Total 1350 ml 250 ml # Voids 3 Height (Feet): 5 Height (Inches): 8.00 Weight (Pounds): 98 General Appearance: no apparent distress EENT: normal ENT inspection Neck: supple Cardiovascular: normal rate Respiratory/Chest: decreased breath sounds Abdomen: normal bowel sounds, non tender, soft Extremities: non-tender Fredrick Ott MD Jun 19, 2019 08:14
[2019-06-19 09:05] LABS: ALANINE AMINOTRANSFERASE 89 U/L (12-78); ALBUMIN 1.8 G/DL (3.4-5.0); ALBUMIN/GLOBULIN RATIO 0.6 (1.0-2.7); ALKALINE PHOSPHATASE 133 U/L (46-116); ANION GAP 7 mmol/L (5-15); ASPARTATE AMINO TRANSFERASE 73 U/L (15-37); BILIRUBIN,TOTAL 0.2 MG/DL (0.2-1.0); BLOOD UREA NITROGEN 8 mg/dL (7-18); CALCIUM 8.9 MG/DL (8.5-10.1); CARBON DIOXIDE 26 MMOL/L (21-32); CHLORIDE 108 MMOL/L (98-107); CREATININE 0.7 MG/DL (0.55-1.30); POTASSIUM 3.9 MMOL/L (3.5-5.1); SODIUM 141 MMOL/L (136-145)
[2019-06-19] MEDS: Pantoprazole Inj IVP SCH (09:18)
[2019-06-19] MEDS: Heparin 5000 units/ml inj SUBQ SCH ×2 (09:19→20:40)
[2019-06-19] MEDS: Levemir Flexpen SUBQ SCH ×2 (09:20→20:46)
--- NOTE | 2019-06-19 09:24 | General Progress Note ---
Assessment/Plan Problem List: (1) Diabetes mellitus ICD Codes: E11.9 - Type 2 diabetes mellitus without complications SNOMED: 77974418 (2) Hypertension ICD Codes: I10 - Essential (primary) hypertension SNOMED: 98088296 (3) Failure to thrive SNOMED: 45580024, 70906004 (4) DKA (diabetic ketoacidoses) ICD Codes: E11.10 - Type 2 diabetes mellitus with ketoacidosis without coma SNOMED: 028154257, 00217232 (5) UTI (urinary tract infection) ICD Codes: N39.0 - Urinary tract infection, site not specified SNOMED: 50059561, 83704588 Status: stable, progressing Assessment/Plan: reduce Levemir to 4 units bid continue Novolog 3 units ac tid - hold if not eating Novolog sliding scale ac / hs sensitive scale Subjective Allergies: Coded Allergies: NO KNOWN ALLERGIES (Unverified Allergy, Unknown, 05/04/18) All Systems: reviewed and negative except above Subjective events noted glucose elevated last night - insulin dose adjusted - now improved Item Value Date Time Bedside Blood Glucose 91 mg/dl 06/19/19 0920 Bedside Blood Glucose 91 mg/dl 06/19/19 0630 Bedside Blood Glucose 228 mg/dl H 06/18/19 2100 Bedside Blood Glucose 285 mg/dl H 06/18/19 1713 Bedside Blood Glucose 452 mg/dl H 06/18/19 1154 Bedside Blood Glucose 302 mg/dl H 06/18/19 0933 Bedside Blood Glucose 302 mg/dl H 06/18/19 0650 Objective Last 24 Hour Vital Signs Date Time Temp Pulse Resp B/P (MAP) Pulse Ox O2 Delivery O2 Flow Rate FiO2 06/19/19 08:00 97.0 76 16 114/61 (78) 97 06/19/19 04:00 97.9 71 20 146/87 (106) 98 06/19/19 00:00 97.8 79 20 105/53 (70) 96 06/18/19 21:00 Room Air 06/18/19 20:00 98.9 80 20 113/53 (73) 95 06/18/19 16:00 98.6 92 18 123/62 (82) 98 06/18/19 12:00 97.9 90 18 149/84 (105) 96 Intake and Output 06/18/19 06/19/19 19:00 07:00 Intake Total 480 ml 60 ml Output Total 1350 ml 250 ml Balance -870 ml -190 ml Intake Oral 480 ml 60 ml Output Urine Total 1350 ml 250 ml # Voids 3 Laboratory Tests 06/19/19 05:32: Sodium Level 141, Potassium Level 3.9, Chloride Level 108H, Carbon Dioxide Level 26, Anion Gap 7, Blood Urea Nitrogen 8, Creatinine 0.7, Estimat Glomerular Filtration Rate , Glucose Level 43L, Calcium Level 8.9, Magnesium Level 1.7L, Total Bilirubin 0.2, Aspartate Amino Transf (AST/SGOT) 73H, Alanine Aminotransferase (ALT/SGPT) 89H, Alkaline Phosphatase 133H, Total Protein 4.9L, Albumin 1.8L, Globulin 3.1, Albumin/Globulin Ratio 0.6L Height (Feet): 5 Height (Inches): 8.00 Weight (Pounds): 98 General Appearance: no apparent distress Neck: normal alignment Cardiovascular: normal rate Respiratory/Chest: lungs clear Abdomen: normal bowel sounds Pelvis: normal external exam Objective Current Medications Medications (Trade) Dose Ordered Sig/Frankie Route PRN Reason Start Time Stop Time Status Last Admin Dose Admin Acetaminophen (Tylenol) 650 mg Q4H PRN ORAL Mild Pain/Temp > 100.5 06/17/19 00:30 07/09/19 20:29 Dextrose (Dextrose 50%) 25 ml Q30M PRN IV Hypoglycemia 06/16/19 22:45 07/16/19 06:44 Dextrose (Dextrose 50%) 50 ml Q30M PRN IV Hypoglycemia 06/16/19 22:45 07/16/19 06:44 Fluconazole (Diflucan) 200 mg Q24H ORAL 06/17/19 20:00 06/20/19 19:59 06/18/19 20:50 Heparin Sodium (Porcine) (Heparin 5000 units/ml) 5,000 units EVERY 12 HOURS SUBQ 06/17/19 09:00 07/10/19 08:59 06/19/19 09:19 Insulin Aspart (NovoLOG) BEFORE MEALS AND HS SUBQ 06/17/19 06:30 07/16/19 11:29 06/18/19 20:54 Insulin Aspart (NovoLOG) 3 units NOVOTIAC SUBQ 06/19/19 06:30 07/17/19 11:49 Insulin Detemir (Levemir) 5 units EVERY 12 HOURS SUBQ 06/18/19 21:00 07/10/19 20:59 06/19/19 09:20 Ondansetron HCl (Zofran) 4 mg Q6H PRN IVP Nausea & Vomiting 06/17/19 02:30 07/10/19 20:29 06/19/19 00:36 Pantoprazole (Protonix) 40 mg DAILY IVP 06/17/19 09:00 07/12/19 08:59 06/19/19 09:18 Tamsulosin HCl (Flomax) 0.4 mg BEDTIME ORAL 06/17/19 21:00 07/10/19 20:59 06/18/19 20:49 Luis Gonzalez MD Jun 19, 2019 09:24
[2019-06-19 12:00] VITALS: BP 130/67
--- NOTE | 2019-06-19 13:19 | General Progress Note ---
Assessment/Plan Problem List: (1) Abdominal pain ICD Codes: R10.9 - Unspecified abdominal pain SNOMED: 41850272 (2) Hip fracture ICD Codes: S72.009A - Fracture of unspecified part of neck of unspecified femur , initial encounter for closed fracture SNOMED: 544728329 (3) Diabetes mellitus type II, uncontrolled ICD Codes: E11.65 - Type 2 diabetes mellitus with hyperglycemia SNOMED: 81989655, 363109289 (4) DKA (diabetic ketoacidoses) ICD Codes: E11.10 - Type 2 diabetes mellitus with ketoacidosis without coma SNOMED: 477547271, 40761926 (5) Hypotension ICD Codes: I95.9 - Hypotension, unspecified SNOMED: 72469617, 24216489 (6) UTI (urinary tract infection) ICD Codes: N39.0 - Urinary tract infection, site not specified SNOMED: 06730854, 49693183 (7) Failure to thrive SNOMED: 54400051, 13098576 (8) Hyperglycemia ICD Codes: R73.9 - Hyperglycemia, unspecified SNOMED: 83669472 (9) Dehydration ICD Codes: E86.0 - Dehydration SNOMED: 38598798, 77250757 (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 ICD Codes: Z86.39 - Personal history of other endocrine, nutritional and metabolic disease SNOMED: 495289448 (11) HTN (hypertension) ICD Codes: I10 - Essential (primary) hypertension SNOMED: 32388769 (12) Cerebral vascular disease ICD Codes: I67.9 - Cerebrovascular disease, unspecified SNOMED: 04332029 Status: stable, progressing Assessment/Plan: stable encourage po- improving family to bring food in from home monitor bs- labile due to inconsistent po intake diabetes rx per endo dvt/stress ulcer prophylaxis iv mag replacement dc planning friday to Subjective ROS Limited/Unobtainable: No Constitutional: Reports: malaise, weakness HEENT: Reports: no symptoms Cardiovascular: Reports: no symptoms Respiratory: Reports: no symptoms Gastrointestinal/Abdominal: Reports: no symptoms Genitourinary: Reports: no symptoms Neurologic/Psychiatric: Reports: no symptoms Endocrine: Reports: no symptoms Hematologic/Lymphatic: Reports: no symptoms Allergies: Coded Allergies: NO KNOWN ALLERGIES (Unverified Allergy, Unknown, 05/04/18) All Systems: reviewed and negative except above Subjective no events. more alert. eating better. BS better controlled. denies pain or sob. Objective Last 24 Hour Vital Signs Date Time Temp Pulse Resp B/P (MAP) Pulse Ox O2 Delivery O2 Flow Rate FiO2 06/19/19 09:00 Room Air 06/19/19 08:00 97.0 76 16 114/61 (78) 97 06/19/19 04:00 97.9 71 20 146/87 (106) 98 06/19/19 00:00 97.8 79 20 105/53 (70) 96 06/18/19 21:00 Room Air 06/18/19 20:00 98.9 80 20 113/53 (73) 95 06/18/19 16:00 98.6 92 18 123/62 (82) 98 Intake and Output 06/18/19 06/19/19 19:00 07:00 Intake Total 480 ml 60 ml Output Total 1350 ml 250 ml Balance -870 ml -190 ml Intake Oral 480 ml 60 ml Output Urine Total 1350 ml 250 ml # Voids 3 Laboratory Tests 06/19/19 05:32: Sodium Level 141, Potassium Level 3.9, Chloride Level 108H, Carbon Dioxide Level 26, Anion Gap 7, Blood Urea Nitrogen 8, Creatinine 0.7, Estimat Glomerular Filtration Rate , Glucose Level 43L, Calcium Level 8.9, Magnesium Level 1.7L, Total Bilirubin 0.2, Aspartate Amino Transf (AST/SGOT) 73H, Alanine Aminotransferase (ALT/SGPT) 89H, Alkaline Phosphatase 133H, Total Protein 4.9L, Albumin 1.8L, Globulin 3.1, Albumin/Globulin Ratio 0.6L Height (Feet): 5 Height (Inches): 8.00 Weight (Pounds): 98 Objective General Appearance: WD/WN, alert, cachetic, thin Neck: supple Cardiovascular: normal rate, regular rhythm Respiratory/Chest: chest wall non-tender, lungs clear, normal breath sounds, no respiratory distress, no accessory muscle use Abdomen: normal bowel sounds, non tender, soft, no organomegaly, no mass Edema: no edema noted Arm (L), no edema noted Arm (R), no edema noted Leg (L), no edema noted Leg (R), no edema noted Pedal (L), no edema noted Pedal (R), no edema noted Generalized Neurologic: alert Uomoto,David M. MD Jun 19, 2019 13:19
[2019-06-19 16:00] VITALS: BP 137/68
--- NOTE | 2019-06-19 19:29 | NUR ---
NURSE NOTES: Pt received in bed asleep, head of bed elevated, no signs of distress, IV in place saline locked, condom catheter on draining yellow urine, will continue to monitor.
--- NOTE | 2019-06-19 19:46 | NUR ---
HAND-OFF: Report given to Nneka/RN, Patient is in stable condition. Endorsed plan of care.
[2019-06-19 20:00] VITALS: BP 124/66
[2019-06-19] MEDS: Fluconazole 100mg tab ORAL SCH (20:37)
[2019-06-19] MEDS: Tamsulosin 0.4mg cap ORAL SCH (20:39)
[2019-06-20] VITALS: BP 92/47
[2019-06-20 04:00] VITALS: BP 129/56
--- NOTE | 2019-06-20 05:47 | General Progress Note ---
Assessment/Plan Status: stable, progressing Assessment/Plan: Assessment/Plan Status: stable, progressing Assessment/Plan: Assessment - DM with DKA - h/o recent oral thrush - poor po, odynophagia - family decline EGD at this time - h/o CVA - AMS / Delirium - hip fx Recommendations - po as tolerated - supplement shakes PO - Rx DKA - No EGD at this time per family decision Subjective ROS Limited/Unobtainable: No Allergies: Coded Allergies: NO KNOWN ALLERGIES (Unverified Allergy, Unknown, 05/04/18) Objective Last 24 Hour Vital Signs Date Time Temp Pulse Resp B/P (MAP) Pulse Ox O2 Delivery O2 Flow Rate FiO2 06/20/19 04:00 96.9 79 20 129/56 (80) 95 06/20/19 00:00 97.4 86 19 92/47 (62) 96 06/19/19 21:00 Room Air 06/19/19 20:00 97.7 82 19 124/66 (85) 100 06/19/19 16:00 96.8 78 18 137/68 (91) 96 06/19/19 12:00 97.5 80 17 130/67 (88) 97 06/19/19 09:00 Room Air 06/19/19 08:00 97.0 76 16 114/61 (78) 97 Intake and Output 06/19/19 06/20/19 19:00 07:00 Output Total 600 ml Balance -600 ml Output Urine Total 600 ml Height (Feet): 5 Height (Inches): 8.00 Weight (Pounds): 98 General Appearance: no apparent distress EENT: normal ENT inspection Neck: supple Cardiovascular: normal rate Respiratory/Chest: decreased breath sounds Abdomen: normal bowel sounds, non tender, soft Extremities: non-tender Fredrick Ott MD Jun 20, 2019 05:47
[2019-06-20] MEDS: NovoLOG Insulin Flexpen SUBQ SCH ×7 (06:30→21:29)
--- NOTE | 2019-06-20 06:33 | NUR ---
NURSE NOTES: Pt BS 63, was given 1 cup of orange juice and BS 84. Left voicemail for Dr. Gonzalez, waiting callback.
--- NOTE | 2019-06-20 06:42 | NUR ---
NURSE NOTES: Dr. Gonzalez called, stating if pt eats breakfast this morning, to give standing order of 3 units of novolog. will endorse to AM nurse
--- NOTE | 2019-06-20 07:15 | NUR ---
HAND-OFF: Report given to AL Light. Endorsed about giving 3 units of Novolog if pt eats breakfast.
--- NOTE | 2019-06-20 07:26 | General Progress Note ---
Assessment/Plan Problem List: (1) Diabetes mellitus ICD Codes: E11.9 - Type 2 diabetes mellitus without complications SNOMED: 70898464 (2) Hypertension ICD Codes: I10 - Essential (primary) hypertension SNOMED: 37018911 (3) Failure to thrive SNOMED: 60082503, 37263827 (4) DKA (diabetic ketoacidoses) ICD Codes: E11.10 - Type 2 diabetes mellitus with ketoacidosis without coma SNOMED: 640995666, 87791272 (5) UTI (urinary tract infection) ICD Codes: N39.0 - Urinary tract infection, site not specified SNOMED: 15319774, 92100516 Status: stable, progressing Assessment/Plan: continue Levemir 4 units bid continue Novolog 3 units ac tid - hold if not eating Novolog sliding scale ac / hs sensitive scale Subjective ROS Limited/Unobtainable: Yes Allergies: Coded Allergies: NO KNOWN ALLERGIES (Unverified Allergy, Unknown, 05/04/18) Subjective events noted glucose values improved without hypoglycemia Item Value Date Time Bedside Blood Glucose 84 mg/dl 06/20/19 0620 Bedside Blood Glucose 148 mg/dl H 06/19/19 2100 Bedside Blood Glucose 316 mg/dl H 06/19/19 1644 Bedside Blood Glucose 125 mg/dl H 06/19/19 1158 Bedside Blood Glucose 71 mg/dl 06/19/19 0630 Objective Last 24 Hour Vital Signs Date Time Temp Pulse Resp B/P (MAP) Pulse Ox O2 Delivery O2 Flow Rate FiO2 06/20/19 04:00 96.9 79 20 129/56 (80) 95 06/20/19 00:00 97.4 86 19 92/47 (62) 96 06/19/19 21:00 Room Air 06/19/19 20:00 97.7 82 19 124/66 (85) 100 06/19/19 16:00 96.8 78 18 137/68 (91) 96 06/19/19 12:00 97.5 80 17 130/67 (88) 97 06/19/19 09:00 Room Air 06/19/19 08:00 97.0 76 16 114/61 (78) 97 Intake and Output 06/19/19 06/20/19 19:00 07:00 Intake Total 60 ml Output Total 600 ml 50 ml Balance -600 ml 10 ml Intake Oral 60 ml Output Urine Total 600 ml Emesis 50 ml # Voids 2 # Bowel Movements 2 Height (Feet): 5 Height (Inches): 8.00 Weight (Pounds): 97 General Appearance: no apparent distress Neck: normal alignment Respiratory/Chest: lungs clear Abdomen: non tender Pelvis: normal external exam Objective Current Medications Medications (Trade) Dose Ordered Sig/Frankie Route PRN Reason Start Time Stop Time Status Last Admin Dose Admin Acetaminophen (Tylenol) 650 mg Q4H PRN ORAL Mild Pain/Temp > 100.5 06/17/19 00:30 07/09/19 20:29 Dextrose (Dextrose 50%) 25 ml Q30M PRN IV Hypoglycemia 06/16/19 22:45 07/16/19 06:44 Dextrose (Dextrose 50%) 50 ml Q30M PRN IV Hypoglycemia 06/16/19 22:45 07/16/19 06:44 Fluconazole (Diflucan) 200 mg Q24H ORAL 06/17/19 20:00 06/20/19 19:59 06/19/19 20:37 Heparin Sodium (Porcine) (Heparin 5000 units/ml) 5,000 units EVERY 12 HOURS SUBQ 06/17/19 09:00 07/10/19 08:59 06/19/19 20:40 Insulin Aspart (NovoLOG) BEFORE MEALS AND HS SUBQ 06/17/19 06:30 07/16/19 11:29 06/19/19 20:46 Insulin Aspart (NovoLOG) 3 units NOVOTIAC SUBQ 06/19/19 06:30 07/17/19 11:49 06/19/19 16:44 Insulin Detemir (Levemir) 4 units EVERY 12 HOURS SUBQ 06/19/19 21:00 07/10/19 20:59 06/19/19 20:46 Ondansetron HCl (Zofran) 4 mg Q6H PRN IVP Nausea & Vomiting 06/17/19 02:30 07/10/19 20:29 06/19/19 00:36 Pantoprazole (Protonix) 40 mg DAILY IVP 06/17/19 09:00 07/12/19 08:59 06/19/19 09:18 Tamsulosin HCl (Flomax) 0.4 mg BEDTIME ORAL 06/17/19 21:00 07/10/19 20:59 06/19/19 20:39 Luis Gonzalez MD Jun 20, 2019 07:25
--- NOTE | 2019-06-20 07:30 | NUR ---
NURSE NOTES: not given 630am novolog as pt accepted only 10% of his breakfast, and BS 84.
[2019-06-20 08:00] VITALS: BP 112/54
--- NOTE | 2019-06-20 08:02 | NUR ---
NURSE NOTES: received patient in bed, no breakfast accepted as of yet. No complaint of pain or discomfort. RFA IV access, intact. On condom cath. Bed locked at the lowest position possible, call light within easy, siderails up x2. Will continue to monitor pt and follow up with the plan of care.
[2019-06-20] MEDS: Pantoprazole Inj IVP SCH (08:30)
[2019-06-20] MEDS: Levemir Flexpen SUBQ SCH ×2 (08:32→21:30)
[2019-06-20] MEDS: Heparin 5000 units/ml inj SUBQ SCH ×2 (08:32→21:27)
--- NOTE | 2019-06-20 08:32 | NUR ---
NURSE NOTES: not given Levemir as blood sugar = 84, lower than parameters.
--- NOTE | 2019-06-20 11:26 | General Progress Note ---
Assessment/Plan Problem List: (1) Abdominal pain ICD Codes: R10.9 - Unspecified abdominal pain SNOMED: 38692393 (2) Hip fracture ICD Codes: S72.009A - Fracture of unspecified part of neck of unspecified femur , initial encounter for closed fracture SNOMED: 402157291 (3) Diabetes mellitus type II, uncontrolled ICD Codes: E11.65 - Type 2 diabetes mellitus with hyperglycemia SNOMED: 61759383, 321009447 (4) DKA (diabetic ketoacidoses) ICD Codes: E11.10 - Type 2 diabetes mellitus with ketoacidosis without coma SNOMED: 332332421, 20583119 (5) Hypotension ICD Codes: I95.9 - Hypotension, unspecified SNOMED: 65967047, 01433300 (6) UTI (urinary tract infection) ICD Codes: N39.0 - Urinary tract infection, site not specified SNOMED: 71933519, 54069233 (7) Failure to thrive SNOMED: 51320893, 35573181 (8) Hyperglycemia ICD Codes: R73.9 - Hyperglycemia, unspecified SNOMED: 86461791 (9) Dehydration ICD Codes: E86.0 - Dehydration SNOMED: 40617504, 13898706 (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 ICD Codes: Z86.39 - Personal history of other endocrine, nutritional and metabolic disease SNOMED: 885654560 (11) HTN (hypertension) ICD Codes: I10 - Essential (primary) hypertension SNOMED: 60262588 (12) Cerebral vascular disease ICD Codes: I67.9 - Cerebrovascular disease, unspecified SNOMED: 52028374 Status: stable, progressing Assessment/Plan: stable encourage po- improving monitor bs diabetes rx per endo dvt/stress ulcer prophylaxis iv mag replacement dc planning friday to Subjective ROS Limited/Unobtainable: No Constitutional: Reports: weakness HEENT: Reports: no symptoms Cardiovascular: Reports: no symptoms Respiratory: Reports: no symptoms Gastrointestinal/Abdominal: Reports: no symptoms Genitourinary: Reports: no symptoms Neurologic/Psychiatric: Reports: anxiety, depressed Endocrine: Reports: no symptoms Hematologic/Lymphatic: Reports: no symptoms Allergies: Coded Allergies: NO KNOWN ALLERGIES (Unverified Allergy, Unknown, 05/04/18) All Systems: reviewed and negative except above Subjective no events. eating breakfast. no fever or chills. denies pain. no sob Objective Last 24 Hour Vital Signs Date Time Temp Pulse Resp B/P (MAP) Pulse Ox O2 Delivery O2 Flow Rate FiO2 06/20/19 09:00 Room Air 06/20/19 08:00 97.9 72 16 112/54 (73) 97 06/20/19 04:00 96.9 79 20 129/56 (80) 95 06/20/19 00:00 97.4 86 19 92/47 (62) 96 06/19/19 21:00 Room Air 06/19/19 20:00 97.7 82 19 124/66 (85) 100 06/19/19 16:00 96.8 78 18 137/68 (91) 96 06/19/19 12:00 97.5 80 17 130/67 (88) 97 Intake and Output 06/19/19 06/20/19 19:00 07:00 Intake Total 60 ml Output Total 600 ml 50 ml Balance -600 ml 10 ml Intake Oral 60 ml Output Urine Total 600 ml Emesis 50 ml # Voids 2 # Bowel Movements 2 Height (Feet): 5 Height (Inches): 8.00 Weight (Pounds): 97 Objective General Appearance: WD/WN, alert, cachetic, thin Neck: supple Cardiovascular: normal rate, regular rhythm Respiratory/Chest: chest wall non-tender, lungs clear, normal breath sounds, no respiratory distress, no accessory muscle use Abdomen: normal bowel sounds, non tender, soft, no organomegaly, no mass Edema: no edema noted Arm (L), no edema noted Arm (R), no edema noted Leg (L), no edema noted Leg (R), no edema noted Pedal (L), no edema noted Pedal (R), no edema noted Generalized Neurologic: alert David Garcia MD Jun 20, 2019 11:26
[2019-06-20 12:00] VITALS: BP 116/60
--- NOTE | 2019-06-20 13:38 | NUR ---
NURSE NOTES: not given 3 additional units of Novolog as ordered, as pt accepted only 30% of his lunch. Given coverage for sliding scale.
--- NOTE | 2019-06-20 14:10 | Infectious Diseases Prog Note ---
Assessment/Plan Assessment/Plan IMPRESSION: Sepsis resolved [facility] [place] UTI. 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 Hypernatremia, Cachexia, Severe protein-calorie malnutrition. Atrial fibrillation Acute renal failure, resolved hepatic mass RECOMMENDATIONS: Discontinue fluconazole Waiting for placement Subjective ROS Limited/Unobtainable: Yes Constitutional: Reports: anorexia Respiratory: Reports: no symptoms Cardiovascular: Reports: no symptoms Gastrointestinal/Abdominal: Reports: no symptoms Musculoskeletal: Reports: pain Allergies: Coded Allergies: NO KNOWN ALLERGIES (Unverified Allergy, Unknown, 05/04/18) Objective Vital Signs Last 24 Hour Vital Signs Date Time Temp Pulse Resp B/P (MAP) Pulse Ox O2 Delivery O2 Flow Rate FiO2 06/20/19 12:00 98.2 77 17 116/60 (78) 98 06/20/19 09:00 Room Air 06/20/19 08:00 97.9 72 16 112/54 (73) 97 06/20/19 04:00 96.9 79 20 129/56 (80) 95 06/20/19 00:00 97.4 86 19 92/47 (62) 96 06/19/19 21:00 Room Air 06/19/19 20:00 97.7 82 19 124/66 (85) 100 06/19/19 16:00 96.8 78 18 137/68 (91) 96 Height (Feet): 5 Height (Inches): 8.00 Weight (Pounds): 97 General Appearance: cachetic HEENT: mucous membranes moist Respiratory/Chest: lungs clear Cardiovascular: normal rate Abdomen: soft, non tender Extremities: no edema Neurologic/Psychiatric: alert, responsive Musculoskeletal: atrophy Current Medications Medications (Trade) Dose Ordered Sig/Frankie Route PRN Reason Start Time Stop Time Status Last Admin Dose Admin Acetaminophen (Tylenol) 650 mg Q4H PRN ORAL Mild Pain/Temp > 100.5 06/17/19 00:30 07/09/19 20:29 Dextrose (Dextrose 50%) 25 ml Q30M PRN IV Hypoglycemia 06/16/19 22:45 07/16/19 06:44 Dextrose (Dextrose 50%) 50 ml Q30M PRN IV Hypoglycemia 06/16/19 22:45 07/16/19 06:44 Fluconazole (Diflucan) 200 mg Q24H ORAL 06/17/19 20:00 06/20/19 19:59 06/19/19 20:37 Heparin Sodium (Porcine) (Heparin 5000 units/ml) 5,000 units EVERY 12 HOURS SUBQ 06/17/19 09:00 07/10/19 08:59 06/20/19 08:32 Insulin Aspart (NovoLOG) BEFORE MEALS AND HS SUBQ 06/17/19 06:30 07/16/19 11:29 06/20/19 13:37 Insulin Aspart (NovoLOG) 3 units NOVOTIAC SUBQ 06/19/19 06:30 07/17/19 11:49 06/19/19 16:44 Insulin Detemir (Levemir) 4 units EVERY 12 HOURS SUBQ 06/19/19 21:00 07/10/19 20:59 06/19/19 20:46 Ondansetron HCl (Zofran) 4 mg Q6H PRN IVP Nausea & Vomiting 06/17/19 02:30 07/10/19 20:29 06/19/19 00:36 Pantoprazole (Protonix) 40 mg DAILY IVP 06/17/19 09:00 07/12/19 08:59 06/20/19 08:30 Tamsulosin HCl (Flomax) 0.4 mg BEDTIME ORAL 06/17/19 21:00 07/10/19 20:59 06/19/19 20:39 Kaveh Barreto MD Jun 20, 2019 14:10
[2019-06-20 16:00] VITALS: BP 132/70
--- NOTE | 2019-06-20 19:20 | NUR ---
HAND-OFF: Report given to AL Pizarro.
--- NOTE | 2019-06-20 19:54 | NUR ---
NURSE NOTES: Received patient resting in bed. AAO x 2, on room air. IV R FA 20 SL intact. Condom cath intact with draining yellow urine well. No acute distress noted at this time. Bed lowest position, locked, alarm on, call light within reach. Will continue to monitor.
[2019-06-20 20:00] VITALS: BP 132/66
[2019-06-20] MEDS: Tamsulosin 0.4mg cap ORAL SCH (21:26)
[2019-06-21] VITALS: BP 118/59
[2019-06-21 04:00] VITALS: BP 99/47
--- NOTE | 2019-06-21 06:12 | NUR ---
NURSE NOTES: BS 55 @ 0540. Dextrose 50ml given as ordered. 15min recheck BS 176 @0600. Left message Dr. Gonzalez.
[2019-06-21] MEDS: NovoLOG Insulin Flexpen SUBQ SCH ×7 (06:30→21:11)
--- NOTE | 2019-06-21 06:59 | NUR ---
NURSE NOTES: Additional dose 3unit insulin not given. Pt didn't finish >50% of breakfast and BS 55 @ 8289
--- NOTE | 2019-06-21 07:02 | General Progress Note ---
Assessment/Plan Problem List: (1) Diabetes mellitus ICD Codes: E11.9 - Type 2 diabetes mellitus without complications SNOMED: 09576858 (2) Hypertension ICD Codes: I10 - Essential (primary) hypertension SNOMED: 15741112 (3) Failure to thrive SNOMED: 34150774, 62914864 (4) DKA (diabetic ketoacidoses) ICD Codes: E11.10 - Type 2 diabetes mellitus with ketoacidosis without coma SNOMED: 775308440, 71705764 (5) UTI (urinary tract infection) ICD Codes: N39.0 - Urinary tract infection, site not specified SNOMED: 38292348, 00655794 Status: stable, progressing Assessment/Plan: reduce Levemir to 3 units bid continue Novolog 3 units ac tid - hold if not eating Novolog sliding scale ac / hs sensitive scale Subjective ROS Limited/Unobtainable: Yes Allergies: Coded Allergies: NO KNOWN ALLERGIES (Unverified Allergy, Unknown, 05/04/18) Subjective events noted fasting hypoglycemia Item Value Date Time Bedside Blood Glucose 55 mg/dl L 06/21/19 0630 Bedside Blood Glucose 287 mg/dl H 06/20/19 2130 Bedside Blood Glucose 248 mg/dl H 06/20/19 1801 Bedside Blood Glucose 312 mg/dl H 06/20/19 1337 Bedside Blood Glucose 84 mg/dl 06/20/19 0832 Bedside Blood Glucose 84 mg/dl 06/20/19 0630 Objective Last 24 Hour Vital Signs Date Time Temp Pulse Resp B/P (MAP) Pulse Ox O2 Delivery O2 Flow Rate FiO2 06/21/19 04:00 96.8 78 19 99/47 (64) 96 06/21/19 00:00 97.5 77 20 118/59 (78) 96 06/20/19 21:00 Room Air 06/20/19 20:00 98.1 79 19 132/66 (88) 98 06/20/19 16:00 97.4 87 17 132/70 (90) 98 06/20/19 12:00 98.2 77 17 116/60 (78) 98 06/20/19 09:00 Room Air 06/20/19 08:00 97.9 72 16 112/54 (73) 97 Intake and Output 06/20/19 06/21/19 19:00 07:00 Intake Total 480 ml 240 ml Output Total 700 ml 750 ml Balance -220 ml -510 ml Intake Oral 480 ml 240 ml Output Urine Total 700 ml 700 ml Emesis 50 ml # Voids 2 # Bowel Movements 1 1 Height (Feet): 5 Height (Inches): 8.00 Weight (Pounds): 97 General Appearance: no apparent distress Neck: normal alignment Cardiovascular: normal rate Respiratory/Chest: decreased breath sounds Abdomen: normal bowel sounds Objective Current Medications Medications (Trade) Dose Ordered Sig/Frankie Route PRN Reason Start Time Stop Time Status Last Admin Dose Admin Acetaminophen (Tylenol) 650 mg Q4H PRN ORAL Mild Pain/Temp > 100.5 06/17/19 00:30 07/09/19 20:29 06/21/19 04:25 Dextrose (Dextrose 50%) 25 ml Q30M PRN IV Hypoglycemia 06/16/19 22:45 07/16/19 06:44 Dextrose (Dextrose 50%) 50 ml Q30M PRN IV Hypoglycemia 06/16/19 22:45 07/16/19 06:44 06/21/19 05:45 Heparin Sodium (Porcine) (Heparin 5000 units/ml) 5,000 units EVERY 12 HOURS SUBQ 06/17/19 09:00 07/10/19 08:59 06/20/19 21:27 Insulin Aspart (NovoLOG) BEFORE MEALS AND HS SUBQ 06/17/19 06:30 07/16/19 11:29 06/20/19 21:29 Insulin Aspart (NovoLOG) 3 units NOVOTIAC SUBQ 06/19/19 06:30 07/17/19 11:49 06/20/19 18:01 Insulin Detemir (Levemir) 4 units EVERY 12 HOURS SUBQ 06/19/19 21:00 07/10/19 20:59 06/20/19 21:30 Ondansetron HCl (Zofran) 4 mg Q6H PRN IVP Nausea & Vomiting 06/17/19 02:30 07/10/19 20:29 06/19/19 00:36 Pantoprazole (Protonix) 40 mg DAILY IVP 06/17/19 09:00 07/12/19 08:59 06/20/19 08:30 Tamsulosin HCl (Flomax) 0.4 mg BEDTIME ORAL 06/17/19 21:00 07/10/19 20:59 06/20/19 21:26 Luis Gonzalez MD Jun 21, 2019 07:02
--- NOTE | 2019-06-21 07:19 | NUR ---
HAND-OFF: Report given to AL Light.
--- NOTE | 2019-06-21 07:56 | NUR ---
NURSE NOTES: received patient in bed, elevated HOB, asleep. Tray is at the bedside, partial acceptance of his tray. No sign of pain or discomfort. RFA IV access, intact. On condom cath. Bed locked at the lowest position possible, call light within easy, siderails up x2. Will continue to monitor pt and follow up with the plan of care.
[2019-06-21 08:00] VITALS: BP 123/66
[2019-06-21] MEDS: Pantoprazole Inj IVP SCH (09:57)
[2019-06-21] MEDS: Heparin 5000 units/ml inj SUBQ SCH ×2 (10:00→21:10)
[2019-06-21] MEDS: Levemir Flexpen SUBQ SCH ×2 (10:02→21:00)
--- NOTE | 2019-06-21 11:39 | Infectious Diseases Prog Note ---
Assessment/Plan Assessment/Plan antibiotics : none A 1. fungal UTI s/p rx 2. aspiration pneumonia s/p rx 3. leucocytosis resolved 4. renal failure improving 5. hepatic mass P 1. continue off antibiotics Subjective Constitutional: Denies: fever, chills Respiratory: Denies: shortness of breath, dry cough Gastrointestinal/Abdominal: Denies: nausea, vomiting, diarrhea Musculoskeletal: Denies: pain Allergies: Coded Allergies: NO KNOWN ALLERGIES (Unverified Allergy, Unknown, 05/04/18) Objective Vital Signs Last 24 Hour Vital Signs Date Time Temp Pulse Resp B/P (MAP) Pulse Ox O2 Delivery O2 Flow Rate FiO2 06/21/19 09:00 Room Air 06/21/19 08:00 98.6 76 20 123/66 (85) 97 06/21/19 04:00 96.8 78 19 99/47 (64) 96 06/21/19 00:00 97.5 77 20 118/59 (78) 96 06/20/19 21:00 Room Air 06/20/19 20:00 98.1 79 19 132/66 (88) 98 06/20/19 16:00 97.4 87 17 132/70 (90) 98 06/20/19 12:00 98.2 77 17 116/60 (78) 98 Height (Feet): 5 Height (Inches): 8.00 Weight (Pounds): 97 Respiratory/Chest: lungs clear Cardiovascular: normal rate, regular rhythm, no gallop/murmur Abdomen: soft, non tender Extremities: no edema Current Medications Medications (Trade) Dose Ordered Sig/Frankie Route PRN Reason Start Time Stop Time Status Last Admin Dose Admin Acetaminophen (Tylenol) 650 mg Q4H PRN ORAL Mild Pain/Temp > 100.5 06/17/19 00:30 07/09/19 20:29 06/21/19 04:25 Dextrose (Dextrose 50%) 25 ml Q30M PRN IV Hypoglycemia 06/16/19 22:45 07/16/19 06:44 Dextrose (Dextrose 50%) 50 ml Q30M PRN IV Hypoglycemia 06/16/19 22:45 07/16/19 06:44 06/21/19 05:45 Heparin Sodium (Porcine) (Heparin 5000 units/ml) 5,000 units EVERY 12 HOURS SUBQ 06/17/19 09:00 07/10/19 08:59 06/21/19 10:00 Insulin Aspart (NovoLOG) BEFORE MEALS AND HS SUBQ 06/17/19 06:30 07/16/19 11:29 06/20/19 21:29 Insulin Aspart (NovoLOG) 3 units NOVOTIAC SUBQ 06/19/19 06:30 07/17/19 11:49 06/20/19 18:01 Insulin Detemir (Levemir) 3 units EVERY 12 HOURS SUBQ 06/21/19 09:00 07/10/19 20:59 06/21/19 10:02 Ondansetron HCl (Zofran) 4 mg Q6H PRN IVP Nausea & Vomiting 06/17/19 02:30 07/10/19 20:29 06/19/19 00:36 Pantoprazole (Protonix) 40 mg DAILY IVP 06/17/19 09:00 07/12/19 08:59 06/21/19 09:57 Tamsulosin HCl (Flomax) 0.4 mg BEDTIME ORAL 06/17/19 21:00 07/10/19 20:59 06/20/19 21:26 Shira Snyder MD Jun 21, 2019 11:39
[2019-06-21 12:00] VITALS: BP 124/61
--- NOTE | 2019-06-21 12:33 | General Progress Note ---
Assessment/Plan Problem List: (1) Abdominal pain ICD Codes: R10.9 - Unspecified abdominal pain SNOMED: 50756407 (2) Hip fracture ICD Codes: S72.009A - Fracture of unspecified part of neck of unspecified femur , initial encounter for closed fracture SNOMED: 798388338 (3) Diabetes mellitus type II, uncontrolled ICD Codes: E11.65 - Type 2 diabetes mellitus with hyperglycemia SNOMED: 29162078, 385820575 (4) DKA (diabetic ketoacidoses) ICD Codes: E11.10 - Type 2 diabetes mellitus with ketoacidosis without coma SNOMED: 291339812, 91164534 (5) Hypotension ICD Codes: I95.9 - Hypotension, unspecified SNOMED: 82625592, 41178085 (6) UTI (urinary tract infection) ICD Codes: N39.0 - Urinary tract infection, site not specified SNOMED: 45752550, 79135258 (7) Failure to thrive SNOMED: 12795722, 10865743 (8) Hyperglycemia ICD Codes: R73.9 - Hyperglycemia, unspecified SNOMED: 24413044 (9) Dehydration ICD Codes: E86.0 - Dehydration SNOMED: 64200533, 65460857 (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 ICD Codes: Z86.39 - Personal history of other endocrine, nutritional and metabolic disease SNOMED: 982313052 (11) HTN (hypertension) ICD Codes: I10 - Essential (primary) hypertension SNOMED: 19098191 (12) Cerebral vascular disease ICD Codes: I67.9 - Cerebrovascular disease, unspecified SNOMED: 40314126 Status: stable, progressing Assessment/Plan: stable encourage po- improving monitor bs diabetes rx per endo dvt/stress ulcer prophylaxis iv mag replacement family reconsidering endoscopy Subjective ROS Limited/Unobtainable: No Constitutional: Reports: malaise, weakness HEENT: Reports: no symptoms Cardiovascular: Reports: no symptoms Respiratory: Reports: no symptoms Gastrointestinal/Abdominal: Reports: difficulty swallowing Genitourinary: Reports: no symptoms Neurologic/Psychiatric: Reports: no symptoms, anxiety, depressed Endocrine: Reports: no symptoms Hematologic/Lymphatic: Reports: no symptoms Allergies: Coded Allergies: NO KNOWN ALLERGIES (Unverified Allergy, Unknown, 05/04/18) All Systems: reviewed and negative except above Subjective no events. w/o complaints. po intake less than 50%. no fevers or chills. still c/o dysphagia. Objective Last 24 Hour Vital Signs Date Time Temp Pulse Resp B/P (MAP) Pulse Ox O2 Delivery O2 Flow Rate FiO2 06/21/19 09:00 Room Air 06/21/19 08:00 98.6 76 20 123/66 (85) 97 06/21/19 04:00 96.8 78 19 99/47 (64) 96 06/21/19 00:00 97.5 77 20 118/59 (78) 96 06/20/19 21:00 Room Air 06/20/19 20:00 98.1 79 19 132/66 (88) 98 06/20/19 16:00 97.4 87 17 132/70 (90) 98 Intake and Output 06/20/19 06/21/19 19:00 07:00 Intake Total 480 ml 240 ml Output Total 700 ml 750 ml Balance -220 ml -510 ml Intake Oral 480 ml 240 ml Output Urine Total 700 ml 700 ml Emesis 50 ml # Voids 2 # Bowel Movements 1 1 Height (Feet): 5 Height (Inches): 8.00 Weight (Pounds): 97 Objective General Appearance: WD/WN, alert, cachetic, thin Neck: supple Cardiovascular: normal rate, regular rhythm Respiratory/Chest: chest wall non-tender, lungs clear, normal breath sounds, no respiratory distress, no accessory muscle use Abdomen: normal bowel sounds, non tender, soft, no organomegaly, no mass Edema: no edema noted Arm (L), no edema noted Arm (R), no edema noted Leg (L), no edema noted Leg (R), no edema noted Pedal (L), no edema noted Pedal (R), no edema noted Generalized Neurologic: alert David Garcia MD Jun 21, 2019 12:33
[2019-06-21 13:07] LABS: BASOPHILS % (AUTO) 1.4 % (0.0-2.0); HEMATOCRIT 31.5 % (42.0-52.0); HEMOGLOBIN 10.3 G/DL (14.2-18.0); LYMPHOCYTES % (AUTO) 24.8 % (20.0-45.0); MEAN CORPUSCULAR VOLUME 99 FL (80-99); MONOCYTES % (AUTO) 6.7 % (1.0-10.0); NEUTROPHILS % (AUTO) 65.1 % (45.0-75.0); PLATELET COUNT 438 K/UL (150-450); RED BLOOD COUNT 3.19 M/UL (4.70-6.10); RED CELL DISTRIBUTION WIDTH 15.1 % (11.6-14.8); WHITE BLOOD COUNT 8.1 K/UL (4.8-10.8)
--- NOTE | 2019-06-21 13:12 | NUR ---
RD ASSESSMENT & RECOMMENDATIONS SEE CARE ACTIVITY FOR COMPLETE ASSESSMENT DAILY ESTIMATED NEEDS: Needs based on Underweight, diabetes / 42.9kg 30-40 kcals/kg 7883-7203 total kcals 1-2 g protein/kg 43-86 g total protein 25-30 mL/kg 9916-7164 total fluid mLs NUTRITION DIAGNOSIS: * Increased kcal/prot needs R/T underweight status as evidenced by pt is 66% of [place] Body Weight, severe generalized wasting, w/ suspected 22.5 lbs wt loss x1 month, pt w/ poor PO intake, family refusing PEG at this time. * Altered nutrition related lab values R/T diabetes as evidenced by hypo and hyperglycemia (1935 on adm-> 127 195), A1C 8.1 CURRENT DIET:CCHO MED, CARDIAC/ liquify puree moist, NTL + Glucerna TID PO DIET RECOMMENDATIONS: CCHO LOW/ TEXTURE PER PASSENGER INTERLINE CLERK + GLUCERNA 1 TETRA BERT TID RECOMMENDATIONS: * Weekly wts (calibrated bedscale) given severe underweight status and suspected wt loss * Monitor BGs closely -> improved since adm * 1 carb/high prot snack in between meals as accepted * Wound care: Add Vit C 250mg daily + RAFFY BID as accepted. * Consider appetite stimulant- poor PO, underweight, + wt loss
[2019-06-21 13:25] LABS: ALANINE AMINOTRANSFERASE 71 U/L (12-78); ALBUMIN 1.9 G/DL (3.4-5.0); ALBUMIN/GLOBULIN RATIO 0.6 (1.0-2.7); ALKALINE PHOSPHATASE 139 U/L (46-116); ANION GAP 4 mmol/L (5-15); ASPARTATE AMINO TRANSFERASE 47 U/L (15-37); BILIRUBIN,TOTAL 0.2 MG/DL (0.2-1.0); BLOOD UREA NITROGEN 9 mg/dL (7-18); CALCIUM 8.8 MG/DL (8.5-10.1); CARBON DIOXIDE 28 MMOL/L (21-32); CHLORIDE 105 MMOL/L (98-107); CREATININE 0.7 MG/DL (0.55-1.30); POTASSIUM 4.7 MMOL/L (3.5-5.1); SODIUM 137 MMOL/L (136-145)
[2019-06-21 16:00] VITALS: BP 113/59
--- NOTE | 2019-06-21 16:03 | NUR ---
CASE MANAGEMENT:REVIEW 06/21/19 SI: ASPIRATION PNEUMONIA DKA. DEHYDRATION. HIP FRACTURE 98.6 76 20 123/66 97% ON RA H/H-10.3/31.5 ALBUMIN-1.9 (BMI-14.8) IS: LEVEMIR SQ Q12 NOVOLOG SQ TID AC FLOMAX PO QHS HEPARIN SQ Q12 IV PROTONIX QD SS INSULIN AC+HS : MED/SURG STATUS 4 [facility]; FROM [facility]
--- NOTE | 2019-06-21 19:23 | NUR ---
HAND-OFF: Report given to AL Calix.
[2019-06-21 20:00] VITALS: BP 129/63
--- NOTE | 2019-06-21 20:51 | NUR ---
NURSE NOTES: Patient in bed, kept clean and comfortable, awake, alert and verbally responsive. Able to make needs known. Provided safe environment. Skin is warm and dry to touch. Abdomen is soft and non distended. No complaint of pain or discomfort noted. IV site is noted. Call light is at bedside. Will continue plan of care.
[2019-06-21] MEDS: Tamsulosin 0.4mg cap ORAL SCH (21:10)
--- NOTE | 2019-06-21 21:23 | General Progress Note ---
Assessment/Plan Status: stable, progressing Assessment/Plan: Assessment - DM with DKA - h/o recent oral thrush - poor po, odynophagia - family decline EGD at this time - h/o CVA - AMS / Delirium - hip fx - abnormal LFT with liver mass Recommendations - po as tolerated - supplement shakes PO - check CT abd with IV contrast - check AFP and CEA - Rx DKA - No EGD at this time per family decision Subjective Allergies: Coded Allergies: NO KNOWN ALLERGIES (Unverified Allergy, Unknown, 05/04/18) Subjective above noted NAD LFT rising recent abd U/S with a 3 cm liver mass Objective Last 24 Hour Vital Signs Date Time Temp Pulse Resp B/P (MAP) Pulse Ox O2 Delivery O2 Flow Rate FiO2 06/21/19 16:00 97.8 70 20 113/59 (77) 98 06/21/19 12:00 98.3 72 18 124/61 (82) 98 06/21/19 09:00 Room Air 06/21/19 08:00 98.6 76 20 123/66 (85) 97 06/21/19 04:00 96.8 78 19 99/47 (64) 96 06/21/19 00:00 97.5 77 20 118/59 (78) 96 Intake and Output 06/20/19 06/21/19 19:00 07:00 Intake Total 480 ml 240 ml Output Total 700 ml 750 ml Balance -220 ml -510 ml Intake Oral 480 ml 240 ml Output Urine Total 700 ml 700 ml Emesis 50 ml # Voids 2 # Bowel Movements 1 1 Laboratory Tests 06/21/19 12:55: White Blood Count 8.1, Red Blood Count 3.19L, Hemoglobin 10.3L, Hematocrit 31.5L , Mean Corpuscular Volume 99, Mean Corpuscular Hemoglobin 32.3H, Mean Corpuscular Hemoglobin Concent 32.8, Red Cell Distribution Width 15.1H, Platelet Count 438, Mean Platelet Volume 5.1L, Neutrophils (%) (Auto) 65.1, Lymphocytes (%) (Auto) 24.8, Monocytes (%) (Auto) 6.7, Eosinophils (%) (Auto) 2.0, Basophils (%) (Auto) 1.4, Sodium Level 137, Potassium Level 4.7, Chloride Level 105, Carbon Dioxide Level 28, Anion Gap 4L, Blood Urea Nitrogen 9, Creatinine 0.7, Estimat Glomerular Filtration Rate , Glucose Level 156H, Calcium Level 8.8, Total Bilirubin 0.2, Aspartate Amino Transf (AST/SGOT) 47H, Alanine Aminotransferase (ALT/SGPT) 71, Alkaline Phosphatase 139H, Total Protein 5.3L, Albumin 1.9L, Globulin 3.4, Albumin/Globulin Ratio 0.6L Height (Feet): 5 Height (Inches): 8.00 Weight (Pounds): 97 Objective Thin elderly man NCAT supple CTA RR abd soft no edema Juany Candelaria MD Jun 21, 2019 21:23
[2019-06-21] MEDS ORDERED: Isovue-300 100ml vial INJ PRN ×2 (21:30)
[2019-06-22] VITALS (7 sets, daily range): BP systolic 109–137; BP diastolic 59–78
--- NOTE | 2019-06-22 06:00 | NUR ---
NURSE NOTES: Patient is NPO for procedure, patient is aware.
[2019-06-22] MEDS: NovoLOG Insulin Flexpen SUBQ SCH ×7 (06:30→20:33)
--- NOTE | 2019-06-22 07:27 | NUR ---
HAND-OFF: Report given to AL Perales.
[2019-06-22 07:30] LABS: ALANINE AMINOTRANSFERASE 55 U/L (12-78); ALBUMIN 1.7 G/DL (3.4-5.0); ALBUMIN/GLOBULIN RATIO 0.5 (1.0-2.7); ALKALINE PHOSPHATASE 132 U/L (46-116); ANION GAP 7 mmol/L (5-15); ASPARTATE AMINO TRANSFERASE 36 U/L (15-37); BILIRUBIN,TOTAL 0.3 MG/DL (0.2-1.0); BLOOD UREA NITROGEN 7 mg/dL (7-18); CALCIUM 8.7 MG/DL (8.5-10.1); CARBON DIOXIDE 24 MMOL/L (21-32); CHLORIDE 102 MMOL/L (98-107); CREATININE 0.6 MG/DL (0.55-1.30); POTASSIUM 4.3 MMOL/L (3.5-5.1); SODIUM 133 MMOL/L (136-145)
--- NOTE | 2019-06-22 07:30 | NUR ---
NURSE NOTES: Received patient in bed, awake, alert and oriented x4. Not in acute respiratory/cardiac distress. Patient is on NPO for CT of abdomen and pelvis with contrast. Patient is aware. No s/s of hypo/hyperglycemia. IV intact, no s/s of infiltration. Bed is in lowest position and locked. Call light within reach. Will continue plan of care.
--- NOTE | 2019-06-22 07:59 | General Progress Note ---
Assessment/Plan Problem List: (1) Abdominal pain ICD Codes: R10.9 - Unspecified abdominal pain SNOMED: 66718669 (2) Hip fracture ICD Codes: S72.009A - Fracture of unspecified part of neck of unspecified femur , initial encounter for closed fracture SNOMED: 067751353 (3) Diabetes mellitus type II, uncontrolled ICD Codes: E11.65 - Type 2 diabetes mellitus with hyperglycemia SNOMED: 89664739, 812649364 (4) DKA (diabetic ketoacidoses) ICD Codes: E11.10 - Type 2 diabetes mellitus with ketoacidosis without coma SNOMED: 838760444, 28801294 (5) Hypotension ICD Codes: I95.9 - Hypotension, unspecified SNOMED: 32694038, 58885709 (6) UTI (urinary tract infection) ICD Codes: N39.0 - Urinary tract infection, site not specified SNOMED: 98967773, 93032358 (7) Failure to thrive SNOMED: 56091497, 22688658 (8) Hyperglycemia ICD Codes: R73.9 - Hyperglycemia, unspecified SNOMED: 67321216 (9) Dehydration ICD Codes: E86.0 - Dehydration SNOMED: 85793644, 63380290 (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 ICD Codes: Z86.39 - Personal history of other endocrine, nutritional and metabolic disease SNOMED: 854527827 (11) HTN (hypertension) ICD Codes: I10 - Essential (primary) hypertension SNOMED: 45508051 (12) Cerebral vascular disease ICD Codes: I67.9 - Cerebrovascular disease, unspecified SNOMED: 90634839 Status: stable, progressing Assessment/Plan: stable encourage po- improving monitor bs diabetes rx per endo dvt/stress ulcer prophylaxis CT abd per GI if negative proceed with dc planning Subjective ROS Limited/Unobtainable: No Constitutional: Reports: malaise, weakness HEENT: Reports: no symptoms Cardiovascular: Reports: no symptoms Respiratory: Reports: no symptoms Gastrointestinal/Abdominal: Reports: difficulty swallowing, poor appetite Genitourinary: Reports: no symptoms Neurologic/Psychiatric: Reports: no symptoms Endocrine: Reports: no symptoms Hematologic/Lymphatic: Reports: no symptoms Allergies: Coded Allergies: NO KNOWN ALLERGIES (Unverified Allergy, Unknown, 05/04/18) All Systems: reviewed and negative except above Subjective stable. BS remains labile. po intake 50%. d/w family indications for endoscopy. Family still declines procedure. Objective Last 24 Hour Vital Signs Date Time Temp Pulse Resp B/P (MAP) Pulse Ox O2 Delivery O2 Flow Rate FiO2 06/22/19 04:00 97.8 79 17 133/78 (96) 97 06/22/19 00:00 98.3 71 18 137/72 (93) 100 06/21/19 21:00 Room Air 06/21/19 20:00 98.3 78 20 129/63 (85) 99 06/21/19 16:00 97.8 70 20 113/59 (77) 98 06/21/19 12:00 98.3 72 18 124/61 (82) 98 06/21/19 09:00 Room Air 06/21/19 08:00 98.6 76 20 123/66 (85) 97 Intake and Output 06/21/19 06/22/19 19:00 07:00 Intake Total 240 ml 150 ml Output Total 650 ml 1100 ml Balance -410 ml -950 ml Intake Oral 240 ml 150 ml Output Urine Total 600 ml 1100 ml Emesis 50 ml # Bowel Movements 1 Laboratory Tests 06/21/19 12:55: White Blood Count 8.1, Red Blood Count 3.19L, Hemoglobin 10.3L, Hematocrit 31.5L , Mean Corpuscular Volume 99, Mean Corpuscular Hemoglobin 32.3H, Mean Corpuscular Hemoglobin Concent 32.8, Red Cell Distribution Width 15.1H, Platelet Count 438, Mean Platelet Volume 5.1L, Neutrophils (%) (Auto) 65.1, Lymphocytes (%) (Auto) 24.8, Monocytes (%) (Auto) 6.7, Eosinophils (%) (Auto) 2.0, Basophils (%) (Auto) 1.4, Sodium Level 137, Potassium Level 4.7, Chloride Level 105, Carbon Dioxide Level 28, Anion Gap 4L, Blood Urea Nitrogen 9, Creatinine 0.7, Estimat Glomerular Filtration Rate , Glucose Level 156H, Calcium Level 8.8, Total Bilirubin 0.2, Aspartate Amino Transf (AST/SGOT) 47H, Alanine Aminotransferase (ALT/SGPT) 71, Alkaline Phosphatase 139H, Total Protein 5.3L, Albumin 1.9L, Globulin 3.4, Albumin/Globulin Ratio 0.6L 06/22/19 05:28: Sodium Level 133L, Potassium Level 4.3, Chloride Level 102, Carbon Dioxide Level 24, Anion Gap 7, Blood Urea Nitrogen 7, Creatinine 0.6, Estimat Glomerular Filtration Rate , Glucose Level 290#H, Calcium Level 8.7, Total Bilirubin 0.3, Aspartate Amino Transf (AST/SGOT) 36, Alanine Aminotransferase ( ALT/SGPT) 55, Alkaline Phosphatase 132H, Total Protein 5.0L, Albumin 1.7L, Globulin 3.3, Albumin/Globulin Ratio 0.5L, Alpha Fetoprotein [Pending], Carcinoembryonic Antigen [Pending] Height (Feet): 5 Height (Inches): 8.00 Weight (Pounds): 91 Objective General Appearance: WD/WN, alert, cachetic, thin Neck: supple Cardiovascular: normal rate, regular rhythm Respiratory/Chest: chest wall non-tender, lungs clear, normal breath sounds, no respiratory distress, no accessory muscle use Abdomen: normal bowel sounds, non tender, soft, no organomegaly, no mass Edema: no edema noted Arm (L), no edema noted Arm (R), no edema noted Leg (L), no edema noted Leg (R), no edema noted Pedal (L), no edema noted Pedal (R), no edema noted Generalized Neurologic: alert David Garcia MD Jun 22, 2019 07:59
--- NOTE | 2019-06-22 08:50 | NUR ---
PT WEEKLY PROGRESS NOTE Patient currently being seen by PT for ther ex and therapeutic activities to improve strength, bed mobility and transfers. Patient currently requires mod/max assist for mobility tasks and is unable to ambulate, patient limited by generalized weakness and bilateral LE pain. Patient is motivated and has shown some improvement in his level of participation. Patient will benefit from continued skilled PT intervention to address strength, endurance and functional mobility.
[2019-06-22] MEDS: Heparin 5000 units/ml inj SUBQ SCH ×2 (09:52→20:30)
[2019-06-22] MEDS: Pantoprazole Inj IVP SCH (09:52)
[2019-06-22] MEDS: Levemir Flexpen SUBQ SCH ×2 (09:54→20:32)
--- NOTE | 2019-06-22 10:00 | NUR ---
NURSE NOTES: patient is off the unit for CT scan in stable condition.
--- NOTE | 2019-06-22 10:40 | NUR ---
NURSE NOTES: patient came back from CT dept in stable condition.
--- NOTE | 2019-06-22 11:05 | Infectious Diseases Prog Note ---
Assessment/Plan Assessment/Plan antibiotics : none A 1. fungal UTI s/p rx 2. aspiration pneumonia s/p rx 3. leucocytosis resolved 4. renal failure improving 5. hepatic mass P 1. continue off antibiotics 2. CT planned Subjective Constitutional: Denies: fever, chills Respiratory: Denies: shortness of breath, dry cough Gastrointestinal/Abdominal: Denies: nausea, vomiting, diarrhea Musculoskeletal: Denies: pain Allergies: Coded Allergies: NO KNOWN ALLERGIES (Unverified Allergy, Unknown, 05/04/18) Objective Vital Signs Last 24 Hour Vital Signs Date Time Temp Pulse Resp B/P (MAP) Pulse Ox O2 Delivery O2 Flow Rate FiO2 06/22/19 09:00 Room Air 06/22/19 08:00 98.2 95 20 133/70 (91) 96 06/22/19 04:00 97.8 79 17 133/78 (96) 97 06/22/19 00:00 98.3 71 18 137/72 (93) 100 06/21/19 21:00 Room Air 06/21/19 20:00 98.3 78 20 129/63 (85) 99 06/21/19 16:00 97.8 70 20 113/59 (77) 98 06/21/19 12:00 98.3 72 18 124/61 (82) 98 Height (Feet): 5 Height (Inches): 8.00 Weight (Pounds): 91 Respiratory/Chest: lungs clear Cardiovascular: normal rate, regular rhythm, no gallop/murmur Abdomen: soft, non tender Extremities: no edema Laboratory Tests Test 06/21/19 12:55 06/22/19 05:28 White Blood Count 8.1 K/UL (4.8-10.8) Red Blood Count 3.19 M/UL (4.70-6.10) L Hemoglobin 10.3 G/DL (14.2-18.0) L Hematocrit 31.5 % (42.0-52.0) L Mean Corpuscular Volume 99 FL (80-99) Mean Corpuscular Hemoglobin 32.3 PG (27.0-31.0) H Mean Corpuscular Hemoglobin Concent 32.8 G/DL (32.0-36.0) Red Cell Distribution Width 15.1 % (11.6-14.8) H Platelet Count 438 K/UL (150-450) Mean Platelet Volume 5.1 FL (6.5-10.1) L Neutrophils (%) (Auto) 65.1 % (45.0-75.0) Lymphocytes (%) (Auto) 24.8 % (20.0-45.0) Monocytes (%) (Auto) 6.7 % (1.0-10.0) Eosinophils (%) (Auto) 2.0 % (0.0-3.0) Basophils (%) (Auto) 1.4 % (0.0-2.0) Sodium Level 137 MMOL/L (136-145) 133 MMOL/L (136-145) L Potassium Level 4.7 MMOL/L (3.5-5.1) 4.3 MMOL/L (3.5-5.1) Chloride Level 105 MMOL/L (98-107) 102 MMOL/L (98-107) Carbon Dioxide Level 28 MMOL/L (21-32) 24 MMOL/L (21-32) Anion Gap 4 mmol/L (5-15) L 7 mmol/L (5-15) Blood Urea Nitrogen 9 mg/dL (7-18) 7 mg/dL (7-18) Creatinine 0.7 MG/DL (0.55-1.30) 0.6 MG/DL (0.55-1.30) Estimat Glomerular Filtration Rate mL/min (>60) mL/min (>60) Glucose Level 156 MG/DL (74-106) H 290 MG/DL (74-106) #H Calcium Level 8.8 MG/DL (8.5-10.1) 8.7 MG/DL (8.5-10.1) Total Bilirubin 0.2 MG/DL (0.2-1.0) 0.3 MG/DL (0.2-1.0) Aspartate Amino Transf (AST/SGOT) 47 U/L (15-37) H 36 U/L (15-37) Alanine Aminotransferase (ALT/SGPT) 71 U/L (12-78) 55 U/L (12-78) Alkaline Phosphatase 139 U/L (46-116) H 132 U/L (46-116) H Total Protein 5.3 G/DL (6.4-8.2) L 5.0 G/DL (6.4-8.2) L Albumin 1.9 G/DL (3.4-5.0) L 1.7 G/DL (3.4-5.0) L Globulin 3.4 g/dL 3.3 g/dL Albumin/Globulin Ratio 0.6 (1.0-2.7) L 0.5 (1.0-2.7) L Alpha Fetoprotein Pending Carcinoembryonic Antigen Pending Current Medications Medications (Trade) Dose Ordered Sig/Frankie Route PRN Reason Start Time Stop Time Status Last Admin Dose Admin Acetaminophen (Tylenol) 650 mg Q4H PRN ORAL Mild Pain/Temp > 100.5 06/17/19 00:30 07/09/19 20:29 06/21/19 04:25 Barium Sulfate (Readi-Cat 2) 450 ml NOW PRN ORAL Radiology Procedure 06/21/19 21:30 06/23/19 21:23 Dextrose (Dextrose 50%) 25 ml Q30M PRN IV Hypoglycemia 06/16/19 22:45 07/16/19 06:44 Dextrose (Dextrose 50%) 50 ml Q30M PRN IV Hypoglycemia 06/16/19 22:45 07/16/19 06:44 06/21/19 05:45 Heparin Sodium (Porcine) (Heparin 5000 units/ml) 5,000 units EVERY 12 HOURS SUBQ 06/17/19 09:00 07/10/19 08:59 06/22/19 09:52 Insulin Aspart (NovoLOG) BEFORE MEALS AND HS SUBQ 06/17/19 06:30 07/16/19 11:29 06/21/19 21:11 Insulin Aspart (NovoLOG) 3 units NOVOTIAC SUBQ 06/19/19 06:30 07/17/19 11:49 06/21/19 13:09 Insulin Detemir (Levemir) 3 units EVERY 12 HOURS SUBQ 06/21/19 09:00 07/10/19 20:59 06/22/19 09:54 Iopamidol (Isovue-300 100ml) 100 ml NOW PRN INJ Radiology Procedure 06/21/19 21:30 06/23/19 21:29 Ondansetron HCl (Zofran) 4 mg Q6H PRN IVP Nausea & Vomiting 06/17/19 02:30 07/10/19 20:29 06/19/19 00:36 Pantoprazole (Protonix) 40 mg DAILY IVP 06/17/19 09:00 07/12/19 08:59 06/22/19 09:52 Tamsulosin HCl (Flomax) 0.4 mg BEDTIME ORAL 06/17/19 21:00 07/10/19 20:59 06/21/19 21:10 Shira Snyder MD Jun 22, 2019 11:05
--- NOTE | 2019-06-22 12:34 | Diagnostic Imaging Report ---
Clinical Indication: Abdominal pain Technique: Patient ingested oral water-soluble contrast. IV administration nonionic contrast. Venous phase spiral acquisition obtained through the abdomen and pelvis. Multiplanar reconstructions were generated. Total dose length product 497.3 mGycm. CTDIvol(s) 10.11 mGy. Dose reduction achieved using automated exposure control Comparison: Reference made to 06/11/[address] prior [address] scans Findings: There is equivocal gastric mucosal fold thickening. The distal esophagus and duodenum are unremarkable. No small bowel distention or small bowel wall thickening. There is distention of the rectum by feces, rectal diameter 8.4 cm. Considerable stool is seen throughout the colon. There is contrast opacification of the colonic contents. However, this is probably due to contrast ingestion from prior video swallowing study as the cecum is unopacified, as are distal ileal loops in the right lower quadrant. The appendix is not definitely visualized, but no definite findings to suggest acute appendicitis are evident. There is generalized edema of the mesenteric fat, as well as edema of the subcutaneous fat. There is a small amount of free intraperitoneal fluid, predominantly within the pelvis. No free intraperitoneal gas is evident. No definite small bowel distention or small bowel wall thickening. The liver demonstrates a 3.6 x 3.6 cm lesion in segment 2 which demonstrates intense enhancement of the inferior aspect as well as a slight degree of peripheral nodular enhancement, low attenuation elsewhere. This corresponds to the abnormality demonstrated on recent sonogram. There is a subcentimeter low-attenuation lesion in segment 7 which is too small to characterize, probably corresponds to the hyperechoic lesion in the similar area described on recent sonogram. The gallbladder, bile ducts, pancreas, adrenals are unremarkable. The spleen demonstrates dystrophic calcifications centrally surrounding a low attenuation area; overall this measures approximately 3 cm long axis dimension.. A corresponding abnormality is not seen on prior sonogram. The right kidney demonstrates a very prominent extrarenal pelvis and mild fullness to the collecting system. Both kidneys demonstrate subcentimeter low-attenuation lesions which are too small to characterize. The pelvis is partially obscured by streak artifact from a right hip prosthesis. The bladder is distended. Included lung bases demonstrate posterior atelectasis and consolidation involving the lower lobes. There are small bilateral pleural effusions. There is a small pericardial effusion. The bones demonstrate degenerative spondylosis changes. Impression: Equivocal gastric mucosal fold thickening could indicate gastritis Evidence of anasarca, with trace ascites, small bilateral pleural effusions, edema of the mesenteric and subcutaneous fat, pericardial effusion Evidence of rectal fecal impaction as well as generalized constipation. Note diffuse contrast opacification of the colonic contents. This is presumably from prior video swallowing study as the distal small bowel and cecum are not opacified No definite evidence of abscess or small bowel obstruction 3.6 x 3.6 cm lesion within segment 2 of the liver, corresponding to abnormality described on recent sonogram. Intense peripheral contrast enhancement as well as appearance on sonogram is suggestive of but not diagnostic for benign hemangioma; consider hemangioma protocol dynamic CT or MRI for better characterization clinically indicated Subcentimeter low-attenuation lesion within segment 7 of the liver, too small to characterize, but quite likely a benign hemangioma based on sonographic appearance Calcified lesion centrally within the spleen, probably on the basis of prior inflammation Large right extrarenal pelvis and borderline right hydronephrosis without evidence of hydroureter, could indicate mild congenital ureteropelvic junction obstruction Bilateral lower lobe pulmonary parenchymal atelectasis and consolidation, pneumonia possible. Correlate with clinical findings Subcentimeter low-attenuation renal lesions, too small to characterize, most likely benign simple cysts. No further follow-up necessary Incidental finding right hip prosthesis The CT scanner at [facility] is accredited by the [place] [employer] and the scans are performed using protocols designed to limit radiation exposure to as low as reasonably achievable to attain images of sufficient resolution adequate for diagnostic evaluation.
--- NOTE | 2019-06-22 13:01 | NUR ---
NURSE NOTES: Patient ate lunch less than 50%. Held [facility] scheduled 3 units.
--- NOTE | 2019-06-22 14:09 | NUR ---
CHARGE NURSE note: Spoke with Speech Therapist - she recommends G-tube placement, pt intake is very low, albumin low 1.7, has a high risk of aspiration. CN a long conversation with pt's , explained benefits of G-tube placement. on pt's POLST - no artificial nutrition. Pt's spouse wants to change POLST (it's been signed by her), but first she wants to talk to her brother. , notified.
[2019-06-22] MEDS ORDERED: Sorbitol Solution UD 30ml ORAL SCH (14:30)
[2019-06-22] MEDS ORDERED: Fleet's Mineral Oil Enema RECTAL SCH (14:30)
--- NOTE | 2019-06-22 18:00 | NUR ---
NURSE NOTES: patient had moderate amount of bowel movement and small amount BM.Proper incontinent care done, no new skin issue.
--- NOTE | 2019-06-22 19:25 | NUR ---
HAND-OFF: Report given to
--- NOTE | 2019-06-22 19:50 | NUR ---
NURSE NOTES: Patient in bed, awake, alert, verbally responsive. Able to make needs known. Respiration is even and unlabored. No complaint of pain or discomfort noted. IV site noted, intact, clean. Skin is warm and dry, noted with sacral dressing, intact. Bed in low and locked position. Provided safe environment. Abdomen is soft and non distended. Kept clean and comfortable. Provided safe environment. Call light is at bedside. Will continue plan of care.
--- NOTE | 2019-06-22 20:00 | NUR ---
NURSE NOTES: Patient noted to have eaten less than 50% of meal.
--- NOTE | 2019-06-22 20:01 | General Progress Note ---
Assessment/Plan Status: stable, progressing Assessment/Plan: Assessment - DM with DKA - h/o recent oral thrush - poor po, odynophagia - family decline EGD/ PEG at this time - h/o CVA - AMS / Delirium - hip fx - abnormal LFT with liver mass - CT c/w benign hemangioma Recommendations - po as tolerated - supplement shakes PO - d/c planning - f/u AFP and CEA - No EGD at this time per family decision Subjective Allergies: Coded Allergies: NO KNOWN ALLERGIES (Unverified Allergy, Unknown, 05/04/18) Subjective above noted received call from RN that considering PEG placement But subsequently told mw she does not want EGD or PEG CT done, reviewed - no concerning lesions seen Objective Last 24 Hour Vital Signs Date Time Temp Pulse Resp B/P (MAP) Pulse Ox O2 Delivery O2 Flow Rate FiO2 06/22/19 16:00 98.0 89 21 110/64 (79) 97 06/22/19 12:00 97.5 96 21 127/71 (89) 96 06/22/19 09:00 Room Air 06/22/19 08:00 98.2 95 20 133/70 (91) 96 06/22/19 04:00 97.8 79 17 133/78 (96) 97 06/22/19 00:00 98.3 71 18 137/72 (93) 100 06/21/19 21:00 Room Air 06/21/19 20:00 98.3 78 20 129/63 (85) 99 Intake and Output 06/21/19 06/22/19 19:00 07:00 Intake Total 240 ml 150 ml Output Total 650 ml 1100 ml Balance -410 ml -950 ml Intake Oral 240 ml 150 ml Output Urine Total 600 ml 1100 ml Emesis 50 ml # Bowel Movements 1 Laboratory Tests 06/22/19 05:28: Sodium Level 133L, Potassium Level 4.3, Chloride Level 102, Carbon Dioxide Level 24, Anion Gap 7, Blood Urea Nitrogen 7, Creatinine 0.6, Estimat Glomerular Filtration Rate , Glucose Level 290#H, Calcium Level 8.7, Total Bilirubin 0.3, Aspartate Amino Transf (AST/SGOT) 36, Alanine Aminotransferase ( ALT/SGPT) 55, Alkaline Phosphatase 132H, Total Protein 5.0L, Albumin 1.7L, Globulin 3.3, Albumin/Globulin Ratio 0.5L, Alpha Fetoprotein [Pending], Carcinoembryonic Antigen [Pending] Height (Feet): 5 Height (Inches): 8.00 Weight (Pounds): 91 Objective Thin elderly man NCAT supple CTA RR abd soft no edema Juany Candelaria MD Jun 22, 2019 20:01
[2019-06-22] MEDS: Tamsulosin 0.4mg cap ORAL SCH (20:29)
--- NOTE | 2019-06-23 00:30 | Consultation ---
DATE OF CONSULTATION: 06/22/2019 HISTORY OF PRESENT ILLNESS: The patient is a 79-year-old male with a history of multiple medical comorbidities who has been admitted to the hospital for medical stabilization. The patient has a history of diabetes mellitus, cardiovascular disease, history of hip fracture, SIADH, hypertension, prostatic hypertrophy. The patient has not been eating. The is at bedside. The patient's medical health has been declining after his stroke. The appears to be anxious and has been changing her mind from G-tube to hospice. The patient is unable to be engaged and answer the questions appropriately. The is the decision maker. asked me to call brother. When I talked to the brother, I explained the issue and recommended G-tube placement. The daughter wanted me to speak to his and I explained to the that the patient's medical condition has been declining. PAST PSYCHIATRIC HISTORY: The stated that he has a history of depression in the past and has been admitted to Medicare. PAST MEDICAL HISTORY: Diabetes mellitus, cerebrovascular accident, right hemiparesis, right hip fracture status post ORIF, SIADH, hypertension. ALLERGIES: No known drug allergies. SUBSTANCE ABUSE HISTORY: No known history of illicit drug use or alcohol. MENTAL STATUS EXAMINATION: The patient is alert, oriented times self, place, and forgetful. Mood is neutral. Affect is flat. Thought process, there is a paucity of thought content. Thought content, no suicidal or homicidal ideation. ASSESSMENT: [place] I Cognitive impairment. Major depressive disorder by history. [place] II Deferred. [place] III Failure to thrive. [place] IV Low [place] V 20 PLAN: 1. No medication at this time. 2. The patient lacks capacity to make decisions; therefore, the is decision maker. 3. Encouraged the to agree with G-tube placement. Dominick Mason M.D. DR: Marla JOB#: [id number] CC: [email or web address]
[2019-06-23 04:00] VITALS: BP 112/60
[2019-06-23] MEDS: NovoLOG Insulin Flexpen SUBQ SCH ×7 (05:54→20:45)
--- NOTE | 2019-06-23 06:36 | General Progress Note ---
Assessment/Plan Problem List: (1) Diabetes mellitus ICD Codes: E11.9 - Type 2 diabetes mellitus without complications SNOMED: 17765621 (2) Hypertension ICD Codes: I10 - Essential (primary) hypertension SNOMED: 08533460 (3) Failure to thrive SNOMED: 60053409, 83171661 (4) DKA (diabetic ketoacidoses) ICD Codes: E11.10 - Type 2 diabetes mellitus with ketoacidosis without coma SNOMED: 282934784, 05483727 (5) UTI (urinary tract infection) ICD Codes: N39.0 - Urinary tract infection, site not specified SNOMED: 22724082, 30673960 Status: stable, progressing Assessment/Plan: continue Levemir 3 units bid continue Novolog 3 units ac tid - hold if not eating Novolog sliding scale ac / hs sensitive scale Subjective ROS Limited/Unobtainable: Yes Allergies: Coded Allergies: NO KNOWN ALLERGIES (Unverified Allergy, Unknown, 05/04/18) Subjective events noted glucose values are more stable Item Value Date Time Bedside Blood Glucose 84 mg/dl 06/23/19 0554 Bedside Blood Glucose 183 mg/dl H 06/22/19 2042 Bedside Blood Glucose 140 mg/dl H 06/22/19 1659 Bedside Blood Glucose 375 mg/dl H 06/22/19 1152 Bedside Blood Glucose 296 mg/dl H 06/22/19 0954 Bedside Blood Glucose 296 mg/dl H 06/22/19 0630 Objective Last 24 Hour Vital Signs Date Time Temp Pulse Resp B/P (MAP) Pulse Ox O2 Delivery O2 Flow Rate FiO2 06/23/19 04:00 98.5 77 17 112/60 (77) 96 06/22/19 23:42 98.0 84 18 109/59 (76) 96 06/22/19 20:56 Room Air 06/22/19 20:00 98.6 85 16 110/63 (79) 96 06/22/19 16:00 98.0 89 21 110/64 (79) 97 06/22/19 12:00 97.5 96 21 127/71 (89) 96 06/22/19 09:00 Room Air 06/22/19 08:00 98.2 95 20 133/70 (91) 96 Intake and Output 06/22/19 06/23/19 18:59 06:59 Intake Total 360 ml Output Total 1500 ml 200 ml Balance -1500 ml 160 ml Intake Oral 360 ml Output Urine Total 1500 ml 200 ml # Voids 1 # Bowel Movements 1 1 Height (Feet): 5 Height (Inches): 8.00 Weight (Pounds): 94 General Appearance: no apparent distress Neck: normal alignment Cardiovascular: normal rate Respiratory/Chest: lungs clear Abdomen: normal bowel sounds Objective Current Medications Medications (Trade) Dose Ordered Sig/Frankie Route PRN Reason Start Time Stop Time Status Last Admin Dose Admin Acetaminophen (Tylenol) 650 mg Q4H PRN ORAL Mild Pain/Temp > 100.5 06/17/19 00:30 07/09/19 20:29 06/21/19 04:25 Barium Sulfate (Readi-Cat 2) 450 ml NOW PRN ORAL Radiology Procedure 06/21/19 21:30 06/23/19 21:23 Clotrimazole (Mycelex Belinda) 10 mg FIVE TIMES A DAY WARREN 06/22/19 19:00 06/29/19 18:59 06/23/19 06:23 Dextrose (Dextrose 50%) 25 ml Q30M PRN IV Hypoglycemia 06/16/19 22:45 07/16/19 06:44 Dextrose (Dextrose 50%) 50 ml Q30M PRN IV Hypoglycemia 06/16/19 22:45 07/16/19 06:44 06/21/19 05:45 Heparin Sodium (Porcine) (Heparin 5000 units/ml) 5,000 units EVERY 12 HOURS SUBQ 06/17/19 09:00 07/10/19 08:59 06/22/19 20:30 Insulin Aspart (NovoLOG) BEFORE MEALS AND HS SUBQ 06/17/19 06:30 07/16/19 11:29 06/22/19 20:33 Insulin Aspart (NovoLOG) 3 units NOVOTIAC SUBQ 06/19/19 06:30 07/17/19 11:49 06/21/19 13:09 Insulin Detemir (Levemir) 3 units EVERY 12 HOURS SUBQ 06/21/19 09:00 07/10/19 20:59 06/22/19 20:32 Iopamidol (Isovue-300 100ml) 100 ml NOW PRN INJ Radiology Procedure 06/21/19 21:30 06/23/19 21:29 Ondansetron HCl (Zofran) 4 mg Q6H PRN IVP Nausea & Vomiting 06/17/19 02:30 07/10/19 20:29 06/19/19 00:36 Pantoprazole (Protonix) 40 mg DAILY IVP 06/17/19 09:00 07/12/19 08:59 06/22/19 09:52 Tamsulosin HCl (Flomax) 0.4 mg BEDTIME ORAL 06/17/19 21:00 07/10/19 20:59 06/22/19 20:29 Luis Gonzalez MD Jun 23, 2019 06:36
--- NOTE | 2019-06-23 07:05 | NUR ---
HAND-OFF: Report given to AL Perales.
--- NOTE | 2019-06-23 07:10 | NUR ---
NURSE NOTES: Received patient in bed, awake, alert and oriented x4. Not in acute respiratory/cardiac distress. No s/s of hypo/hyperglycemia. IV intact, no s/s of infiltration. Bed is in lowest position and locked. Call light within reach. Will continue plan of care.
[2019-06-23 08:00] VITALS: BP 115/66
[2019-06-23] MEDS: Pantoprazole Inj IVP SCH (09:13)
[2019-06-23] MEDS: Heparin 5000 units/ml inj SUBQ SCH ×2 (09:14→20:43)
[2019-06-23] MEDS: Levemir Flexpen SUBQ SCH ×2 (09:15→20:44)
[2019-06-23 12:00] VITALS: BP 127/64
--- NOTE | 2019-06-23 14:18 | Diagnostic Imaging Report ---
Indications: Reason For Exam: DYSPHAGIA Technique: Patient ingested multiple substances under the supervision of speech pathology. Video fluoroscopic recording performed. Total fluoroscopy time 255.4 seconds. Total dose area product 0.07214 mGycm2 Total number of images-13 Comparison: none Findings: Episodes of laryngeal penetration are demonstrated with ingestion of thin liquid barium. There is minimal residual in the vallecula after swallowing. No noé aspiration demonstrated. Ingestion of nectar thick liquid barium results in episodes of supraglottic laryngeal penetration. Some residual pooling in the vallecula and piriform sinuses is noted. No noé aspiration. Ingestion of any thick liquid barium is uneventful Impression: Negative aspiration, positive for penetration of thin and nectar thick liquid barium Please refer to speech pathology report for more detailed analysis
[2019-06-23 16:00] VITALS: BP 116/60
--- NOTE | 2019-06-23 16:13 | General Progress Note ---
Assessment/Plan Status: stable, progressing Assessment/Plan: Assessment - DM with DKA - h/o recent oral thrush - poor po, odynophagia - family decline EGD/ PEG at this time - h/o CVA - AMS / Delirium - hip fx - abnormal LFT with liver mass - CT c/w benign hemangioma Recommendations - po as tolerated - supplement shakes PO - d/c planning - f/u AFP and CEA - No EGD at this time per family decision Subjective Allergies: Coded Allergies: NO KNOWN ALLERGIES (Unverified Allergy, Unknown, 05/04/18) Subjective above noted NAD advised patient to maximize po intake Objective Last 24 Hour Vital Signs Date Time Temp Pulse Resp B/P (MAP) Pulse Ox O2 Delivery O2 Flow Rate FiO2 06/23/19 12:00 97.8 72 18 127/64 (85) 98 06/23/19 09:00 Room Air 06/23/19 08:00 98.6 80 18 115/66 (82) 97 06/23/19 04:00 98.5 77 17 112/60 (77) 96 06/22/19 23:42 98.0 84 18 109/59 (76) 96 06/22/19 20:56 Room Air 06/22/19 20:00 98.6 85 16 110/63 (79) 96 Intake and Output 06/22/19 06/23/19 19:00 07:00 Intake Total 360 ml Output Total 1500 ml 200 ml Balance -1500 ml 160 ml Intake Oral 360 ml Output Urine Total 1500 ml 200 ml # Voids 1 # Bowel Movements 1 1 Height (Feet): 5 Height (Inches): 8.00 Weight (Pounds): 94 Objective Thin elderly man NCAT supple CTA RR abd soft no edema Juany Candelaria MD Jun 23, 2019 16:13
--- NOTE | 2019-06-23 17:07 | NUR ---
CASE MANAGEMENT:REVIEW 06/23/19 SI: ASPIRATION PNEUMONIA DKA. DEHYDRATION. HIP FRACTURE 97.8 72 18 127/64 98% ON RA IS: LEVEMIR SQ Q12 NOVOLOG SQ TID AC FLOMAX PO QHS HEPARIN SQ Q12 IV PROTONIX QD SS INSULIN AC+HS : MED[facility]G STATUS 4 [facility]
--- NOTE | 2019-06-23 17:08 | NUR ---
DISCHARGE PLANNING RECEIVED CALL FROM FAMILY MEMBER THIS MORNING REQUESTING HOSPICE DIRECTED HER TO SPEAK WITH DR CARTER ~ PROVIDED OFFICE NUMBER DR CARTER WAS UPDATED
--- NOTE | 2019-06-23 18:00 | Progress Note ---
DATE: 06/23/2019 SUBJECTIVE: The patient is sitting in bed, in no acute distress. The patient has cognitive impairment and unable to be engaged during the evaluation. The was at bedside. We discussed the G-tube placement. The patient is going to have family meeting with brother and [id number]. The patient is hard of hearing and forgetful. Unable to understand, process, communicate, or appreciate information given to him. MENTAL STATUS EXAMINATION: The patient is alert and oriented times self and place. Mood is neutral. Affect is flat. Thought process, there is a paucity of thought content. Thought content, no suicidal or homicidal ideation. ASSESSMENT: Cognitive impairment. Status post stroke. PLAN: 1. Encouraged the to agree to G-tube placement. 2. The patient lacks capacity to make decision and is the decision maker. We will continue to follow. Dominick Mason M.D. DR: FREDDIE JOB#: [id number] CC:
--- NOTE | 2019-06-23 19:11 | NUR ---
HAND-OFF: Report given to
--- NOTE | 2019-06-23 19:40 | NUR ---
NURSE NOTES: Received patient comfortably resting in bed,no SOB noted.
[2019-06-23 20:00] VITALS: BP 118/59
[2019-06-23] MEDS: Tamsulosin 0.4mg cap ORAL SCH (20:42)
[2019-06-23 23:49] VITALS: BP 121/68
--- NOTE | 2019-06-24 01:00 | Progress Note ---
DATE: 06/23/2019 SUBJECTIVE: The patient had a CAT scan of the abdomen and pelvis yesterday evening. Findings notable for probable gastritis, anasarca, pleural effusions, fecal impaction, liver hemangioma, right hydronephrosis, lower lobe pulmonary atelectasis, and infiltrative process. OBJECTIVE: HEENT: Oral thrush. LUNGS: Bilateral breath sounds. HEART: Regular rhythm and rate. Normal S1 and S2. ABDOMEN: Soft. EXTREMITIES: 1+ dependent edema. IMPRESSION: 1. Oral thrush. 2. Dysphagia. 3. Metabolic and toxic encephalopathies. 4. Status post septic shock. 5. Intravascular volume depletion. 6. Severe protein-calorie malnutrition. 7. Diabetes mellitus, status post diabetic ketoacidosis. PLAN: Family members do not want to proceed with G-tube or endoscopy. Further care options are limited. Cardiovascular management will require monitoring of volume status and possibly diuresis on occasion to mobilize extravascular edema. We will discuss with primary care physician discharge medication regimen upon final discharge plan. Mathew Mayers M.D. DR: PARTHA JOB#: [id number] CC:
--- NOTE | 2019-06-24 01:00 | Progress Note ---
DATE: 06/21/2019 CARDIOLOGY PROGRESS NOTE Late entry SUBJECTIVE: The patient's status unchanged. Family members considering endoscopy and G-tube. The patient remains on replacement of electrolytes including magnesium by IV route. Blood pressure parameters remained tenuous at times. OBJECTIVE: VITAL SIGNS: Blood pressure 99/47, pulse 78, respiratory rate 19. HEENT: Poor oral hygiene. LUNGS: Diminished breath sounds. HEART: Regular rhythm and rate. Normal S1, S2. ABDOMEN: Soft. EXTREMITIES: No edema. NEUROLOGIC: Baseline hemiparesis. LABORATORY AND DIAGNOSTIC DATA: Sodium 137, potassium 4.7, bicarb 28, BUN 9, creatinine 0.7, glucose 156. Albumin 1.9. White count 8.1 and hemoglobin 10.3. IMPRESSION: 1. Clinically unchanged. 2. High risk due to multiorgan system disease and poor oral intake. PLAN: Await family decision. Nutrition needed by feeding tube. Otherwise the patient will not recover. Continues to require adjustment of the insulin regimen, fluid challenges, and electrolyte repletion. Continuing DVT prophylaxis. The family members do not want to proceed with aforementioned recommendations and would encourage hospice care plan. Mathew Mayers M.D. DR: Vidal JOB#: [id number] CC:
--- NOTE | 2019-06-24 01:00 | Progress Note ---
DATE: 06/20/2019 CARDIOLOGY PROGRESS NOTE Late entry for 06/20/2019. SUBJECTIVE: The patient's condition remains poor. Family members are still undecided regarding aggressiveness of care. They have deferred placement of G-tube or endoscopy. OBJECTIVE: VITAL SIGNS: Blood pressure 112/54, pulse 72, and respirations 16. HEENT: Some oral thrush. NECK: Supple. LUNGS: Reveal few rhonchi. CARDIAC: Regular rhythm and rate. Normal S1, S2 with a fourth heart sound. ABDOMEN: Soft. EXTREMITIES: Trace edema. Baseline hemiparesis. IMPRESSION: 1. Hypomagnesemia. 2. Severe protein-calorie malnutrition. 3. Recovered shock due to sepsis and hypovolemia. 4. Diabetes mellitus status post diabetic ketoacidosis. 5. Metabolic and toxic encephalopathy. 6. Dysphagia. PLAN: 1. Adjust hydration and nutrition as tolerated. 2. Mouth care and antifungal therapy. 3. DVT prophylaxis. 4. Insulin titration by sliding scale. 5. Fluid challenge for hypotension. Mathew Mayers M.D. DR: ELAN JOB#: [id number] CC:
--- NOTE | 2019-06-24 02:30 | Progress Note ---
DATE: 06/22/2019 CARDIOLOGY PROGRESS NOTE Late entry SUBJECTIVE: The patient's initially requested Dr. Candelaria to proceed with G-tube, but later changed her mind again. The patient has episodes of low blood pressure. Intake is 50% getting worse. OBJECTIVE: VITAL SIGNS: Noted. LUNGS: Diminished breath sounds. CARDIAC: Regular rhythm and rate. Normal S1 and S2. ABDOMEN: Soft. EXTREMITIES: There is trace dependent edema. NEUROLOGIC: Baseline hemiparesis. LABORATORY DATA: Labs from 06/21/2019 reviewed. IMPRESSION: ____, not improving. PLAN: No new cardiovascular recommendations. We will continue to third space with low colloid osmotic pressure. Await CT of the abdomen and family decision regarding comfort care versus further GI intervention. Mathew Mayers M.D. DR: Vidal JOB#: [id number] CC:
[2019-06-24 04:00] VITALS: BP 126/68
[2019-06-24] MEDS: NovoLOG Insulin Flexpen SUBQ SCH ×7 (05:35→21:00)
--- NOTE | 2019-06-24 06:27 | General Progress Note ---
Assessment/Plan Problem List: (1) Diabetes mellitus ICD Codes: E11.9 - Type 2 diabetes mellitus without complications SNOMED: 23856624 (2) Hypertension ICD Codes: I10 - Essential (primary) hypertension SNOMED: 78472546 (3) Failure to thrive SNOMED: 49531814, 52908317 (4) DKA (diabetic ketoacidoses) ICD Codes: E11.10 - Type 2 diabetes mellitus with ketoacidosis without coma SNOMED: 920448424, 11870255 (5) UTI (urinary tract infection) ICD Codes: N39.0 - Urinary tract infection, site not specified SNOMED: 43943080, 88579263 Status: stable, progressing Assessment/Plan: increase Levemir to 4 units bid continue Novolog 3 units ac tid - hold if not eating Novolog sliding scale ac / hs sensitive scale Subjective Allergies: Coded Allergies: NO KNOWN ALLERGIES (Unverified Allergy, Unknown, 05/04/18) All Systems: reviewed and negative except above Subjective events noted fasting glucose is elevated Item Value Date Time Bedside Blood Glucose 182 mg/dl H 06/23/19 1741 Bedside Blood Glucose 234 mg/dl H 06/23/19 1213 Bedside Blood Glucose 321 mg/dl H 06/23/19 0915 Bedside Blood Glucose 84 mg/dl 06/23/19 0554 Objective Last 24 Hour Vital Signs Date Time Temp Pulse Resp B/P (MAP) Pulse Ox O2 Delivery O2 Flow Rate FiO2 06/24/19 04:00 98.3 78 18 126/68 (87) 96 06/23/19 23:49 98.6 78 18 121/68 (85) 100 06/23/19 20:01 Room Air 06/23/19 20:00 98.3 78 16 118/59 (78) 96 06/23/19 16:00 97.0 74 18 116/60 (78) 98 06/23/19 12:00 97.8 72 18 127/64 (85) 98 06/23/19 09:00 Room Air 06/23/19 08:00 98.6 80 18 115/66 (82) 97 Intake and Output 06/23/19 06/24/19 18:59 06:59 Intake Total 1080 ml Output Total 600 ml Balance 480 ml Intake Oral 1080 ml Output Urine Total 600 ml # Bowel Movements 2 Height (Feet): 5 Height (Inches): 8.00 Weight (Pounds): 92 General Appearance: no apparent distress Neck: normal alignment Cardiovascular: normal rate Respiratory/Chest: decreased breath sounds Abdomen: normal bowel sounds Objective Current Medications Medications (Trade) Dose Ordered Sig/Frankie Route PRN Reason Start Time Stop Time Status Last Admin Dose Admin Acetaminophen (Tylenol) 650 mg Q4H PRN ORAL Mild Pain/Temp > 100.5 06/17/19 00:30 07/09/19 20:29 06/21/19 04:25 Clotrimazole (Mycelex Belinda) 10 mg FIVE TIMES A DAY WARREN 06/22/19 19:00 06/29/19 18:59 06/24/19 06:12 Dextrose (Dextrose 50%) 25 ml Q30M PRN IV Hypoglycemia 06/16/19 22:45 07/16/19 06:44 Dextrose (Dextrose 50%) 50 ml Q30M PRN IV Hypoglycemia 06/16/19 22:45 07/16/19 06:44 06/21/19 05:45 Heparin Sodium (Porcine) (Heparin 5000 units/ml) 5,000 units EVERY 12 HOURS SUBQ 06/17/19 09:00 07/10/19 08:59 06/23/19 20:43 Insulin Aspart (NovoLOG) BEFORE MEALS AND HS SUBQ 06/17/19 06:30 07/16/19 11:29 06/24/19 05:35 Insulin Aspart (NovoLOG) 3 units NOVOTIAC SUBQ 06/19/19 06:30 07/17/19 11:49 06/24/19 05:36 Insulin Detemir (Levemir) 3 units EVERY 12 HOURS SUBQ 06/21/19 09:00 07/10/19 20:59 06/23/19 20:44 Ondansetron HCl (Zofran) 4 mg Q6H PRN IVP Nausea & Vomiting 06/17/19 02:30 07/10/19 20:29 06/19/19 00:36 Pantoprazole (Protonix) 40 mg DAILY IVP 06/17/19 09:00 07/12/19 08:59 06/23/19 09:13 Tamsulosin HCl (Flomax) 0.4 mg BEDTIME ORAL 06/17/19 21:00 07/10/19 20:59 06/23/19 20:42 Luis Gonzalez MD Jun 24, 2019 06:27
--- NOTE | 2019-06-24 07:17 | NUR ---
HAND-OFF: Report given to AL Crum.
--- NOTE | 2019-06-24 07:30 | NUR ---
NURSE NOTES: pt resting in bed. Denies pain am, no SOB reported, no cough at this time. bed in low position, bed alarm on . call light within reach. fall precaution maintained. will continue to monitor.
[2019-06-24 08:00] VITALS: BP 127/63
[2019-06-24] MEDS: Levemir Flexpen SUBQ SCH ×2 (09:00→21:00)
[2019-06-24] MEDS: Pantoprazole Inj IVP SCH (09:03)
[2019-06-24] MEDS: Heparin 5000 units/ml inj SUBQ SCH ×2 (09:05→22:00)
--- NOTE | 2019-06-24 11:02 | NUR ---
SPEECH PATHOLOGY: S: PATIENT CLEARED FOR ST INTERVENTION BY AL WALLACE. PATIENT EASILY ALERTED TO P.O. TRIALS, BUT COMPLAINED OF FATIGUE. O; DYSPHAGIA MANAGEMENT A: UNFORTUNATELY, THIS GENTLEMAN CONTINUES TO EXPERIENCE ADECLINE IN CONDITION. ALBUMIN NOW 1.7. P.O. INTAKE INSUFFICIENT TO SUPPORT NUTRITION/HYDRATION NEEDS PROGRESSIVELY WEAKER. PERSISTENT RLL INFILTRATE PER VIDEO SWALLOW STUDY, PATIENT ON SAFEST VISCOSITY TO MINIMIZE RISK OF ASPIRATION FAILURE TO THRIVE SEVERE LOSS OF MUSCLE MASS PATIENT RECEIVING TREATMENT FOR THRUSH. P: CONSIDER PEG WITH P.O. FOR ORAL GRATIFICATION VS COMFORT/CENTERED CARE PER CHART, FAMILY HAS AGREED FOR HOSPICE CARE NO FURTHER SKILLED ST SERVICES APPEAR TO BE NEEDED AT THIS TIME
--- NOTE | 2019-06-24 11:07 | NUR ---
SPEECH PATHOLOGY/D.C. SUMMARY; S: PATIENT CLEARED FOR ST INTERVENTION BY AL WALLACE. PATIENT EASILY ALERTED TO P.O. TRIALS, BUT COMPLAINED OF FATIGUE. O; DYSPHAGIA MANAGEMENT A: PATIENT PARTIALLY MET GOALS. HE TOLERATED HIS DIET OF PUREE WITH NECTAR THICK LIQUIDS WITH OVERT S/S OF ASPIRATION, HOWEVER, HE CONTINUES TO EXPERIENCE A DECLINE IN CONDITION DUE TO FAILURE TO THRIVE/INSUFFICIENT P.O. INTAKE. ALBUMIN NOW 1.7. P.O. INTAKE INSUFFICIENT TO SUPPORT NUTRITION/HYDRATION NEEDS PROGRESSIVELY WEAKER. PERSISTENT RLL INFILTRATE PER VIDEO SWALLOW STUDY, PATIENT ON SAFEST VISCOSITY TO MINIMIZE RISK OF ASPIRATION FAILURE TO THRIVE SEVERE LOSS OF MUSCLE MASS PATIENT RECEIVING TREATMENT FOR THRUSH NURSING STAFF MET GOAL FOR ASPIRATION PRECAUTIONS AND ORAL CARE. P: D/C FROM SKILLED ST SERVICES
[2019-06-24 12:00] VITALS: BP 125/81
--- NOTE | 2019-06-24 12:08 | NUR ---
NURSE NOTES: Spoke with pt , regarding consent for endoscopy, she's not sure, will talk to her brother. waiting for call back from pts .
--- NOTE | 2019-06-24 12:39 | NUR ---
BS 492, 15 units insulin given. notified MD, waiting for call back.
--- NOTE | 2019-06-24 12:53 | NUR ---
Dr. Mayers call back reg BS 492, will order IVF. will continue to monitor.
--- NOTE | 2019-06-24 13:04 | NUR ---
RD ASSESSMENT & RECOMMENDATIONS SEE CARE ACTIVITY FOR COMPLETE ASSESSMENT DAILY ESTIMATED NEEDS: Needs based on Underweight, diabetes / 42.9kg 30-40 kcals/kg 8906-7109 total kcals 1-2 g protein/kg 43-86 g total protein 25-30 mL/kg 7350-2421 total fluid mLs NUTRITION DIAGNOSIS: * Increased kcal/prot needs R/T underweight status as evidenced by pt is 66% of [place] Body Weight, severe generalized wasting, w/ suspected 22.5 lbs wt loss x1 month, pt w/ poor PO intake, family refusing PEG at this time. * Altered nutrition related lab values R/T diabetes as evidenced by hypo and hyperglycemia (1935 on adm-> 127 195), A1C 8.1 CURRENT DIET:CCHO MED, CARDIAC/ liquify puree moist, NTL + Glucerna TID PO DIET RECOMMENDATIONS: CCHO LOW/ TEXTURE PER AUXILIARY ENGINEER + GLUCERNA 1 TETRA BERT TID ADDITIONAL RECOMMENDATIONS: * Weekly wts (calibrated bedscale) given severe underweight status and suspected wt loss * Monitor BGs closely -> improved since adm * 1 carb/high prot snack in between meals as accepted * Wound care: Add Vit C 250mg daily + RAFFY BID as accepted. * Consider appetite stimulant- poor PO, underweight, + wt loss
--- NOTE | 2019-06-24 13:38 | General Progress Note ---
Assessment/Plan Problem List: (1) Abdominal pain ICD Codes: R10.9 - Unspecified abdominal pain SNOMED: 28567784 (2) Hip fracture ICD Codes: S72.009A - Fracture of unspecified part of neck of unspecified femur , initial encounter for closed fracture SNOMED: 983204903 (3) Diabetes mellitus type II, uncontrolled ICD Codes: E11.65 - Type 2 diabetes mellitus with hyperglycemia SNOMED: 54378149, 875418813 (4) DKA (diabetic ketoacidoses) ICD Codes: E11.10 - Type 2 diabetes mellitus with ketoacidosis without coma SNOMED: 371442271, 69185628 (5) Hypotension ICD Codes: I95.9 - Hypotension, unspecified SNOMED: 53493493, 59916863 (6) UTI (urinary tract infection) ICD Codes: N39.0 - Urinary tract infection, site not specified SNOMED: 74996701, 95109786 (7) Failure to thrive SNOMED: 97064552, 55937207 (8) Hyperglycemia ICD Codes: R73.9 - Hyperglycemia, unspecified SNOMED: 81471913 (9) Dehydration ICD Codes: E86.0 - Dehydration SNOMED: 45303652, 11050466 (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 ICD Codes: Z86.39 - Personal history of other endocrine, nutritional and metabolic disease SNOMED: 704050015 (11) HTN (hypertension) ICD Codes: I10 - Essential (primary) hypertension SNOMED: 36395493 (12) Cerebral vascular disease ICD Codes: I67.9 - Cerebrovascular disease, unspecified SNOMED: 73558487 (13) Dysphagia ICD Codes: R13.10 - Dysphagia, unspecified SNOMED: 86827589, 635532193 Status: stable, progressing Assessment/Plan: stable message left with gi to proceed with egd monitor bs diabetes rx per endo dvt/stress ulcer prophylaxis CT abd per GI dc planning tomorrow if stable Subjective ROS Limited/Unobtainable: No Constitutional: Reports: malaise, weakness HEENT: Reports: no symptoms Cardiovascular: Reports: no symptoms Respiratory: Reports: no symptoms Gastrointestinal/Abdominal: Reports: no symptoms Genitourinary: Reports: no symptoms Neurologic/Psychiatric: Reports: no symptoms Endocrine: Reports: no symptoms Hematologic/Lymphatic: Reports: no symptoms Allergies: Coded Allergies: NO KNOWN ALLERGIES (Unverified Allergy, Unknown, 05/04/18) All Systems: reviewed and negative except above Subjective stable. BS remains labile. recent BS 400. d/w family, they do not want hospice. wants to proceed with egd. Objective Last 24 Hour Vital Signs Date Time Temp Pulse Resp B/P (MAP) Pulse Ox O2 Delivery O2 Flow Rate FiO2 06/24/19 12:00 98.4 105 18 125/81 (96) 99 06/24/19 09:00 Room Air 06/24/19 08:00 98.0 104 18 127/63 (84) 97 06/24/19 04:00 98.3 78 18 126/68 (87) 96 06/23/19 23:49 98.6 78 18 121/68 (85) 100 06/23/19 20:01 Room Air 06/23/19 20:00 98.3 78 16 118/59 (78) 96 06/23/19 16:00 97.0 74 18 116/60 (78) 98 Intake and Output 06/23/19 06/24/19 19:00 07:00 Intake Total 1080 ml Output Total 600 ml 1000 ml Balance 480 ml -1000 ml Intake Oral 1080 ml Output Urine Total 600 ml 1000 ml # Bowel Movements 2 1 Height (Feet): 5 Height (Inches): 8.00 Weight (Pounds): 92 Objective General Appearance: WD/WN, alert, cachetic, thin Neck: supple Cardiovascular: normal rate, regular rhythm Respiratory/Chest: chest wall non-tender, lungs clear, normal breath sounds, no respiratory distress, no accessory muscle use Abdomen: normal bowel sounds, non tender, soft, no organomegaly, no mass Edema: no edema noted Arm (L), no edema noted Arm (R), no edema noted Leg (L), no edema noted Leg (R), no edema noted Pedal (L), no edema noted Pedal (R), no edema noted Generalized Neurologic: alert David Garcia MD Jun 24, 2019 13:38
--- NOTE | 2019-06-24 13:56 | Infectious Diseases Prog Note ---
Assessment/Plan Assessment/Plan IMPRESSION: Sepsis resolved [facility] UTI. 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 Hypernatremia, Cachexia, Severe protein-calorie malnutrition. Atrial fibrillation Acute renal failure, resolved hepatic angioma RECOMMENDATIONS: Observe off antibiotic Waiting for placement Subjective ROS Limited/Unobtainable: Yes Cardiovascular: Reports: no symptoms Gastrointestinal/Abdominal: Reports: no symptoms Allergies: Coded Allergies: NO KNOWN ALLERGIES (Unverified Allergy, Unknown, 05/04/18) Objective Vital Signs Last 24 Hour Vital Signs Date Time Temp Pulse Resp B/P (MAP) Pulse Ox O2 Delivery O2 Flow Rate FiO2 06/24/19 12:00 98.4 105 18 125/81 (96) 99 06/24/19 09:00 Room Air 06/24/19 08:00 98.0 104 18 127/63 (84) 97 06/24/19 04:00 98.3 78 18 126/68 (87) 96 06/23/19 23:49 98.6 78 18 121/68 (85) 100 06/23/19 20:01 Room Air 06/23/19 20:00 98.3 78 16 118/59 (78) 96 06/23/19 16:00 97.0 74 18 116/60 (78) 98 Height (Feet): 5 Height (Inches): 8.00 Weight (Pounds): 92 General Appearance: cachetic HEENT: mucous membranes moist Respiratory/Chest: lungs clear Cardiovascular: normal rate Abdomen: soft, non tender Extremities: no edema Neurologic/Psychiatric: alert, responsive Musculoskeletal: atrophy Current Medications Medications (Trade) Dose Ordered Sig/Frankie Route PRN Reason Start Time Stop Time Status Last Admin Dose Admin Acetaminophen (Tylenol) 650 mg Q4H PRN ORAL Mild Pain/Temp > 100.5 06/17/19 00:30 07/09/19 20:29 06/21/19 04:25 Clotrimazole (Mycelex Belinda) 10 mg FIVE TIMES A DAY WARREN 06/22/19 19:00 06/29/19 18:59 06/24/19 12:24 Dextrose (Dextrose 50%) 25 ml Q30M PRN IV Hypoglycemia 06/16/19 22:45 07/16/19 06:44 Dextrose (Dextrose 50%) 50 ml Q30M PRN IV Hypoglycemia 06/16/19 22:45 07/16/19 06:44 06/21/19 05:45 Heparin Sodium (Porcine) (Heparin 5000 units/ml) 5,000 units EVERY 12 HOURS SUBQ 06/17/19 09:00 07/10/19 08:59 06/24/19 09:05 Insulin Aspart (NovoLOG) BEFORE MEALS AND HS SUBQ 06/17/19 06:30 07/16/19 11:29 06/24/19 12:26 Insulin Aspart (NovoLOG) 3 units NOVOTIAC SUBQ 06/19/19 06:30 07/17/19 11:49 06/24/19 12:25 Insulin Detemir (Levemir) 4 units EVERY 12 HOURS SUBQ 06/24/19 09:00 07/10/19 20:59 06/24/19 09:00 Ondansetron HCl (Zofran) 4 mg Q6H PRN IVP Nausea & Vomiting 06/17/19 02:30 07/10/19 20:29 06/19/19 00:36 Pantoprazole (Protonix) 40 mg DAILY IVP 06/17/19 09:00 07/12/19 08:59 06/24/19 09:03 Tamsulosin HCl (Flomax) 0.4 mg BEDTIME ORAL 06/17/19 21:00 07/10/19 20:59 06/23/19 20:42 Kaveh Barreto MD Jun 24, 2019 13:56
--- NOTE | 2019-06-24 15:01 | NUR ---
DISCHARGE PLANNING DISCHARGE DISCUSSED WITH DR CARTER PER DR CARTER FAMILY NO LONGER WANTS HOSPICE AND IS AGREEABLE TO EGD ORDER NOTED FOR DR HEATH
[2019-06-24 16:00] VITALS: BP 135/75
--- NOTE | 2019-06-24 19:09 | NUR ---
HAND-OFF: Report given to Mohan MELENDEZ.
--- NOTE | 2019-06-24 19:30 | NUR ---
NURSE NOTES: RECEIVED PATIENT LYING IN BED, AWAKE, ALERT/ORIENTED TO PERSON/PLACE, DENIES PAIN. NO SIGNS AND SYMPTOMS OF ACUTE CARDIO RESPIRATORY DISTRESS/SHORTNESS OF BREATH, DENIES CHEST PAIN, NO PERIPHERAL EDEMA NOTED. NO COMPLAINTS OF GI DISCOMFORT, NO N/V/D. SIDE RAILS UP X3/BED IN LOWEST POSITION FOR SAFETY, CALL LIGHT WITHIN REACH. CONTINUE WITH CURRENT PLAN OF CARE. NAD.
[2019-06-24 20:00] VITALS: BP 118/63
--- NOTE | 2019-06-24 20:36 | General Progress Note ---
Assessment/Plan Status: stable, progressing Assessment/Plan: Assessment - DM with DKA - h/o recent oral thrush - poor po, odynophagia - family still decline EGD/ PEG at this time - h/o CVA - AMS / Delirium - hip fx - abnormal LFT with liver mass - CT c/w benign hemangioma Recommendations - po as tolerated - supplement shakes PO - d/c planning - f/u AFP and CEA - No EGD/PEG at this time per family decision Subjective Allergies: Coded Allergies: NO KNOWN ALLERGIES (Unverified Allergy, Unknown, 05/04/18) Subjective above noted d/w over phone understands patient with poor po and declining nutrition still refusing to sign consent for EGD or PEG d/w RN, [employer], and PMD Objective Last 24 Hour Vital Signs Date Time Temp Pulse Resp B/P (MAP) Pulse Ox O2 Delivery O2 Flow Rate FiO2 06/24/19 18:28 Room Air 06/24/19 16:00 98.9 93 18 135/75 (95) 96 06/24/19 12:00 98.4 105 18 125/81 (96) 99 06/24/19 09:00 Room Air 06/24/19 08:00 98.0 104 18 127/63 (84) 97 06/24/19 04:00 98.3 78 18 126/68 (87) 96 06/23/19 23:49 98.6 78 18 121/68 (85) 100 Intake and Output 06/23/19 06/24/19 19:00 07:00 Intake Total 1080 ml Output Total 600 ml 1000 ml Balance 480 ml -1000 ml Intake Oral 1080 ml Output Urine Total 600 ml 1000 ml # Bowel Movements 2 1 Height (Feet): 5 Height (Inches): 8.00 Weight (Pounds): 92 Objective Thin elderly man NCAT supple CTA RR abd soft no edema Juany Candelaria MD Jun 24, 2019 20:36
[2019-06-24] MEDS: Tamsulosin 0.4mg cap ORAL SCH (21:58)
[2019-06-25] VITALS: BP 113/56
--- NOTE | 2019-06-25 03:31 | Progress Note ---
DATE: 06/24/2019 SUBJECTIVE: The patient's was in the room. The patient has not been eating and appears more confused today. He is alert; however, he is not answering any questions. The is very anxious. We discussed G-tube placement. The patient's again disagrees with the G-tube placement and "perseverates." He is only skin and bone. He is losing weight. I explained to her since he is losing weight, the GI and primary doctor are recommending G-tube placement. However, the patient was anxious. She followed me downstairs and repeated to me in regard to G-tube placement. Again, I explained to her it appears that she is unable to process the information given to her. MENTAL STATUS EXAMINATION: The patient is alert and oriented times self. More confused today. Mood is neutral. Affect is flat. Thought process, there is a paucity of thought content. Thought content, no suicidal or homicidal ideation. ASSESSMENT: Cognitive impairment, status post stroke. PLAN: The patient lacks capacity to make decision. Dominick Mason M.D. DR: FREDDIE JOB#: [id number] CC:
[2019-06-25 04:00] VITALS: BP 120/66
--- NOTE | 2019-06-25 04:15 | Progress Note ---
DATE: 06/24/2019 CARDIOLOGY PROGRESS NOTE SUBJECTIVE: The patient's condition remains tenuous. Glucose is quite labile ranging from 47 to 490. The patient has little to no oral intake. Family members continue to decline PEG for nutrition. OBJECTIVE: VITAL SIGNS: Blood pressure 135/75, pulse 93, and respirations 18. HEENT: Oral thrush. LUNGS: Bilateral breath sounds. No wheezing. HEART: Regular rhythm and rate. Normal S1 and S2. ABDOMEN: Soft. EXTREMITIES: No edema. LABORATORY DATA: Most recent labs noted. IMPRESSION AND PLAN: Family decision regarding intensity of care is pending. Without G-tube, the patient will not likely be able to survive. At this time, efforts to optimize metabolic parameters and volume status with fluids and insulin will continue. Mathew Mayers M.D. DR: JONAS JOB#: [id number] CC:
--- NOTE | 2019-06-25 06:06 | NUR ---
NURSE NOTES: RESTED WELL, NO SIGNIFICANT CHANGE OF CONDITION NOTED THROUGHOUT THE NIGHT. SAFETY MAINTAINED. NAD.
[2019-06-25] MEDS: NovoLOG Insulin Flexpen SUBQ SCH ×4 (06:25→11:52)
--- NOTE | 2019-06-25 06:26 | General Progress Note ---
Assessment/Plan Problem List: (1) Diabetes mellitus ICD Codes: E11.9 - Type 2 diabetes mellitus without complications SNOMED: 87674058 (2) Hypertension ICD Codes: I10 - Essential (primary) hypertension SNOMED: 21421801 (3) Failure to thrive SNOMED: 54341247, 96976886 (4) DKA (diabetic ketoacidoses) ICD Codes: E11.10 - Type 2 diabetes mellitus with ketoacidosis without coma SNOMED: 266911515, 89478647 (5) UTI (urinary tract infection) ICD Codes: N39.0 - Urinary tract infection, site not specified SNOMED: 51454632, 23296686 Status: stable, progressing Assessment/Plan: continue Levemir 4 units bid continue Novolog 3 units ac tid - hold if not eating Novolog sliding scale ac / hs sensitive scale Subjective ROS Limited/Unobtainable: Yes Allergies: Coded Allergies: NO KNOWN ALLERGIES (Unverified Allergy, Unknown, 05/04/18) Subjective events noted labile glucose Item Value Date Time Bedside Blood Glucose 186 mg/dl H 06/25/19 0606 Bedside Blood Glucose 47 mg/dl L 06/24/19 2100 Bedside Blood Glucose 492 mg/dl H 06/24/19 1628 Bedside Blood Glucose 492 mg/dl H 06/24/19 1226 Bedside Blood Glucose 492 mg/dl H 06/24/19 0900 Objective Last 24 Hour Vital Signs Date Time Temp Pulse Resp B/P (MAP) Pulse Ox O2 Delivery O2 Flow Rate FiO2 06/25/19 04:00 97.9 75 18 120/66 (84) 97 06/25/19 00:00 97.8 71 18 113/56 (75) 99 06/24/19 21:00 Room Air 06/24/19 20:00 96.9 83 18 118/63 (81) 97 06/24/19 18:28 Room Air 06/24/19 16:00 98.9 93 18 135/75 (95) 96 06/24/19 12:00 98.4 105 18 125/81 (96) 99 06/24/19 09:00 Room Air 06/24/19 08:00 98.0 104 18 127/63 (84) 97 Intake and Output 06/24/19 06/25/19 19:00 07:00 Intake Total 300 ml 480 ml Output Total 1100 ml Balance -800 ml 480 ml Intake Oral 300 ml 480 ml Output Urine Total 1100 ml # Bowel Movements 3 1 Height (Feet): 5 Height (Inches): 8.00 Weight (Pounds): 93 General Appearance: no apparent distress Neck: normal alignment Cardiovascular: normal rate Respiratory/Chest: decreased breath sounds Abdomen: normal bowel sounds Pelvis: normal external exam Objective Current Medications Medications (Trade) Dose Ordered Sig/Frankie Route PRN Reason Start Time Stop Time Status Last Admin Dose Admin Acetaminophen (Tylenol) 650 mg Q4H PRN ORAL Mild Pain/Temp > 100.5 06/17/19 00:30 07/09/19 20:29 06/21/19 04:25 Clotrimazole (Mycelex Belinda) 10 mg FIVE TIMES A DAY WARREN 06/22/19 19:00 06/29/19 18:59 06/24/19 21:58 Dextrose (Dextrose 50%) 25 ml Q30M PRN IV Hypoglycemia 06/16/19 22:45 07/16/19 06:44 Dextrose (Dextrose 50%) 50 ml Q30M PRN IV Hypoglycemia 06/16/19 22:45 07/16/19 06:44 06/21/19 05:45 Heparin Sodium (Porcine) (Heparin 5000 units/ml) 5,000 units EVERY 12 HOURS SUBQ 06/17/19 09:00 07/10/19 08:59 06/24/19 22:00 Insulin Aspart (NovoLOG) BEFORE MEALS AND HS SUBQ 06/17/19 06:30 07/16/19 11:29 06/24/19 16:28 Insulin Aspart (NovoLOG) 3 units NOVOTIAC SUBQ 06/19/19 06:30 07/17/19 11:49 06/24/19 16:27 Insulin Detemir (Levemir) 4 units EVERY 12 HOURS SUBQ 06/24/19 09:00 07/10/19 20:59 06/24/19 09:00 Ondansetron HCl (Zofran) 4 mg Q6H PRN IVP Nausea & Vomiting 06/17/19 02:30 07/10/19 20:29 06/19/19 00:36 Pantoprazole (Protonix) 40 mg DAILY IVP 06/17/19 09:00 07/12/19 08:59 06/24/19 09:03 Tamsulosin HCl (Flomax) 0.4 mg BEDTIME ORAL 06/17/19 21:00 07/10/19 20:59 06/24/19 21:58 Luis Gonzalez MD Jun 25, 2019 06:26
--- NOTE | 2019-06-25 07:35 | NUR ---
HAND-OFF: Report given to AL JIMÉNEZ.
--- NOTE | 2019-06-25 07:39 | NUR ---
NURSE NOTES: handoff received from Layne MELENDEZ, patient sitting in bed with meal tray, does not seem interested in breakfast tray. Patient is alert to name and confused. Patient has bed in the locked and lowest position with call light in reach. will continue to monitor.
[2019-06-25 08:00] VITALS: BP 100/60
[2019-06-25] MEDS ORDERED: MYCELEX TROCHE10 MG ORO (08:33)
[2019-06-25] MEDS ORDERED: ACETAMINOPHEN325 M1 ORAL (08:33)
[2019-06-25] MEDS ORDERED: Pantoprazole IVP (08:33)
[2019-06-25] MEDS ORDERED: NOVOLOG100 UNITS1 SUBQ ×2 (08:33)
[2019-06-25] MEDS ORDERED: FLOMAX0.4 MG ORAL (08:33)
[2019-06-25] MEDS ORDERED: LEVEMIR FL100 UNIT/1 SUBQ (08:33)
[2019-06-25] MEDS: Pantoprazole Inj IVP SCH (08:36)
[2019-06-25] MEDS: Heparin 5000 units/ml inj SUBQ SCH (08:38)
[2019-06-25] MEDS: Levemir Flexpen SUBQ SCH (08:39)
--- NOTE | 2019-06-25 09:03 | NUR ---
DISCHARGE PLANNING CLINICALS FAXED TO [facility] AWAIT ACCEPTANCE AND ASSIGNED ROOM NUMBER
--- NOTE | 2019-06-25 09:44 | NUR ---
DISCHARGE PLANNED PATIENT IS RETURNING TO [facility] ER ROOM 20A SKILLED T: [phone] FOR NURSE TO NURSE REPORT [facility] HAS BEEN ARRANGED FOR [employer]
--- NOTE | 2019-06-25 10:25 | Infectious Diseases Prog Note ---
Assessment/Plan Assessment/Plan antibiotics : none A 1. fungal UTI s/p rx 2. aspiration pneumonia s/p rx 3. leucocytosis resolved 4. renal failure improving 5. hepatic mass P 1. continue off antibiotics 2. placement awaited 3. will sign off please reconsult if any issues arise Thank you Subjective ROS Limited/Unobtainable: Yes Allergies: Coded Allergies: NO KNOWN ALLERGIES (Unverified Allergy, Unknown, 05/04/18) Objective Vital Signs Last 24 Hour Vital Signs Date Time Temp Pulse Resp B/P (MAP) Pulse Ox O2 Delivery O2 Flow Rate FiO2 06/25/19 08:00 97.4 87 16 100/60 (73) 100 06/25/19 04:00 97.9 75 18 120/66 (84) 97 06/25/19 00:00 97.8 71 18 113/56 (75) 99 06/24/19 21:00 Room Air 06/24/19 20:00 96.9 83 18 118/63 (81) 97 06/24/19 18:28 Room Air 06/24/19 16:00 98.9 93 18 135/75 (95) 96 06/24/19 12:00 98.4 105 18 125/81 (96) 99 Height (Feet): 5 Height (Inches): 8.00 Weight (Pounds): 93 Respiratory/Chest: lungs clear Cardiovascular: normal rate, regular rhythm, no gallop/murmur Abdomen: soft, non tender Extremities: no edema Current Medications Medications (Trade) Dose Ordered Sig/Frankie Route PRN Reason Start Time Stop Time Status Last Admin Dose Admin Acetaminophen (Tylenol) 650 mg Q4H PRN ORAL Mild Pain/Temp > 100.5 06/17/19 00:30 07/09/19 20:29 06/25/19 10:18 Clotrimazole (Mycelex Belinda) 10 mg FIVE TIMES A DAY WARREN 06/22/19 19:00 06/29/19 18:59 06/25/19 10:03 Dextrose (Dextrose 50%) 25 ml Q30M PRN IV Hypoglycemia 06/16/19 22:45 07/16/19 06:44 Dextrose (Dextrose 50%) 50 ml Q30M PRN IV Hypoglycemia 06/16/19 22:45 07/16/19 06:44 06/21/19 05:45 Heparin Sodium (Porcine) (Heparin 5000 units/ml) 5,000 units EVERY 12 HOURS SUBQ 06/17/19 09:00 07/10/19 08:59 06/25/19 08:38 Insulin Aspart (NovoLOG) BEFORE MEALS AND HS SUBQ 06/17/19 06:30 07/16/19 11:29 06/25/19 06:26 Insulin Aspart (NovoLOG) 3 units NOVOTIAC SUBQ 06/19/19 06:30 07/17/19 11:49 06/25/19 06:25 Insulin Detemir (Levemir) 4 units EVERY 12 HOURS SUBQ 06/24/19 09:00 07/10/19 20:59 06/25/19 08:39 Ondansetron HCl (Zofran) 4 mg Q6H PRN IVP Nausea & Vomiting 06/17/19 02:30 07/10/19 20:29 06/19/19 00:36 Pantoprazole (Protonix) 40 mg DAILY IVP 06/17/19 09:00 07/12/19 08:59 06/25/19 08:36 Tamsulosin HCl (Flomax) 0.4 mg BEDTIME ORAL 06/17/19 21:00 07/10/19 20:59 06/24/19 21:58 Shira Snyder MD Jun 25, 2019 10:24
--- NOTE | 2019-06-25 11:00 | NUR ---
NURSE NOTES: Pt skin assessed in presence of primary nurse. Non-blanchable erythema with dry peeling skin noted to sacrum. Pt denied tenderness when affected area minimally palpated. Both heels are soft but easily blanchabl. No new skin concerns noted.
--- NOTE | 2019-06-25 11:15 | NUR ---
NURSE NOTES: handoff given to AL Mazariegos at [facility].
--- NOTE | 2019-06-25 12:18 | NUR ---
NURSE NOTES: PATIENT DISCHARGED TO [facility]. PATIENT LEFT STABLE WITH NO PHYSICAL SIGNS OF DISTRESS. IV SITE REMOVED, NO HEMATOMA NOTED. PATIENT IV BAND REMOVED. PATIENT LEFT WITH EMS SERVICE. PATIENT SIGNED BELONGINGS LIST. SPOKE TO PATIENTS TO NOTIFY HER OF DISCHARGE.
--- NOTE | 2019-06-25 21:00 | Progress Note ---
DATE: 06/25/2019 SUBJECTIVE: The patient is in bed. No acute distress. Poor insight into her medical condition. Confused. Disoriented The patient is going back to the. I will follow her over there. MENTAL STATUS EXAMINATION: The patient is confused and disoriented. Mood is neutral to dysphoric. Affect is flat, congruent with mood. Thought process, there is a paucity of thought content. Thought content, no suicidal or homicidal ideation. Memory concentration is impaired. Insight and judgment is impaired. ASSESSMENT: 1. Status post stroke. 2. Dementia. PLAN: The patient lacks capacity to make decisions. Continue current treatment. Dominick Mason M.D. DR: MELISA JOB#: [id number] CC: FESTUS
--- NOTE | 2019-06-25 23:40 | General Progress Note ---
Assessment/Plan Status: stable, progressing Assessment/Plan: Assessment - DM with DKA - h/o recent oral thrush - poor po, odynophagia - family still decline EGD/ PEG at this time - h/o CVA - AMS / Delirium - hip fx - abnormal LFT with liver mass - CT c/w benign hemangioma Recommendations - po as tolerated - supplement shakes PO - d/c planning - f/u AFP and CEA - No EGD/PEG at this time per family decision Subjective Allergies: Coded Allergies: NO KNOWN ALLERGIES (Unverified Allergy, Unknown, 05/04/18) Subjective above noted no events overnight for discharge Objective Last 24 Hour Vital Signs Date Time Temp Pulse Resp B/P (MAP) Pulse Ox O2 Delivery O2 Flow Rate FiO2 06/25/19 09:00 Room Air 06/25/19 08:00 97.4 87 16 100/60 (73) 100 06/25/19 04:00 97.9 75 18 120/66 (84) 97 06/25/19 00:00 97.8 71 18 113/56 (75) 99 Intake and Output 06/24/19 06/25/19 19:00 07:00 Intake Total 300 ml 480 ml Output Total 1100 ml 1000 ml Balance -800 ml -520 ml Intake Oral 300 ml 480 ml Output Urine Total 1100 ml 1000 ml # Bowel Movements 3 1 Height (Feet): 5 Height (Inches): 8.00 Weight (Pounds): 93 Objective Thin elderly man NCAT supple CTA RR abd soft no edema Juany Candelaria MD Jun 25, 2019 23:40
--- NOTE | 2019-06-26 03:15 | Discharge Summary ---
DATE OF ADMISSION: 06/09/2019 DATE OF DISCHARGE: 06/25/2019 ADMISSION DIAGNOSES: 1. Diabetes, out of control. 2. Hyperosmolar nonketotic syndrome. 3. Sepsis. 4. UTI. 5. Possible aspiration pneumonia. 6. Dysphagia. 7. Failure to thrive. DISCHARGE DIAGNOSES: 1. Diabetes, out of control. 2. Hyperosmolar nonketotic syndrome. 3. Sepsis. 4. UTI. 5. Possible aspiration pneumonia. 6. Dysphagia. 7. Failure to thrive. HOSPITAL COURSE: [facility] with complaints of diabetes, out of control. He is found to be septic secondary to UTI and pneumonia. He was aggressively hydrated and no consultation was obtained. His diabetic regimen was adjusted. He continued to have very labile blood sugars related to labile p.o. intake. Because of complaints of dysphagia, a GI consultation was obtained. It was recommended that the patient undergo endoscopy I had extensive discussion with family about the indications, risks, and benefits, but they declined. They are aware that the patient may have possibly a stricture or even a mass or cancer in the esophagus, but they feel that he would be unlikely to be candidate for any type of treatment. They declined. On discharge, the patient was improving. His p.o. intake remained poor. They were not agreeable with a G-tube as well. The patient will be [facility] for [facility] and [facility]. Family are hopeful that he may improve there, but if not they are willing to consider hospice. DISCHARGE MEDICATIONS: Please see discharge medication list for discharge medications. DIET: Pureed diet. ACTIVITIES: Ad-rose. David Garcia M.D. DR: JARRETT JOB#: [id number] CC:
--- NOTE | 2019-06-26 19:45 | Progress Note ---
DATE: 06/25/2019 CARDIOLOGY PROGRESS NOTE Late entry for 06/25/2019. SUBJECTIVE: Family members continue to refuse endoscopy and G-tube placement. The patient's oral intake is poor. He still has difficulty swallowing. He still has very labile blood glucose levels. OBJECTIVE: VITAL SIGNS: Blood pressure 100/60, pulse 87, and respirations 16. Afebrile. HEENT: Positive oral thrush. LUNGS: Diminished breath sounds. CARDIAC: Regular rhythm and rate. Normal S1, S2 with a fourth heart sound. ABDOMEN: Soft and nontender. EXTREMITIES: Trace edema. NEUROLOGIC: Baseline hemiparesis. IMPRESSION: 1. Uncontrolled diabetes. 2. Dysphagia. 3. Severe protein-calorie malnutrition. 4. Recovered sepsis with shock. 5. Recovered diabetic ketoacidosis. PLAN: 1. Maximize hydration. 2. Insulin titration by sliding scale. 3. Encourage consideration for enteral feeding tube, otherwise hospice care would be recommended. 4. Discharge medication regimen reviewed and reconciled. Mathew Mayers M.D. : ELAN JOB#: [id number] CC:
== END 2019-06-25 12:09 | DRG 871 ==
LOC: EDBD 13:53 → EDBEDREQ 14:01 → EDBEDREQSVC 14:47 → EMR 15:35 → ICU 15:48 → EDBEDREQ 18:04 → 2W 06-11 20:08 → 4E 06-16 22:15
DX: A41.9 Sepsis, unspecified organism (principal); E11.00 Type 2 diabetes mellitus with hyperosmolarity without nonketotic hyperglycemic-hyperosmolar coma (NKHHC); E43 Unspecified severe protein-calorie malnutrition; J69.0 Pneumonitis due to inhalation of food and vomit; R65.21 Severe sepsis with septic shock; G92 Toxic encephalopathy; N39.0 Urinary tract infection, site not specified; Z68.1 Body mass index [BMI] 19.9 or less, adult; I69.951 Hemiplegia and hemiparesis following unspecified cerebrovascular disease affecting right dominant side; I50.32 Chronic diastolic (congestive) heart failure; N17.9 Acute kidney failure, unspecified; E87.0 Hyperosmolality and hypernatremia; B37.49 Other urogenital candidiasis; B37.0 Candidal stomatitis; E11.65 Type 2 diabetes mellitus with hyperglycemia; R13.10 Dysphagia, unspecified; R62.7 Adult failure to thrive; I11.0 Hypertensive heart disease with heart failure; N40.0 Benign prostatic hyperplasia without lower urinary tract symptoms; E87.5 Hyperkalemia; E86.0 Dehydration; D18.09 Hemangioma of other sites; I48.0 Paroxysmal atrial fibrillation; E83.39 Other disorders of phosphorus metabolism; E83.42 Hypomagnesemia
CPT/HCPCS: 36415; 71045; 74177; 74230; 76700; 80048; 80053; 80202; 81003; 82009; 82105; 82378; 82550; 82553; 82607; 82746; 82962; 83036; 83690; 83735; 83880; 84100; 84484; 85007; 85025; 87070; 87081; 87086; 87205; 93005; 93306; 94640; 96361; 96365; 96366; 96368; 96372; 99291; J1815; J2405; J7620; S5561